=== PATIENT | female | born 1965 | race Two or more races ===

== ENCOUNTER 2024-01-19 11:06 | Inpatient (IN) | payer MEDICAID, OTHER ==
[2024-01-19] VITALS (7 sets, daily range): BP systolic 105; BP diastolic 62; PULSE 68–102; RESP 16–22; TEMP 98.1; O2SAT 92–96
[~2024-01-19] VITALS: Ht 149.9 cm; Wt 75.4 kg
[2024-01-19 13:30] LABS: Basophils # (auto) 0 10 ^3/uL (0-0.2); Basophils % (auto) 0.3 % (0.0-2.0); Eosinophils # (auto) 0.4 10 ^3/uL (0-0.8); Eosinophils % (auto) 4.7 % (0.0-7.0); Hematocrit 37.9 % (36.0-46.0); Hemoglobin 12.4 g/dL (12.2-16.2); Lymphocytes # (auto) 1.3 10 ^3/uL (0.4-5.4); Lymphocytes % (auto) 16.5 % (10.0-50.0); Mean Corpuscular Hgb Conc. 32.7 g/dL (32.0-36.0); Mean Corpuscular Volume 85.6 fL (80.0-100.0); Monocytes # (auto) 0.5 10 ^3/uL (0-1.3); Monocytes % (auto) 6.2 % (0.0-12.0); Neutrophils # (auto) 5.9 10 ^3/uL (1.6-8.6); Neutrophils % (auto) 72.3 % (37.0-80.0); Platelet Count (auto) 149 10^3/uL (140-450); Red Blood Cells 4.42 10^6/uL (4.0-5.20); Red Cell Distribution Width 17.4 % (11.8-14.3); White Blood Cell 8.1 10^3/uL (4.4-10.8)
[2024-01-19 13:42] LABS: Chloride 109 mmol/L (98-107); Potassium 3.7 mmol/L (3.5-5.1); Sodium 146 mmol/L (136-145)
[2024-01-19 13:43] LABS: Calcium 10.4 mg/dL (8.7-10.4)
[2024-01-19 13:48] LABS: BUN/Creatinine Ratio 15.3 (10.0-20.0); Blood Urea Nitrogen 11 mg/dL (9-23); Glucose 107 mg/dL (74-106)
[2024-01-19 14:23] LABS: Anion Gap 5 (5-15); Carbon Dioxide 32 mmol/L (20-31)
[2024-01-19 15:22] LABS: Urine Bacteria FEW /hpf (None Seen); Urine Blood Negative /uL (Negative); Urine Budding Yeast MODERATE /hpf (None Seen); Urine Clarity Turbid (Clear); Urine Color Yellow (Yellow); Urine Hyaline Cast FEW /lpf (0 - 2); Urine Mucus FEW (None Seen); Urine Protein, UAD TRACE (Negative); Urine Specific Gravity 1.022 (1.001-1.035); Urine Urobilinogen Normal (Negative); Urine WBC 14 /hpf (0 - 5)
[2024-01-19] MEDS: cefTRIAXone 1GM/50ML D5W 50 ML IV ONE (16:55)
[2024-01-19] MEDS: methylPREDNISolone SOD SUCC 125 MG/2 ML VL IV ONE (16:55)
[2024-01-19] MEDS ORDERED: ONDANSETRON HCL 4 MG/2 ML VIAL IV PRN (17:00)
[2024-01-19] MEDS ORDERED: ACETAMINOPHEN 325 MG TAB PO PRN (17:00)
[2024-01-19] MEDS ORDERED: HYDROmorphone HCL 2 MG/ML VL/or syr IV PRN (17:00)
[2024-01-19] MEDS: IPRATROPIUM BROM 0.5 MG/2.5ML INH SOL NEB SCH (17:58)
[2024-01-19] MEDS: ALBUTEROL SULF 2.5 MG/0.5ML(0.5%) NEB SOLN ONE (17:58)
[2024-01-19] MEDS: IPRATROPIUM BROM 0.5 MG/2.5ML INH SOL ONE (17:58)
[2024-01-19] MEDS: ALBUTEROL SULF 2.5 MG/0.5ML(0.5%) NEB SOLN NEB SCH (17:59)
[2024-01-19] MEDS: AZITHROMYCIN 500MG/ 250ML 250 ML IV ONE (18:31)
[2024-01-19] MEDS: methylPREDNISolone SOD SUCC 125 MG/2 ML VL IV SCH (18:50)
[2024-01-19] MEDS: HYDROcodone-ACET 5/325MG TAB PO PRN (18:54)
[2024-01-19] MEDS: SODIUM CHLOR 0.9% PF (SALINE LOCK) 10ML VIAL/SYR IV SCH (22:00)
[2024-01-20] VITALS (18 sets, daily range): BP systolic 98–141; BP diastolic 18–93; PULSE 70–120; RESP 16–71; TEMP 97.6–98.4; O2SAT 93–100
[2024-01-20] MEDS ORDERED: APIX5TAB PO (02:30)
[2024-01-20] MEDS ORDERED: ATOR40TA52 PO (02:30)
[2024-01-20] MEDS ORDERED: CARV3.1240 PO (02:30)
[2024-01-20] MEDS ORDERED: CYCL-839 PO (02:30)
[2024-01-20] MEDS ORDERED: DOCU-94 PO (02:30)
[2024-01-20] MEDS ORDERED: AMLO1TAB22 PO (02:30)
[2024-01-20] MEDS ORDERED: MONT-8 PO (02:30)
[2024-01-20] MEDS ORDERED: LOSA-533 PO (02:30)
[2024-01-20] MEDS ORDERED: LEVO100T8 PO (02:34)
[2024-01-20] MEDS ORDERED: FAMO-12 PO (02:34)
[2024-01-20] MEDS ORDERED: GLIP5TAB21 PO (02:34)
[2024-01-20] MEDS ORDERED: POTA-36 PO (02:34)
[2024-01-20] MEDS ORDERED: MELA3TAB27 PO (02:34)
[2024-01-20 05:28] LABS: Basophils # (auto) 0 10 ^3/uL (0-0.2); Basophils % (auto) 0.1 % (0.0-2.0); Eosinophils # (auto) 0 10 ^3/uL (0-0.8); Eosinophils % (auto) 0.1 % (0.0-7.0); Hematocrit 33.6 % (36.0-46.0); Hemoglobin 11.4 g/dL (12.2-16.2); Lymphocytes # (auto) 0.5 10 ^3/uL (0.4-5.4); Lymphocytes % (auto) 16.4 % (10.0-50.0); Mean Corpuscular Hemoglobin 28.5 pg (28.0-32.0); Mean Corpuscular Hgb Conc. 33.8 g/dL (32.0-36.0); Mean Corpuscular Volume 84.4 fL (80.0-100.0); Monocytes # (auto) 0 10 ^3/uL (0-1.3); Monocytes % (auto) 1.2 % (0.0-12.0); Neutrophils # (auto) 2.5 10 ^3/uL (1.6-8.6); Neutrophils % (auto) 82.2 % (37.0-80.0); Nucleated Red Blood Cells % 0.2 %; Platelet Count (auto) 138 10^3/uL (140-450); Red Blood Cells 3.98 10^6/uL (4.0-5.20); Red Cell Distribution Width 16.8 % (11.8-14.3); White Blood Cell 3.1 10^3/uL (4.4-10.8)
[2024-01-20 05:37] LABS: Alanine Aminotransferase 22 U/L (7-40); Albumin 3.7 g/dL (3.2-4.8); Alkaline Phosphatase 83 U/L (46-116); Anion Gap 5 (5-15); Aspartate Aminotransferase 16 U/L (13-40); BUN/Creatinine Ratio 15.4 (10.0-20.0); Bilirubin, Total 0.5 mg/dL (0.2-1.0); Blood Urea Nitrogen 12 mg/dL (9-23); Calcium 10.5 mg/dL (8.7-10.4); Carbon Dioxide 29 mmol/L (20-31); Chloride 110 mmol/L (98-107); Glucose 270 mg/dL (74-106); Potassium 3.4 mmol/L (3.5-5.1); Sodium 144 mmol/L (136-145); Total Protein 6.4 g/dL (5.7-8.2)
[2024-01-20] MEDS: DOCUSATE SOD 100 MG CAP PO PRN (08:59)
[2024-01-20] MEDS: methylPREDNISolone SOD SUCC 40 MG/ML VL IV SCH (09:00)
[2024-01-20] MEDS: ENOXAPARIN SOD 40 MG/0.4 ML SYRINGE SC SCH (09:01)
[2024-01-20] MEDS: cefTRIAXone 1GM/50ML D5W 50 ML IV SCH (09:02)
[2024-01-20] MEDS ORDERED: methylPREDNISolone SOD SUCC 125 MG/2 ML VL IV SCH (10:00)
[2024-01-20] MEDS ORDERED: AZITHROMYCIN 500MG/ 250ML 250 ML IV SCH (10:00)
[2024-01-20] MEDS ORDERED: PATIENTS OWN MEDICATION (Atorvastatin Calcium 40 MG) PO SCH (10:00)
[2024-01-20] MEDS ORDERED: cefTRIAXone 1GM/50ML D5W 50 ML IV SCH (10:00)
[2024-01-20] MEDS: LOSARTAN POTASSIUM 25 MG TAB PO SCH (10:00)
[2024-01-20] MEDS: AZITHROMYCIN 500MG/ 250ML 250 ML IV SCH (10:49)
[2024-01-20] MEDS: POTASSIUM CHL 20 Meq TABLET PO ONE (10:50)
[2024-01-20] MEDS: CARVEDILOL 3.125 MG TAB PO SCH (12:12)
[2024-01-20] MEDS: MONTELUKAST SODIUM 10 MG TAB PO SCH (12:13)
[2024-01-20] MEDS: APIXABAN 5 MG TAB PO SCH (12:13)
[2024-01-20] MEDS: FUROSEMIDE 20 MG TAB PO ONE (12:14)
[2024-01-20] MEDS: PANTOPRAZOLE 40 MG/10 ML VIAL INJ IV ONE (17:33)
[2024-01-20] MEDS: CYCLOBENZAPRINE HCL 10 MG TAB PO SCH (17:33)
[2024-01-20] MEDS: FUROSEMIDE 20 MG TAB PO SCH (21:04)
[2024-01-20] MEDS: ATORVASTATIN 20 MG TAB PO SCH (21:05)
[2024-01-20 21:31] LABS: COVID19 ANTIGEN SOFIA FIA NEGATIVE (NEGATIVE)
[2024-01-20 21:32] LABS: Rapid Influenza A Negative (Negative); Rapid Influenza B Negative (Negative)
[2024-01-21] VITALS (16 sets, daily range): BP systolic 101–112; BP diastolic 59–71; PULSE 74–115; RESP 16–20; TEMP 98–98.6; O2SAT 85–99
[2024-01-21 05:23] LABS: Basophils # (auto) 0 10 ^3/uL (0-0.2); Eosinophils # (auto) 0 10 ^3/uL (0-0.8); Hematocrit 31.1 % (36.0-46.0); Hemoglobin 10.4 g/dL (12.2-16.2); Lymphocytes # (auto) 0.8 10 ^3/uL (0.4-5.4); Lymphocytes % (auto) 10.2 % (10.0-50.0); Mean Corpuscular Hemoglobin 28.7 pg (28.0-32.0); Mean Corpuscular Hgb Conc. 33.5 g/dL (32.0-36.0); Mean Corpuscular Volume 85.4 fL (80.0-100.0); Monocytes # (auto) 0.2 10 ^3/uL (0-1.3); Monocytes % (auto) 2.9 % (0.0-12.0); Neutrophils # (auto) 7.2 10 ^3/uL (1.6-8.6); Neutrophils % (auto) 86.9 % (37.0-80.0); Nucleated Red Blood Cells % 0.3 %; Platelet Count (auto) 137 10^3/uL (140-450); Red Blood Cells 3.64 10^6/uL (4.0-5.20); Red Cell Distribution Width 16.9 % (11.8-14.3); White Blood Cell 8.2 10^3/uL (4.4-10.8)
[2024-01-21] MEDS: LEVOTHYROXINE SODIUM 100 MCG TAB PO SCH (05:28)
[2024-01-21 05:38] LABS: Chloride 107 mmol/L (98-107); Potassium 3.4 mmol/L (3.5-5.1); Sodium 144 mmol/L (136-145)
[2024-01-21 05:39] LABS: Anion Gap 7 (5-15); Calcium 10.4 mg/dL (8.7-10.4); Carbon Dioxide 30 mmol/L (20-31)
[2024-01-21 05:44] LABS: BUN/Creatinine Ratio 15.9 (10.0-20.0); Blood Urea Nitrogen 13 mg/dL (9-23); Glucose 192 mg/dL (74-106)
[2024-01-21 05:45] LABS: Magnesium 1.6 mg/dL (1.6-2.6)
[2024-01-21] MEDS: POTASSIUM CHL 20 Meq TABLET PO STA (06:24)
[2024-01-21] MEDS: PANTOPRAZOLE 40 MG/10 ML VIAL INJ IV SCH (09:03)
[2024-01-21] MEDS ORDERED: FUROSEMIDE 20 MG TAB PO SCH (10:00)
[2024-01-21 13:32] LABS: Base Excess 5.3 mmol/L (-2.0-3.0)
[2024-01-22] VITALS (12 sets, daily range): BP systolic 99–119; BP diastolic 58–75; PULSE 80–106; RESP 16–20; TEMP 98–98.3; O2SAT 91–98
[2024-01-22] MEDS: IPRATROPIUM BROM 0.5 MG/2.5ML INH SOL NEB SCH (02:09)
[2024-01-22] MEDS: ALBUTEROL SULF 2.5 MG/0.5ML(0.5%) NEB SOLN NEB SCH (02:09)
[2024-01-22 06:52] LABS: Calcium 10.1 mg/dL (8.7-10.4); Chloride 105 mmol/L (98-107); Potassium 3.4 mmol/L (3.5-5.1); Sodium 144 mmol/L (136-145)
[2024-01-22 06:53] LABS: Anion Gap 7 (5-15); Carbon Dioxide 32 mmol/L (20-31)
[2024-01-22 06:58] LABS: BUN/Creatinine Ratio 24.7 (10.0-20.0); Basophils # (auto) 0 10 ^3/uL (0-0.2); Basophils % (auto) 0.1 % (0.0-2.0); Blood Urea Nitrogen 22 mg/dL (9-23); Eosinophils # (auto) 0 10 ^3/uL (0-0.8); Glucose 203 mg/dL (74-106); Hematocrit 32.6 % (36.0-46.0); Hemoglobin 10.9 g/dL (12.2-16.2); Lymphocytes # (auto) 0.8 10 ^3/uL (0.4-5.4); Lymphocytes % (auto) 9.2 % (10.0-50.0); Mean Corpuscular Hgb Conc. 33.4 g/dL (32.0-36.0); Mean Corpuscular Volume 83.9 fL (80.0-100.0); Monocytes # (auto) 0.2 10 ^3/uL (0-1.3); Monocytes % (auto) 2.5 % (0.0-12.0); Neutrophils % (auto) 88.2 % (37.0-80.0); Nucleated Red Blood Cells % 0.1 %; Platelet Count (auto) 176 10^3/uL (140-450); Red Blood Cells 3.88 10^6/uL (4.0-5.20); Red Cell Distribution Width 17.8 % (11.8-14.3)
[2024-01-22] MEDS: POTASSIUM CHL 20 Meq TABLET PO ONE (08:39)
[2024-01-22] MEDS: METOPROLOL SUCCINATE XL 50 MG TAB PO SCH (09:29)
[2024-01-22 12:26] LABS: Hepatitis B Surface Antigen Negative (Negative)
[2024-01-22 13:17] LABS: Hepatitis C Antibody Positive (Negative)
[2024-01-22] MEDS ORDERED: HYDR-4902 PO (15:15)
[2024-01-22] MEDS ORDERED: POTA-36 PO (17:43)
[2024-01-22] MEDS ORDERED: LEVO750T40 PO (17:43)
[2024-01-22] MEDS ORDERED: PRED20TA2 PO (17:43)
[2024-01-22] MEDS ORDERED: FURO20TA3 PO (17:43)
[2024-01-22] MEDS ORDERED: METO25TA93 PO (17:43)
[2024-01-23] MEDS ORDERED: AUG875T PO (14:56)
== END 2024-01-22 15:45 | disposition home or self-care (01) | DRG 133 ==
LOC: ER 11:06 → OVERFLOW 16:48 → ER 16:55 → CENTRAL 01-20 02:23
PROVIDERS: ADMIT Internal Medicine Geriatric Medicine; ATTEND Internal Medicine Geriatric Medicine
DX: J96.21 Acute and chronic respiratory failure with hypoxia (principal); I50.43 Acute on chronic combined systolic (congestive) and diastolic (congestive) heart failure; J15.69 Pneumonia due to other Gram-negative bacteria; I27.20 Pulmonary hypertension, unspecified; D68.59 Other primary thrombophilia; J15.9 Unspecified bacterial pneumonia; J44.0 Chronic obstructive pulmonary disease with (acute) lower respiratory infection; Z99.81 Dependence on supplemental oxygen; J44.1 Chronic obstructive pulmonary disease with (acute) exacerbation; E87.6 Hypokalemia; E78.5 Hyperlipidemia, unspecified; J98.4 Other disorders of lung; E03.9 Hypothyroidism, unspecified; I11.0 Hypertensive heart disease with heart failure; R73.03 Prediabetes; Z20.822 Contact with and (suspected) exposure to COVID-19; Z88.1 Allergy status to other antibiotic agents; Z87.891 Personal history of nicotine dependence; Z86.718 Personal history of other venous thrombosis and embolism; Z86.711 Personal history of pulmonary embolism; Z59.71 Insufficient health insurance coverage
CPT/HCPCS: 36415; 36600; 71045; 80048; 80053; 81001; 82805; 83036; 83735; 83880; 84484; 85025; 86803; 87340; 87426; 87804; 93005; 93306; 94640; 96365; 96375; 96376; 99291; G0378; J2470

== ENCOUNTER 2024-02-15 15:52 | Inpatient (IN) | payer MEDICAID ==
[~2024-02-15] VITALS: Ht 149.9 cm; Wt 74.4 kg
[~2024-02-15 15:52] MED LIST: AMLO1TAB22 PO; APIX5TAB PO; ATOR40TA52 PO; AUG875T PO; CARV3.1240 PO; CYCL-839 PO; DOCU-94 PO; FAMO-12 PO; FURO20TA3 PO; GLIP5TAB21 PO; HYDR-4902 PO; LEVO100T8 PO; LOSA-533 PO; MELA3TAB27 PO; METO25TA93 PO; MONT-8 PO; POTA-36 PO; PRED20TA2 PO
--- NOTE | 2024-02-15 17:06 | ED.PDOC ---
SOB-HPI HPI Comments 58Y F with PMHx DM, HTN, pulmonary HTN, CHF, COPD, and bilateral knee avascular necrosis presents to ED via EMS for chief complaint SOB x3days with cough and right-sided back pain. Pt denies chest pain, fever, cough. Pt is usually on 3L/min O2 at home, has been using home nebulizer and inhaler without relief. Pt states she has not had lower extremity pain relief from any of her pain medications. Upon EMS arrival, BS was 65. Pt states she recently moved to [place] and is getting established with pain management but has not been prescribed new pain meds. Allergies include Levaquin. Chief Complaint: Shortness of Breath Time Seen by MD: 16:36 Primary Care Provider: NONE Reviewed notes: Medications, Allergies Information Source: Patient, Emergency Med Personnel Mode of Arrival: EMS Severity: Moderate Timing: Days Duration: Since onset Context: At Rest PE Risk Factors: None History of: COPD, CHF Prehospital treatment: 12 Lead EKG, Oxygen Modifying Factors: Nothing Associated Signs and Symptoms: Cough If cough with SOB: Non-Productive Past Medical History PAST MEDICAL HISTORY: CHF, COPD, DM, HTN Past Medical History (Other): Pulmonary hypertension, oxygen dependence, bilateral knee avascular necrosis, chronic bilateral lower extremity pain Surgical History: Denies all surgeries PARCEL POST DELIVERY History: No Pertinent PARCEL POST DELIVERY History Family History Family History: Unknown Social History Smoker: Quit Greater Than 1 Year Alcohol: Denies ETOH Use Drugs: Denies Drug Use Lives In: Home Constitutional: denies: chills, diaphoresis, fatigue, fever, malaise, sweats, weakness, others EENTM: denies: blurred vision, double vision, ear bleeding, ear discharge, ear drainage, ear pain, ear ringing, eye pain, eye redness, hearing loss, mouth pain, mouth swelling, nasal discharge, nose bleeding, nose congestion, nose pain, photophobia, tearing, throat pain, throat swelling, voice changes, others Respiratory: reports: cough, shortness of breath; denies: hemoptysis, orthop rahul, SOB at rest, SOB with excertion, stridor, wheezing, others Cardiovascular: denies: chest pain, dizzy spells, diaphoresis, Dyspnea on exertion, edema, irregular heart beat, left arm pain, lightheadedness, palpitations, PND, syncope, others Gastrointestinal: denies: abdomen distended, abdominal pain, blood streaked bowels, constipated, diarrhea, dysphagia, difficulty swallowing, hematemesis, melena, nausea, poor appetite, poor fluid intake, rectal bleeding, rectal pain, vomiting, others Genitourinary: denies: abnormal vagina bleeding, burning, dyspareunia, dysuria, flank pain, frequency, hematuria, incontinence, pain, , vagina discharge, urgency, others Neurological: denies: dizziness, fainting, headache, left sided numbness, left sided weakness, numbness, paresthesia, pre-existing deficit, right sided numbness, right sided weakness, seizure, speech problems, tingling, tremors, weakness, others Musculoskeletal: reports: back pain (lt sided); denies: gout, joint pain, joint swelling, muscle pain, muscle stiffness, neck pain, others Integumetry: denies: bruises, change in color, change in hair/nails, dryness, laceration, lesions, lumps, rash, wounds, others Allergic/Immunocompromised: denies: Difficulty Healing, Frequent Infections, Hives, Itching, others Hematologic/Lymphatic: denies: anemia, blood clots, easy bleeding, easy bruising, swollen glands, others Endocrine: denies: excessive hunger, excessive sweating, excessive thirst, excessive urination, flushing, intolerance to cold, intolerance to heat, unexplained weight gain, unexplained weight loss, others Psychiatric: denies: anxiety, bipolar disorder, depression, hopeless, panic disorder, schizophrenia, sleepless, suicidal, others All Other Systems: Reviewed and Negative Physical Exam General Appearance: Mild Distress HEENT: Normal ENT Inspection Neck: Full Range of Motion, Normal Inspection Respiratory: Decreased Breath Sounds, No Accessory Muscle Use, No Respiratory Distress, Rhonchi, Wheezing Cardiovascular: No JVD, Regular Rate/Rhythm Breast Exam: Deferred Gastrointestinal: Non Tender, Soft Genitalia: Deferred Pelvic: Deferred Rectal: Deferred Extremities: Normal inspection, Normal range of motion, Pedal edema Neurologic: Alert, No Motor Deficits, Normal Affect, Normal Mood, No Sensory Deficits Cerebellar Function: NOT DONE Reflexes: NOT DONE Skin: Dry, Normal Color, Warm Lymphatic: NOT DONE Was a procedure done? Was a procedure done?: No Differential Dx Differential Diagnosis: Asthma, CHF, COPD, Myocardial infarction, Panic Attack, Pneumonia, Pneumothorax, URI X-Ray, Labs, Meds, VS Vital Signs Date Time Temp Pulse Resp B/P (MAP) Pulse Ox O2 Delivery O2 Flow Rate FiO2 02/15/24 18:27 98.0 89 17 104/49 (67) 94 98.0 02/15/24 18:23 101 14 90 Nasal Cannula* 3 32 02/15/24 18:06 92 02/15/24 17:55 92 12 161/121 02/15/24 17:54 161/121 02/15/24 17:41 18 98 Nasal Cannula* 3 32 02/15/24 17:20 98.6 88 17 95/55 (68) 96 98.6 02/15/24 17:20 88 16 96 Nasal Cannula 3.0 02/15/24 16:01 97.6 88 20 97/67 (77) 94 Lab Test 02/15/24 18:00 02/15/24 17:06 Range/Units Troponin I High Sensitivity < 3 L < 3 L </=34 ng/L White Blood Count 5.6 4.4-10.8 10^3/uL Red Blood Count 4.24 4.0-5.20 10^6/uL Hemoglobin 11.9 L 12.2-16.2 g/dL Hematocrit 36.8 36.0-46.0 % Mean Corpuscular Volume 86.7 80.0-100.0 fL Mean Corpuscular Hemoglobin 28.1 28.0-32.0 pg Mean Corpuscular Hemoglobin Concent 32.4 32.0-36.0 g/dL Red Cell Distribution Width 18.7 H 11.8-14.3 % Platelet Count 170 140-450 10^3/uL Mean Platelet Volume 6.9 6.9-10.8 fL Neutrophils (%) (Auto) 62.3 37.0-80.0 % Lymphocytes (%) (Auto) 21.1 10.0-50.0 % Monocytes (%) (Auto) 8.7 0.0-12.0 % Eosinophils (%) (Auto) 7.5 H 0.0-7.0 % Basophils (%) (Auto) 0.4 0.0-2.0 % Neutrophils # (Auto) 3.5 1.6-8.6 10 ^3/uL Lymphocytes # (Auto) 1.2 0.4-5.4 10 ^3/uL Monocytes # (Auto) 0.5 0-1.3 10 ^3/uL Eosinophils # (Auto) 0.4 0-0.8 10 ^3/uL Basophils # (Auto) 0 0-0.2 10 ^3/uL Nucleated Red Blood Cells 0.1 % Sodium Level 146 H 136-145 mmol/L Potassium Level 3.8 3.5-5.1 mmol/L Chloride Level 108 H 98-107 mmol/L Carbon Dioxide Level 30 20-31 mmol/L Anion Gap 8 5-15 Blood Urea Nitrogen 11 9-23 mg/dL Creatinine 0.60 0.550-1.02 mg/dL Glomerular Filtration Rate Calc 103 >90 mL/min BUN/Creatinine Ratio 18.3 10.0-20.0 Serum Glucose 88 74-106 mg/dL Calcium Level 10.1 8.7-10.4 mg/dL B-Type Natriuretic Peptide 72.22 0-100 pg/mL Current Medications Medications (Trade) Dose Ordered Sig/Aquiles Route Start Time Stop Time Status Last Admin Albuterol (Ventolin Medneb) 5 mg ONCE ONCE NEB 02/15/24 17:00 02/15/24 17:01 DC 02/15/24 17:41 Ipratropium [place] (Atrovent Medneb) 0.5 mg ONCE ONCE NEB 02/15/24 17:00 02/15/24 17:01 DC 02/15/24 17:41 Methylprednisolone Sodium Succinate (Solu Medrol) 125 mg ONCE ONCE IV 02/15/24 17:00 02/15/24 17:01 DC 02/15/24 17:52 Furosemide (Lasix Injection) 40 mg ONCE ONCE IV 02/15/24 17:00 02/15/24 17:01 DC 02/15/24 17:54 Morphine Sulfate 4 mg ONCE ONCE IV 02/15/24 17:00 02/15/24 17:01 DC 02/15/24 17:55 Ondansetron HCl (Zofran) 4 mg ONCE ONCE IV 02/15/24 17:00 02/15/24 17:01 DC 02/15/24 17:52 PROCEDURE(s): CXRP - CHEST PORTABLE REASON: sob ORDER NUMBER(s): [id number], ACCESSION NUMBER(s): [id number] CHEST RADIOGRAPH Indication:sob Technique: Single frontal view of the chest was obtained Comparison: XY CHEST PORTABLE on DOS: 01/19/24 FINDINGS: Lines and Tubes: None Lungs: Fullness to the right hilum with increased interstitial markings in the right base. This may represent a developing infiltrate can not exclude right hilar abnormality. If a CT of the chest is of concern recommend IUD contrast. Pleura: No effusion. No pneumothorax. Cardiomediastinal contours: Unremarkable Bones: No acute osseous abnormality. IMPRESSION: 1. Stable fullness of the right hilum unchanged from 01/19/2024. Increasing interstitial markings in the right base may represent developing infiltrate. 2. If a CT of the chest is under consideration recommend IV contrast. X-Ray, Labs, Meds, VS Comment 58Y F with PMHx DM, HTN, pulmonary HTN, CHF, COPD, and bilateral knee avascular necrosis cleaning of shortness a breath and right sided posterior thoracic area pain Vitals remarkable for BP 161/121 Exam remarkable for diminished breath sounds, scattered rales, audible wheezes Rhythm strip independently interpreted by me: Sinus rhythm, rate 92, no ectopy. EKG pending Chest x-ray IMPRESSION: 1. Stable fullness of the right hilum unchanged from 01/19/2024. Increasing interstitial markings in the right base may represent developing infiltrate. 2. If a CT of the chest is under consideration recommend IV contrast. CBC unremarkable, basic metabolic panel remarkable for sodium 146 and normal glucose 2 serial troponins and BNP normal Patient treated with the following in the ED: Albuterol 5 mg/Atrovent 0.5 mg nebulized x2, Solu-Medrol 125 mg IV, Lasix 40 mg IV, Rocephin 1 g IV, Zithromax 500 mg IV On re-evaluation, shortness of breath has improved, oxygen saturation is normal on 3 L nasal cannula and other vitals are stable. Plan is to admit the patient for IV antibiotics and respiratory support as needed Time of 1ST Reevaluation: 17:06 Reevaluation 1ST: Unchanged Patient Education/Counseling: Diagnosis, Treatment Family Education/Counseling: No Family Present Departure 1 Departure Time of Disposition: 19:49 Impression: Primary Impression: Acute and chronic respiratory failure Additional Impression: Pneumonia Qualified Codes: J18.9 - Pneumonia, unspecified organism Disposition: 09 ADMITTED INPATIENT Admit to: Tele Condition: Guarded Critical Care Note Critical Care Time?: No Stability Stability form required: No Heart Score Heart Score: Heart Score Response (Comments) Value History N/A 0 EKG N/A 0 Age N/A 0 Risk Factors N/A 0 Troponin N/A 0 Total 0 I personally scribed for POORNIMA OSULLIVAN MD ([facility]) on 02/15/24 at 17:06. Electronically submitted by Corine Love ([facility]). I personally scribed for POORNIMA OSULLIVAN MD ([email or web address]) on 02/15/24 at 19:06. Electronically submitted by Corine Love ([facility]). POORNIMA OSULLIVAN MD Feb 15, 2024 17:06
[2024-02-15 17:26] LABS: Basophils # (auto) 0 10 ^3/uL (0-0.2); Basophils % (auto) 0.4 % (0.0-2.0); Eosinophils # (auto) 0.4 10 ^3/uL (0-0.8); Eosinophils % (auto) 7.5 % (0.0-7.0); Hematocrit 36.8 % (36.0-46.0); Hemoglobin 11.9 g/dL (12.2-16.2); Lymphocytes # (auto) 1.2 10 ^3/uL (0.4-5.4); Lymphocytes % (auto) 21.1 % (10.0-50.0); Mean Corpuscular Hemoglobin 28.1 pg (28.0-32.0); Mean Corpuscular Hgb Conc. 32.4 g/dL (32.0-36.0); Mean Corpuscular Volume 86.7 fL (80.0-100.0); Monocytes # (auto) 0.5 10 ^3/uL (0-1.3); Monocytes % (auto) 8.7 % (0.0-12.0); Neutrophils # (auto) 3.5 10 ^3/uL (1.6-8.6); Neutrophils % (auto) 62.3 % (37.0-80.0); Nucleated Red Blood Cells % 0.1 %; Platelet Count (auto) 170 10^3/uL (140-450); Red Blood Cells 4.24 10^6/uL (4.0-5.20); Red Cell Distribution Width 18.7 % (11.8-14.3); White Blood Cell 5.6 10^3/uL (4.4-10.8)
[2024-02-15 17:32] LABS: Chloride 108 mmol/L (98-107); Potassium 3.8 mmol/L (3.5-5.1); Sodium 146 mmol/L (136-145)
[2024-02-15 17:33] LABS: Anion Gap 8 (5-15); Carbon Dioxide 30 mmol/L (20-31)
[2024-02-15 17:34] LABS: Calcium 10.1 mg/dL (8.7-10.4)
[2024-02-15 17:39] LABS: BUN/Creatinine Ratio 18.3 (10.0-20.0); Blood Urea Nitrogen 11 mg/dL (9-23); Glucose 88 mg/dL (74-106)
[2024-02-15] MEDS: ALBUTEROL SULF 2.5 MG/0.5ML(0.5%) NEB SOLN NEB ONE (17:41)
[2024-02-15] MEDS: IPRATROPIUM BROM 0.5 MG/2.5ML INH SOL NEB ONE (17:41)
[2024-02-15] MEDS: methylPREDNISolone SOD SUCC 125 MG/2 ML VL IV ONE (17:52)
[2024-02-15] MEDS: ONDANSETRON HCL 4 MG/2 ML VIAL IV ONE (17:52)
[2024-02-15] MEDS: FUROSEMIDE 40 MG/4 ML VIAL IV ONE (17:54)
[2024-02-15] MEDS: MORPHINE SULFATE 4 MG/ML SYR/VIAL IV ONE (17:55)
[2024-02-15 18:23] VITALS: PULSE 101; RESP 14; O2SAT 90
--- NOTE | 2024-02-15 19:02 | DVH ---
CHEST RADIOGRAPH Indication:sob Technique: Single frontal view of the chest was obtained Comparison: XY CHEST PORTABLE on DOS: 01/19/24 FINDINGS: Lines and Tubes: None Lungs: Fullness to the right hilum with increased interstitial markings in the right base. This may r epresent a developing infiltrate can not exclude right hilar abnormality. If a CT of the chest is of concern recommend IUD contrast. Pleura: No effusion. No pneumothorax. Cardiomediastinal contours: Unremarkable Bones: No acute osseous abnormality. IMPRESSION: 1. Stable fullness of the right hilum unchanged from 01/19/2024. Increasing interstitial markings in the right base may represent developing infiltrate. 2. If a CT of the chest is under consideration recommend IV contrast.
[2024-02-15 19:30] VITALS: RESP 12; O2SAT 94
[2024-02-15] MEDS: cefTRIAXone 1GM/50ML D5W 50 ML IV ONE (20:40)
[2024-02-15 21:15] LABS: Urine Bacteria None Seen /hpf (None Seen)
[2024-02-15] MEDS: AZITHROMYCIN 500MG/ 250ML 250 ML IV ONE (21:16)
[2024-02-15 21:38] LABS: Urine Blood Negative /uL (Negative); Urine Clarity Clear (Clear); Urine Color Colorless (Yellow); Urine Protein, UAD Negative (Negative); Urine Specific Gravity 1.007 (1.001-1.035); Urine Urobilinogen Normal (Negative); Urine WBC 1 /hpf (0 - 5); Urine pH 5.5 (5.0-9.0)
[2024-02-15] MEDS ORDERED: ONDANSETRON HCL 4 MG/2 ML VIAL IV PRN (22:45)
[2024-02-15] MEDS ORDERED: DEXTROSE (50%) 50ML SYRG IV PRN (22:45)
[2024-02-15] MEDS ORDERED: MORPHINE SULFATE INJ 2 MG/ml SYRG IV PRN (22:45)
[2024-02-15] MEDS ORDERED: TEMAZEPAM 15 MG CAP PO PRN (22:45)
[2024-02-15] MEDS ORDERED: NITROGLYCERIN 0.4 MG SL TAB SL PRN (22:45)
[2024-02-15 22:56] VITALS: BP 94/62; PULSE 81; RESP 16; TEMP 98.9; O2SAT 94
[2024-02-16] VITALS (14 sets, daily range): BP systolic 90–161; BP diastolic 55–121; PULSE 85–112; RESP 16–19; TEMP 97.5–98.2; O2SAT 91–99
[2024-02-16] MEDS: HYDROcodone-ACET 7.5/325MG TAB PO PRN (00:22)
[2024-02-16] MEDS: IPRATROPIUM BROM 0.5 MG/2.5ML INH SOL NEB PRN (00:28)
[2024-02-16] MEDS: ALBUTEROL SULF 2.5 MG/0.5ML(0.5%) NEB SOLN NEB PRN (00:28)
[2024-02-16 04:13] LABS: Basophils # (auto) 0 10 ^3/uL (0-0.2); Basophils % (auto) 0.1 % (0.0-2.0); Eosinophils # (auto) 0 10 ^3/uL (0-0.8); Eosinophils % (auto) 0.3 % (0.0-7.0); Hematocrit 34.9 % (36.0-46.0); Hemoglobin 11.4 g/dL (12.2-16.2); Lymphocytes # (auto) 0.4 10 ^3/uL (0.4-5.4); Lymphocytes % (auto) 13.5 % (10.0-50.0); Mean Corpuscular Hemoglobin 28.3 pg (28.0-32.0); Mean Corpuscular Hgb Conc. 32.8 g/dL (32.0-36.0); Mean Corpuscular Volume 86.3 fL (80.0-100.0); Monocytes # (auto) 0 10 ^3/uL (0-1.3); Monocytes % (auto) 1.8 % (0.0-12.0); Neutrophils # (auto) 2.2 10 ^3/uL (1.6-8.6); Neutrophils % (auto) 84.3 % (37.0-80.0); Nucleated Red Blood Cells % 0.1 %; Platelet Count (auto) 147 10^3/uL (140-450); Red Blood Cells 4.04 10^6/uL (4.0-5.20); Red Cell Distribution Width 18.8 % (11.8-14.3); White Blood Cell 2.6 10^3/uL (4.4-10.8)
[2024-02-16 04:28] LABS: Chloride 105 mmol/L (98-107); Potassium 3.6 mmol/L (3.5-5.1); Sodium 142 mmol/L (136-145)
[2024-02-16 04:29] LABS: Anion Gap 7 (5-15); Calcium 10.2 mg/dL (8.7-10.4); Carbon Dioxide 30 mmol/L (20-31)
[2024-02-16 04:34] LABS: Glucose 352 mg/dL (74-106)
[2024-02-16 04:35] LABS: BUN/Creatinine Ratio 13.8 (10.0-20.0); Blood Urea Nitrogen 13 mg/dL (9-23)
--- NOTE | 2024-02-16 05:35 | DVHHP2 ---
History of Present Illness Reason for Visit: Shortness of breath History of Present Illness 58-year-old female presents for evaluation of shortness for breath. Patient presents with a four day history of worsening shortness for breath. She reports using her nebulizer med nebs at home without relief of symptoms. She uses 3 L of nasal cannula oxygen at home as well. Denies chest pain or palpitations. No fever. No other acute complaints reported. Past Medical History Diabetes mellitus, COPD, hypertension, CHF, bilateral knee avascular necrosis Past Surgical History Denies Family History Noncontributory Smoke: Quit ALCOHOL: none Drugs: None Review of Systems Review of Systems Review of systems are currently negative otherwise addressed in HPI. Allergies: Coded Allergies: Levofloxacin (Verified Allergy, Unknown, 01/19/24) Medications Current Medications Medications Dose Ordered Sig/Aquiles Route Start Time Stop Time Status Last Admin Dose Admin Ceftriaxone Sodium 50 ml @ 100 mls/hr DAILY@2000 IV 02/16/24 20:00 Azithromycin 250 ml @ 125 mls/hr DAILY@2100 IV 02/16/24 21:00 UNV Amlodipine Besylate 5 mg DAILY PO 02/16/24 10:00 Apixaban 5 mg BID PO 02/16/24 10:00 Atorvastatin Calcium 40 mg HS PO 02/16/24 22:00 Carvedilol 3.125 mg Q12HR PO 02/16/24 10:00 Furosemide 20 mg DAILY PO 02/16/24 10:00 Levothyroxine Sodium 100 mcg QAM@0600 PO 02/16/24 06:00 Montelukast Sodium 10 mg HS PO 02/16/24 22:00 Albuterol 2.5 mg Q6HPRN PRN NEB 02/15/24 22:45 02/16/24 00:28 2.5 MG Ipratropium [place] 0.5 mg Q6HPRN PRN NEB 02/15/24 22:45 02/16/24 00:28 0.5 MG Diagnostic Test (Pha) 1 strip ACHS 02/16/24 07:00 Insulin Human Regular ACHS SC 02/16/24 07:00 Dextrose 50 ml UD PRN IV 02/15/24 22:45 Temazepam 15 mg QHSP PRN PO 02/15/24 22:45 Ondansetron HCl 4 mg Q4HP PRN IV 02/15/24 22:45 Acetaminophen 650 mg Q6HP PRN PO 02/15/24 22:45 Nitroglycerin 0.4 mg Q5MINP PRN SL 02/15/24 22:45 Morphine Sulfate 2 mg Q30M PRN IV 02/15/24 22:45 Acetaminophen/ Hydrocodone Bitart 1 tab Q8HP PRN PO 02/15/24 23:45 02/16/24 00:22 1 TAB Exam Vital Signs Vital Signs Date Time Temp Pulse Resp B/P (MAP) Pulse Ox O2 Delivery O2 Flow Rate FiO2 02/16/24 05:00 87 12 96/56 (69) 97 02/16/24 00:28 Nasal Cannula 3.0 02/16/24 00:28 32 02/15/24 23:42 97.6 97.6 Exam Gen: 58-year-old female in mild distress Skin: Warm, dry, normal color and texture, no rash. HEENT: Normocephalic atraumatic, mucous membranes moist and pink. Neck: Cervical and supraclavicular nodes normal without enlargement, trachea is midline, thyroid gland is normal without masses. Pulmonary: Clear to auscultation and percussion bilaterally. Cardiac: Regular rate and rhythm. No murmur Abdomen: Soft, nontender, nondistended, bowel sounds present all 4 quadrants, no guarding, no rigidity, no organomegaly. Extremities: No cyanosis, clubbing, no edema Neuro: Cranial nerves II through XII grossly intact, normal affect and speech, no focal motor deficits. Labs/Xrays ORDERING PHYSICIAN: POORNIMA OSULLIVAN MD PROCEDURE(s): CXRP - CHEST PORTABLE REASON: sob ORDER NUMBER(s): [id number], ACCESSION NUMBER(s): [id number] CHEST RADIOGRAPH Indication:sob Technique: Single frontal view of the chest was obtained Comparison: XY CHEST PORTABLE on DOS: 01/19/24 FINDINGS: Lines and Tubes: None Lungs: Fullness to the right hilum with increased interstitial markings in the right base. This may represent a developing infiltrate can not exclude right hilar abnormality. If a CT of the chest is of concern recommend IUD contrast. Pleura: No effusion. No pneumothorax. Cardiomediastinal contours: Unremarkable Bones: No acute osseous abnormality. IMPRESSION: 1. Stable fullness of the right hilum unchanged from 01/19/2024. Increasing interstitial markings in the right base may represent developing infiltrate. 2. If a CT of the chest is under consideration recommend IV contrast. Labs Test 02/16/24 03:37 02/15/24 21:07 02/15/24 20:03 02/15/24 17:06 Range/Units White Blood Count 2.6 L 4.4-10.8 10^3/uL Red Blood Count 4.04 4.0-5.20 10^6/uL Hemoglobin 11.4 L 12.2-16.2 g/dL Hematocrit 34.9 L 36.0-46.0 % Mean Corpuscular Volume 86.3 80.0-100.0 fL Mean Corpuscular Hemoglobin 28.3 28.0-32.0 pg Mean Corpuscular Hemoglobin Concent 32.8 32.0-36.0 g/dL Red Cell Distribution Width 18.8 H 11.8-14.3 % Platelet Count 147 140-450 10^3/uL Mean Platelet Volume 7.2 6.9-10.8 fL Neutrophils (%) (Auto) 84.3 H 37.0-80.0 % Lymphocytes (%) (Auto) 13.5 10.0-50.0 % Monocytes (%) (Auto) 1.8 0.0-12.0 % Eosinophils (%) (Auto) 0.3 0.0-7.0 % Basophils (%) (Auto) 0.1 0.0-2.0 % Neutrophils # (Auto) 2.2 1.6-8.6 10 ^3/uL Lymphocytes # (Auto) 0.4 0.4-5.4 10 ^3/uL Monocytes # (Auto) 0 0-1.3 10 ^3/uL Eosinophils # (Auto) 0 0-0.8 10 ^3/uL Basophils # (Auto) 0 0-0.2 10 ^3/uL Nucleated Red Blood Cells 0.1 % Sodium Level 142 136-145 mmol/L Potassium Level 3.6 3.5-5.1 mmol/L Chloride Level 105 98-107 mmol/L Carbon Dioxide Level 30 20-31 mmol/L Anion Gap 7 5-15 Blood Urea Nitrogen 13 9-23 mg/dL Creatinine 0.94 # 0.550-1.02 mg/dL Glomerular Filtration Rate Calc 69 >90 mL/min BUN/Creatinine Ratio 13.8 10.0-20.0 Serum Glucose 352 H 74-106 mg/dL Calcium Level 10.2 8.7-10.4 mg/dL Urine Color Colorless Yellow Urine Clarity Clear Clear Urine pH 5.5 5.0-9.0 Urine Specific [place] 1.007 1.001-1.035 Urine Protein Negative Negative Urine Ketones Negative Negative Urine Blood Negative Negative /uL Urine Nitrite Negative Negative Urine Bilirubin Negative Negative Urine Urobilinogen Normal Negative mg/dL Urine Leukocyte Esterase Negative Negative /uL Urine RBC 1 0 - 4 /hpf Urine WBC 1 0 - 5 /hpf Urine Squamous Epithelial Cells Few <5 /hpf Urine Bacteria None seen None Seen /hpf Urine Glucose Normal Normal mg/dL Troponin I High Sensitivity < 3 L </=34 ng/L B-Type Natriuretic Peptide 72.22 0-100 pg/mL Assessment/Plan Assessment/Plan Assessment Community-acquired pneumonia Acute on chronic respiratory failure COPD Diabetes mellitus CHF Hypertension Plan Admit the patient to telemetry to the hospitalist Resume home medications Rocephin/azithromycin Med nebs Continue treatment per orders. Plan discussed with: Patient My Orders Orders - HUANG QUINN AGACNP Procedure Category Date Status Time Ceftriaxone 1gm/50ml PHA 02/16/24 In Process D5w (Rocephin) 20:00 Azithromycin 500mg/ PHA 02/16/24 Pending 250ml (Zithromax 50 21:00 Amlodipine Tablet PHA 02/16/24 In Process (Norvasc Tablet) 10:00 Apixaban (Eliquis) PHA 02/16/24 In Process 10:00 Atorvastatin (Lipitor) PHA 02/16/24 In Process 22:00 Carvedilol Tablet PHA 02/16/24 In Process (Coreg Tablet) 10:00 Furosemide Tablet PHA 02/16/24 In Process (Lasix Tablet) 10:00 Levothyroxine Tablet PHA 02/16/24 In Process (Synthroid Tablet) 06:00 Montelukast Tablet PHA 02/16/24 In Process (Singulair Tablet) 22:00 Albuterol Medneb PHA 02/15/24 In Process (Ventolin Medneb) 22:45 Ipratropium Medneb PHA 02/15/24 In Process (Atrovent Medneb) 22:45 Glucose Blood PHA 02/16/24 In Process (Accu-Chek Comfort 07:00 Insulin R (Human) PHA 02/16/24 In Process (Insulin R) 07:00 Dextrose 50% Syringe PHA 02/15/24 In Process 22:45 Admit ADMIT 02/15/24 Transmitted 22:35 Temazepam (Restoril) PHA 02/15/24 In Process 22:45 Ondansetron Hcl PHA 02/15/24 In Process (Zofran) 22:45 Cardiac DIET 02/16/24 Transmitted Diet-2gna,Lofat,Lochol Breakfast Condition: Fair ROSE 02/15/24 In Process 22:35 Acetaminophen Tablet PHA 02/15/24 In Process (Tylenol Tablet) 22:45 Bedrest With Bathroom [facility] 02/15/24 In Process Privileg 22:35 Nitroglycerin [facility] 02/15/24 In Process Sublingual (Ntrostat 22:45 Morphine Sulfate PHA 02/15/24 In Process Injection 22:45 Stat Ekg For Chest [facility] 02/15/24 In Process Pain 22:35 Notify Md Of Changes [facility] 02/15/24 In Process From Base 22:35 Supervisor Mill For [facility] 02/15/24 In Process 24 Hours 22:35 Emergency Dysrhythmia [facility] 02/15/24 In Process Protocol 22:35 Rhythm Strips Once [facility] 02/15/24 In Process Every Shift 22:35 Oxygen By Nasal RT 02/15/24 Transmitted Cannula 22:35 Hydrocodone-Acet PHA 02/15/24 In Process 7.5/325mg Tab ([place] 23:45 Date of Service: Feb 15, 2024 Billing Provider: HUANG QUINN Common Visit Codes: [id number] INP/OBS CARE (HIGH) HUANG QUINN Feb 16, 2024 05:35
[2024-02-16] MEDS: LEVOTHYROXINE SODIUM 100 MCG TAB PO SCH (06:01)
[2024-02-16] MEDS: ACCU-CHEK COMFORT CURVE STRIP VI SCH (06:01)
[2024-02-16] MEDS: InsuLIN REG 1unit/0.01ml Soln (100units/ml) SC SCH (06:07)
[2024-02-16 08:32] LABS: Hepatitis B Surface Antigen Negative (Negative)
[2024-02-16 09:03] LABS: Hepatitis C Antibody Reactive (Negative)
[2024-02-16] MEDS: FUROSEMIDE 20 MG TAB PO SCH (09:57)
[2024-02-16] MEDS: APIXABAN 5 MG TAB PO SCH (09:57)
[2024-02-16] MEDS: CARVEDILOL 3.125 MG TAB PO SCH (10:00)
[2024-02-16] MEDS: amLODIPine BESYLATE 5 MG TAB PO SCH (10:00)
--- NOTE | 2024-02-16 13:06 | DVHPN2 ---
Assessment/Plan Assessment/Plan Progress note Subjective 58-year-old female with COPD on home oxygen broken, congestive heart failure, bilateral knee avascular necrosis admitted for hypoxic respiratory failure. Patient is seen by me today during rounds Still wheezing, no crackles, reported that she follows pain management in [facility] and body [phone] Dr. Mcknight. Reported taking Donnellson 7.5. Cures reviewed, last prescribed 01/25/24 Donnellson 5 q.6 p.r.n. for 4 days. Patient reported has been buying Donnellson from her friend and would need pain management on discharge. Objective Physical exam Alert, oriented x3 PERRLA JVD mid neck Mild end expiratory wheezing, no crackles S1-S2 regular rate and rhythm no murmur Abdomen soft nontender, no organomegaly Moving all four extremities Mild lower extremity edema Decreased range of motion on bilateral knee, tenderness on active and passive movements Lab Hemoglobin 11.9 Normal MCV Elevated sugar Bicarb 30 Hepatitis C reactive BNP 72 Imaging Chest x-ray with fullness on the right hilum, unchanged from prior Assessment and plan Acute on chronic hypoxic respiratory failure secondary to pneumonia COPD group E on home oxygen with exacerbation Community-acquired pneumonia Bilateral knee avascular necrosis Atrial fibrillation on Eliquis Basal bolus insulin Fingerstick a.c. HS Chronic opioid use Opiate induced constipation Congestive heart failure, unknown ejection fraction, not in exacerbation Diabetes mellitus Normocytic anemia Ex-smoker Continue with ceftriaxone and azithromycin Albuterol and ipratropium q.4 p.r.n. Prednisone 40 mg for 5 days Continue with GDM T, titrate as tolerable Continue with Eliquis Continue with p.o. Lasix, target net negative Strict I&O Daily weights Pain management, we will need discharge Clinic on discharge PT eval Bowel regimen will POCUS tomorrow CT chest with contrast Diet diabetic, heart healthy DVT prophylaxis on Eliquis Plan discussed with: Patient Date of Service: Feb 16, 2024 Billing Provider: KATT COHEN MD Common Visit Codes: [id number] INP/OBS CARE(HIGH) KATT COHEN MD Feb 16, 2024 13:06
[2024-02-16] MEDS: cefTRIAXone 1GM/50ML D5W 50 ML IV SCH (21:16)
[2024-02-16] MEDS: ATORVASTATIN 20 MG TAB PO SCH (21:20)
[2024-02-16] MEDS: MONTELUKAST SODIUM 10 MG TAB PO SCH (21:20)
[2024-02-16] MEDS: AZITHROMYCIN 500MG/ 250ML 250 ML IV SCH (21:23)
[2024-02-16] MEDS: INSULIN LANTUS (GLARGINE) 1 /0.01ml (100units/ml) SC SCH (22:08)
[2024-02-17] VITALS (14 sets, daily range): BP systolic 90–97; BP diastolic 43–60; PULSE 85–133; RESP 16–26; TEMP 96.7–98.6; O2SAT 93–97
[2024-02-17] MEDS: IOHEXOL 300 MG/ML 100ML BOTTLE IJ ONE (00:45)
--- NOTE | 2024-02-17 01:51 | DVH ---
CTA Chest with intravenous contrast INDICATION: hilar fullness in cxr COMPARISON: None TECHNIQUE: Multidetector spiral CTA of the chest was performed of the chest with intravenous contrast . PULMONARY ANGIOGRAPHY PROTOCOL was utilized using a bolus-tracking technique centered on the main p ulmonary artery. Axial, coronal and sagittal multiplanar and MIP reformats were performed. Radiation Dose : 1. Chest: CTDI volume is 15.85 mGy. Dose-length product is 657.09 mGy*cm The dose indicators for CT are the volume Computed Tomography (CT) Dose Index (CTDIvol) and the Dose Length Product (DLP), and are measured in units of mGy and mGy-cm, respectively. These indicators are not patient dose, but values generated from the CT scanner acquisition factors. The report includes radiation exposure data for exposures received during this examination. Findings: Pulmonary artery: No pulmonary embolism Lower neck: Normal thyroid. Lungs: Multiple nodular densities throughout the right middle lobe, right lower lobe, and left lower lobe, compatible with multifocal pneumonia. Heart/Vascular Structures: Normal heart size. No pericardial effusion. Dilated main pulmonary artery measuring up to 3.2 cm, which may reflect sequelae of chronic pulmonary arterial hypertension. The ri ght main pulmonary artery is also dilated measuring up to 2.8 cm, likely sequelae of pulmonary arteri al hypertension. Lymph Nodes: No adenopathy Pleura: No pleural effusion or significant pneumothorax. Musculoskeletal: No acute osseous abnormality. Soft tissues: Normal. Upper abdomen: IVC filter is partially visualized. IMPRESSION: 1. No pulmonary embolism. 2. Multifocal pneumonia. 3. Dilated main pulmonary artery and dilated right pulmonary artery, which may reflect sequelae of ch ronic pulmonary arterial hypertension. The dilated right main pulmonary artery likely reflects perihi lar fullness seen on recent chest x-ray.
[2024-02-17 06:10] LABS: Basophils # (auto) 0 10 ^3/uL (0-0.2); Basophils % (auto) 0.1 % (0.0-2.0); Eosinophils # (auto) 0.1 10 ^3/uL (0-0.8); Eosinophils % (auto) 0.7 % (0.0-7.0); Hematocrit 31.9 % (36.0-46.0); Hemoglobin 10.9 g/dL (12.2-16.2); Lymphocytes # (auto) 1.8 10 ^3/uL (0.4-5.4); Lymphocytes % (auto) 17.7 % (10.0-50.0); Mean Corpuscular Hemoglobin 29.1 pg (28.0-32.0); Mean Corpuscular Hgb Conc. 34.2 g/dL (32.0-36.0); Monocytes # (auto) 0.8 10 ^3/uL (0-1.3); Monocytes % (auto) 8.2 % (0.0-12.0); Neutrophils # (auto) 7.4 10 ^3/uL (1.6-8.6); Neutrophils % (auto) 73.3 % (37.0-80.0); Platelet Count (auto) 163 10^3/uL (140-450); Red Blood Cells 3.75 10^6/uL (4.0-5.20); Red Cell Distribution Width 18.9 % (11.8-14.3)
[2024-02-17 06:14] LABS: Anion Gap 7 (5-15); Carbon Dioxide 34 mmol/L (20-31); Chloride 102 mmol/L (98-107); Potassium 3.1 mmol/L (3.5-5.1); Sodium 143 mmol/L (136-145)
[2024-02-17 06:15] LABS: Calcium 10.8 mg/dL (8.7-10.4)
[2024-02-17 06:20] LABS: BUN/Creatinine Ratio 20.7 (10.0-20.0); Blood Urea Nitrogen 18 mg/dL (9-23); Glucose 215 mg/dL (74-106)
--- NOTE | 2024-02-17 08:43 | DVHPN2 ---
Assessment/Plan Assessment/Plan Progress note Subjective 58-year-old female with COPD on home oxygen broken, congestive heart failure, bilateral knee avascular necrosis admitted for hypoxic respiratory failure. Patient is seen by me today during rounds Short of breath after walking to bathroom Point of care ultrasound done today and interpreted by me Cardiac: No pericardial effusion, grossly normal systolic function, dilated right ventricle, IVC less than 1 cm with less than 50% excursion on inspiration Lung: No B-lines, no pleural effusion Objective Physical exam Alert, oriented x3 PERRLA JVD mid neck Mild end expiratory wheezing, no crackles S1-S2 regular rate and rhythm no murmur Abdomen soft nontender, no organomegaly Moving all four extremities Mild lower extremity edema Decreased range of motion on bilateral knee, tenderness on active and passive movements Lab Hemoglobin 11.9 Normal MCV Elevated sugar Bicarb 30 Hepatitis C reactive BNP 72 Imaging Chest x-ray with fullness on the right hilum, unchanged from prior CT chest showing pneumonia and dilated pulmonary artery Assessment and plan Acute on chronic hypoxic respiratory failure secondary to pneumonia COPD group E on home oxygen with exacerbation Community-acquired pneumonia Bilateral knee avascular necrosis Atrial fibrillation on Eliquis Basal bolus insulin Fingerstick a.c. HS Chronic opioid use Opiate induced constipation Heart failure with preserved ejection fraction Pulmonary hypertension, likely type 3/1 Diabetes mellitus Normocytic anemia Ex-smoker Continue with ceftriaxone and azithromycin Albuterol and ipratropium q.4 p.r.n. Prednisone 40 mg for 5 days Continue with GDM T, titrate as tolerable Continue with Eliquis Continue with p.o. Lasix, target net negative Strict I&O Daily weights Pain management, we will need discharge Clinic on discharge PT eval Sudden MiraLax will POCUS tomorrow CT chest with contrast Diet diabetic, heart healthy DVT prophylaxis on Eliquis Plan discussed with: Patient My Orders Orders - KATT COHEN MD Procedure Category Date Status Time Chest With Contrast CT 02/16/24 Resulted 18:42 Potassium Effervesent PHA 02/17/24 Logged Tab (Klor-Con/Ef) 08:45 Insulin Lantus PHA 02/17/24 Logged (Glargine) (Lantus) 22:00 Echo 2d Mode Cardiac US 02/17/24 Transmitted DOP 08:39 Date of Service: Feb 17, 2024 Billing Provider: KATT COHEN MD Common Visit Codes: [id number] INP/OBS CARE(MOD), PROCEDURE ONLY (Cardiac point of care ultrasound [id number]) KATT COHEN MD Feb 17, 2024 08:43
[2024-02-17] MEDS: POTASSIUM EFFERVESENT TAB 25 MEQ PO ONE (10:19)
[2024-02-17] MEDS: POLYETHYLENE GLYCOL 17 GM PWDR PO ONE (15:58)
[2024-02-17] MEDS: SENNA 8.6 MG TAB PO ONE (15:58)
[2024-02-17] MEDS: ACETAMINOPHEN 325 MG TAB PO PRN (20:32)
[2024-02-17] MEDS: INSULIN LANTUS (GLARGINE) 1 /0.01ml (100units/ml) SC SCH (22:00)
[2024-02-18] VITALS (15 sets, daily range): BP systolic 83–102; BP diastolic 47–66; PULSE 63–129; RESP 16–28; TEMP 98.1–99; O2SAT 93–97
[2024-02-18 06:56] LABS: Chloride 101 mmol/L (98-107); Potassium 3.5 mmol/L (3.5-5.1); Sodium 142 mmol/L (136-145)
[2024-02-18 06:57] LABS: Anion Gap 6 (5-15); Carbon Dioxide 35 mmol/L (20-31)
[2024-02-18 07:02] LABS: BUN/Creatinine Ratio 18.3 (10.0-20.0); Blood Urea Nitrogen 13 mg/dL (9-23); Glucose 123 mg/dL (74-106)
[2024-02-18] MEDS: ALBUTEROL SULF 2.5 MG/0.5ML(0.5%) NEB SOLN NEB SCH (18:00)
[2024-02-18] MEDS: SODIUM CHLORIDE 0.9% 500 ML IV ONE (18:33)
[2024-02-18] MEDS: IPRATROPIUM BROM 0.5 MG/2.5ML INH SOL NEB SCH (18:37)
--- NOTE | 2024-02-18 19:37 | DVHPN2 ---
Assessment/Plan Assessment/Plan Progress note Subjective 58-year-old female with COPD on home oxygen broken, congestive heart failure, bilateral knee avascular necrosis admitted for hypoxic respiratory failure. Patient is seen by me today during rounds Breathing improved, however has soft BP throughout the day, GDMT was held over the stay. Will give back fluid for now and reassess Objective Physical exam Alert, oriented x3 PERRLA JVD mid neck Mild end expiratory wheezing, no crackles S1-S2 regular rate and rhythm no murmur Abdomen soft nontender, no organomegaly Moving all four extremities Mild lower extremity edema Decreased range of motion on bilateral knee, tenderness on active and passive movements Lab Hemoglobin 11.9 Normal MCV Elevated sugar Bicarb 30 Hepatitis C reactive BNP 72 Imaging Chest x-ray with fullness on the right hilum, unchanged from prior CT chest showing pneumonia and dilated pulmonary artery Assessment and plan Acute on chronic hypoxic respiratory failure secondary to pneumonia COPD group E on home oxygen with exacerbation Community-acquired pneumonia Bilateral knee avascular necrosis Atrial fibrillation on Eliquis Chronic opioid use Opiate induced constipation Heart failure with preserved ejection fraction Pulmonary hypertension, likely type 3/1 Diabetes mellitus Normocytic anemia Ex-smoker contraction alkalosis Continue with ceftriaxone and azithromycin Albuterol and ipratropium q.4 p.r.n. Prednisone 40 mg for 5 days Continue with GDM T, titrate as tolerable Basal bolus insulin Fingerstick a.c. HS Continue with Eliquis Will hold lasix for soft BP and add back 500cc NS, reassess tomorrow Strict I&O Daily weights Pain management, we will need discharge Clinic on discharge PT eval senna MiraLax Diet diabetic, heart healthy DVT prophylaxis on Eliquis Plan discussed with: Patient My Orders Orders - KATT COHEN MD Procedure Category Date Status Time Albuterol Medneb PHA 02/18/24 In Process (Ventolin Medneb) 18:00 Ipratropium Medneb PHA 02/18/24 In Process (Atrovent Medneb) 18:00 Date of Service: Feb 18, 2024 Billing Provider: KATT COHEN MD Common Visit Codes: [id number] INP/OBS CARE(HIGH) KATT COHEN MD Feb 18, 2024 19:37
[2024-02-18] MEDS: predniSONE 20 MG TAB PO ONE (19:45)
[2024-02-19] VITALS (16 sets, daily range): BP systolic 96–123; BP diastolic 54–80; PULSE 83–127; RESP 16–22; TEMP 97.9–98.6; O2SAT 91–99
[2024-02-19] MEDS: DOCUSATE SOD 100 MG CAP PO PRN (00:10)
[2024-02-19 06:51] LABS: Chloride 101 mmol/L (98-107); Potassium 3.9 mmol/L (3.5-5.1); Sodium 140 mmol/L (136-145)
[2024-02-19 06:52] LABS: Anion Gap 5 (5-15); Calcium 10.1 mg/dL (8.7-10.4); Carbon Dioxide 34 mmol/L (20-31)
[2024-02-19 06:57] LABS: BUN/Creatinine Ratio 18.5 (10.0-20.0); Blood Urea Nitrogen 15 mg/dL (9-23); Glucose 216 mg/dL (74-106)
[2024-02-19 06:58] LABS: Magnesium 1.8 mg/dL (1.6-2.6)
[2024-02-19 06:59] LABS: Phosphorus 2.3 mg/dL (2.4-5.1)
[2024-02-19] MEDS: predniSONE 20 MG TAB PO SCH (10:15)
--- NOTE | 2024-02-19 14:49 | DVHPN2 ---
Assessment/Plan Assessment/Plan Progress note Subjective 58-year-old female with COPD on home oxygen broken, congestive heart failure, bilateral knee avascular necrosis admitted for hypoxic respiratory failure. Patient is seen by me today during rounds Breathing improved, BP improved after fluid, reported have not been taking Lasix at home for a while. We will DC Lasix for now and reassess tomorrow Objective Physical exam Alert, oriented x3 PERRLA JVD mid neck Mild end expiratory wheezing, no crackles S1-S2 regular rate and rhythm no murmur Abdomen soft nontender, no organomegaly Moving all four extremities Mild lower extremity edema Decreased range of motion on bilateral knee, tenderness on active and passive movements Lab Hemoglobin 11.9 Normal MCV Elevated sugar Bicarb 30 Hepatitis C reactive BNP 72 Imaging Chest x-ray with fullness on the right hilum, unchanged from prior CT chest showing pneumonia and dilated pulmonary artery Assessment and plan Acute on chronic hypoxic respiratory failure secondary to pneumonia COPD group E on home oxygen with exacerbation Community-acquired pneumonia Bilateral knee avascular necrosis Atrial fibrillation on Eliquis Chronic opioid use Opiate induced constipation Heart failure with preserved ejection fraction Pulmonary hypertension, likely type 3/1 Diabetes mellitus Normocytic anemia Ex-smoker contraction alkalosis Continue with ceftriaxone and azithromycin Albuterol and ipratropium q.4 p.r.n. Prednisone 40 mg for 5 days Continue with GDM T, titrate as tolerable Basal bolus insulin Fingerstick a.c. HS Continue with Eliquis We will hold Lasix for now, we will discharge with 20 mg daily Strict I&O Daily weights Pain management, we will need discharge Clinic on discharge PT rj Glass Patient will need social service assistance for home health Diet diabetic, heart healthy DVT prophylaxis on Eliquis Plan discussed with: Patient My Orders Orders - KATT COHEN MD Procedure Category Date Status Time Prednisone Tablet PHA 02/19/24 In Process 10:00 Bipap/Cpap For Sleep RT 02/18/24 Logged Apnea 19:37 * Mold [employer] CONS 02/19/24 Transmitted Consult Ibuprofen Tablet PHA 02/19/24 In Process (Motrin Tablet) 14:00 Pt Request For Service PT 02/19/24 Logged 14:44 Date of Service: Feb 19, 2024 Billing Provider: KATT COHEN MD Common Visit Codes: [id number] INP/OBS CARE(HIGH) KATT COHEN MD Feb 19, 2024 14:49
[2024-02-19] MEDS: KETOROLAC TROMETH 30 MG/ML 1ML VIAL IV ONE (17:04)
[2024-02-19] MEDS: IBUPROFEN 400 MG TAB PO SCH (17:05)
[2024-02-20] VITALS (14 sets, daily range): BP systolic 91–145; BP diastolic 60–95; PULSE 81–123; RESP 14–22; TEMP 97.9–98.4; O2SAT 94–100
[2024-02-20] MEDS: KETOROLAC TROMETH 30 MG/ML 1ML VIAL IV PRN (17:38)
[2024-02-20] MEDS: InsuLIN REG 1unit/0.01ml Soln (100units/ml) SC SCH (17:39)
--- NOTE | 2024-02-20 20:53 | DVHPN2 ---
Assessment/Plan Assessment/Plan Progress note Subjective 58-year-old female with COPD on home oxygen broken, congestive heart failure, bilateral knee avascular necrosis admitted for hypoxic respiratory failure. Patient is seen by me today during rounds Pending home services, pt with limited mobility 2/2 decreased ET Objective Physical exam Alert, oriented x3 PERRLA JVD mid neck Mild end expiratory wheezing, no crackles S1-S2 regular rate and rhythm no murmur Abdomen soft nontender, no organomegaly Moving all four extremities Mild lower extremity edema Decreased range of motion on bilateral knee, tenderness on active and passive movements Lab Hemoglobin 11.9 Normal MCV Elevated sugar Bicarb 30 Hepatitis C reactive BNP 72 Imaging Chest x-ray with fullness on the right hilum, unchanged from prior CT chest showing pneumonia and dilated pulmonary artery Assessment and plan Acute on chronic hypoxic respiratory failure secondary to pneumonia COPD group E on home oxygen with exacerbation Community-acquired pneumonia Bilateral knee avascular necrosis Atrial fibrillation on Eliquis Chronic opioid use Opiate induced constipation Heart failure with preserved ejection fraction Pulmonary hypertension, likely type 3/1 Diabetes mellitus Normocytic anemia Ex-smoker contraction alkalosis Continue with ceftriaxone and azithromycin Albuterol and ipratropium q.4 p.r.n. Prednisone 40 mg for 5 days Continue with GDM T, titrate as tolerable Basal bolus insulin Fingerstick a.c. HS Continue with Eliquis We will hold Lasix for now, we will discharge with 20 mg daily Strict I&O Daily weights Pain management, we will need discharge Clinic on discharge PT eval senna MiraLax Patient will need social service assistance for home health Diet diabetic, heart healthy DVT prophylaxis on Eliquis Plan discussed with: Patient My Orders Orders - KATT COHEN MD Procedure Category Date Status Time Dietary NOTICE 02/20/24 Transmitted Recommendations 16:14 Insulin R (Human) PHA 02/20/24 In Process (Insulin R) 17:00 Ketorolac Injection PHA 02/20/24 In Process (Toradol Injection) 16:30 Date of Service: Feb 20, 2024 Billing Provider: KATT COHEN MD Common Visit Codes: [id number] INP/OBS CARE(HIGH) KATT COHEN MD Feb 20, 2024 20:53
[2024-02-20] MEDS: DOCUSATE SOD 100 MG CAP PO ONE ×2 (21:30→22:39)
[2024-02-21] VITALS (18 sets, daily range): BP systolic 96–139; BP diastolic 54–85; PULSE 75–104; RESP 14–20; TEMP 97.1–98.5; O2SAT 2–100
[2024-02-21] MEDS: KETOROLAC TROMETH 30 MG/ML 1ML VIAL IV ONE (04:53)
[2024-02-21 07:04] LABS: Basophils # (auto) 0 10 ^3/uL (0-0.2); Basophils % (auto) 0.2 % (0.0-2.0); Eosinophils # (auto) 0.1 10 ^3/uL (0-0.8); Eosinophils % (auto) 1.5 % (0.0-7.0); Hematocrit 31.6 % (36.0-46.0); Hemoglobin 10.5 g/dL (12.2-16.2); Lymphocytes # (auto) 2.2 10 ^3/uL (0.4-5.4); Lymphocytes % (auto) 24.7 % (10.0-50.0); Mean Corpuscular Hemoglobin 28.3 pg (28.0-32.0); Mean Corpuscular Hgb Conc. 33.3 g/dL (32.0-36.0); Mean Corpuscular Volume 85.1 fL (80.0-100.0); Monocytes # (auto) 0.7 10 ^3/uL (0-1.3); Monocytes % (auto) 8.1 % (0.0-12.0); Neutrophils # (auto) 5.9 10 ^3/uL (1.6-8.6); Neutrophils % (auto) 65.5 % (37.0-80.0); Platelet Count (auto) 187 10^3/uL (140-450); Red Blood Cells 3.72 10^6/uL (4.0-5.20); Red Cell Distribution Width 18.9 % (11.8-14.3)
[2024-02-21 07:11] LABS: Calcium 10.2 mg/dL (8.7-10.4); Chloride 102 mmol/L (98-107); Potassium 3.9 mmol/L (3.5-5.1); Sodium 140 mmol/L (136-145)
[2024-02-21 07:12] LABS: Anion Gap 7 (5-15); Carbon Dioxide 31 mmol/L (20-31)
[2024-02-21 07:17] LABS: BUN/Creatinine Ratio 29.6 (10.0-20.0); Blood Urea Nitrogen 21 mg/dL (9-23); Glucose 97 mg/dL (74-106)
[2024-02-21] MEDS ORDERED: PRED20TA2 PO (15:28)
[2024-02-21] MEDS ORDERED: DICL1GEL59 EX (15:28)
[2024-02-21] MEDS ORDERED: HYDR-4902 PO (15:28)
--- NOTE | 2024-02-21 20:53 | DVHPN2 ---
Assessment/Plan Assessment/Plan Progress note Subjective 58-year-old female with COPD on home oxygen broken, congestive heart failure, bilateral knee avascular necrosis admitted for hypoxic respiratory failure. Patient is seen by me today during rounds Pending home services, pt with limited mobility 2/2 decreased ET Objective Physical exam Alert, oriented x3 PERRLA JVD mid neck Mild end expiratory wheezing, no crackles S1-S2 regular rate and rhythm no murmur Abdomen soft nontender, no organomegaly Moving all four extremities Mild lower extremity edema Decreased range of motion on bilateral knee, tenderness on active and passive movements Lab Hemoglobin 11.9 Normal MCV Elevated sugar Bicarb 30 Hepatitis C reactive BNP 72 Imaging Chest x-ray with fullness on the right hilum, unchanged from prior CT chest showing pneumonia and dilated pulmonary artery Assessment and plan Acute on chronic hypoxic respiratory failure secondary to pneumonia COPD group E on home oxygen with exacerbation Community-acquired pneumonia Bilateral knee avascular necrosis Atrial fibrillation on Eliquis Chronic opioid use Opiate induced constipation Heart failure with preserved ejection fraction Pulmonary hypertension, likely type 3/1 Diabetes mellitus Normocytic anemia Ex-smoker contraction alkalosis finished 5 days course of IV abx Albuterol and ipratropium q.4 p.r.n. completed Prednisone 40 mg for 5 days Continue with GDM T, titrate as tolerable Basal bolus insulin Fingerstick a.c. HS Continue with Eliquis We will hold Lasix for now, we will discharge with 20 mg daily Strict I&O Daily weights Pain management, we will need discharge Clinic on discharge PT eval senna MiraLax Patient will need social service assistance for home health patient does not have O2 for transport Diet diabetic, heart healthy DVT prophylaxis on Eliquis Plan discussed with: Patient Date of Service: Feb 21, 2024 Billing Provider: KATT COHEN MD Common Visit Codes: [id number] INP/OBS CARE(MOD) KATT COHEN MD Feb 21, 2024 20:53
[2024-02-22] VITALS (14 sets, daily range): BP systolic 114–137; BP diastolic 62–94; PULSE 66–100; RESP 12–18; TEMP 97.4–98.9; O2SAT 3–100
--- NOTE | 2024-02-22 18:02 | DVHDS2 ---
Discharge Summary Date of Admission Feb 15, 2024 at 22:47 Date of Discharge: Feb 21, 2024 Labs/Diagnostic Data: Laboratory Results Test 02/22/24 15:53 02/21/24 06:15 02/19/24 05:44 02/16/24 03:37 POC Glucose 338 mg/dl (70-106) White Blood Count 9.0 10^3/uL (4.4-10.8) Red Blood Count 3.72 10^6/uL (4.0-5.20) Hemoglobin 10.5 g/dL (12.2-16.2) Hematocrit 31.6 % (36.0-46.0) Mean Corpuscular Volume 85.1 fL (80.0-100.0) Mean Corpuscular Hemoglobin 28.3 pg (28.0-32.0) Mean Corpuscular Hemoglobin Concent 33.3 g/dL (32.0-36.0) Red Cell Distribution Width 18.9 % (11.8-14.3) Platelet Count 187 10^3/uL (140-450) Mean Platelet Volume 7.1 fL (6.9-10.8) Neutrophils (%) (Auto) 65.5 % (37.0-80.0) Lymphocytes (%) (Auto) 24.7 % (10.0-50.0) Monocytes (%) (Auto) 8.1 % (0.0-12.0) Eosinophils (%) (Auto) 1.5 % (0.0-7.0) Basophils (%) (Auto) 0.2 % (0.0-2.0) Neutrophils # (Auto) 5.9 10 ^3/uL (1.6-8.6) Lymphocytes # (Auto) 2.2 10 ^3/uL (0.4-5.4) Monocytes # (Auto) 0.7 10 ^3/uL (0-1.3) Eosinophils # (Auto) 0.1 10 ^3/uL (0-0.8) Basophils # (Auto) 0 10 ^3/uL (0-0.2) Nucleated Red Blood Cells 0.0 % Sodium Level 140 mmol/L (136-145) Potassium Level 3.9 mmol/L (3.5-5.1) Chloride Level 102 mmol/L (98-107) Carbon Dioxide Level 31 mmol/L (20-31) Anion Gap 7 (5-15) Blood Urea Nitrogen 21 mg/dL (9-23) Creatinine 0.71 mg/dL (0.550-1.02) Glomerular Filtration Rate Calc 97 mL/min (>90) BUN/Creatinine Ratio 29.6 (10.0-20.0) Serum Glucose 97 mg/dL (74-106) Calcium Level 10.2 mg/dL (8.7-10.4) Phosphorus Level 2.3 mg/dL (2.4-5.1) Magnesium Level 1.8 mg/dL (1.6-2.6) Hepatitis B Surface Antigen Negative (Negative) Hepatitis C Antibody Reactive (Negative) Test 02/15/24 21:07 02/15/24 20:03 02/15/24 17:06 Urine Color Colorless (Yellow) Urine Clarity Clear (Clear) Urine pH 5.5 (5.0-9.0) Urine Specific [place] 1.007 (1.001-1.035) Urine Protein Negative (Negative) Urine Ketones Negative (Negative) Urine Blood Negative /uL (Negative) Urine Nitrite Negative (Negative) Urine Bilirubin Negative (Negative) Urine Urobilinogen Normal mg/dL (Negative) Urine Leukocyte Esterase Negative /uL (Negative) Urine RBC 1 /hpf (0 - 4) Urine WBC 1 /hpf (0 - 5) Urine Squamous Epithelial Cells Few /hpf (<5) Urine Bacteria None seen /hpf (None Seen) Urine Glucose Normal mg/dL (Normal) Troponin I High Sensitivity < 3 ng/L (</=34) B-Type Natriuretic Peptide 72.22 pg/mL (0-100) Other Laboratory Tests 02/21/24 06:15 Brief Hx & Hospital Course: 58 yo F with COPD E on home O2 and chronic pain admitted for COPD exacerbation. Treatment with nebs, abx and prednisone started. Patient improved, however due to recently moving from [facility], patient wont be able to follow up. Patient is on pain management in [facility] for severe knee OA. Will discharge with meds and DC clinic apt to bridge care until patient can get follow up with pain management. prior discahrge limited with no O2 for transport. Condition at Discharge: Fair Final Diagnosis/Problems List Acute on chronic hypoxic respiratory failure secondary to pneumonia COPD group E on home oxygen with exacerbation Community-acquired pneumonia Bilateral knee avascular necrosis Atrial fibrillation on Eliquis Chronic opioid use Opiate induced constipation Heart failure with preserved ejection fraction Pulmonary hypertension, likely type 3/1 Diabetes mellitus Normocytic anemia Ex-smoker contraction alkalosis Discharge Disposition: Home Discharge Instruct/Medications Diet: Consistent carbohydrate, Cardiac 2g Na,low cholest Activity: Light activity Activity comment: severely decreased ET req home health Follow Up/Referral: pulmonary pain management PCP Medications: as prescribed 38 Discharge Statement: "Patient was advised to return to the ER or call 911 if any headaches, dizziness, shortness of breath, chest pain, abdominal pain, bleeding, fevers, or worsening of medical condition. Patient was counseled about treatment plan, medications, possible side effects, patientverbalized understanding. All questions were answered to the best of my ability. This discharge took greater then 30 minutes in planning, reviewing documentation, counseling the patient, and discussing with other team members." ASSESSMENT ASSESSMENT Assessment COPD exacerbation pulmonary hypertension chronic pain 2/2 knee OA Date of Service: Feb 22, 2024 Billing Provider: KATT COHEN MD Common Visit Codes: [id number] DISCH DAY >30min KATT COHEN MD Feb 22, 2024 18:02
== END 2024-02-22 20:27 | disposition home health service (06) | DRG 133 ==
LOC: EDBD 15:52 → ER 15:52 → TELE 22:47 → TELE-WESTW 02-16 05:40
PROVIDERS: ADMIT Nurse Practitioner; ATTEND Student in an Organized Health Care Education/Training Program
DX: J96.21 Acute and chronic respiratory failure with hypoxia (principal); J15.69 Pneumonia due to other Gram-negative bacteria; I27.20 Pulmonary hypertension, unspecified; E87.3 Alkalosis; I11.0 Hypertensive heart disease with heart failure; J15.9 Unspecified bacterial pneumonia; I50.32 Chronic diastolic (congestive) heart failure; J44.0 Chronic obstructive pulmonary disease with (acute) lower respiratory infection; J44.1 Chronic obstructive pulmonary disease with (acute) exacerbation; E11.9 Type 2 diabetes mellitus without complications; D64.9 Anemia, unspecified; I48.91 Unspecified atrial fibrillation; K59.03 Drug induced constipation; T40.605A Adverse effect of unspecified narcotics, initial encounter; G89.29 Other chronic pain; M87.88 Other osteonecrosis, other site; M17.0 Bilateral primary osteoarthritis of knee; Z79.891 Long term (current) use of opiate analgesic; Z88.1 Allergy status to other antibiotic agents; Z87.891 Personal history of nicotine dependence; Z99.81 Dependence on supplemental oxygen; Z79.4 Long term (current) use of insulin; Y92.89 Other specified places as the place of occurrence of the external cause
CPT/HCPCS: 36415; 71045; 71260; 80048; 81001; 82962; 83735; 83880; 84100; 84484; 85025; 86803; 87081; 87340; 94640; 97116; 97163; 97530; G0378; J1815; J1885; J2405

== ENCOUNTER 2024-04-11 14:33 | Inpatient (IN) | payer MEDICAID ==
[~2024-04-11] VITALS: Ht 157.5 cm; Wt 73.0 kg
[~2024-04-11 14:33] MED LIST changes: -AUG875T PO; +DICL1GEL59 EX
[2024-04-11 15:00] VITALS: PULSE 92; RESP 20; O2SAT 96
--- NOTE | 2024-04-11 15:08 | ED.PDOC ---
History of Present Illness HPI Comments 58F BIBA w/ prior Hx of CHF, COPD, O2 dependency and Pulmonary HTN which all may be associated to the c/c of SOB. Pt reports that she has been having SOB, cough and CP whenever she breathes in. Pt states that all the symptoms started today. PMHx of DM, HTN, Chronic Bilateral Extremity and Bilateral Knee Avascular. Denies chills, fever, N/V/D, or other associated symptoms, modifiers or recent injuries or sick contact at this time. Chief Complaint: Shortness of Breath Time Seen by MD: 14:40 Primary Care Provider: NONE Reviewed Notes: Nurses Notes, Clinical Trainer Notes, Medications, Allergies Allergies: Coded Allergies: Levofloxacin (Verified Allergy, Unknown, 01/19/24) Home Meds Active Scripts Hydrocodone-Acetaminophen (Hydrocodone Bitartrate/AC 5-325 mg) 1 Tab Tab, 1 TAB PO Q6HPRN PRN for 7 Days, #28 TAB Prov:KATT COHEN MD 02/21/24 Diclofenac Sodium (Topical) (Voltaren Arthritis Pain) 1 % Gel, 1 % EX BIDPRN PRN for 30 Days, #1 GEL Prov:KATT COHEN MD 02/21/24 Prednisone (Prednisone) 20 Mg Tab, 40 MG PO DAILY for 10 Days, #20 TAB Prov:KATT COHEN MD 02/21/24 Prednisone (Prednisone) 20 Mg Tab, 40 MG PO DAILY for 5 Days, #5 MG Prov:LAUREN WANG RESIDENT 01/22/24 Potassium Chloride (POTASSIUM CHLORIDE CR) 10 Meq Tb, 1 TAB PO DAILY for 15 Days, #15 TAB 5 Refills Prov:LAUREN WANG RESIDENT 01/22/24 Furosemide (Furosemide) 20 Mg Tab, 1 TAB PO DAILY for 15 Days, #15 TAB 1 Refill Prov:LAUREN WANG RESIDENT 01/22/24 Metoprolol Succinate (Metoprolol Succinate Er) 25 Mg Tab, 25 MG PO DAILY for 30 Days, #30 TAB Prov:LAUREN WANG RESIDENT 01/22/24 Hydrocodone-Acetaminophen (Hydrocodone Bitartrate/AC 5-325 mg) 1 Tab Tab, 1 TAB PO Q6HP PRN, #15 TAB Prov:ADRIANA GILL MD 01/22/24 Reported Medications Levothyroxine Sodium (Levothyroxine Sodium) 100 Mcg Tab, 100 MCG PO QAM for 30 Days, MCG 01/20/24 Famotidine (Famotidine) 20 Mg Tab, 20 MG PO DAILY for 30 Days, MG 01/20/24 Glipizide (Glipizide) 5 Mg Tab, 5 MG PO DAILY for 30 Days, MG 01/20/24 Melatonin (KP MELATONIN) 3 Mg Tab, 10 MG PO QPM, TAB 01/20/24 Docusate Sodium (Colace) 100 Mg Cap, 100 MG PO PRN, CAP 01/20/24 Apixaban Base (ELIQUIS) 5 Mg Tab, 5 MG PO BID, TAB 01/20/24 Carvedilol (Carvedilol) 3.125 Mg Tab, 3.125 MG PO BID for 30 Days, MG 01/20/24 Cyclobenzaprine Hcl (Cyclobenzaprine Hcl) 10 Mg Tab, 10 MG PO QPM for 30 Days, MG 01/20/24 Losartan Potassium (Losartan Potassium) 25 Mg Tab, 25 MG PO DAILY for 30 Days, MG 01/20/24 Atorvastatin Calcium (ATORVASTATIN CALCIUM) 40 Mg Tab, 40 MG PO DAILY, TAB 01/20/24 Amlodipine Besylate (Amlodipine Besylate) 5 Mg Tab, 5 MG PO DAILY for 30 Days, MG 01/20/24 Montelukast Sodium (MONTELUKAST SODIUM) 10 Mg Tab, 1 TAB PO DAILY, #30 TAB 5 Refills 01/20/24 Information Source: Patient, Emergency Med Personnel Mode of Arrival: EMS Severity: Moderate Timing: Hours Duration: Since onset, Hours Prehospital treatment: None Past Medical History PAST MEDICAL HISTORY: CHF, COPD, DM, HTN Past Medical History (Other): Chronic Bilateral Extremity, Bilateral Knee Avascular, O2 dependency and Pulmonary HTN Surgical History: Denies all surgeries SUPERVISOR CASE LOADING History: No Pertinent SUPERVISOR CASE LOADING History Family History Family History: Reviewed,noncontributory to illness, Unknown Social History Smoker: Quit Greater Than 1 Year Alcohol: Denies ETOH Use Drugs: Denies Drug Use Lives In: Home Constitutional: denies: chills, diaphoresis, fatigue, fever, malaise, sweats, weakness, others EENTM: denies: blurred vision, double vision, ear bleeding, ear discharge, ear drainage, ear pain, ear ringing, eye pain, eye redness, hearing loss, mouth pain, mouth swelling, nasal discharge, nose bleeding, nose congestion, nose pain, photophobia, tearing, throat pain, throat swelling, voice changes, others Respiratory: reports: cough, shortness of breath; denies: hemoptysis, orthopnea, SOB at rest, SOB with excertion, stridor, wheezing, others Cardiovascular: reports: chest pain; denies: dizzy spells, diaphoresis, Dyspnea on exertion, edema, irregular heart beat, left arm pain, lightheadedness, palpitations, PND, syncope, others Gastrointestinal: denies: abdomen distended, abdominal pain, blood streaked bowels, constipated, diarrhea, dysphagia, difficulty swallowing, hematemesis, melena, nausea, poor appetite, poor fluid intake, rectal bleeding, rectal pain, vomiting, others Genitourinary: denies: abnormal vagina bleeding, burning, dyspareunia, dysuria, flank pain, frequency, hematuria, incontinence, pain, , vagina discharge, urgency, others Neurological: denies: dizziness, fainting, headache, left sided numbness, left sided weakness, numbness, paresthesia, pre-existing deficit, right sided numbness, right sided weakness, seizure, speech problems, tingling, tremors, weakness, others Musculoskeletal: denies: back pain, gout, joint pain, joint swelling, muscle pain, muscle stiffness, neck pain, others Integumetry: denies: bruises, change in color, change in hair/nails, dryness, laceration, lesions, lumps, rash, wounds, others Allergic/Immunocompromised: denies: Difficulty Healing, Frequent Infections, Hives, Itching, others Hematologic/Lymphatic: denies: anemia, blood clots, easy bleeding, easy bruising, swollen glands, others Endocrine: denies: excessive hunger, excessive sweating, excessive thirst, excessive urination, flushing, intolerance to cold, intolerance to heat, unexplained weight gain, unexplained weight loss, others Psychiatric: denies: anxiety, bipolar disorder, depression, hopeless, panic disorder, schizophrenia, sleepless, suicidal, others All Other Systems: Reviewed and Negative Physical Exam General Appearance: No Apparent Distress, Normal HEENT: Normal ENT Inspection, Pharynx Normal, TMs Normal Neck: Full Range of Motion, Non-Tender, Normal, Normal Inspection Respiratory: Chest Non-Tender, Lungs Clear, No Accessory Muscle Use, No Respiratory Distress, Normal Breath Sounds Cardiovascular: No Edema, No JVD, No Murmur, No Gallop, Normal Peripheral Pulses, Regular Rate/Rhythm Breast Exam: Deferred Gastrointestinal: No Organomegaly, Non Tender, No Pulsatile Mass, Normal Bowel Sounds, Soft Genitalia: Deferred Pelvic: Deferred Rectal: Deferred Extremities: No calf tenderness, Normal capillary refill, Normal inspection, Normal range of motion, Non-tender, No pedal edema Musculoskeletal : Apperance: Normal Neurologic: Alert, cardiovascular physician assistant II-XII nml as Tested, No Motor Deficits, Normal Affect, Normal Mood, No Sensory Deficits Cerebellar Function: Normal Reflexes: Normal Skin: Dry, Normal Color, Warm Lymphatic: No Adenopathy Was a procedure done? Was a procedure done?: No Differential Dx Considerations may include: Asthma, COPD, PNA, Bronchitis, PTX, Hemothorax, ACS, CHF, Influenza, Sars, Pleural effusion, ACS, Anemia X-Ray, Labs, Meds, VS Vital Signs Date Time Temp Pulse Resp B/P (MAP) Pulse Ox O2 Delivery O2 Flow Rate FiO2 04/11/24 16:38 104 20 108/63 04/11/24 16:00 104 16 108/63 (78) 91 04/11/24 15:00 97.6 92 20 101/68 (79) 96 97.6 04/11/24 15:00 92 20 96 Nasal Cannula* 4 36 04/11/24 14:44 16 93 Nasal Cannula 4.0 04/11/24 14:40 98 04/11/24 14:40 97.6 102 16 99/69 (79) 93 Lab Test 04/11/24 16:00 04/11/24 15:03 Range/Units Influenza Type A Antigen Pending Influenza Type B Antigen Pending SARS-CoV-2 Antigen (Rapid) Pending Group A Streptococcus Rapid Pending White Blood Count 8.9 4.4-10.8 10^3/uL Red Blood Count 4.55 4.0-5.20 10^6/uL Hemoglobin 13.1 12.2-16.2 g/dL Hematocrit 39.3 36.0-46.0 % Mean Corpuscular Volume 86.3 80.0-100.0 fL Mean Corpuscular Hemoglobin 28.8 28.0-32.0 pg Mean Corpuscular Hemoglobin Concent 33.3 32.0-36.0 g/dL Red Cell Distribution Width 17.2 H 11.8-14.3 % Platelet Count 152 140-450 10^3/uL Mean Platelet Volume 7.5 6.9-10.8 fL Neutrophils (%) (Auto) 75.6 37.0-80.0 % Lymphocytes (%) (Auto) 17.6 10.0-50.0 % Monocytes (%) (Auto) 5.4 0.0-12.0 % Eosinophils (%) (Auto) 1.3 0.0-7.0 % Basophils (%) (Auto) 0.1 0.0-2.0 % Neutrophils # (Auto) 6.7 1.6-8.6 10 ^3/uL Lymphocytes # (Auto) 1.6 0.4-5.4 10 ^3/uL Monocytes # (Auto) 0.5 0-1.3 10 ^3/uL Eosinophils # (Auto) 0.1 0-0.8 10 ^3/uL Basophils # (Auto) 0 0-0.2 10 ^3/uL Nucleated Red Blood Cells 0.3 % Sodium Level 140 136-145 mmol/L Potassium Level 2.2 *L 3.5-5.1 mmol/L Chloride Level 101 98-107 mmol/L Carbon Dioxide Level 31 20-31 mmol/L Anion Gap 8 5-15 Blood Urea Nitrogen 9 9-23 mg/dL Creatinine 0.73 0.550-1.02 mg/dL Glomerular Filtration Rate Calc 94 >90 mL/min BUN/Creatinine Ratio 12.3 10.0-20.0 Serum Glucose 128 H 74-106 mg/dL Calcium Level 10.4 8.7-10.4 mg/dL Total Bilirubin 0.7 0.2-1.0 mg/dL Aspartate Amino Transferase (AST) 30 13-40 U/L Alanine Aminotransferase (ALT) 26 7-40 U/L Alkaline Phosphatase 125 H 46-116 U/L B-Type Natriuretic Peptide 118.02 0-100 pg/mL Total Protein 7.4 5.7-8.2 g/dL Albumin 3.5 3.2-4.8 g/dL Current Medications Medications (Trade) Dose Ordered Sig/Aquiles Route Start Time Stop Time Status Last Admin Methylprednisolone Sodium Succinate (Solu Medrol) 80 mg ONCE ONCE IV 04/11/24 14:45 04/11/24 14:46 DC 04/11/24 15:32 Morphine Sulfate 4 mg ONCE ONCE IV 04/11/24 16:30 04/11/24 16:31 DC 04/11/24 16:38 Potassium Chloride 100 ml @ 50 mls/hr Q2H IV 04/11/24 16:45 04/11/24 22:44 04/11/24 16:54 X-Ray, Labs, Meds, VS Comment This is a patient who presented with the acute onset of respiratory failure. She was wheezing on presentation significantly. . Patient was treated per protocol. She was re-evaluated and continues to wheeze. Therefore recommended hospitalization. She agreed. Time of 1ST Reevaluation: 15:10 Reevaluation 1ST: Unchanged Patient Education/Counseling: Diagnosis, Treatment, Prognosis Family Education/Counseling: No Family Present Departure 1 Departure Time of Disposition: 17:13 Impression: Primary Impression: Acute and chronic respiratory failure Additional Impression: Acute respiratory failure Disposition: ADMITTED INPATIENT Admit to: Tele Condition: Guarded Critical Care Note Critical Care Time?: Yes (45 min-critical care time only) Critical care comment: CRITICAL CARE TIME: 45 minutes Treatments/Evaluations: Close monitoring and treatment of unstable vital signs, cardiorespiratory, and neurologic status, while maintaining tight balance of fluid, respiratory, and cardiac interventions. This time includes discussing the case with the patient and the patients family. This time does not include all procedures stated elsewhere in this record. This time also includes reviewing old records, labs and radiological studies. This time includes examining and re- examining the patient. Additionally, this time also includes arranging care with admitting and consulting physicians. Stability Stability form required: No Heart Score Heart Score: Heart Score Response (Comments) Value History N/A 0 EKG N/A 0 Age N/A 0 Risk Factors N/A 0 Troponin N/A 0 Total 0 I personally scribed for SOLEDAD ZHAO MD ([email or web address]) on 04/11/24 at 15:08. Electronically submitted by Oneil Crabtree ([email or web address]). SOLEDAD ZHAO MD Apr 11, 2024 15:08
--- NOTE | 2024-04-11 15:30 | DVH ---
CHEST RADIOGRAPH Indication: sob Technique: Single frontal view of the chest was obtained COMPARISON: XY CHEST PORTABLE on DOS: 02/15/24, XY CHEST PORTABLE on DOS: 01/19/24 FINDINGS: Lines and Tubes: None Lungs: Congestion Pleura: No effusion. No pneumothorax. Cardiomediastinal contours: Unchanged prominence of the right hilum. Bones: Unremarkable IMPRESSION: Congestion
[2024-04-11] MEDS: methylPREDNISolone SOD SUCC 125 MG/2 ML VL IV ONE (15:32)
[2024-04-11 15:35] LABS: Alanine Aminotransferase 26 U/L (7-40); Albumin 3.5 g/dL (3.2-4.8); Anion Gap 8 (5-15); Aspartate Aminotransferase 30 U/L (13-40); BUN/Creatinine Ratio 12.3 (10.0-20.0); Bilirubin, Total 0.7 mg/dL (0.2-1.0); Blood Urea Nitrogen 9 mg/dL (9-23); Calcium 10.4 mg/dL (8.7-10.4); Carbon Dioxide 31 mmol/L (20-31); Chloride 101 mmol/L (98-107); Sodium 140 mmol/L (136-145); Total Protein 7.4 g/dL (5.7-8.2)
[2024-04-11 15:36] LABS: Basophils # (auto) 0 10 ^3/uL (0-0.2); Basophils % (auto) 0.1 % (0.0-2.0); Eosinophils # (auto) 0.1 10 ^3/uL (0-0.8); Eosinophils % (auto) 1.3 % (0.0-7.0); Hematocrit 39.3 % (36.0-46.0); Hemoglobin 13.1 g/dL (12.2-16.2); Lymphocytes # (auto) 1.6 10 ^3/uL (0.4-5.4); Lymphocytes % (auto) 17.6 % (10.0-50.0); Mean Corpuscular Hemoglobin 28.8 pg (28.0-32.0); Mean Corpuscular Hgb Conc. 33.3 g/dL (32.0-36.0); Mean Corpuscular Volume 86.3 fL (80.0-100.0); Monocytes # (auto) 0.5 10 ^3/uL (0-1.3); Monocytes % (auto) 5.4 % (0.0-12.0); Neutrophils # (auto) 6.7 10 ^3/uL (1.6-8.6); Neutrophils % (auto) 75.6 % (37.0-80.0); Nucleated Red Blood Cells % 0.3 %; Platelet Count (auto) 152 10^3/uL (140-450); Red Blood Cells 4.55 10^6/uL (4.0-5.20); Red Cell Distribution Width 17.2 % (11.8-14.3); White Blood Cell 8.9 10^3/uL (4.4-10.8)
[2024-04-11 15:48] LABS: Alkaline Phosphatase 125 U/L (46-116); Glucose 128 mg/dL (74-106)
[2024-04-11 15:49] LABS: Potassium 2.2 mmol/L (3.5-5.1)
[2024-04-11] MEDS: MORPHINE SULFATE 4 MG/ML SYR/VIAL IV ONE (16:38)
[2024-04-11] MEDS: POTASSIUM CHL 20MEQ/100ML 100 ML IV SCH (16:54)
[2024-04-11 17:25] LABS: Rapid Influenza A Negative (Negative); Rapid Influenza B Negative (Negative); Rapid Strep A Screen-Throat Negative
[2024-04-11 17:28] LABS: COVID19 ANTIGEN SOFIA FIA NEGATIVE (NEGATIVE)
[2024-04-11] MEDS: ACETAMINOPHEN 325 MG TAB PO ONE (18:48)
[2024-04-11] MEDS ORDERED: ONDANSETRON HCL 4 MG/2 ML VIAL IV PRN (19:45)
[2024-04-11] MEDS ORDERED: DEXTROSE (50%) 50ML SYRG IV PRN (19:45)
[2024-04-11 19:57] VITALS: BP 142/65; PULSE 107; RESP 20; O2SAT 97
[2024-04-11] MEDS: APIXABAN 5 MG TAB PO SCH (22:29)
[2024-04-11] MEDS: CARVEDILOL 3.125 MG TAB PO SCH (22:30)
[2024-04-11] MEDS: ACCU-CHEK COMFORT CURVE STRIP VI SCH (22:39)
[2024-04-11] MEDS: InsuLIN REG 1unit/0.01ml Soln (100units/ml) SC SCH (22:44)
[2024-04-11 23:06] VITALS: BP 123/81; PULSE 96; RESP 18; TEMP 98.1; O2SAT 95
[2024-04-11] MEDS: ACETAMINOPHEN 325 MG TAB PO PRN (23:36)
[2024-04-11 23:40] VITALS: PULSE 100; RESP 18; O2SAT 100
[2024-04-11 23:47] VITALS: PULSE 100; RESP 18; O2SAT 100
[2024-04-11] MEDS: ALBUTEROL SULF 2.5 MG/0.5ML(0.5%) NEB SOLN NEB PRN (23:47)
[2024-04-11] MEDS: IPRATROPIUM BROM 0.5 MG/2.5ML INH SOL NEB PRN (23:47)
[2024-04-12] VITALS (17 sets, daily range): BP systolic 113–128; BP diastolic 74–86; PULSE 84–101; RESP 17–20; TEMP 97.8–98.8; O2SAT 93–99
[2024-04-12] MEDS: MELATONIN 5 MG TAB PO ONE (01:19)
[2024-04-12] MEDS: guaiFENesin-DM 100/10mg/5ml SYR PO ONE (04:36)
[2024-04-12] MEDS: HYDROcodone-ACET 5/325MG TAB PO ONE (04:36)
--- NOTE | 2024-04-12 04:38 | DVHHP2 ---
History of Present Illness Reason for Visit: Shortness of breath History of Present Illness 58-year-old female presents for evaluation of shortness for breath. Patient presents with a one day history of worsening shortness for breath. She uses oxygen at home. She has a history of COPD and congestive heart failure. She states symptoms not being relieved with her inhaler nebulizer. States having a nonproductive cough. No fever or chills. No other acute complaints reported. Past Medical History COPD, diabetes mellitus, hypertension, CHF pulmonary hypertension Past Surgical History Denies Family History Noncontributory Smoke: No ALCOHOL: none Drugs: None Lives: with Family Review of Systems Review of Systems Review of systems are currently negative otherwise addressed in HPI. Allergies: Coded Allergies: Levofloxacin (Verified Allergy, Unknown, 01/19/24) Medications Current Medications Medications Dose Ordered Sig/Aquiles Route Start Time Stop Time Status Last Admin Dose Admin Ceftriaxone Sodium 50 ml @ 100 mls/hr DAILY@09 IV 04/12/24 09:00 Amlodipine Besylate 5 mg DAILY PO 04/12/24 10:00 Apixaban 5 mg BID PO 04/11/24 22:00 04/11/24 22:29 5 MG Carvedilol 3.125 mg Q12HR PO 04/11/24 22:00 04/11/24 22:30 3.125 MG Furosemide 20 mg DAILY PO 04/12/24 10:00 Levothyroxine Sodium 100 mcg QAM@0600 PO 04/12/24 06:00 Potassium Chloride 10 meq DAILY PO 04/12/24 10:00 Ondansetron HCl 4 mg Q4HP PRN IV 04/11/24 19:45 Acetaminophen 650 mg Q6HP PRN PO 04/11/24 19:45 04/11/24 23:36 650 MG Diagnostic Test (Pha) 1 strip ACHS 04/11/24 22:00 04/11/24 22:39 1 STRIP Insulin Human Regular ACHS SC 04/11/24 22:00 04/11/24 22:44 4 UNITS Dextrose 50 ml UD PRN IV 04/11/24 19:45 Albuterol 2.5 mg Q6HPRN PRN NEB 04/11/24 19:45 04/11/24 23:47 2.5 MG Ipratropium [place] 0.5 mg Q6HPRN PRN NEB 04/11/24 19:45 04/11/24 23:47 0.5 MG Exam Vital Signs Vital Signs Date Time Temp Pulse Resp B/P (MAP) Pulse Ox O2 Delivery O2 Flow Rate FiO2 04/12/24 01:00 98.1 92 17 123/81 (95) 99 98.1 04/11/24 23:06 Nasal Cannula* 4 36 Exam Gen: 58-year-old female in mild distress Skin: Warm, dry, normal color and texture, no rash. HEENT: Normocephalic atraumatic, mucous membranes moist and pink. Neck: Cervical and supraclavicular nodes normal without enlargement, trachea is midline, thyroid gland is normal without masses. Pulmonary: Diminished breath sounds bilaterally Cardiac: Regular rate and rhythm. No murmur Abdomen: Soft, nontender, nondistended, bowel sounds present all 4 quadrants, no guarding, no rigidity, no organomegaly. Extremities: No cyanosis, clubbing, no edema Neuro: Cranial nerves II through XII grossly intact, normal affect and speech, no focal motor deficits. Labs/Xrays ORDERING PHYSICIAN: SOLEDAD ZHAO MD PROCEDURE(s): CXRP - CHEST PORTABLE REASON: sob ORDER NUMBER(s): [id number], ACCESSION NUMBER(s): [id number] CHEST RADIOGRAPH Indication: sob Technique: Single frontal view of the chest was obtained COMPARISON: XY CHEST PORTABLE on DOS: 02/15/24, XY CHEST PORTABLE on DOS: 01/19/24 FINDINGS: Lines and Tubes: None Lungs: Congestion Pleura: No effusion. No pneumothorax. Cardiomediastinal contours: Unchanged prominence of the right hilum. Bones: Unremarkable IMPRESSION: Congestion Labs Test 04/11/24 22:38 04/11/24 16:00 04/11/24 15:03 Range/Units POC Glucose 239 H 70-106 mg/dl Influenza Type A Antigen Negative Negative Influenza Type B Antigen Negative Negative SARS-CoV-2 Antigen (Rapid) Negative NEGATIVE Group A Streptococcus Rapid Negative White Blood Count 8.9 4.4-10.8 10^3/uL Red Blood Count 4.55 4.0-5.20 10^6/uL Hemoglobin 13.1 12.2-16.2 g/dL Hematocrit 39.3 36.0-46.0 % Mean Corpuscular Volume 86.3 80.0-100.0 fL Mean Corpuscular Hemoglobin 28.8 28.0-32.0 pg Mean Corpuscular Hemoglobin Concent 33.3 32.0-36.0 g/dL Red Cell Distribution Width 17.2 H 11.8-14.3 % Platelet Count 152 140-450 10^3/uL Mean Platelet Volume 7.5 6.9-10.8 fL Neutrophils (%) (Auto) 75.6 37.0-80.0 % Lymphocytes (%) (Auto) 17.6 10.0-50.0 % Monocytes (%) (Auto) 5.4 0.0-12.0 % Eosinophils (%) (Auto) 1.3 0.0-7.0 % Basophils (%) (Auto) 0.1 0.0-2.0 % Neutrophils # (Auto) 6.7 1.6-8.6 10 ^3/uL Lymphocytes # (Auto) 1.6 0.4-5.4 10 ^3/uL Monocytes # (Auto) 0.5 0-1.3 10 ^3/uL Eosinophils # (Auto) 0.1 0-0.8 10 ^3/uL Basophils # (Auto) 0 0-0.2 10 ^3/uL Nucleated Red Blood Cells 0.3 % Sodium Level 140 136-145 mmol/L Potassium Level 2.2 *L 3.5-5.1 mmol/L Chloride Level 101 98-107 mmol/L Carbon Dioxide Level 31 20-31 mmol/L Anion Gap 8 5-15 Blood Urea Nitrogen 9 9-23 mg/dL Creatinine 0.73 0.550-1.02 mg/dL Glomerular Filtration Rate Calc 94 >90 mL/min BUN/Creatinine Ratio 12.3 10.0-20.0 Serum Glucose 128 H 74-106 mg/dL Calcium Level 10.4 8.7-10.4 mg/dL Total Bilirubin 0.7 0.2-1.0 mg/dL Aspartate Amino Transferase (AST) 30 13-40 U/L Alanine Aminotransferase (ALT) 26 7-40 U/L Alkaline Phosphatase 125 H 46-116 U/L B-Type Natriuretic Peptide 118.02 0-100 pg/mL Total Protein 7.4 5.7-8.2 g/dL Albumin 3.5 3.2-4.8 g/dL Assessment/Plan Assessment/Plan Assessment Acute on chronic respiratory failure COPD with possible exacerbation Acute pneumonitis Hypokalemia Diabetes mellitus Plan Admit the patient to Med surge to the hospitalist Miguel Friend nebs Resume home medications Replete electrolytes Continue treatment per orders. Plan discussed with: Patient My Orders Orders - HUANG QUINN AGACNP Procedure Category Date Status Time Ceftriaxone 1gm/50ml PHA 04/12/24 In Process D5w (Rocephin) 09:00 Amlodipine Tablet PHA 04/12/24 In Process (Norvasc Tablet) 10:00 Apixaban (Eliquis) PHA 04/11/24 In Process 22:00 Carvedilol Tablet PHA 04/11/24 In Process (Coreg Tablet) 22:00 Furosemide Tablet PHA 04/12/24 In Process (Lasix Tablet) 10:00 Levothyroxine Tablet PHA 04/12/24 In Process (Synthroid Tablet) 06:00 Potassium Er Tablet PHA 04/12/24 In Process (Klor-Con Tablet) 10:00 Basic Metabolic Panel LAB 04/12/24 Logged 04:00 Admit ADMIT 04/11/24 Transmitted 19:36 Ondansetron Hcl PHA 04/11/24 In Process (Zofran) 19:45 Complete Blood Count LAB 04/12/24 Logged 04:00 Cardiac DIET 04/12/24 Transmitted Diet-2gna,Lofat,Lochol Breakfast Condition: Fair ROSE 04/11/24 In Process 19:36 Acetaminophen Tablet PHA 04/11/24 In Process (Tylenol Tablet) 19:45 Bedrest With Bathroom ROSE 04/11/24 In Process Privileg 19:36 Glucose Blood PHA 04/11/24 In Process (Accu-Chek Comfort 22:00 Insulin R (Human) PHA 04/11/24 In Process (Insulin R) 22:00 Dextrose 50% Syringe PHA 04/11/24 In Process 19:45 Albuterol Medneb PHA 04/11/24 In Process (Ventolin Medneb) 19:45 Ipratropium Medneb PHA 04/11/24 In Process (Atrovent Medneb) 19:45 * Dietary Consult CONS 04/12/24 Transmitted 00:28 * Product Management Specialist CONS 1/13/25 Transmitted Consult 00:28 Hepatitis B Surface LAB 04/12/24 Logged Antigen 00:28 Hepatitis C Antibody LAB 04/12/24 Logged 00:28 Troponin-I Hs LAB 04/12/24 Logged 04:13 Electrocardigram EKG 04/12/24 Logged 02:44 Date of Service: Apr 11, 2024 Billing Provider: HUANG QUINN Common Visit Codes: [id number] INP/OBS CARE (HIGH) HUANG QUINN Apr 12, 2024 04:38
[2024-04-12] MEDS: LEVOTHYROXINE SODIUM 100 MCG TAB PO SCH (06:01)
[2024-04-12 08:40] LABS: Basophils # (auto) 0 10 ^3/uL (0-0.2); Eosinophils # (auto) 0 10 ^3/uL (0-0.8); Hematocrit 35.8 % (36.0-46.0); Lymphocytes # (auto) 0.7 10 ^3/uL (0.4-5.4); Lymphocytes % (auto) 12.5 % (10.0-50.0); Mean Corpuscular Hemoglobin 28.8 pg (28.0-32.0); Mean Corpuscular Hgb Conc. 33.6 g/dL (32.0-36.0); Mean Corpuscular Volume 85.8 fL (80.0-100.0); Monocytes # (auto) 0.2 10 ^3/uL (0-1.3); Monocytes % (auto) 3.7 % (0.0-12.0); Neutrophils # (auto) 4.4 10 ^3/uL (1.6-8.6); Neutrophils % (auto) 83.8 % (37.0-80.0); Nucleated Red Blood Cells % 0.1 %; Platelet Count (auto) 142 10^3/uL (140-450); Red Blood Cells 4.17 10^6/uL (4.0-5.20); Red Cell Distribution Width 16.9 % (11.8-14.3); White Blood Cell 5.3 10^3/uL (4.4-10.8)
[2024-04-12 08:52] LABS: Anion Gap 8 (5-15); Carbon Dioxide 28 mmol/L (20-31); Chloride 102 mmol/L (98-107); Sodium 138 mmol/L (136-145)
[2024-04-12 08:55] LABS: Calcium 10.5 mg/dL (8.7-10.4); Potassium 2.8 mmol/L (3.5-5.1)
[2024-04-12 08:57] LABS: BUN/Creatinine Ratio 18.1 (10.0-20.0); Blood Urea Nitrogen 15 mg/dL (9-23)
[2024-04-12 08:59] LABS: Glucose 293 mg/dL (74-106)
[2024-04-12] MEDS: cefTRIAXone 1GM/50ML D5W 50 ML IV SCH (09:18)
[2024-04-12] MEDS: FUROSEMIDE 20 MG TAB PO SCH (09:20)
[2024-04-12] MEDS: POTASSIUM CHL 10 Meq TABLET PO SCH (09:21)
[2024-04-12 09:23] LABS: Hepatitis B Surface Antigen Negative (Negative)
[2024-04-12 09:42] LABS: Hepatitis C Antibody Reactive (Negative)
--- NOTE | 2024-04-12 10:13 | DVHPN2 ---
Subjective The patient is seen and examined at bedside. Still complain of severe shortness a breath. Patient is sitting on bed and could not lay down because of shortness a patient also requests lactulose for constipation and Toradol for pain. Reviewed: Care Plan, H&P, Labs, Medications, Previous Orders, Radiology Changes from previous H/P or p: No Changes Objective Vitals Vital Signs Date Time Temp Pulse Resp B/P (MAP) Pulse Ox O2 Delivery O2 Flow Rate FiO2 04/12/24 09:20 126/86 04/12/24 09:20 88 04/12/24 09:00 98.8 18 93 98.8 04/12/24 07:41 Nasal Cannula* 2 28 Intake/Output Intake and Output 04/12/24 07:00 Intake Total 900 ml Output Total 3 ml Balance 897 ml Intake Oral 800 ml IV Total 100 ml Output Stool Total 3 ml General Appearance: Alert, Oriented X3, Cooperative, mild distress HEENT: Atraumatic, PERRLA, EOMI, Mucous membr. moist/pink Neck: Supple Lungs: Clear to auscultation, Normal air movement Cardiovascular: Regular rate, Normal S1, Normal S2, No murmurs, Gallops, Rubs Abdomen: Normal bowel sounds, Soft, No tenderness Neuro: Cranial nerves 3-12 NL Psych/Mental Status: Mental status NL Medications Current Medications Medications Dose Ordered Sig/Aquiles Route Start Time Stop Time Status Last Admin Dose Admin Ceftriaxone Sodium 50 ml @ 100 mls/hr DAILY@09 IV 04/12/24 09:00 04/12/24 09:18 100 MLS/HR Amlodipine Besylate 5 mg DAILY PO 04/12/24 10:00 Apixaban 5 mg BID PO 04/11/24 22:00 04/11/24 22:29 5 MG Carvedilol 3.125 mg Q12HR PO 04/11/24 22:00 04/12/24 09:20 3.125 MG Furosemide 20 mg DAILY PO 04/12/24 10:00 04/12/24 09:20 20 MG Levothyroxine Sodium 100 mcg QAM@0600 PO 04/12/24 06:00 04/12/24 06:01 100 MCG Potassium Chloride 10 meq DAILY PO 04/12/24 10:00 04/12/24 09:21 10 MEQ Ondansetron HCl 4 mg Q4HP PRN IV 04/11/24 19:45 Acetaminophen 650 mg Q6HP PRN PO 04/11/24 19:45 04/11/24 23:36 650 MG Diagnostic Test (Pha) 1 strip ACHS 04/11/24 22:00 04/12/24 06:01 1 STRIP Insulin Human Regular ACHS SC 04/11/24 22:00 04/12/24 06:06 8 UNITS Dextrose 50 ml UD PRN IV 04/11/24 19:45 Albuterol 2.5 mg Q6HPRN PRN NEB 04/11/24 19:45 04/11/24 23:47 2.5 MG Ipratropium [place] 0.5 mg Q6HPRN PRN NEB 04/11/24 19:45 04/11/24 23:47 0.5 MG Laboratory Results Laboratory Tests 04/12/24 07:13 Chemistry Test 04/11/24 15:03 04/12/24 07:13 Albumin 3.5 g/dL (3.2-4.8) Calcium Level 10.4 mg/dL (8.7-10.4) 10.5 mg/dL (8.7-10.4) H Total Protein 7.4 g/dL (5.7-8.2) Cardiac Markers Test 04/11/24 15:03 B-Type Natriuretic Peptide 118.02 pg/mL (0-100) LFT Test 04/11/24 15:03 Alanine Aminotransferase (ALT) 26 U/L (7-40) Alkaline Phosphatase 125 U/L (46-116) H Aspartate Amino Transferase (AST) 30 U/L (13-40) Total Bilirubin 0.7 mg/dL (0.2-1.0) Labs and/or images reviewed: Labs reviewed by me Assessment/Plan Assessment/Plan Acute on chronic respiratory failure COPD with possible exacerbation Pneumonia possible Gram-positive pneumonia Hypokalemia Diabetes mellitus type 2 Plan Continuing current management. I will add DuoNeb q.4 p.r.n. for shortness for breath. I will give the patient Robitussin with codeine 10 mL every 6 hours p.r.n. For cough. I will give the patient Toradol 30 mg IV every 8 hours as needed for pain. Maximum five days. I will add a Zithromax 500 mg IV q.day. Continuing Rocephin 1 g IV q.day. I will add Solu-Medrol 60 mg IV every eight hours Continuing with sliding scale Insulin. Replace electrolytes as needed. Plan discussed with: Patient Date of Service: Apr 12, 2024 Billing Provider: MY PINA MD Common Visit Codes: [id number] INP/OBS CARE(HIGH) MY PINA MD Apr 12, 2024 10:13
--- NOTE | 2024-04-12 10:38 | ECG ---
[facility] Test Date: 2024-04-12 Test Time: 02:44:07 Pat Name: CLINTON ALMONTE Department: Respiratoy Room: [address] [place] [address] 6 Gender: F Senior Engineering Technician: GABBIE : 1965 Requested By: HUANG QUINN Order Number: [id number] Reading MD: Ania Armenta Measurements Intervals [place] Rate: 86 P: 81 CA: 219 QRS: 109 QRSD: 113 T: 87 QT: 405 QTc: 485 Interpretive Statements Sinus rhythm Prolonged CA interval Borderline intraventricular conduction delay Posterior infarct, acute (LCx) No significant change compared to an EKG from 04/12/24 Electronically Signed On 04-13-2024 12:17:40 PST by Ania Armenta Please click the below link to view image of tracing.
--- NOTE | 2024-04-12 10:43 | ECG ---
[facility] Test Date: 2024-04-11 Test Time: 14:40:43 Pat Name: CLINTON ALMONTE Department: ED Room: 0222 Gender: F Building Services Engineer: YOGI : 1965 Requested By: SOLEDAD ZHAO Order Number: [id number] Reading MD: Reece Parikh Measurements Intervals [place] Rate: 98 P: 50 [place]: 191 QRS: 138 QRSD: 109 T: 0 QT: 399 QTc: 510 Interpretive Statements Sinus rhythm Inferior infarct, age indeterminate Posterior infarct, acute (LCx) Electronically Signed On 04-18-2024 14:55:33 PST by Reece Parikh Please click the below link to view image of tracing.
[2024-04-12] MEDS ORDERED: IPRATROPIUM BROM 0.5 MG/2.5ML INH SOL NEB PRN (11:15)
[2024-04-12] MEDS: amLODIPine BESYLATE 5 MG TAB PO SCH (11:52)
[2024-04-12] MEDS: guaiFENesin-CODEINE Liq 5 ML UD PO PRN (12:26)
[2024-04-12] MEDS: ALBUTEROL SULF 2.5 MG/0.5ML(0.5%) NEB SOLN NEB SCH ×2 (12:51→18:33)
[2024-04-12] MEDS: KETOROLAC TROMETH 30 MG/ML 1ML VIAL IV PRN (13:01)
[2024-04-12] MEDS: IPRATROPIUM BROM 0.5 MG/2.5ML INH SOL ONE (15:10)
[2024-04-12] MEDS: ALBUTEROL SULF 2.5 MG/0.5ML(0.5%) NEB SOLN ONE (15:10)
[2024-04-12] MEDS: IBUPROFEN 600 MG TAB PO PRN (16:43)
[2024-04-12] MEDS: IPRATROPIUM BROM 0.5 MG/2.5ML INH SOL NEB SCH (18:33)
[2024-04-13] VITALS (19 sets, daily range): BP systolic 107–137; BP diastolic 62–83; PULSE 77–112; RESP 16–20; TEMP 97.7–98.5; O2SAT 93–100
[2024-04-13 06:51] LABS: Basophils # (auto) 0 10 ^3/uL (0-0.2); Basophils % (auto) 0.2 % (0.0-2.0); Eosinophils # (auto) 0.3 10 ^3/uL (0-0.8); Eosinophils % (auto) 2.4 % (0.0-7.0); Hemoglobin 12.8 g/dL (12.2-16.2); Lymphocytes # (auto) 1.6 10 ^3/uL (0.4-5.4); Lymphocytes % (auto) 13.1 % (10.0-50.0); Mean Corpuscular Hemoglobin 28.9 pg (28.0-32.0); Mean Corpuscular Hgb Conc. 32.9 g/dL (32.0-36.0); Mean Corpuscular Volume 87.9 fL (80.0-100.0); Monocytes # (auto) 0.7 10 ^3/uL (0-1.3); Neutrophils # (auto) 9.8 10 ^3/uL (1.6-8.6); Neutrophils % (auto) 78.3 % (37.0-80.0); Nucleated Red Blood Cells % 0.7 %; Platelet Count (auto) 154 10^3/uL (140-450); Red Blood Cells 4.44 10^6/uL (4.0-5.20); Red Cell Distribution Width 17.5 % (11.8-14.3); White Blood Cell 12.5 10^3/uL (4.4-10.8)
[2024-04-13 09:55] LABS: Anion Gap 5 (5-15); Chloride 105 mmol/L (98-107); Sodium 144 mmol/L (136-145)
[2024-04-13 10:01] LABS: BUN/Creatinine Ratio 23.5 (10.0-20.0); Blood Urea Nitrogen 20 mg/dL (9-23)
[2024-04-13 10:25] LABS: Calcium 10.8 mg/dL (8.7-10.4); Carbon Dioxide 34 mmol/L (20-31); Glucose 151 mg/dL (74-106); Potassium 2.9 mmol/L (3.5-5.1)
--- NOTE | 2024-04-13 10:40 | DVHPN2 ---
Subjective The patient is seen and examined at bedside. Still complain of severe shortness a breath. Patient is sitting on bed and could not lay down because of shortness. The patient was able to move her bowel movement now. Reviewed: Care Plan, H&P, Labs, Medications, Previous Orders, Radiology Changes from previous H/P or p: No Changes Objective Vitals Vital Signs Date Time Temp Pulse Resp B/P (MAP) Pulse Ox O2 Delivery O2 Flow Rate FiO2 04/13/24 10:37 87 110/62 04/13/24 09:54 17 95 04/13/24 09:46 Nasal Cannula 3.0 04/13/24 09:46 32 04/13/24 08:52 98.2 98.2 Intake/Output Intake and Output 04/13/24 07:00 Intake Total 1850 ml Balance 1850 ml Intake Oral 1800 ml IV Total 50 ml # Voids 7 General Appearance: Alert, Oriented X3, Cooperative, mild distress HEENT: Atraumatic, PERRLA, EOMI, Mucous membr. moist/pink Neck: Supple Lungs: Clear to auscultation, Normal air movement Cardiovascular: Regular rate, Normal S1, Normal S2, No murmurs, Gallops, Rubs Abdomen: Normal bowel sounds, Soft, No tenderness Neuro: Cranial nerves 3-12 NL Psych/Mental Status: Mental status NL Medications Current Medications Medications Dose Ordered Sig/Aquiles Route Start Time Stop Time Status Last Admin Dose Admin Ceftriaxone Sodium 50 ml @ 100 mls/hr DAILY@09 IV 04/12/24 09:00 04/13/24 08:23 100 MLS/HR Amlodipine Besylate 5 mg DAILY PO 04/12/24 10:00 04/12/24 11:52 5 MG Apixaban 5 mg BID PO 04/11/24 22:00 04/13/24 08:27 5 MG Carvedilol 3.125 mg Q12HR PO 04/11/24 22:00 04/13/24 08:28 3.125 MG Furosemide 20 mg DAILY PO 04/12/24 10:00 04/12/24 09:20 20 MG Levothyroxine Sodium 100 mcg QAM@0600 PO 04/12/24 06:00 04/13/24 05:14 100 MCG Potassium Chloride 10 meq DAILY PO 04/12/24 10:00 04/13/24 08:27 10 MEQ Ondansetron HCl 4 mg Q4HP PRN IV 04/11/24 19:45 Acetaminophen 650 mg Q6HP PRN PO 04/11/24 19:45 04/13/24 00:29 650 MG Diagnostic Test (Pha) 1 strip ACHS 04/11/24 22:00 04/13/24 06:32 1 STRIP Insulin Human Regular ACHS SC 04/11/24 22:00 04/12/24 22:49 4 UNITS Dextrose 50 ml UD PRN IV 04/11/24 19:45 Ketorolac Tromethamine 30 mg Q6HPRN PRN IV 04/12/24 11:00 04/17/24 10:59 04/13/24 05:14 30 MG Ibuprofen 600 mg Q4HP PRN PO 04/12/24 11:00 04/13/24 08:26 600 MG Guaifenesin/ Codeine Phosphate 10 ml Q4HPRN PRN PO 04/12/24 11:00 04/13/24 08:28 10 ML Albuterol 2.5 mg Q4HR NEB 04/12/24 18:00 04/13/24 09:46 2.5 MG Albuterol 2.5 mg Q4HPRN PRN NEB 04/12/24 15:00 Ipratropium [place] 0.5 mg Q4HR NEB 04/12/24 18:00 04/13/24 09:46 0.5 MG Ipratropium [place] 0.5 mg Q4HPRN PRN NEB 04/12/24 15:00 Azithromycin 250 ml @ 125 mls/hr DAILY IV 04/13/24 10:00 Methylprednisolone Sodium Succinate 60 mg Q8HR IV 04/13/24 14:00 Laboratory Results Laboratory Tests 04/13/24 06:03 04/13/24 08:15 Chemistry Test 04/13/24 08:15 Calcium Level 10.8 mg/dL (8.7-10.4) H Microbiology Microbiology Date/Time Source Procedure Growth Status 04/11/24 16:00 Throat Nose/Throat Culture - Final Complete Labs and/or images reviewed: Labs reviewed by me Assessment/Plan Assessment/Plan Acute on chronic respiratory failure COPD with possible exacerbation Pneumonia possible Gram-positive pneumonia Hypokalemia Diabetes mellitus type 2 Constipation, improved. Plan Continuing current management. Continue DuoNeb q.4 p.r.n. for shortness for breath. Continue Robitussin with codeine 10 mL every 6 hours p.r.n. for cough. I will give the patient Toradol 30 mg IV every 8 hours as needed for pain. Maximum five days. Continue Zithromax 500 mg IV q.day. Continuing Rocephin 1 g IV q.day. Continue Solu-Medrol 60 mg IV every eight hours Continuing with sliding scale Insulin. Replace electrolytes as needed. Plan discussed with: Patient My Orders Orders - MY PINA MD Procedure Category Date Status Time Ketorolac Injection PHA 04/12/24 In Process (Toradol Injection) 11:00 Ibuprofen Tablet PHA 04/12/24 In Process (Motrin Tablet) 11:00 Guaifenesin-Codeine PHA 04/12/24 In Process Liquid (Robitussin/C 11:00 Albuterol Medneb PHA 04/12/24 In Process (Ventolin Medneb) 18:00 Albuterol Medneb PHA 04/12/24 In Process (Ventolin Medneb) 15:00 Ipratropium Medneb PHA 04/12/24 In Process (Atrovent Medneb) 18:00 Ipratropium Medneb PHA 04/12/24 In Process (Atrovent Medneb) 15:00 Azithromycin 500mg/ PHA 04/13/24 In Process 250ml (Zithromax 50 10:00 Methylprednisolone PHA 04/13/24 In Process Sod Succ (Solu Medrol 14:00 Date of Service: Apr 13, 2024 Billing Provider: MY PINA MD Common Visit Codes: [id number] INP/OBS CARE(HIGH) MY PINA MD Apr 13, 2024 10:40
[2024-04-13] MEDS: AZITHROMYCIN 500MG/ 250ML 250 ML IV SCH (11:18)
[2024-04-13] MEDS: methylPREDNISolone SOD SUCC 125 MG/2 ML VL IV SCH (13:07)
[2024-04-13] MEDS: LORazepam 0.5 MG TAB PO PRN (15:52)
--- NOTE | 2024-04-13 15:57 | ECG ---
[facility] Test Date: 2024-04-12 Test Time: 02:48:52 Pat Name: CLINTON ALMONTE Department: Respiratoy Room: [address] [place] [address] 6 Gender: F Inspector Open Die: GABBIE : 1965 Requested By: HUANG QUINN Order Number: [id number] Reading MD: Ania Armetna Measurements Intervals [place] Rate: 85 P: 0 CT: 143 QRS: 108 QRSD: 108 T: 85 QT: 379 QTc: 451 Interpretive Statements Sinus rhythm Atrial premature complex Probable left atrial enlargement ST depression V1-V3, suggest recording posterior leads No significant change Electronically Signed On 04-14-2024 8:47:08 PST by Ania Armenta Please click the below link to view image of tracing.
[2024-04-13] MEDS: MELATONIN 5 MG TAB PO SCH (21:33)
[2024-04-14] VITALS (24 sets, daily range): BP systolic 112–133; BP diastolic 79–90; PULSE 78–124; RESP 16–24; TEMP 97.2–98.2; O2SAT 91–100
[2024-04-14] MEDS ORDERED: DEXTROSE (50%) 50ML SYRG IV PRN
[2024-04-14] MEDS: InsuLIN REG 1unit/0.01ml Soln (100units/ml) SC SCH (00:26)
[2024-04-14] MEDS: ACCU-CHEK COMFORT CURVE STRIP VI SCH (00:30)
[2024-04-14 07:28] LABS: Base Excess 6.8 mmol/L (-2.0-3.0)
[2024-04-14] MEDS: ALBUTEROL SULF 2.5 MG/0.5ML(0.5%) NEB SOLN NEB ONE (10:05)
[2024-04-14] MEDS: ALBUTEROL SULF 2.5 MG/0.5ML(0.5%) NEB SOLN ONE (10:06)
--- NOTE | 2024-04-14 13:45 | DVHPN2 ---
Subjective The patient is seen and examined at bedside. Still complain of severe shortness a breath. Patient is sitting on bed and could not lay down because of shortness. The patient could not breath even after respiratory treatment. The patient said she felt her breakfast food went to her lung after she cough Reviewed: Care Plan, H&P, Labs, Medications, Previous Orders, Radiology Changes from previous H/P or p: No Changes Objective Vitals Vital Signs Date Time Temp Pulse Resp B/P (MAP) Pulse Ox O2 Delivery O2 Flow Rate FiO2 04/14/24 12:59 98.2 109 20 123/90 (101) 97 98.2 04/14/24 10:05 Nasal Cannula 2.0 04/14/24 10:05 28 Intake/Output Intake and Output 04/14/24 07:00 Intake Total 2040 ml Balance 2040 ml Intake Oral 1740 ml IV Total 300 ml # Voids 10 General Appearance: Alert, Oriented X3, Cooperative, mild distress HEENT: Atraumatic, PERRLA, EOMI, Mucous membr. moist/pink Neck: Supple Lungs: Clear to auscultation, Normal air movement Cardiovascular: Regular rate, Normal S1, Normal S2, No murmurs, Gallops, Rubs Abdomen: Normal bowel sounds, Soft, No tenderness Neuro: Cranial nerves 3-12 NL Psych/Mental Status: Mental status NL Medications Current Medications Medications Dose Ordered Sig/Aquiles Route Start Time Stop Time Status Last Admin Dose Admin Ceftriaxone Sodium 50 ml @ 100 mls/hr DAILY@09 IV 04/12/24 09:00 04/14/24 09:00 100 MLS/HR Amlodipine Besylate 5 mg DAILY PO 04/12/24 10:00 04/14/24 09:15 5 MG Apixaban 5 mg BID PO 04/11/24 22:00 04/14/24 09:15 5 MG Carvedilol 3.125 mg Q12HR PO 04/11/24 22:00 04/14/24 09:16 3.125 MG Furosemide 20 mg DAILY PO 04/12/24 10:00 04/14/24 09:14 20 MG Levothyroxine Sodium 100 mcg QAM@0600 PO 04/12/24 06:00 04/14/24 05:20 100 MCG Potassium Chloride 10 meq DAILY PO 04/12/24 10:00 04/14/24 09:14 10 MEQ Ondansetron HCl 4 mg Q4HP PRN IV 04/11/24 19:45 Acetaminophen 650 mg Q6HP PRN PO 04/11/24 19:45 04/13/24 00:29 650 MG Dextrose 50 ml UD PRN IV 04/11/24 19:45 Cancel Ketorolac Tromethamine 30 mg Q6HPRN PRN IV 04/12/24 11:00 04/17/24 10:59 04/14/24 05:16 30 MG Ibuprofen 600 mg Q4HP PRN PO 04/12/24 11:00 04/14/24 09:13 600 MG Guaifenesin/ Codeine Phosphate 10 ml Q4HPRN PRN PO 04/12/24 11:00 04/14/24 09:13 10 ML Albuterol 2.5 mg Q4HR NEB 04/12/24 18:00 04/14/24 09:37 2.5 MG Albuterol 2.5 mg Q4HPRN PRN NEB 04/12/24 15:00 Ipratropium [place] 0.5 mg Q4HR NEB 04/12/24 18:00 04/14/24 09:36 0.5 MG Ipratropium [place] 0.5 mg Q4HPRN PRN NEB 04/12/24 15:00 Azithromycin 250 ml @ 125 mls/hr DAILY IV 04/13/24 10:00 04/14/24 12:47 125 MLS/HR Methylprednisolone Sodium Succinate 60 mg Q8HR IV 04/13/24 14:00 04/14/24 12:39 60 MG Melatonin 5 mg HS PO 04/13/24 22:00 04/13/24 21:33 5 MG Lorazepam 1 mg Q4HP PRN PO 04/13/24 14:45 04/14/24 01:51 1 MG Lactulose 30 ml Q6HR PRN PO 04/13/24 17:45 Diagnostic Test (Pha) 1 strip IQ4HR 04/14/24 00:00 04/14/24 11:12 1 STRIP Insulin Human Regular IQ4HR SC 04/14/24 00:00 04/14/24 11:17 12 UNITS Dextrose 50 ml UD PRN IV 04/14/24 00:00 Laboratory Results Laboratory Tests 04/13/24 06:03 04/13/24 08:15 Blood Gas Results Test 04/14/24 07:23 Arterial Blood pH 7.428 (7.350-7.450) FiO2 % 28.0 Microbiology Microbiology Date/Time Source Procedure Growth Status 04/11/24 16:00 Throat Nose/Throat Culture - Final Complete Labs and/or images reviewed: Labs reviewed by me Assessment/Plan Assessment/Plan Acute on chronic respiratory failure COPD with possible exacerbation Pneumonia possible Gram-positive pneumonia Hypokalemia Diabetes mellitus type 2 Constipation, improved. Plan Continuing current management. Continue DuoNeb q.4 p.r.n. for shortness for breath. Continue Robitussin with codeine 10 mL every 6 hours p.r.n. for cough. I will give the patient Toradol 30 mg IV every 8 hours as needed for pain. Maximum five days. Continue Zithromax 500 mg IV q.day. Continuing Rocephin 1 g IV q.day. Continue Solu-Medrol 60 mg IV every eight hours Continuing with sliding scale Insulin. Replace electrolytes as needed. I increase her albuterol neb to 20 instead of 10. DW resp. therapist. I called and dw dr Verma regarding to patient respiratory status worsening. I will consult him, label rewinder for this case. BIPAP as need. Plan discussed with: Patient, Other (respiratory therapist, RN, Dr Verma) My Orders Orders - MY PINA MD Procedure Category Date Status Time Melatonin (Melatonin) PHA 04/13/24 In Process 22:00 Lorazepam Tablet PHA 04/13/24 In Process (Ativan Tablet) 14:45 Lactulose Oral PHA 04/13/24 In Process 17:45 Date of Service: Apr 14, 2024 Billing Provider: MY PINA MD Common Visit Codes: [id number] INP/OBS CARE(HIGH) MY PINA MD Apr 14, 2024 13:44
[2024-04-14] MEDS: INSULIN LISPRO (HUMAN) 100 UNITS/ML ML SC ONE (16:45)
[2024-04-14] MEDS: SILDENAFIL CITRATE 20 MG TAB PO SCH (20:34)
--- NOTE | 2024-04-14 22:05 | DVHINCON2 ---
Date of service: Apr 14, 2024 Referring Physician Danita Lepe MD Reason for Consultation Acute on chronic hypoxic respiratory failure, COPD exacerbation and severe pulmonary hypertension History of Present Illness A 58-year-old woman with PMHx of COPD, diabetes mellitus, hypertension, CHF and pulmonary hypertension who presented to ED on 04/11/2024 for evaluation of shortness of breath and nonproductive cough. Patient presented with a one day history of worsening shortness of breath. She uses oxygen at home. Pt reported no relief of symptoms with her inhaler/nebulizer. No fever or chills or other acute complaints reported. She was admitted for further care, and pulmonary consultation is requested for evaluation and management due to acute on chronic hypoxic respiratory failure, COPD exacerbation and severe pulmonary hypertension. Review of Systems: 14-point review of systems negative unless otherwise noted above. Past Medical History: COPD, diabetes mellitus, hypertension, CHF and pulmonary hypertension Past Surgical History: Denies Medications: Reviewed. Allergies: Levofloxacin. Family History: Drug addiction Cirrhosis Colon cancer Social History: Nonsmoker. No alcohol or illicit drug use. Family History: Drug addiction G8 BROTHER FH: cirrhosis G8 MOTHER G8 FATHER G8 SISTER FH: colon cancer NIECE Allergies: Coded Allergies: Levofloxacin (Verified Allergy, Unknown, 01/19/24) Home Meds Active Scripts Diclofenac Sodium (Topical) (Voltaren Arthritis Pain) 1 % Gel, 1 % EX BIDPRN PRN for 30 Days, #1 GEL Prov:KATT COHEN MD 02/21/24 Potassium Chloride (POTASSIUM CHLORIDE CR) 10 Meq Tb, 1 TAB PO DAILY for 15 Days, #15 TAB 5 Refills Prov:LAUREN WANG RESIDENT 01/22/24 Furosemide (Furosemide) 20 Mg Tab, 1 TAB PO DAILY for 15 Days, #15 TAB 1 Refill Prov:LAUREN WANG RESIDENT 01/22/24 Reported Medications Levothyroxine Sodium (Levothyroxine Sodium) Unknown Strength Tab, PO QAM for 30 Days, MCG 01/20/24 Glipizide (Glipizide) 5 Mg Tab, 5 MG PO DAILY for 30 Days, MG 01/20/24 Apixaban Base (ELIQUIS) 5 Mg Tab, 5 MG PO BID, TAB 01/20/24 Carvedilol (Carvedilol) 3.125 Mg Tab, 3.125 MG PO BID for 30 Days, MG 01/20/24 Cyclobenzaprine Hcl (Cyclobenzaprine Hcl) 10 Mg Tab, 10 MG PO QPM for 30 Days, MG 01/20/24 Losartan Potassium (Losartan Potassium) 25 Mg Tab, 25 MG PO DAILY for 30 Days, MG 01/20/24 Amlodipine Besylate (Amlodipine Besylate) 5 Mg Tab, 5 MG PO DAILY for 30 Days, MG 01/20/24 Montelukast Sodium (MONTELUKAST SODIUM) 10 Mg Tab, 1 TAB PO DAILY, #30 TAB 5 Refills 01/20/24 Current Medications Current Medications Medications (Trade) Dose Ordered Sig/Aquiles Route PRN Reason Start Time Stop Time Status Last Admin Diagnostic Test (Pha) (Accu-Chek Comfort Curve T) 1 strip IQ4HR 04/14/24 00:00 04/14/24 20:21 Insulin Human Regular (InsuLIN R) IQ4HR SC 04/14/24 00:00 04/14/24 20:22 Dextrose 50 ml UD PRN IV Blood Sugar LESS THAN 60 04/14/24 00:00 Insulin Glargine (Lantus) 30 units HS SC 04/14/24 22:00 Sildenafil Citrate (Revatio) 20 mg Q8H PO 04/14/24 20:00 04/14/24 20:34 Vital Signs Vital Signs Date Time Temp Pulse Resp B/P (MAP) Pulse Ox O2 Delivery O2 Flow Rate FiO2 04/14/24 21:00 97.2 110 20 133/79 (97) 98 97.2 04/14/24 19:56 4.0 36 04/14/24 18:54 Nasal Cannula Physical Exam Gen.: Patient lying in bed in no apparent distress. On supplemental oxygen. Head: Normocephalic, atraumatic. Eyes: EOMI/PERRLA. Ears: Normal hearing. Normal anatomy. Neck/trachea: Trachea midline, supple. Nose: Normal external anatomy. Mouth: Moist mucous membranes. Chest: Decreased air entry bilaterally. No wheezing or rhonchi. Cardiovascular: Positive S1, positive S2. Regular rate and rhythm. Abdomen: Positive bowel sounds in all 4 quadrants. Soft, non-tender, non- distended. : Deferred. Rectal: Deferred. Skin: Warm, dry. Intact. Extremities: 2+ radial pulses bilaterally. No lower extremity edema. Neuro: Awake, alert, oriented x3. No gross motor or sensory deficits. Cranial nerves II through XII intact. Gait not assessed. Labs/Diagnostic Data Labs Test 04/14/24 20:04 04/14/24 07:23 04/13/24 08:15 04/13/24 06:03 Range/Units POC Glucose 204 H 70-106 mg/dl Blood Gas Specimen Type Arterial Blood Gas Sample Site Right radial Blood Gas Patient Temperature 37.0 Arterial Blood Date Drawn [id number] Arterial Blood pH 7.428 7.350-7.450 Arterial Blood Partial Pressure CO2 50.0 H 32.0-45.0 mmHg Arterial Blood Partial Pressure O2 89.3 83.0-108.0 mmHg Arterial Blood HCO3 32.3 H 21.0-28.0 mmol/L Arterial Blood Oxygen Saturation 96.0 94.0-98.0 % Arterial Blood Base Excess 6.8 H -2.0-3.0 mmol/L Arterial Blood Oxyhemoglobin 94.8 94.0-98.0 % Arterial Blood Carboxyhemoglobin 0.7 0.5-1.5 % Arterial Blood Methemoglobin 0.5 0.0-1.5 % Johnson Test Yes Blood Gas Total Hemoglobin 12.60 12.0-16.0 g/dL Blood Gas Liter Flow 2.00 Blood Gas Modality Nasal cannula FiO2 % 28.0 Sodium Level 144 # 136-145 mmol/L Potassium Level 2.9 L 3.5-5.1 mmol/L Chloride Level 105 98-107 mmol/L Carbon Dioxide Level 34 H 20-31 mmol/L Anion Gap 5 5-15 Blood Urea Nitrogen 20 9-23 mg/dL Creatinine 0.85 0.550-1.02 mg/dL Glomerular Filtration Rate Calc 78 >90 mL/min BUN/Creatinine Ratio 23.5 H 10.0-20.0 Serum Glucose 151 H 74-106 mg/dL Calcium Level 10.8 H 8.7-10.4 mg/dL White Blood Count 12.5 #H 4.4-10.8 10^3/uL Red Blood Count 4.44 4.0-5.20 10^6/uL Hemoglobin 12.8 12.2-16.2 g/dL Hematocrit 39.0 36.0-46.0 % Mean Corpuscular Volume 87.9 80.0-100.0 fL Mean Corpuscular Hemoglobin 28.9 28.0-32.0 pg Mean Corpuscular Hemoglobin Concent 32.9 32.0-36.0 g/dL Red Cell Distribution Width 17.5 H 11.8-14.3 % Platelet Count 154 140-450 10^3/uL Mean Platelet Volume 6.8 L 6.9-10.8 fL Neutrophils (%) (Auto) 78.3 37.0-80.0 % Lymphocytes (%) (Auto) 13.1 10.0-50.0 % Monocytes (%) (Auto) 6.0 0.0-12.0 % Eosinophils (%) (Auto) 2.4 0.0-7.0 % Basophils (%) (Auto) 0.2 0.0-2.0 % Neutrophils # (Auto) 9.8 H 1.6-8.6 10 ^3/uL Lymphocytes # (Auto) 1.6 0.4-5.4 10 ^3/uL Monocytes # (Auto) 0.7 0-1.3 10 ^3/uL Eosinophils # (Auto) 0.3 0-0.8 10 ^3/uL Basophils # (Auto) 0 0-0.2 10 ^3/uL Nucleated Red Blood Cells 0.7 % Test 04/12/24 07:13 04/11/24 16:00 04/11/24 15:03 Range/Units Troponin I High Sensitivity < 3 L </=34 ng/L Hepatitis B Surface Antigen Negative Negative Hepatitis C Antibody Reactive *A Negative Influenza Type A Antigen Negative Negative Influenza Type B Antigen Negative Negative SARS-CoV-2 Antigen (Rapid) Negative NEGATIVE Group A Streptococcus Rapid Negative Total Bilirubin 0.7 0.2-1.0 mg/dL Aspartate Amino Transferase (AST) 30 13-40 U/L Alanine Aminotransferase (ALT) 26 7-40 U/L Alkaline Phosphatase 125 H 46-116 U/L B-Type Natriuretic Peptide 118.02 0-100 pg/mL Total Protein 7.4 5.7-8.2 g/dL Albumin 3.5 3.2-4.8 g/dL Microbiology Date/Time Source Procedure Growth Status 04/11/24 16:00 Throat Nose/Throat Culture - Final Complete Assessment Impression: Acute on chronic hypoxic respiratory failure Dependence on supplemental oxygen AE COPD Anxiety Severe pulmonary hypertension. Plan: Supplemental oxygen 4 LPM NC Titrate to keep O2 sats above 92%. Taper O2 as tolerated. Continue bronchodilators. Continue antibiotics IV steroids Incentive spirometry Start Revatio 20 mg po TID - hold if SBP <90 mmHg. She has severe pulmonary hypertension. She was previously on multiple agents for pulmonary hypertension. We will need to establish out patient care to re-initiate medications. Diurese w/ Lasix as tolerated Monitor renal function. Monitor electrolytes. Supplement as necessary. Monitor ins and outs. Will need outpatient followup for severe pulmonary hypertension. DVT prophylaxis. Prognosis: Poor given patient's multiple co-morbidities. Rest of plan per hospitalist and other consultants. Thank you Dr. Lepe, for allowing me to participate in this patient's care. Further recommendations will depend on the patient's clinical course. Please do not hesitate to contact me if you have any questions or concerns. This medical document was created using an electronic medical record system with [employer] dictation system. Although these documentations are being carefully reviewed, there may still be some phonetic and typographical changes. The errors are purely typographical, due to imperfection on the software program, and do not reflect any compromise in the patient's medical care. Plan discussed with: Patient, Other (BOB Kelsey/MD Lepe) MYKEL SANDERS MD Apr 14, 2024 22:05
[2024-04-14] MEDS: LACTULOSE 20Gm/30ML SOLN PO PRN (22:29)
[2024-04-14] MEDS: INSULIN LANTUS (GLARGINE) 1 /0.01ml (100units/ml) SC SCH (22:36)
[2024-04-15] VITALS (20 sets, daily range): BP systolic 118–150; BP diastolic 78–87; PULSE 73–116; RESP 16–23; TEMP 96.6–98.8; O2SAT 95–100
--- NOTE | 2024-04-15 09:31 | DVH ---
EXAM: XY CHEST TWO VIEWS ROUTINE CLINICAL HISTORY: COPD exacerbation COMPARISON: None TECHNIQUE: Frontal and lateral view of the chest was obtained FINDINGS: Lines and Tubes: None Lungs: Pulmonary vascular congestion with hilar prominence. Pleura: No effusion. No pneumothorax. Cardiomediastinal contours: Unremarkable Bones: No acute osseous abnormality. IMPRESSION: Pulmonary vascular congestion with hilar prominence.
--- NOTE | 2024-04-15 10:11 | DVHPN2 ---
Subjective The patient is seen and examined at bedside. Still complain of severe shortness a breath. Patient is sitting on bed and could not lay down because of shortness of breath. Reviewed: Care Plan, H&P, Labs, Medications, Previous Orders, Radiology Changes from previous H/P or p: No Changes Objective Vitals Vital Signs Date Time Temp Pulse Resp B/P (MAP) Pulse Ox O2 Delivery O2 Flow Rate FiO2 04/15/24 09:38 128/83 04/15/24 07:24 96 16 98 04/15/24 07:18 Nasal Cannula 3.0 04/15/24 07:18 32 04/15/24 05:00 97.5 97.5 Intake/Output Intake and Output 04/15/24 07:00 Intake Total 2054 ml Output Total 700 ml Balance 1354 ml Intake Oral 1754 ml IV Total 300 ml Output Urine Total 700 ml # Voids 6 General Appearance: Alert, Oriented X3, Cooperative, mild distress HEENT: Atraumatic, PERRLA, EOMI, Mucous membr. moist/pink Neck: Supple Lungs: Clear to auscultation, Normal air movement Cardiovascular: Regular rate, Normal S1, Normal S2, No murmurs, Gallops, Rubs Abdomen: Normal bowel sounds, Soft, No tenderness Neuro: Cranial nerves 3-12 NL Psych/Mental Status: Mental status NL Medications Current Medications Medications Dose Ordered Sig/Aquiles Route Start Time Stop Time Status Last Admin Dose Admin Ceftriaxone Sodium 50 ml @ 100 mls/hr DAILY@09 IV 04/12/24 09:00 04/15/24 09:22 100 MLS/HR Amlodipine Besylate 5 mg DAILY PO 04/12/24 10:00 04/15/24 09:38 5 MG Apixaban 5 mg BID PO 04/11/24 22:00 04/15/24 09:38 5 MG Carvedilol 3.125 mg Q12HR PO 04/11/24 22:00 04/14/24 22:24 3.125 MG Furosemide 20 mg DAILY PO 04/12/24 10:00 04/15/24 09:37 20 MG Levothyroxine Sodium 100 mcg QAM@0600 PO 04/12/24 06:00 04/15/24 05:28 100 MCG Potassium Chloride 10 meq DAILY PO 04/12/24 10:00 04/15/24 09:39 10 MEQ Ondansetron HCl 4 mg Q4HP PRN IV 04/11/24 19:45 Acetaminophen 650 mg Q6HP PRN PO 04/11/24 19:45 04/13/24 00:29 650 MG Dextrose 50 ml UD PRN IV 04/11/24 19:45 Cancel Ketorolac Tromethamine 30 mg Q6HPRN PRN IV 04/12/24 11:00 04/17/24 10:59 04/15/24 04:56 30 MG Ibuprofen 600 mg Q4HP PRN PO 04/12/24 11:00 04/14/24 15:33 600 MG Guaifenesin/ Codeine Phosphate 10 ml Q4HPRN PRN PO 04/12/24 11:00 04/15/24 09:36 10 ML Albuterol 2.5 mg Q4HR NEB 04/12/24 18:00 04/15/24 07:18 2.5 MG Albuterol 2.5 mg Q4HPRN PRN NEB 04/12/24 15:00 Ipratropium [place] 0.5 mg Q4HR NEB 04/12/24 18:00 04/15/24 07:18 0.5 MG Ipratropium [place] 0.5 mg Q4HPRN PRN NEB 04/12/24 15:00 Azithromycin 250 ml @ 125 mls/hr DAILY IV 04/13/24 10:00 04/14/24 12:47 125 MLS/HR Methylprednisolone Sodium Succinate 60 mg Q8HR IV 04/13/24 14:00 04/15/24 05:29 60 MG Melatonin 5 mg HS PO 04/13/24 22:00 04/14/24 22:26 5 MG Lorazepam 1 mg Q4HP PRN PO 04/13/24 14:45 04/15/24 09:37 1 MG Lactulose 30 ml Q6HR PRN PO 04/13/24 17:45 04/14/24 22:29 30 ML Diagnostic Test (Pha) 1 strip IQ4HR 04/14/24 00:00 04/15/24 04:56 1 STRIP Insulin Human Regular IQ4HR SC 04/14/24 00:00 04/15/24 05:06 6 UNITS Dextrose 50 ml UD PRN IV 04/14/24 00:00 Insulin Glargine 30 units HS SC 04/14/24 22:00 04/14/24 22:36 30 UNITS Sildenafil Citrate 20 mg Q8H PO 04/14/24 20:00 04/15/24 04:56 20 MG Laboratory Results Laboratory Tests 04/13/24 06:03 04/13/24 08:15 Microbiology Microbiology Date/Time Source Procedure Growth Status 04/11/24 16:00 Throat Nose/Throat Culture - Final Complete Labs and/or images reviewed: Labs reviewed by me Assessment/Plan Assessment/Plan Acute on chronic respiratory failure COPD with possible exacerbation Pneumonia possible Gram-positive pneumonia Hypokalemia Diabetes mellitus type 2 Constipation, improved. Systolic congestive heart failure Plan Continuing current management. Continue DuoNeb q.4 p.r.n. for shortness for breath. Continue Robitussin with codeine 10 mL every 6 hours p.r.n. for cough. I will give the patient Toradol 30 mg IV every 8 hours as needed for pain. Maximum five days. Continue Zithromax 500 mg IV q.day. Continuing Rocephin 1 g IV q.day. Continue Solu-Medrol 60 mg IV every eight hours Continuing with sliding scale Insulin. Replace electrolytes as needed. I increase her albuterol neb to 20 instead of 10. DW resp. therapist. Machine Attendant input appreciated I will Increase her Lasix to 40 mg IV b.i.d.. Plan discussed with: Patient My Orders Orders - MY PINA MD Procedure Category Date Status Time *Consult CONS 04/14/24 Transmitted / 14:56 Insulin Lantus PHA 04/14/24 In Process (Glargine) (Lantus) 22:00 Date of Service: Apr 15, 2024 Billing Provider: MY PINA MD Common Visit Codes: [id number] INP/OBS CARE(HIGH) MY PINA MD Apr 15, 2024 10:11
--- NOTE | 2024-04-15 10:17 | DVHPN2 ---
Subjective The patient is seen and examined at bedside. Still complain of severe shortness a breath. Patient is sitting on bed and could not lay down because of shortness. The patient could not breath even after respiratory treatment. The patient said she felt her breakfast food went to her lung after she cough Reviewed: Care Plan, H&P, Labs, Medications, Previous Orders, Radiology Objective Vitals Vital Signs Date Time Temp Pulse Resp B/P (MAP) Pulse Ox O2 Delivery O2 Flow Rate FiO2 04/15/24 09:38 128/83 04/15/24 07:24 96 16 98 04/15/24 07:18 Nasal Cannula 3.0 04/15/24 07:18 32 04/15/24 05:00 97.5 97.5 Intake/Output Intake and Output 04/15/24 07:00 Intake Total 2054 ml Output Total 700 ml Balance 1354 ml Intake Oral 1754 ml IV Total 300 ml Output Urine Total 700 ml # Voids 6 General Appearance: Alert, Oriented X3, Cooperative, mild distress HEENT: Atraumatic, PERRLA, EOMI, Mucous membr. moist/pink Neck: Supple Lungs: Clear to auscultation, Normal air movement Cardiovascular: Regular rate, Normal S1, Normal S2, No murmurs, Gallops, Rubs Abdomen: Normal bowel sounds, Soft, No tenderness Neuro: Cranial nerves 3-12 NL Psych/Mental Status: Mental status NL Medications Current Medications Medications Dose Ordered Sig/Aquiles Route Start Time Stop Time Status Last Admin Dose Admin Ceftriaxone Sodium 50 ml @ 100 mls/hr DAILY@09 IV 04/12/24 09:00 04/15/24 09:22 100 MLS/HR Amlodipine Besylate 5 mg DAILY PO 04/12/24 10:00 04/15/24 09:38 5 MG Apixaban 5 mg BID PO 04/11/24 22:00 04/15/24 09:38 5 MG Carvedilol 3.125 mg Q12HR PO 04/11/24 22:00 04/14/24 22:24 3.125 MG Furosemide 20 mg DAILY PO 04/12/24 10:00 04/15/24 09:37 20 MG Levothyroxine Sodium 100 mcg QAM@0600 PO 04/12/24 06:00 04/15/24 05:28 100 MCG Potassium Chloride 10 meq DAILY PO 04/12/24 10:00 04/15/24 09:39 10 MEQ Ondansetron HCl 4 mg Q4HP PRN IV 04/11/24 19:45 Acetaminophen 650 mg Q6HP PRN PO 04/11/24 19:45 04/13/24 00:29 650 MG Dextrose 50 ml UD PRN IV 04/11/24 19:45 Cancel Ketorolac Tromethamine 30 mg Q6HPRN PRN IV 04/12/24 11:00 04/17/24 10:59 04/15/24 04:56 30 MG Ibuprofen 600 mg Q4HP PRN PO 04/12/24 11:00 04/14/24 15:33 600 MG Guaifenesin/ Codeine Phosphate 10 ml Q4HPRN PRN PO 04/12/24 11:00 04/15/24 09:36 10 ML Albuterol 2.5 mg Q4HR NEB 04/12/24 18:00 04/15/24 10:14 2.5 MG Albuterol 2.5 mg Q4HPRN PRN NEB 04/12/24 15:00 Ipratropium [place] 0.5 mg Q4HR NEB 04/12/24 18:00 04/15/24 10:15 0.5 MG Ipratropium [place] 0.5 mg Q4HPRN PRN NEB 04/12/24 15:00 Azithromycin 250 ml @ 125 mls/hr DAILY IV 04/13/24 10:00 04/14/24 12:47 125 MLS/HR Methylprednisolone Sodium Succinate 60 mg Q8HR IV 04/13/24 14:00 04/15/24 05:29 60 MG Melatonin 5 mg HS PO 04/13/24 22:00 04/14/24 22:26 5 MG Lorazepam 1 mg Q4HP PRN PO 04/13/24 14:45 04/15/24 09:37 1 MG Lactulose 30 ml Q6HR PRN PO 04/13/24 17:45 04/14/24 22:29 30 ML Diagnostic Test (Pha) 1 strip IQ4HR 04/14/24 00:00 04/15/24 04:56 1 STRIP Insulin Human Regular IQ4HR SC 04/14/24 00:00 04/15/24 05:06 6 UNITS Dextrose 50 ml UD PRN IV 04/14/24 00:00 Insulin Glargine 30 units HS SC 04/14/24 22:00 04/14/24 22:36 30 UNITS Sildenafil Citrate 20 mg Q8H PO 04/14/24 20:00 04/15/24 04:56 20 MG Laboratory Results Laboratory Tests 04/13/24 06:03 04/13/24 08:15 Microbiology Microbiology Date/Time Source Procedure Growth Status 04/11/24 16:00 Throat Nose/Throat Culture - Final Complete Assessment/Plan Assessment/Plan Acute on chronic respiratory failure COPD with possible exacerbation Pneumonia possible Gram-positive pneumonia Hypokalemia Diabetes mellitus type 2 Constipation, improved. Plan Continuing current management. Continue DuoNeb q.4 p.r.n. for shortness for breath. Continue Robitussin with codeine 10 mL every 6 hours p.r.n. for cough. I will give the patient Toradol 30 mg IV every 8 hours as needed for pain. Maximum five days. Continue Zithromax 500 mg IV q.day. Continuing Rocephin 1 g IV q.day. Continue Solu-Medrol 60 mg IV every eight hours Continuing with sliding scale Insulin. Replace electrolytes as needed. I increase her albuterol neb to 20 instead of 10. DW resp. therapist. I called and dw dr Verma regarding to patient respiratory status worsening. I will consult him, mixing house operator for this case. BIPAP as need. My Orders Orders - MY PINA MD Procedure Category Date Status Time *Consult CONS 04/14/24 Transmitted / 14:56 Insulin Lantus PHA 04/14/24 In Process (Glargine) (Lantus) 22:00 MY PINA MD Apr 15, 2024 10:17
[2024-04-15] MEDS: FUROSEMIDE 40 MG/4 ML VIAL IV SCH (17:38)
--- NOTE | 2024-04-15 22:56 | DVHPN2 ---
Progress Note - Dictate Date Seen: Apr 15, 2024 Medical Necessity Reason Pt with a Central, PICC or Fol: No Subjective Patient seen and examined at bedside. On BiPAP Overnight events reviewed. vital signs Vital Sign Date Time Temp Pulse Resp B/P (MAP) Pulse Ox O2 Delivery O2 Flow Rate FiO2 04/15/24 21:15 95 150/80 04/15/24 21:00 98.5 20 95 98.5 04/15/24 18:49 Facial BiPAP Mask 30 04/15/24 10:00 3 Total Intake and Output 04/14/24 04/14/24 04/15/24 15:00 23:00 07:00 Intake Total 768 ml 486 ml 800 ml Output Total 700 ml Balance 768 ml 486 ml 100 ml medications Current Medications Medications Dose Ordered Sig/Aquiles Route Start Time Stop Time Status Last Admin Dose Admin Ceftriaxone Sodium 50 ml @ 100 mls/hr DAILY@09 IV 04/12/24 09:00 04/15/24 09:22 100 MLS/HR Amlodipine Besylate 5 mg DAILY PO 04/12/24 10:00 04/15/24 09:38 5 MG Apixaban 5 mg BID PO 04/11/24 22:00 04/15/24 21:15 5 MG Carvedilol 3.125 mg Q12HR PO 04/11/24 22:00 04/15/24 21:15 3.125 MG Levothyroxine Sodium 100 mcg QAM@0600 PO 04/12/24 06:00 04/15/24 05:28 100 MCG Potassium Chloride 10 meq DAILY PO 04/12/24 10:00 04/15/24 09:39 10 MEQ Ondansetron HCl 4 mg Q4HP PRN IV 04/11/24 19:45 Acetaminophen 650 mg Q6HP PRN PO 04/11/24 19:45 04/13/24 00:29 650 MG Dextrose 50 ml UD PRN IV 04/11/24 19:45 Cancel Ketorolac Tromethamine 30 mg Q6HPRN PRN IV 04/12/24 11:00 04/17/24 10:59 04/15/24 04:56 30 MG Ibuprofen 600 mg Q4HP PRN PO 04/12/24 11:00 04/14/24 15:33 600 MG Guaifenesin/ Codeine Phosphate 10 ml Q4HPRN PRN PO 04/12/24 11:00 04/15/24 09:36 10 ML Albuterol 2.5 mg Q4HR NEB 04/12/24 18:00 04/15/24 18:49 2.5 MG Albuterol 2.5 mg Q4HPRN PRN NEB 04/12/24 15:00 Ipratropium [place] 0.5 mg Q4HR NEB 04/12/24 18:00 04/15/24 18:49 0.5 MG Ipratropium [place] 0.5 mg Q4HPRN PRN NEB 04/12/24 15:00 Azithromycin 250 ml @ 125 mls/hr DAILY IV 04/13/24 10:00 04/14/24 12:47 125 MLS/HR Methylprednisolone Sodium Succinate 60 mg Q8HR IV 04/13/24 14:00 04/15/24 17:37 60 MG Melatonin 5 mg HS PO 04/13/24 22:00 04/15/24 21:16 5 MG Lorazepam 1 mg Q4HP PRN PO 04/13/24 14:45 04/15/24 09:37 1 MG Lactulose 30 ml Q6HR PRN PO 04/13/24 17:45 04/14/24 22:29 30 ML Diagnostic Test (Pha) 1 strip IQ4HR 04/14/24 00:00 04/15/24 20:00 1 STRIP Insulin Human Regular IQ4HR SC 04/14/24 00:00 04/15/24 21:45 6 UNITS Dextrose 50 ml UD PRN IV 04/14/24 00:00 Insulin Glargine 30 units HS SC 04/14/24 22:00 04/15/24 21:45 30 UNITS Sildenafil Citrate 20 mg Q8H PO 04/14/24 20:00 04/15/24 21:15 20 MG Furosemide 40 mg BIDD IV 04/15/24 18:00 objective Gen.: Patient lying in bed in no apparent distress. On BiPAP. Head: Normocephalic, atraumatic. Eyes: EOMI/PERRLA. Ears: Normal hearing. Normal anatomy. Neck/trachea: Trachea midline, supple. Nose: Normal external anatomy. Mouth: Moist mucous membranes. Chest: Decreased air entry bilaterally. No wheezing or rhonchi. Cardiovascular: Positive S1, positive S2. Regular rate and rhythm. Abdomen: Positive bowel sounds in all 4 quadrants. Soft, non-tender, non- distended. : Deferred. Rectal: Deferred. Skin: Warm, dry. Intact. Extremities: 2+ radial pulses bilaterally. No lower extremity edema. Neuro: Awake, alert, oriented x3. No gross motor or sensory deficits. Cranial nerves II through XII intact. Gait not assessed. laboratory and microbiology Laboratory Tests 04/13/24 08:15 04/13/24 06:03 Test 04/13/24 08:15 Range/Units Serum Glucose 151 H 74-106 mg/dL Assessment/Plan Impression: Acute on chronic hypoxic respiratory failure Dependence on supplemental oxygen AE COPD Anxiety Severe pulmonary hypertension. Plan: Patient remains short of breath, anxious. Start BiPAP with IPAP 12, EPAP 5. Continue bronchodilators. Continue antibiotics IV steroids Incentive spirometry Continue Revatio 20 mg po TID - monitor BP, hold if SBP <90 mmHg. Will require uptitration of sildenafil if SBP can tolerate. Diurese w/ Lasix as tolerated Monitor renal function. Monitor electrolytes. Supplement as necessary. Monitor ins and outs. Will need outpatient followup for severe pulmonary hypertension. DVT prophylaxis. Prognosis: Poor given patient's multiple co-morbidities. Rest of plan per hospitalist and other consultants. Thank you Dr. Lepe, for allowing me to participate in this patient's care. Further recommendations will depend on the patient's clinical course. Please do not hesitate to contact me if you have any questions or concerns. This medical document was created using an electronic medical record system with [employer] dictation system. Although these documentations are being carefully reviewed, there may still be some phonetic and typographical changes. The errors are purely typographical, due to imperfection on the software program, and do not reflect any compromise in the patient's medical care. Dietary Evaluation Review Comments: Consider prune juice BID for constipation Expected Outcomes/Goals: F/U in 3-5 days Plan discussed with: Patient, Other (BOB Kelsey) MYKEL SANDERS MD Apr 15, 2024 22:56
[2024-04-16] VITALS (21 sets, daily range): BP systolic 114–129; BP diastolic 70–83; PULSE 98–111; RESP 18–25; TEMP 97.4–98.5; O2SAT 91–100
[2024-04-16] MEDS: ACCU-CHEK COMFORT CURVE STRIP VI SCH (01:56)
[2024-04-16] MEDS: InsuLIN REG 1unit/0.01ml Soln (100units/ml) SC SCH (01:59)
--- NOTE | 2024-04-16 13:17 | DVHPN2 ---
Reviewed: Care Plan, H&P, Labs, Medications, Previous Orders, Radiology Changes from previous H/P or p: No Changes Objective Vitals Vital Signs Date Time Temp Pulse Resp B/P (MAP) Pulse Ox O2 Delivery O2 Flow Rate FiO2 04/16/24 10:23 98 125/68 04/16/24 09:53 100 Facial BiPAP Mask 40 04/16/24 09:52 20 04/16/24 09:43 4.0 04/16/24 05:00 97.4 97.4 Intake/Output Intake and Output 04/16/24 07:00 Intake Total 3272 ml Balance 3272 ml Intake Oral 3222 ml IV Total 50 ml # Voids 7 # Bowel Movements 1 General Appearance: Alert, Oriented X3, Cooperative, mild distress HEENT: Atraumatic, PERRLA, EOMI, Mucous membr. moist/pink Neck: Supple Lungs: Clear to auscultation, Normal air movement Cardiovascular: Regular rate, Normal S1, Normal S2, No murmurs, Gallops, Rubs Abdomen: Normal bowel sounds, Soft, No tenderness Neuro: Cranial nerves 3-12 NL Psych/Mental Status: Mental status NL Medications Current Medications Medications Dose Ordered Sig/Aquiles Route Start Time Stop Time Status Last Admin Dose Admin Ceftriaxone Sodium 50 ml @ 100 mls/hr DAILY@09 IV 04/12/24 09:00 04/16/24 09:22 100 MLS/HR Amlodipine Besylate 5 mg DAILY PO 04/12/24 10:00 04/16/24 09:24 5 MG Apixaban 5 mg BID PO 04/11/24 22:00 04/16/24 09:22 5 MG Carvedilol 3.125 mg Q12HR PO 04/11/24 22:00 04/16/24 09:23 3.125 MG Levothyroxine Sodium 100 mcg QAM@0600 PO 04/12/24 06:00 04/16/24 06:02 100 MCG Potassium Chloride 10 meq DAILY PO 04/12/24 10:00 04/16/24 09:24 10 MEQ Ondansetron HCl 4 mg Q4HP PRN IV 04/11/24 19:45 Acetaminophen 650 mg Q6HP PRN PO 04/11/24 19:45 04/15/24 22:51 650 MG Dextrose 50 ml UD PRN IV 04/11/24 19:45 Cancel Ketorolac Tromethamine 30 mg Q6HPRN PRN IV 04/12/24 11:00 04/17/24 10:59 04/16/24 09:22 30 MG Ibuprofen 600 mg Q4HP PRN PO 04/12/24 11:00 04/16/24 06:02 600 MG Guaifenesin/ Codeine Phosphate 10 ml Q4HPRN PRN PO 04/12/24 11:00 04/16/24 02:32 10 ML Albuterol 2.5 mg Q4HR NEB 04/12/24 18:00 04/16/24 09:43 2.5 MG Albuterol 2.5 mg Q4HPRN PRN NEB 04/12/24 15:00 Ipratropium [place] 0.5 mg Q4HR NEB 04/12/24 18:00 04/16/24 09:44 0.5 MG Ipratropium [place] 0.5 mg Q4HPRN PRN NEB 04/12/24 15:00 Azithromycin 250 ml @ 125 mls/hr DAILY IV 04/13/24 10:00 04/16/24 10:47 125 MLS/HR Methylprednisolone Sodium Succinate 60 mg Q8HR IV 04/13/24 14:00 04/15/24 17:37 60 MG Melatonin 5 mg HS PO 04/13/24 22:00 04/15/24 21:16 5 MG Lorazepam 1 mg Q4HP PRN PO 04/13/24 14:45 04/15/24 09:37 1 MG Lactulose 30 ml Q6HR PRN PO 04/13/24 17:45 04/14/24 22:29 30 ML Dextrose 50 ml UD PRN IV 04/14/24 00:00 Insulin Glargine 30 units HS SC 04/14/24 22:00 04/15/24 21:45 30 UNITS Sildenafil Citrate 20 mg Q8H PO 04/14/24 20:00 04/16/24 12:14 20 MG Furosemide 40 mg BIDD IV 04/15/24 18:00 Diagnostic Test (Pha) 1 strip IQ4HR 04/16/24 02:00 04/16/24 09:25 1 STRIP Insulin Human Regular IQ4HR SC 04/16/24 02:00 04/16/24 01:59 6 UNITS Laboratory Results Laboratory Tests 04/13/24 06:03 04/13/24 08:15 Microbiology Microbiology Date/Time Source Procedure Growth Status 04/11/24 16:00 Throat Nose/Throat Culture - Final Complete Labs and/or images reviewed: Labs reviewed by me, Image(s) reviewed by me Assessment/Plan Assessment/Plan Acute on chronic hypoxic respiratory failure secondary to pneumonia COPD group E on home oxygen with exacerbation Community-acquired pneumonia Bilateral knee avascular necrosis Atrial fibrillation on Eliquis Chronic opioid use Opiate induced constipation Heart failure with preserved ejection fraction Pulmonary hypertension, likely type 3/1 Diabetes mellitus Normocytic anemia Ex-smoker Plan discussed with: Patient Date of Service: Apr 16, 2024 Billing Provider: VARUN OLSON MD Common Visit Codes: [id number] INP/OBS CARE(HIGH) VARUN OLSON MD Apr 16, 2024 13:17
--- NOTE | 2024-04-16 13:19 | DVHPN2 ---
Reviewed: Care Plan, H&P, Labs, Medications, Previous Orders, Radiology Changes from previous H/P or p: No Changes Objective Vitals Vital Signs Date Time Temp Pulse Resp B/P (MAP) Pulse Ox O2 Delivery O2 Flow Rate FiO2 04/16/24 10:23 98 125/68 04/16/24 09:53 100 Facial BiPAP Mask 40 04/16/24 09:52 20 04/16/24 09:43 4.0 04/16/24 05:00 97.4 97.4 Intake/Output Intake and Output 04/16/24 07:00 Intake Total 3272 ml Balance 3272 ml Intake Oral 3222 ml IV Total 50 ml # Voids 7 # Bowel Movements 1 General Appearance: Alert, Oriented X3, Cooperative, mild distress HEENT: Atraumatic, PERRLA, EOMI, Mucous membr. moist/pink Neck: Supple Lungs: Clear to auscultation, Normal air movement Cardiovascular: Regular rate, Normal S1, Normal S2, No murmurs, Gallops, Rubs Abdomen: Normal bowel sounds, Soft, No tenderness Neuro: Cranial nerves 3-12 NL Psych/Mental Status: Mental status NL Medications Current Medications Medications Dose Ordered Sig/Aquiles Route Start Time Stop Time Status Last Admin Dose Admin Ceftriaxone Sodium 50 ml @ 100 mls/hr DAILY@09 IV 04/12/24 09:00 04/16/24 09:22 100 MLS/HR Amlodipine Besylate 5 mg DAILY PO 04/12/24 10:00 04/16/24 09:24 5 MG Apixaban 5 mg BID PO 04/11/24 22:00 04/16/24 09:22 5 MG Carvedilol 3.125 mg Q12HR PO 04/11/24 22:00 04/16/24 09:23 3.125 MG Levothyroxine Sodium 100 mcg QAM@0600 PO 04/12/24 06:00 04/16/24 06:02 100 MCG Potassium Chloride 10 meq DAILY PO 04/12/24 10:00 04/16/24 09:24 10 MEQ Ondansetron HCl 4 mg Q4HP PRN IV 04/11/24 19:45 Acetaminophen 650 mg Q6HP PRN PO 04/11/24 19:45 04/15/24 22:51 650 MG Dextrose 50 ml UD PRN IV 04/11/24 19:45 Cancel Ketorolac Tromethamine 30 mg Q6HPRN PRN IV 04/12/24 11:00 04/17/24 10:59 04/16/24 09:22 30 MG Ibuprofen 600 mg Q4HP PRN PO 04/12/24 11:00 04/16/24 06:02 600 MG Guaifenesin/ Codeine Phosphate 10 ml Q4HPRN PRN PO 04/12/24 11:00 04/16/24 02:32 10 ML Albuterol 2.5 mg Q4HR NEB 04/12/24 18:00 04/16/24 09:43 2.5 MG Albuterol 2.5 mg Q4HPRN PRN NEB 04/12/24 15:00 Ipratropium [place] 0.5 mg Q4HR NEB 04/12/24 18:00 04/16/24 09:44 0.5 MG Ipratropium [place] 0.5 mg Q4HPRN PRN NEB 04/12/24 15:00 Azithromycin 250 ml @ 125 mls/hr DAILY IV 04/13/24 10:00 04/16/24 10:47 125 MLS/HR Methylprednisolone Sodium Succinate 60 mg Q8HR IV 04/13/24 14:00 04/15/24 17:37 60 MG Melatonin 5 mg HS PO 04/13/24 22:00 04/15/24 21:16 5 MG Lorazepam 1 mg Q4HP PRN PO 04/13/24 14:45 04/15/24 09:37 1 MG Lactulose 30 ml Q6HR PRN PO 04/13/24 17:45 04/14/24 22:29 30 ML Dextrose 50 ml UD PRN IV 04/14/24 00:00 Insulin Glargine 30 units HS SC 04/14/24 22:00 04/15/24 21:45 30 UNITS Sildenafil Citrate 20 mg Q8H PO 04/14/24 20:00 04/16/24 12:14 20 MG Furosemide 40 mg BIDD IV 04/15/24 18:00 Diagnostic Test (Pha) 1 strip IQ4HR 04/16/24 02:00 04/16/24 09:25 1 STRIP Insulin Human Regular IQ4HR SC 04/16/24 02:00 04/16/24 01:59 6 UNITS Laboratory Results Laboratory Tests 04/13/24 06:03 04/13/24 08:15 Microbiology Microbiology Date/Time Source Procedure Growth Status 04/11/24 16:00 Throat Nose/Throat Culture - Final Complete Assessment/Plan Assessment/Plan Acute on chronic respiratory failure COPD with possible exacerbation: Continue antibiotic Rocephin azithromycin albuterol Atrovent Solu-Medrol Pneumonia possible Gram-positive pneumonia Hypokalemia Diabetes mellitus type 2 Constipation, improved. Systolic congestive heart failure History of smoking Plan discussed with: Patient Date of Service: Apr 16, 2024 Billing Provider: VARUN OLSON MD Common Visit Codes: [id number] INP/OBS CARE(HIGH) VARUN OLSON MD Apr 16, 2024 13:19
[2024-04-16 14:27] LABS: Chloride 100 mmol/L (98-107); Potassium 3.6 mmol/L (3.5-5.1); Sodium 142 mmol/L (136-145)
[2024-04-16 14:28] LABS: Anion Gap 4 (5-15)
[2024-04-16 14:34] LABS: BUN/Creatinine Ratio 30.1 (10.0-20.0)
[2024-04-16 14:35] LABS: Blood Urea Nitrogen 25 mg/dL (9-23); Calcium 11.4 mg/dL (8.7-10.4); Carbon Dioxide 38 mmol/L (20-31); Glucose 332 mg/dL (74-106)
--- NOTE | 2024-04-16 23:39 | DVHPN2 ---
Progress Note - Dictate Date Seen: Apr 16, 2024 Medical Necessity Reason Pt with a Central, PICC or Fol: No Subjective Patient seen and examined at bedside. On supplemental oxygen. BiPAP PRN Overnight events reviewed. vital signs Vital Sign Date Time Temp Pulse Resp B/P (MAP) Pulse Ox O2 Delivery O2 Flow Rate FiO2 04/16/24 22:59 104 18 100 04/16/24 22:22 117/79 04/16/24 21:00 98.5 98.5 04/16/24 18:33 Nasal Cannula 5.0 04/16/24 18:33 40 Total Intake and Output 04/15/24 04/15/24 04/16/24 15:00 23:00 07:00 Intake Total 956 ml 906 ml 1410 ml Balance 956 ml 906 ml 1410 ml medications Current Medications Medications Dose Ordered Sig/Aquiles Route Start Time Stop Time Status Last Admin Dose Admin Ceftriaxone Sodium 50 ml @ 100 mls/hr DAILY@09 IV 04/12/24 09:00 04/16/24 09:22 100 MLS/HR Amlodipine Besylate 5 mg DAILY PO 04/12/24 10:00 04/16/24 09:24 5 MG Apixaban 5 mg BID PO 04/11/24 22:00 04/16/24 22:22 5 MG Carvedilol 3.125 mg Q12HR PO 04/11/24 22:00 04/16/24 22:22 3.125 MG Levothyroxine Sodium 100 mcg QAM@0600 PO 04/12/24 06:00 04/16/24 06:02 100 MCG Potassium Chloride 10 meq DAILY PO 04/12/24 10:00 04/16/24 09:24 10 MEQ Ondansetron HCl 4 mg Q4HP PRN IV 04/11/24 19:45 Acetaminophen 650 mg Q6HP PRN PO 04/11/24 19:45 04/15/24 22:51 650 MG Dextrose 50 ml UD PRN IV 04/11/24 19:45 Cancel Ketorolac Tromethamine 30 mg Q6HPRN PRN IV 04/12/24 11:00 04/17/24 10:59 04/16/24 17:15 30 MG Ibuprofen 600 mg Q4HP PRN PO 04/12/24 11:00 04/16/24 22:23 600 MG Guaifenesin/ Codeine Phosphate 10 ml Q4HPRN PRN PO 04/12/24 11:00 04/16/24 13:33 10 ML Albuterol 2.5 mg Q4HR NEB 04/12/24 18:00 04/16/24 22:49 2.5 MG Albuterol 2.5 mg Q4HPRN PRN NEB 04/12/24 15:00 Ipratropium [place] 0.5 mg Q4HR NEB 04/12/24 18:00 04/16/24 22:49 0.5 MG Ipratropium [place] 0.5 mg Q4HPRN PRN NEB 04/12/24 15:00 Azithromycin 250 ml @ 125 mls/hr DAILY IV 04/13/24 10:00 04/16/24 10:47 125 MLS/HR Methylprednisolone Sodium Succinate 60 mg Q8HR IV 04/13/24 14:00 04/16/24 22:19 60 MG Melatonin 5 mg HS PO 04/13/24 22:00 04/16/24 22:23 5 MG Lorazepam 1 mg Q4HP PRN PO 04/13/24 14:45 04/16/24 16:44 1 MG Lactulose 30 ml Q6HR PRN PO 04/13/24 17:45 04/16/24 13:33 30 ML Dextrose 50 ml UD PRN IV 04/14/24 00:00 Insulin Glargine 30 units HS SC 04/14/24 22:00 04/16/24 22:48 30 UNITS Sildenafil Citrate 20 mg Q8H PO 04/14/24 20:00 04/16/24 20:15 20 MG Furosemide 40 mg BIDD IV 04/15/24 18:00 04/16/24 17:15 40 MG Diagnostic Test (Pha) 1 strip IQ4HR 04/16/24 02:00 04/16/24 20:15 1 STRIP Insulin Human Regular IQ4HR SC 04/16/24 02:00 04/16/24 20:20 6 UNITS objective Gen.: Patient lying in bed in no apparent distress. On supplemental oxygen. BiPAP PRN Head: Normocephalic, atraumatic. Eyes: EOMI/PERRLA. Ears: Normal hearing. Normal anatomy. Neck/trachea: Trachea midline, supple. Nose: Normal external anatomy. Mouth: Moist mucous membranes. Chest: Decreased air entry bilaterally. No wheezing or rhonchi. Cardiovascular: Positive S1, positive S2. Regular rate and rhythm. Abdomen: Positive bowel sounds in all 4 quadrants. Soft, non-tender, non- distended. : Deferred. Rectal: Deferred. Skin: Warm, dry. Intact. Extremities: 2+ radial pulses bilaterally. No lower extremity edema. Neuro: Awake, alert, oriented x3. No gross motor or sensory deficits. Cranial nerves II through XII intact. Gait not assessed. laboratory and microbiology Laboratory Tests 04/16/24 14:10 04/13/24 06:03 Test 04/16/24 14:10 Range/Units Serum Glucose 332 H 74-106 mg/dL Assessment/Plan Impression: Acute on chronic hypoxic respiratory failure Dependence on supplemental oxygen AE COPD Anxiety Severe pulmonary hypertension. Events: Remains on supplemental oxygen, 2 LPM NC Taper O2 as tolerated BiPAP PRN. Continue bronchodilators Continue IV steroids Incentive spirometry Continue sildenafil, tolerating thus far. Diurese w/ Lasix as tolerated Monitor renal function. Monitor electrolytes. Supplement as necessary. Patient is feeling better - GAYTAN persists. Labs and imaging reviewed. Rest of plan as noted below. Plan: Supplemental oxygen Titrate to keep sats above 92% BiPAP PRN Continue bronchodilators. Continue antibiotics IV steroids Incentive spirometry Continue Revatio 20 mg po TID - monitor BP, hold if SBP <90 mmHg. Will require uptitration of sildenafil if SBP can tolerate. Diurese w/ Lasix as tolerated Monitor renal function. Monitor electrolytes. Supplement as necessary. Monitor ins and outs. Will need outpatient followup for severe pulmonary hypertension. DVT prophylaxis. Prognosis: Poor given patient's multiple co-morbidities. Rest of plan per hospitalist and other consultants. Thank you Dr. Lepe, for allowing me to participate in this patient's care. Further recommendations will depend on the patient's clinical course. Please do not hesitate to contact me if you have any questions or concerns. This medical document was created using an electronic medical record system with [employer] system. Although these documentations are being carefully reviewed, there may still be some phonetic and typographical changes. The errors are purely typographical, due to imperfection on the software program, and do not reflect any compromise in the patient's medical care. Dietary Evaluation Review Comments: Consider prune juice BID for constipation Expected Outcomes/Goals: F/U in 3-5 days Plan discussed with: Patient, Other (BOB Rodriguez) MYKEL SANDERS MD Apr 16, 2024 23:39
[2024-04-17] VITALS (19 sets, daily range): BP systolic 91–128; BP diastolic 52–85; PULSE 67–125; RESP 17–24; TEMP 97.4–98.2; O2SAT 95–100
--- NOTE | 2024-04-17 14:11 | DVHPN2 ---
Subjective The patient is seen and examined at bedside. Still complain of severe shortness a breath. Patient is sitting on bed because she could not breath. Reviewed: Care Plan, H&P, Labs, Medications, Previous Orders, Radiology Changes from previous H/P or p: No Changes Objective Vitals Vital Signs Date Time Temp Pulse Resp B/P (MAP) Pulse Ox O2 Delivery O2 Flow Rate FiO2 04/17/24 13:40 109 20 100 04/17/24 13:34 Nasal Cannula* 4 36 04/17/24 13:00 97.4 128/81 (97) 97.4 Intake/Output Intake and Output 04/17/24 07:00 Intake Total 2640 ml Balance 2640 ml Intake Oral 2340 ml IV Total 300 ml # Voids 5 # Bowel Movements 1 General Appearance: Alert, Oriented X3, Cooperative, mild distress HEENT: Atraumatic, PERRLA, EOMI, Mucous membr. moist/pink Neck: Supple Lungs: Clear to auscultation, Normal air movement Cardiovascular: Regular rate, Normal S1, Normal S2, No murmurs, Gallops, Rubs Abdomen: Normal bowel sounds, Soft, No tenderness Neuro: Cranial nerves 3-12 NL Psych/Mental Status: Mental status NL Medications Current Medications Medications Dose Ordered Sig/Aquiles Route Start Time Stop Time Status Last Admin Dose Admin Ceftriaxone Sodium 50 ml @ 100 mls/hr DAILY@09 IV 04/12/24 09:00 04/17/24 08:17 100 MLS/HR Amlodipine Besylate 5 mg DAILY PO 04/12/24 10:00 04/16/24 09:24 5 MG Apixaban 5 mg BID PO 04/11/24 22:00 04/17/24 08:18 5 MG Carvedilol 3.125 mg Q12HR PO 04/11/24 22:00 04/16/24 22:22 3.125 MG Levothyroxine Sodium 100 mcg QAM@0600 PO 04/12/24 06:00 04/17/24 05:12 100 MCG Potassium Chloride 10 meq DAILY PO 04/12/24 10:00 04/17/24 09:00 10 MEQ Ondansetron HCl 4 mg Q4HP PRN IV 04/11/24 19:45 Acetaminophen 650 mg Q6HP PRN PO 04/11/24 19:45 04/15/24 22:51 650 MG Dextrose 50 ml UD PRN IV 04/11/24 19:45 Cancel Ibuprofen 600 mg Q4HP PRN PO 04/12/24 11:00 04/17/24 11:01 600 MG Guaifenesin/ Codeine Phosphate 10 ml Q4HPRN PRN PO 04/12/24 11:00 04/16/24 23:59 10 ML Albuterol 2.5 mg Q4HR NEB 04/12/24 18:00 04/17/24 13:34 2.5 MG Albuterol 2.5 mg Q4HPRN PRN NEB 04/12/24 15:00 Ipratropium [place] 0.5 mg Q4HR NEB 04/12/24 18:00 04/17/24 13:33 0.5 MG Ipratropium [place] 0.5 mg Q4HPRN PRN NEB 04/12/24 15:00 Azithromycin 250 ml @ 125 mls/hr DAILY IV 04/13/24 10:00 04/17/24 08:18 125 MLS/HR Melatonin 5 mg HS PO 04/13/24 22:00 04/16/24 22:23 5 MG Lorazepam 1 mg Q4HP PRN PO 04/13/24 14:45 04/17/24 11:48 1 MG Lactulose 30 ml Q6HR PRN PO 04/13/24 17:45 04/16/24 13:33 30 ML Dextrose 50 ml UD PRN IV 04/14/24 00:00 Insulin Glargine 30 units HS SC 04/14/24 22:00 04/16/24 22:48 30 UNITS Sildenafil Citrate 20 mg Q8H PO 04/14/24 20:00 04/17/24 11:59 20 MG Furosemide 40 mg BIDD IV 04/15/24 18:00 04/17/24 05:11 40 MG Diagnostic Test (Pha) 1 strip IQ4HR 04/16/24 02:00 04/17/24 11:52 1 STRIP Insulin Human Regular IQ4HR SC 04/16/24 02:00 04/17/24 11:53 15 UNITS Prednisone 20 mg BID PO 04/17/24 22:00 04/23/24 10:00 Laboratory Results Laboratory Tests 04/13/24 06:03 04/16/24 14:10 Microbiology Microbiology Date/Time Source Procedure Growth Status 04/11/24 16:00 Throat Nose/Throat Culture - Final Complete Labs and/or images reviewed: Labs reviewed by me Assessment/Plan Assessment/Plan Acute on chronic respiratory failure COPD with exacerbation Pneumonia possible Gram-positive pneumonia Hypokalemia Diabetes mellitus type 2 Constipation, improved. Systolic congestive heart failure Severe pulmonary Hypertension. Plan Continuing current management. Continue DuoNeb q.4 p.r.n. for shortness for breath. Continue Robitussin with codeine 10 mL every 6 hours p.r.n. for cough. Continue Toradol 30 mg IV every 8 hours as needed for pain. Maximum five days. Continue Zithromax 500 mg IV q.day. Continuing Rocephin 1 g IV q.day. Continue Solu-Medrol 60 mg IV every eight hours Continuing with sliding scale Insulin. Replace electrolytes as needed. Continue with albuterol neb to 20 instead of 10. [employer] input appreciated Continue Lasix to 40 mg IV b.i.d.. The patient was put on sildanefil for her pulmonary HTN. Prognosis guard. Plan discussed with: Patient Date of Service: Apr 17, 2024 Billing Provider: MY PINA MD Common Visit Codes: [id number] INP/OBS CARE(HIGH) MY PINA MD Apr 17, 2024 14:11
--- NOTE | 2024-04-17 22:43 | DVHPN2 ---
Progress Note - Dictate Date Seen: Apr 17, 2024 Medical Necessity Reason Pt with a Central, PICC or Fol: No Subjective Patient seen and examined at bedside. On supplemental oxygen. Overnight events reviewed. vital signs Vital Sign Date Time Temp Pulse Resp B/P (MAP) Pulse Ox O2 Delivery O2 Flow Rate FiO2 04/17/24 18:29 102 20 100 04/17/24 18:25 130/62 04/17/24 18:19 Nasal Cannula 4.0 04/17/24 18:19 36 04/17/24 17:03 97.4 97.4 Total Intake and Output 04/16/24 04/16/24 04/17/24 15:00 23:00 07:00 Intake Total 300 ml 1300 ml 1040 ml Balance 300 ml 1300 ml 1040 ml medications Current Medications Medications Dose Ordered Sig/Aquiles Route Start Time Stop Time Status Last Admin Dose Admin Ceftriaxone Sodium 50 ml @ 100 mls/hr DAILY@09 IV 04/12/24 09:00 04/17/24 08:17 100 MLS/HR Amlodipine Besylate 5 mg DAILY PO 04/12/24 10:00 04/16/24 09:24 5 MG Apixaban 5 mg BID PO 04/11/24 22:00 04/17/24 08:18 5 MG Carvedilol 3.125 mg Q12HR PO 04/11/24 22:00 04/16/24 22:22 3.125 MG Levothyroxine Sodium 100 mcg QAM@0600 PO 04/12/24 06:00 04/17/24 05:12 100 MCG Potassium Chloride 10 meq DAILY PO 04/12/24 10:00 04/17/24 09:00 10 MEQ Ondansetron HCl 4 mg Q4HP PRN IV 04/11/24 19:45 Acetaminophen 650 mg Q6HP PRN PO 04/11/24 19:45 04/15/24 22:51 650 MG Dextrose 50 ml UD PRN IV 04/11/24 19:45 Cancel Ibuprofen 600 mg Q4HP PRN PO 04/12/24 11:00 04/17/24 20:19 600 MG Guaifenesin/ Codeine Phosphate 10 ml Q4HPRN PRN PO 04/12/24 11:00 04/17/24 20:23 10 ML Albuterol 2.5 mg Q4HR NEB 04/12/24 18:00 04/17/24 21:40 2.5 MG Albuterol 2.5 mg Q4HPRN PRN NEB 04/12/24 15:00 Ipratropium [place] 0.5 mg Q4HR NEB 04/12/24 18:00 04/17/24 21:40 0.5 MG Ipratropium [place] 0.5 mg Q4HPRN PRN NEB 04/12/24 15:00 Azithromycin 250 ml @ 125 mls/hr DAILY IV 04/13/24 10:00 04/17/24 08:18 125 MLS/HR Melatonin 5 mg HS PO 04/13/24 22:00 04/16/24 22:23 5 MG Lorazepam 1 mg Q4HP PRN PO 04/13/24 14:45 04/17/24 11:48 1 MG Lactulose 30 ml Q6HR PRN PO 04/13/24 17:45 04/16/24 13:33 30 ML Dextrose 50 ml UD PRN IV 04/14/24 00:00 Insulin Glargine 30 units HS SC 04/14/24 22:00 04/16/24 22:48 30 UNITS Sildenafil Citrate 20 mg Q8H PO 04/14/24 20:00 04/17/24 11:59 20 MG Furosemide 40 mg BIDD IV 04/15/24 18:00 04/17/24 18:25 40 MG Diagnostic Test (Pha) 1 strip IQ4HR 04/16/24 02:00 04/17/24 20:11 1 STRIP Insulin Human Regular IQ4HR SC 04/16/24 02:00 04/17/24 20:15 12 UNITS Prednisone 20 mg BID PO 04/17/24 22:00 04/23/24 10:00 objective Gen.: Patient lying in bed in no apparent distress. On supplemental oxygen. Head: Normocephalic, atraumatic. Eyes: EOMI/PERRLA. Ears: Normal hearing. Normal anatomy. Neck/trachea: Trachea midline, supple. Nose: Normal external anatomy. Mouth: Moist mucous membranes. Chest: Decreased air entry bilaterally. No wheezing or rhonchi. Cardiovascular: Positive S1, positive S2. Regular rate and rhythm. Abdomen: Positive bowel sounds in all 4 quadrants. Soft, non-tender, non- distended. : Deferred. Rectal: Deferred. Skin: Warm, dry. Intact. Extremities: 2+ radial pulses bilaterally. No lower extremity edema. Neuro: Awake, alert, oriented x3. No gross motor or sensory deficits. Cranial nerves II through XII intact. Gait not assessed. laboratory and microbiology Laboratory Tests 04/16/24 14:10 04/13/24 06:03 Test 04/16/24 14:10 Range/Units Serum Glucose 332 H 74-106 mg/dL Assessment/Plan Impression: Acute on chronic hypoxic respiratory failure Dependence on supplemental oxygen AE COPD Anxiety Severe pulmonary hypertension. Events: Remains on supplemental oxygen, 3 LPM NC Taper O2 as tolerated O2 saturation 94% Continue bronchodilators Continue steroids - transition to prednisone PO Continue antibiotics Antitussive PRN cough Continue Revatio d/t pulmonary hypertension Anxiolytic PRN anxiety Labs and imaging reviewed. Rest of plan as noted below. Plan: Supplemental oxygen Titrate to keep O2 sats above 92%. Continue bronchodilators. Continue antibiotics IV steroids Incentive spirometry Revatio 20 mg po TID - hold if SBP <90 mmHg. She has severe pulmonary hypertension. She was previously on multiple agents for pulmonary hypertension. We will need to establish out patient care to re-initiate medications. Diurese w/ Lasix as tolerated Monitor renal function. Monitor electrolytes. Supplement as necessary. Monitor ins and outs. Will need outpatient followup for severe pulmonary hypertension. DVT prophylaxis. Prognosis: Poor given patient's multiple co-morbidities. Rest of plan per hospitalist and other consultants. Thank you Dr. Lepe, for allowing me to participate in this patient's care. Further recommendations will depend on the patient's clinical course. Please do not hesitate to contact me if you have any questions or concerns. This medical document was created using an electronic medical record system with [employer] dictation system. Although these documentations are being carefully reviewed, there may still be some phonetic and typographical changes. The errors are purely typographical, due to imperfection on the software program, and do not reflect any compromise in the patient's medical care. Dietary Evaluation Review Comments: Consider prune juice BID for constipation Expected Outcomes/Goals: F/U in 3-5 days Plan discussed with: Patient, Other ([facility] [place]) MYKEL SANDERS MD Apr 17, 2024 22:43
[2024-04-17] MEDS: predniSONE 20 MG TAB PO SCH (22:45)
[2024-04-18] VITALS (23 sets, daily range): BP systolic 105–137; BP diastolic 54–107; PULSE 89–120; RESP 14–24; TEMP 97.5–98.6; O2SAT 93–100
[2024-04-18] MEDS: diphenhdrAMINE HCL 25 MG CAP PO ONE (02:16)
[2024-04-18 11:13] LABS: Basophils # (auto) 0 10 ^3/uL (0-0.2); Basophils % (auto) 0.1 % (0.0-2.0); Eosinophils # (auto) 0 10 ^3/uL (0-0.8); Hematocrit 35.9 % (36.0-46.0); Hemoglobin 11.6 g/dL (12.2-16.2); Lymphocytes # (auto) 1.3 10 ^3/uL (0.4-5.4); Lymphocytes % (auto) 7.6 % (10.0-50.0); Mean Corpuscular Hemoglobin 28.3 pg (28.0-32.0); Mean Corpuscular Hgb Conc. 32.2 g/dL (32.0-36.0); Monocytes # (auto) 1.5 10 ^3/uL (0-1.3); Monocytes % (auto) 8.7 % (0.0-12.0); Neutrophils # (auto) 14.2 10 ^3/uL (1.6-8.6); Neutrophils % (auto) 83.6 % (37.0-80.0); Platelet Count (auto) 212 10^3/uL (140-450); Red Blood Cells 4.08 10^6/uL (4.0-5.20); Red Cell Distribution Width 16.6 % (11.8-14.3)
--- NOTE | 2024-04-18 13:35 | DVHPN2 ---
Subjective The patient is seen and examined at bedside. Still complain of severe shortness a breath. Patient is sitting on bed because she could not breath. Reviewed: Care Plan, H&P, Labs, Medications, Previous Orders, Radiology Changes from previous H/P or p: No Changes Objective Vitals Vital Signs Date Time Temp Pulse Resp B/P (MAP) Pulse Ox O2 Delivery O2 Flow Rate FiO2 04/18/24 11:59 98.3 04/18/24 11:28 92 124/69 04/18/24 09:23 14 100 04/18/24 09:17 Nasal Cannula 4.0 04/18/24 09:17 36 Intake/Output Intake and Output 04/18/24 07:00 Intake Total 2176 ml Balance 2176 ml Intake Oral 1876 ml IV Total 300 ml # Voids 6 # Bowel Movements 1 General Appearance: Alert, Oriented X3, Cooperative, mild distress HEENT: Atraumatic, PERRLA, EOMI, Mucous membr. moist/pink Neck: Supple Lungs: Clear to auscultation, Normal air movement Cardiovascular: Regular rate, Normal S1, Normal S2, No murmurs, Gallops, Rubs Abdomen: Normal bowel sounds, Soft, No tenderness Neuro: Cranial nerves 3-12 NL Psych/Mental Status: Mental status NL Medications Current Medications Medications Dose Ordered Sig/Aquiles Route Start Time Stop Time Status Last Admin Dose Admin Ceftriaxone Sodium 50 ml @ 100 mls/hr DAILY@09 IV 04/12/24 09:00 04/18/24 11:24 100 MLS/HR Amlodipine Besylate 5 mg DAILY PO 04/12/24 10:00 04/18/24 11:27 5 MG Apixaban 5 mg BID PO 04/11/24 22:00 04/18/24 11:28 5 MG Carvedilol 3.125 mg Q12HR PO 04/11/24 22:00 04/18/24 11:28 3.125 MG Levothyroxine Sodium 100 mcg QAM@0600 PO 04/12/24 06:00 04/18/24 05:17 100 MCG Potassium Chloride 10 meq DAILY PO 04/12/24 10:00 04/18/24 10:00 10 MEQ Ondansetron HCl 4 mg Q4HP PRN IV 04/11/24 19:45 Acetaminophen 650 mg Q6HP PRN PO 04/11/24 19:45 04/17/24 22:46 650 MG Dextrose 50 ml UD PRN IV 04/11/24 19:45 Cancel Ibuprofen 600 mg Q4HP PRN PO 04/12/24 11:00 04/18/24 11:59 600 MG Guaifenesin/ Codeine Phosphate 10 ml Q4HPRN PRN PO 04/12/24 11:00 04/17/24 20:23 10 ML Albuterol 2.5 mg Q4HR NEB 04/12/24 18:00 04/18/24 09:17 2.5 MG Albuterol 2.5 mg Q4HPRN PRN NEB 04/12/24 15:00 Ipratropium [place] 0.5 mg Q4HR NEB 04/12/24 18:00 04/18/24 09:17 0.5 MG Ipratropium [place] 0.5 mg Q4HPRN PRN NEB 04/12/24 15:00 Azithromycin 250 ml @ 125 mls/hr DAILY IV 04/13/24 10:00 04/17/24 08:18 125 MLS/HR Melatonin 5 mg HS PO 04/13/24 22:00 04/17/24 23:30 5 MG Lorazepam 1 mg Q4HP PRN PO 04/13/24 14:45 04/18/24 11:57 1 MG Lactulose 30 ml Q6HR PRN PO 04/13/24 17:45 04/16/24 13:33 30 ML Dextrose 50 ml UD PRN IV 04/14/24 00:00 Insulin Glargine 30 units HS SC 04/14/24 22:00 04/17/24 22:53 30 UNITS Sildenafil Citrate 20 mg Q8H PO 04/14/24 20:00 04/18/24 11:29 20 MG Furosemide 40 mg BIDD IV 04/15/24 18:00 04/18/24 05:21 40 MG Diagnostic Test (Pha) 1 strip IQ4HR 04/16/24 02:00 04/18/24 12:03 1 STRIP Insulin Human Regular IQ4HR SC 04/16/24 02:00 04/18/24 12:06 6 UNITS Prednisone 20 mg BID PO 04/17/24 22:00 04/23/24 10:00 04/18/24 11:27 20 MG Laboratory Results Laboratory Tests 04/16/24 14:10 04/18/24 10:30 Microbiology Microbiology Date/Time Source Procedure Growth Status 04/11/24 16:00 Throat Nose/Throat Culture - Final Complete Labs and/or images reviewed: Labs reviewed by me Assessment/Plan Assessment/Plan Acute on chronic respiratory failure COPD with exacerbation Pneumonia possible Gram-positive pneumonia Hypokalemia Diabetes mellitus type 2 Constipation, improved. Systolic congestive heart failure Severe pulmonary Hypertension. Plan Continuing current management. Continue DuoNeb q.4 p.r.n. for shortness for breath. Continue Robitussin with codeine 10 mL every 6 hours p.r.n. for cough. Continue Toradol 30 mg IV every 8 hours as needed for pain. Maximum five days. Continue Zithromax 500 mg IV q.day. Continuing Rocephin 1 g IV q.day. Continue Solu-Medrol 60 mg IV every eight hours Continuing with sliding scale Insulin. Replace electrolytes as needed. Continue with albuterol neb to 20 instead of 10. [employer] input appreciated Continue Lasix to 40 mg IV b.i.d.. The patient was put on sildanefil for her pulmonary HTN. Prognosis guard. This medical document was created using an electronic medical record system with [employer] direct computerized dictation system. Although this document has been carefully reviewed, there may still be some phonetic and typographical errors. These areas are purely typographical due to imperfections of the software programs, and do not reflect any compromise in the patient's medical care. Plan discussed with: Patient My Orders Orders - MY PINA MD Procedure Category Date Status Time Consistent DIET 04/18/24 Transmitted Carb(Ccho)Diabetes Lunch Cardiac DIET 04/18/24 Transmitted Diet-2gna,Lofat,Lochol Lunch Date of Service: Apr 18, 2024 Billing Provider: MY PINA MD Common Visit Codes: [id number] INP/OBS CARE(HIGH) MY PINA MD Apr 18, 2024 13:35
--- NOTE | 2024-04-18 21:25 | DVHPN2 ---
Progress Note - Dictate Date Seen: Apr 18, 2024 Medical Necessity Reason Pt with a Central, PICC or Fol: No Subjective Patient seen and examined at bedside. On supplemental oxygen. Overnight events reviewed. vital signs Vital Sign Date Time Temp Pulse Resp B/P (MAP) Pulse Ox O2 Delivery O2 Flow Rate FiO2 04/18/24 19:15 108 18 98 04/18/24 19:15 Nasal Cannula 3.0 04/18/24 19:15 32 04/18/24 18:30 98.3 04/18/24 17:29 132/74 Total Intake and Output 04/17/24 04/17/24 04/18/24 15:00 23:00 07:00 Intake Total 300 ml 876 ml 1000 ml Balance 300 ml 876 ml 1000 ml medications Current Medications Medications Dose Ordered Sig/Aquiles Route Start Time Stop Time Status Last Admin Dose Admin Ceftriaxone Sodium 50 ml @ 100 mls/hr DAILY@09 IV 04/12/24 09:00 04/18/24 11:24 100 MLS/HR Amlodipine Besylate 5 mg DAILY PO 04/12/24 10:00 04/18/24 11:27 5 MG Apixaban 5 mg BID PO 04/11/24 22:00 04/18/24 11:28 5 MG Carvedilol 3.125 mg Q12HR PO 04/11/24 22:00 04/18/24 11:28 3.125 MG Levothyroxine Sodium 100 mcg QAM@0600 PO 04/12/24 06:00 04/18/24 05:17 100 MCG Potassium Chloride 10 meq DAILY PO 04/12/24 10:00 04/18/24 10:00 10 MEQ Ondansetron HCl 4 mg Q4HP PRN IV 04/11/24 19:45 Acetaminophen 650 mg Q6HP PRN PO 04/11/24 19:45 04/17/24 22:46 650 MG Dextrose 50 ml UD PRN IV 04/11/24 19:45 Cancel Ibuprofen 600 mg Q4HP PRN PO 04/12/24 11:00 04/18/24 17:30 600 MG Guaifenesin/ Codeine Phosphate 10 ml Q4HPRN PRN PO 04/12/24 11:00 04/18/24 20:16 10 ML Albuterol 2.5 mg Q4HR NEB 04/12/24 18:00 04/18/24 19:15 2.5 MG Albuterol 2.5 mg Q4HPRN PRN NEB 04/12/24 15:00 Ipratropium [place] 0.5 mg Q4HR NEB 04/12/24 18:00 04/18/24 19:15 0.5 MG Ipratropium [place] 0.5 mg Q4HPRN PRN NEB 04/12/24 15:00 Azithromycin 250 ml @ 125 mls/hr DAILY IV 04/13/24 10:00 04/18/24 14:19 125 MLS/HR Melatonin 5 mg HS PO 04/13/24 22:00 04/17/24 23:30 5 MG Lorazepam 1 mg Q4HP PRN PO 04/13/24 14:45 04/18/24 17:29 1 MG Lactulose 30 ml Q6HR PRN PO 04/13/24 17:45 04/16/24 13:33 30 ML Dextrose 50 ml UD PRN IV 04/14/24 00:00 Insulin Glargine 30 units HS SC 04/14/24 22:00 04/17/24 22:53 30 UNITS Sildenafil Citrate 20 mg Q8H PO 04/14/24 20:00 04/18/24 20:14 20 MG Furosemide 40 mg BIDD IV 04/15/24 18:00 04/18/24 17:29 40 MG Diagnostic Test (Pha) 1 strip IQ4HR 04/16/24 02:00 04/18/24 20:17 1 STRIP Insulin Human Regular IQ4HR SC 04/16/24 02:00 04/18/24 20:22 6 UNITS Prednisone 20 mg BID PO 04/17/24 22:00 04/23/24 10:00 04/18/24 11:27 20 MG objective Gen.: Patient lying in bed in no apparent distress. On supplemental oxygen. Head: Normocephalic, atraumatic. Eyes: EOMI/PERRLA. Ears: Normal hearing. Normal anatomy. Neck/trachea: Trachea midline, supple. Nose: Normal external anatomy. Mouth: Moist mucous membranes. Chest: Decreased air entry bilaterally. No wheezing or rhonchi. Cardiovascular: Positive S1, positive S2. Regular rate and rhythm. Abdomen: Positive bowel sounds in all 4 quadrants. Soft, non-tender, non- distended. : Deferred. Rectal: Deferred. Skin: Warm, dry. Intact. Extremities: 2+ radial pulses bilaterally. No lower extremity edema. Neuro: Awake, alert, oriented x3. No gross motor or sensory deficits. Cranial nerves II through XII intact. Gait not assessed. laboratory and microbiology Laboratory Tests 04/18/24 10:30 04/16/24 14:10 Test 04/16/24 14:10 Range/Units Serum Glucose 332 H 74-106 mg/dL Assessment/Plan Impression: Acute on chronic hypoxic respiratory failure Dependence on supplemental oxygen AE COPD Anxiety Severe pulmonary hypertension. Events: Remains on supplemental oxygen, 2 LPM NC Taper O2 as tolerated Continue bronchodilators Continue steroids - taper as tolerated Continue antibiotics Antitussive PRN cough Continue Revatio TID for pulmonary hypertension Anxiolytic PRN anxiety Labs and imaging reviewed. Rest of plan as noted below. Plan: Supplemental oxygen Titrate to keep O2 sats above 92%. Continue bronchodilators. Continue antibiotics Steroids - taper as tolerated Incentive spirometry Revatio 20 mg po TID - hold if SBP <90 mmHg. She has severe pulmonary hypertension. She was previously on multiple agents for pulmonary hypertension. We will need to establish out patient care to re-initiate medications. Diurese w/ Lasix as tolerated Monitor renal function. Monitor electrolytes. Supplement as necessary. Monitor ins and outs. Will need outpatient followup for severe pulmonary hypertension. DVT prophylaxis. Prognosis: Poor given patient's multiple co-morbidities. Rest of plan per hospitalist and other consultants. Thank you Dr. Lepe, for allowing me to participate in this patient's care. Further recommendations will depend on the patient's clinical course. Please do not hesitate to contact me if you have any questions or concerns. This medical document was created using an electronic medical record system with [employer] dictation system. Although these documentations are being carefully reviewed, there may still be some phonetic and typographical changes. The errors are purely typographical, due to imperfection on the software program, and do not reflect any compromise in the patient's medical care. Dietary Evaluation Review Comments: Consider prune juice BID for constipation Expected Outcomes/Goals: F/U in 3-5 days Plan discussed with: Patient, Other (BOB [place]) MYKEL SANDERS MD Apr 18, 2024 21:25
[2024-04-19] VITALS (18 sets, daily range): BP systolic 100–126; BP diastolic 64–84; PULSE 95–124; RESP 18–24; TEMP 98.1–99.8; O2SAT 94–100
[2024-04-19 07:01] LABS: Basophils # (auto) 0 10 ^3/uL (0-0.2); Basophils % (auto) 0.2 % (0.0-2.0); Eosinophils # (auto) 0 10 ^3/uL (0-0.8); Eosinophils % (auto) 0.1 % (0.0-7.0); Hematocrit 37.4 % (36.0-46.0); Hemoglobin 12.1 g/dL (12.2-16.2); Lymphocytes # (auto) 1.3 10 ^3/uL (0.4-5.4); Mean Corpuscular Hemoglobin 28.5 pg (28.0-32.0); Mean Corpuscular Hgb Conc. 32.5 g/dL (32.0-36.0); Mean Corpuscular Volume 87.8 fL (80.0-100.0); Monocytes # (auto) 1.3 10 ^3/uL (0-1.3); Monocytes % (auto) 6.8 % (0.0-12.0); Neutrophils # (auto) 16.4 10 ^3/uL (1.6-8.6); Neutrophils % (auto) 85.9 % (37.0-80.0); Platelet Count (auto) 246 10^3/uL (140-450); Red Blood Cells 4.26 10^6/uL (4.0-5.20); White Blood Cell 19.1 10^3/uL (4.4-10.8)
[2024-04-19 07:14] LABS: Chloride 100 mmol/L (98-107); Potassium 4.1 mmol/L (3.5-5.1)
[2024-04-19 07:19] LABS: Anion Gap 4.99999 (5-15); Sodium 145 mmol/L (136-145)
[2024-04-19 07:22] LABS: Carbon Dioxide > 40 mmol/L (20-31)
[2024-04-19 07:32] LABS: BUN/Creatinine Ratio 49.4 (10.0-20.0); Blood Urea Nitrogen 39 mg/dL (9-23); Glucose 152 mg/dL (74-106)
--- NOTE | 2024-04-19 10:40 | DVHPN2 ---
Reviewed: Care Plan, H&P, Labs, Medications, Previous Orders, Radiology Changes from previous H/P or p: No Changes General: Per HPI Objective Vitals Vital Signs Date Time Temp Pulse Resp B/P (MAP) Pulse Ox O2 Delivery O2 Flow Rate FiO2 04/19/24 08:39 98.1 111 19 115/84 (94) 99 98.1 04/19/24 07:35 Nasal Cannula 3.0 04/19/24 07:35 32 Intake/Output Intake and Output 04/19/24 07:00 Intake Total 2200 ml Balance 2200 ml Intake Oral 2200 ml # Voids 8 # Bowel Movements 2 General Appearance: Alert, Oriented X3, Cooperative, mild distress HEENT: Atraumatic, PERRLA, EOMI, Mucous membr. moist/pink Neck: Supple Lungs: Clear to auscultation, Normal air movement Cardiovascular: Regular rate, Normal S1, Normal S2, No murmurs, Gallops, Rubs Abdomen: Normal bowel sounds, Soft, No tenderness Neuro: Cranial nerves 3-12 NL Psych/Mental Status: Mental status NL Medications Current Medications Medications Dose Ordered Sig/Aquiles Route Start Time Stop Time Status Last Admin Dose Admin Ceftriaxone Sodium 50 ml @ 100 mls/hr DAILY@09 IV 04/12/24 09:00 04/19/24 09:18 100 MLS/HR Amlodipine Besylate 5 mg DAILY PO 04/12/24 10:00 04/18/24 11:27 5 MG Apixaban 5 mg BID PO 04/11/24 22:00 04/18/24 21:55 5 MG Carvedilol 3.125 mg Q12HR PO 04/11/24 22:00 04/18/24 22:01 3.125 MG Levothyroxine Sodium 100 mcg QAM@0600 PO 04/12/24 06:00 04/19/24 05:38 100 MCG Potassium Chloride 10 meq DAILY PO 04/12/24 10:00 04/18/24 10:00 10 MEQ Ondansetron HCl 4 mg Q4HP PRN IV 04/11/24 19:45 Acetaminophen 650 mg Q6HP PRN PO 04/11/24 19:45 04/17/24 22:46 650 MG Dextrose 50 ml UD PRN IV 04/11/24 19:45 Cancel Ibuprofen 600 mg Q4HP PRN PO 04/12/24 11:00 04/19/24 08:37 600 MG Guaifenesin/ Codeine Phosphate 10 ml Q4HPRN PRN PO 04/12/24 11:00 04/19/24 08:47 10 ML Albuterol 2.5 mg Q4HR NEB 04/12/24 18:00 04/19/24 07:35 2.5 MG Albuterol 2.5 mg Q4HPRN PRN NEB 04/12/24 15:00 Ipratropium [place] 0.5 mg Q4HR NEB 04/12/24 18:00 04/19/24 07:35 0.5 MG Ipratropium [place] 0.5 mg Q4HPRN PRN NEB 04/12/24 15:00 Azithromycin 250 ml @ 125 mls/hr DAILY IV 04/13/24 10:00 04/18/24 14:19 125 MLS/HR Melatonin 5 mg HS PO 04/13/24 22:00 04/18/24 21:55 5 MG Lorazepam 1 mg Q4HP PRN PO 04/13/24 14:45 04/18/24 21:56 1 MG Lactulose 30 ml Q6HR PRN PO 04/13/24 17:45 04/18/24 21:56 30 ML Dextrose 50 ml UD PRN IV 04/14/24 00:00 Insulin Glargine 30 units HS SC 04/14/24 22:00 04/18/24 22:20 30 UNITS Sildenafil Citrate 20 mg Q8H PO 04/14/24 20:00 04/19/24 05:08 20 MG Furosemide 40 mg BIDD IV 04/15/24 18:00 04/19/24 05:43 40 MG Diagnostic Test (Pha) 1 strip IQ4HR 04/16/24 02:00 04/19/24 08:35 1 STRIP Insulin Human Regular IQ4HR SC 04/16/24 02:00 04/19/24 08:46 6 UNITS Prednisone 20 mg BID PO 04/17/24 22:00 04/23/24 10:00 04/18/24 21:55 20 MG Laboratory Results Laboratory Tests 04/19/24 06:25 Chemistry Test 04/19/24 06:25 Calcium Level 11.0 mg/dL (8.7-10.4) H Microbiology Microbiology Date/Time Source Procedure Growth Status 04/11/24 16:00 Throat Nose/Throat Culture - Final Complete Labs and/or images reviewed: Labs reviewed by me, Image(s) reviewed by me Assessment/Plan Assessment/Plan Acute on chronic respiratory failure COPD with exacerbation Pneumonia possible Gram-positive pneumonia Hypokalemia Diabetes mellitus type 2 Constipation, improved. Systolic congestive heart failure Severe pulmonary Hypertension. 04/19/2024: request case management for SNF placement Plan discussed with: Patient Date of Service: Apr 19, 2024 Billing Provider: SHAYY FERMIN DO Common Visit Codes: [id number] INP/OBS CARE(HIGH) SHAYY FERMIN DO Apr 19, 2024 10:39
[2024-04-19] MEDS: MORPHINE SULFATE INJ 2 MG/ml SYRG IV PRN (14:30)
--- NOTE | 2024-04-19 15:45 | DVH ---
CT abdomen and pelvis without contrast INDICATION: Abdominal and back pain TECHNIQUE: Serial axial images were performed through the abdomen and pelvis and then reformatted in the sagittal and coronal plane. All CT scans at this medical facility are performed using dose modulation techniques as appropriate t o a performed exam including the following: Automated exposure control was utilized; adjustment of the MA and/or KvP according to patient size; a nd use of iterative reconstruction technique. FINDINGS: Patchy infiltrates in the lung bases. Liver and spleen are normal in size without focal mass. No renal masses, stones or hydronephrosis. No masses or enlargement of the adrenal glands or pancreas. Calcifications throughout the pancreas co nsistent with chronic pancreatitis. No biliary dilatation. No gallstones. No distention of bowel loops to suggest mechanical obstruction of bowel. Fecal loading is present in the colon. No free fluid. IVC filter is present. Within the pelvis, bladder is smooth walled without stones. No abnormal masses or fluid collections. Uterus and ovaries unremarkable. IMPRESSION: 1. No acute pathology in the abdomen or pelvis given the limitations of noncontrast imaging 2. Patchy bibasilar infiltrates in the lungs 3. Fecal loading in the colon Computed Tomographic Radiation Dosimetry Report: Total CTDI vol = 18 mGy Total DLP = 926 mGy-cm Low dose protocols were performed.
--- NOTE | 2024-04-19 20:43 | DVHPN2 ---
Progress Note - Dictate Date Seen: Apr 19, 2024 Medical Necessity Reason Pt with a Central, PICC or Fol: No Subjective Patient seen and examined at bedside. Remains on supplemental oxygen. Overnight events reviewed. vital signs Vital Sign Date Time Temp Pulse Resp B/P (MAP) Pulse Ox O2 Delivery O2 Flow Rate FiO2 04/19/24 17:18 116/81 04/19/24 15:53 109 16 04/19/24 15:01 100 04/19/24 14:56 Nasal Cannula 2.0 04/19/24 14:56 28 04/19/24 13:00 99.8 99.8 Total Intake and Output 04/18/24 04/18/24 04/19/24 15:00 23:00 07:00 Intake Total 1100 ml 1100 ml Balance 1100 ml 1100 ml medications Current Medications Medications Dose Ordered Sig/Aquiles Route Start Time Stop Time Status Last Admin Dose Admin Ceftriaxone Sodium 50 ml @ 100 mls/hr DAILY@09 IV 04/12/24 09:00 04/19/24 09:18 100 MLS/HR Amlodipine Besylate 5 mg DAILY PO 04/12/24 10:00 04/19/24 11:21 5 MG Apixaban 5 mg BID PO 04/11/24 22:00 04/19/24 11:21 5 MG Carvedilol 3.125 mg Q12HR PO 04/11/24 22:00 04/19/24 11:22 3.125 MG Levothyroxine Sodium 100 mcg QAM@0600 PO 04/12/24 06:00 04/19/24 05:38 100 MCG Potassium Chloride 10 meq DAILY PO 04/12/24 10:00 04/19/24 11:23 10 MEQ Ondansetron HCl 4 mg Q4HP PRN IV 04/11/24 19:45 Acetaminophen 650 mg Q6HP PRN PO 04/11/24 19:45 04/19/24 11:23 650 MG Dextrose 50 ml UD PRN IV 04/11/24 19:45 Cancel Ibuprofen 600 mg Q4HP PRN PO 04/12/24 11:00 04/19/24 08:37 600 MG Guaifenesin/ Codeine Phosphate 10 ml Q4HPRN PRN PO 04/12/24 11:00 04/19/24 08:47 10 ML Albuterol 2.5 mg Q4HR NEB 04/12/24 18:00 04/19/24 18:35 2.5 MG Albuterol 2.5 mg Q4HPRN PRN NEB 04/12/24 15:00 Ipratropium [place] 0.5 mg Q4HR NEB 04/12/24 18:00 04/19/24 18:35 0.5 MG Ipratropium [place] 0.5 mg Q4HPRN PRN NEB 04/12/24 15:00 Azithromycin 250 ml @ 125 mls/hr DAILY IV 04/13/24 10:00 04/19/24 15:51 125 MLS/HR Melatonin 5 mg HS PO 04/13/24 22:00 04/18/24 21:55 5 MG Lorazepam 1 mg Q4HP PRN PO 04/13/24 14:45 04/19/24 11:56 1 MG Lactulose 30 ml Q6HR PRN PO 04/13/24 17:45 04/18/24 21:56 30 ML Dextrose 50 ml UD PRN IV 04/14/24 00:00 Insulin Glargine 30 units HS SC 04/14/24 22:00 04/18/24 22:20 30 UNITS Sildenafil Citrate 20 mg Q8H PO 04/14/24 20:00 04/19/24 20:31 20 MG Furosemide 40 mg BIDD IV 04/15/24 18:00 04/19/24 17:18 40 MG Diagnostic Test (Pha) 1 strip IQ4HR 04/16/24 02:00 04/19/24 17:19 1 STRIP Insulin Human Regular IQ4HR SC 04/16/24 02:00 04/19/24 14:34 6 UNITS Prednisone 20 mg BID PO 04/17/24 22:00 04/23/24 10:00 04/19/24 11:20 20 MG Morphine Sulfate 2 mg Q2HPRN PRN IV 04/19/24 14:15 04/19/24 14:30 2 MG objective Gen.: Patient lying in bed in no apparent distress. On supplemental oxygen. Head: Normocephalic, atraumatic. Eyes: EOMI/PERRLA. Ears: Normal hearing. Normal anatomy. Neck/trachea: Trachea midline, supple. Nose: Normal external anatomy. Mouth: Moist mucous membranes. Chest: Decreased air entry bilaterally. No wheezing or rhonchi. Cardiovascular: Positive S1, positive S2. Regular rate and rhythm. Abdomen: Positive bowel sounds in all 4 quadrants. Soft, non-tender, non- distended. : Deferred. Rectal: Deferred. Skin: Warm, dry. Intact. Extremities: 2+ radial pulses bilaterally. No lower extremity edema. Neuro: Awake, alert, oriented x3. No gross motor or sensory deficits. Cranial nerves II through XII intact. Gait not assessed. laboratory and microbiology Laboratory Tests 04/19/24 06:25 Test 04/19/24 06:25 Range/Units Serum Glucose 152 H 74-106 mg/dL Assessment/Plan Impression: Acute on chronic hypoxic respiratory failure Dependence on supplemental oxygen AE COPD Anxiety Severe pulmonary hypertension. Events: Remains on supplemental oxygen, 2 LPM NC Taper O2 as tolerated Continue bronchodilators Continue steroids - prednisone PO Continue antibiotics Antitussive PRN cough Continue Revatio TID for pulmonary hypertension Pain control Avoid oversedation Diurese as tolerated w/ Lasix Monitor renal function Monitor ins and outs. Anxiolytic PRN anxiety Labs and imaging reviewed. Rest of plan as noted below. Plan: Supplemental oxygen Titrate to keep O2 sats above 92%. Continue bronchodilators. Continue antibiotics Steroids - taper as tolerated Incentive spirometry Revatio 20 mg po TID - hold if SBP <90 mmHg. She has severe pulmonary hypertension. She was previously on multiple agents for pulmonary hypertension. We will need to establish out patient care to re-initiate medications. Diurese w/ Lasix as tolerated Monitor renal function. Monitor electrolytes. Supplement as necessary. Monitor ins and outs. Will need outpatient followup for severe pulmonary hypertension. DVT prophylaxis. Prognosis: Guarded given patient's multiple co-morbidities. Rest of plan per hospitalist and other consultants. Thank you Dr. Lepe, for allowing me to participate in this patient's care. Further recommendations will depend on the patient's clinical course. Please do not hesitate to contact me if you have any questions or concerns. This medical document was created using an electronic medical record system with [employer] dictation system. Although these documentations are being carefully reviewed, there may still be some phonetic and typographical changes. The errors are purely typographical, due to imperfection on the software program, and do not reflect any compromise in the patient's medical care. Dietary Evaluation Review Comments: Consider prune juice BID for constipation Expected Outcomes/Goals: F/U in 3-5 days Plan discussed with: Patient, Other (BOB Gallagher) MYKEL SANDERS MD Apr 19, 2024 20:43
[2024-04-20] VITALS (21 sets, daily range): BP systolic 103–130; BP diastolic 59–87; PULSE 97–125; RESP 18–24; TEMP 97.3–98.7; O2SAT 92–100
--- NOTE | 2024-04-20 07:58 | ECG ---
[facility] Test Date: 2024-04-19 Test Time: 13:20:14 Pat Name: CLINTON ALMONTE Department: Respiratoy Room: 0222 B Gender: F A R Collections Rep: Elliott NEWMANB: 1965 Requested By: SHAYY FERMIN Order Number: [id number] Reading MD: Ania Armenta Measurements Intervals [place] Rate: 103 P: 62 [place]: 192 QRS: 130 QRSD: 110 T: 48 QT: 345 QTc: 452 Interpretive Statements Sinus tachycardia Probable left atrial enlargement Probable RVH w/ secondary repol abnormality Baseline wander in lead(s) V6 Electronically Signed On 04-21-2024 10:32:40 PST by Ania Armenta Please click the below link to view image of tracing.
--- NOTE | 2024-04-20 19:51 | DVHPN2 ---
Reviewed: Care Plan, H&P, Labs, Medications, Previous Orders, Radiology Changes from previous H/P or p: No Changes General: Per HPI Objective Vitals Vital Signs Date Time Temp Pulse Resp B/P (MAP) Pulse Ox O2 Delivery O2 Flow Rate FiO2 04/20/24 19:02 111 20 100 04/20/24 18:55 Nasal Cannula* 3 32 04/20/24 17:39 130/87 04/20/24 17:00 98.7 98.7 Intake/Output Intake and Output 04/20/24 07:00 Intake Total 2130 ml Balance 2130 ml Intake Oral 2080 ml IV Total 50 ml # Voids 14 # Bowel Movements 2 General Appearance: Alert, Oriented X3, Cooperative, mild distress HEENT: Atraumatic, PERRLA, EOMI, Mucous membr. moist/pink Neck: Supple Lungs: Clear to auscultation, Normal air movement Cardiovascular: Regular rate, Normal S1, Normal S2, No murmurs, Gallops, Rubs Abdomen: Normal bowel sounds, Soft, No tenderness Neuro: Cranial nerves 3-12 NL Psych/Mental Status: Mental status NL Medications Current Medications Medications Dose Ordered Sig/Aquiles Route Start Time Stop Time Status Last Admin Dose Admin Ceftriaxone Sodium 50 ml @ 100 mls/hr DAILY@09 IV 04/12/24 09:00 04/20/24 08:31 100 MLS/HR Amlodipine Besylate 5 mg DAILY PO 04/12/24 10:00 04/19/24 11:21 5 MG Apixaban 5 mg BID PO 04/11/24 22:00 04/20/24 08:26 5 MG Carvedilol 3.125 mg Q12HR PO 04/11/24 22:00 04/19/24 11:22 3.125 MG Levothyroxine Sodium 100 mcg QAM@0600 PO 04/12/24 06:00 04/20/24 05:35 100 MCG Potassium Chloride 10 meq DAILY PO 04/12/24 10:00 04/20/24 08:26 10 MEQ Ondansetron HCl 4 mg Q4HP PRN IV 04/11/24 19:45 Acetaminophen 650 mg Q6HP PRN PO 04/11/24 19:45 04/19/24 11:23 650 MG Dextrose 50 ml UD PRN IV 04/11/24 19:45 Cancel Ibuprofen 600 mg Q4HP PRN PO 04/12/24 11:00 04/20/24 15:24 600 MG Guaifenesin/ Codeine Phosphate 10 ml Q4HPRN PRN PO 04/12/24 11:00 04/20/24 15:25 10 ML Albuterol 2.5 mg Q4HR NEB 04/12/24 18:00 04/20/24 18:57 2.5 MG Albuterol 2.5 mg Q4HPRN PRN NEB 04/12/24 15:00 Ipratropium [place] 0.5 mg Q4HR NEB 04/12/24 18:00 04/20/24 18:57 0.5 MG Ipratropium [place] 0.5 mg Q4HPRN PRN NEB 04/12/24 15:00 Azithromycin 250 ml @ 125 mls/hr DAILY IV 04/13/24 10:00 04/20/24 11:12 125 MLS/HR Melatonin 5 mg HS PO 04/13/24 22:00 04/19/24 22:01 5 MG Lorazepam 1 mg Q4HP PRN PO 04/13/24 14:45 04/20/24 15:24 1 MG Lactulose 30 ml Q6HR PRN PO 04/13/24 17:45 04/18/24 21:56 30 ML Dextrose 50 ml UD PRN IV 04/14/24 00:00 Insulin Glargine 30 units HS SC 04/14/24 22:00 04/19/24 23:09 30 UNITS Sildenafil Citrate 20 mg Q8H PO 04/14/24 20:00 04/20/24 11:36 20 MG Furosemide 40 mg BIDD IV 04/15/24 18:00 04/20/24 17:39 40 MG Diagnostic Test (Pha) 1 strip IQ4HR 04/16/24 02:00 04/20/24 17:39 1 STRIP Insulin Human Regular IQ4HR SC 04/16/24 02:00 04/20/24 17:39 6 UNITS Prednisone 20 mg BID PO 04/17/24 22:00 04/23/24 10:00 04/20/24 08:26 20 MG Morphine Sulfate 2 mg Q2HPRN PRN IV 04/19/24 14:15 04/19/24 14:30 2 MG Laboratory Results Laboratory Tests 04/19/24 06:25 Microbiology Microbiology Date/Time Source Procedure Growth Status 04/11/24 16:00 Throat Nose/Throat Culture - Final Complete Assessment/Plan Assessment/Plan Acute on chronic respiratory failure COPD with exacerbation Pneumonia possible Gram-positive pneumonia Hypokalemia Diabetes mellitus type 2 Constipation, improved. Systolic congestive heart failure Severe pulmonary Hypertension. 04/19/2024: request case management for SNF placement 04/20/2024: PT/OT to evaluate for placement Plan discussed with: Patient My Orders Orders - SHAYY FERMIN DO Procedure Category Date Status Time Pt Request For Service PT 04/20/24 Logged 13:42 Date of Service: Apr 20, 2024 Billing Provider: SHAYY FERMIN DO Common Visit Codes: [id number] INP/OBS CARE(HIGH) SHAYY FERMIN DO Apr 20, 2024 19:51
--- NOTE | 2024-04-20 22:52 | DVHPN2 ---
Progress Note - Dictate Date Seen: Apr 20, 2024 Medical Necessity Reason Pt with a Central, PICC or Fol: No Subjective Patient seen and examined at bedside. Remains on supplemental oxygen. Overnight events reviewed. vital signs Vital Sign Date Time Temp Pulse Resp B/P (MAP) Pulse Ox O2 Delivery O2 Flow Rate FiO2 04/20/24 22:00 115 95/63 04/20/24 21:56 20 100 04/20/24 21:50 Nasal Cannula 3.0 04/20/24 21:50 32 04/20/24 21:00 98.0 98.0 Total Intake and Output 04/19/24 04/19/24 04/20/24 15:00 23:00 07:00 Intake Total 560 ml 870 ml 700 ml Balance 560 ml 870 ml 700 ml medications Current Medications Medications Dose Ordered Sig/Aquiles Route Start Time Stop Time Status Last Admin Dose Admin Ceftriaxone Sodium 50 ml @ 100 mls/hr DAILY@09 IV 04/12/24 09:00 04/20/24 08:31 100 MLS/HR Amlodipine Besylate 5 mg DAILY PO 04/12/24 10:00 04/19/24 11:21 5 MG Apixaban 5 mg BID PO 04/11/24 22:00 04/20/24 22:33 5 MG Carvedilol 3.125 mg Q12HR PO 04/11/24 22:00 04/19/24 11:22 3.125 MG Levothyroxine Sodium 100 mcg QAM@0600 PO 04/12/24 06:00 04/20/24 05:35 100 MCG Potassium Chloride 10 meq DAILY PO 04/12/24 10:00 04/20/24 08:26 10 MEQ Ondansetron HCl 4 mg Q4HP PRN IV 04/11/24 19:45 Acetaminophen 650 mg Q6HP PRN PO 04/11/24 19:45 04/19/24 11:23 650 MG Dextrose 50 ml UD PRN IV 04/11/24 19:45 Cancel Ibuprofen 600 mg Q4HP PRN PO 04/12/24 11:00 04/20/24 15:24 600 MG Guaifenesin/ Codeine Phosphate 10 ml Q4HPRN PRN PO 04/12/24 11:00 04/20/24 15:25 10 ML Albuterol 2.5 mg Q4HR NEB 04/12/24 18:00 04/20/24 21:55 2.5 MG Albuterol 2.5 mg Q4HPRN PRN NEB 04/12/24 15:00 Ipratropium [place] 0.5 mg Q4HR NEB 04/12/24 18:00 04/20/24 21:55 0.5 MG Ipratropium [place] 0.5 mg Q4HPRN PRN NEB 04/12/24 15:00 Azithromycin 250 ml @ 125 mls/hr DAILY IV 04/13/24 10:00 04/20/24 11:12 125 MLS/HR Melatonin 5 mg HS PO 04/13/24 22:00 04/20/24 22:33 5 MG Lorazepam 1 mg Q4HP PRN PO 04/13/24 14:45 04/20/24 15:24 1 MG Lactulose 30 ml Q6HR PRN PO 04/13/24 17:45 04/18/24 21:56 30 ML Dextrose 50 ml UD PRN IV 04/14/24 00:00 Insulin Glargine 30 units HS SC 04/14/24 22:00 04/19/24 23:09 30 UNITS Sildenafil Citrate 20 mg Q8H PO 04/14/24 20:00 04/20/24 20:18 20 MG Furosemide 40 mg BIDD IV 04/15/24 18:00 04/20/24 17:39 40 MG Diagnostic Test (Pha) 1 strip IQ4HR 04/16/24 02:00 04/20/24 20:24 1 STRIP Insulin Human Regular IQ4HR SC 04/16/24 02:00 04/20/24 20:29 9 UNITS Prednisone 20 mg BID PO 04/17/24 22:00 04/23/24 10:00 04/20/24 22:33 20 MG Morphine Sulfate 2 mg Q2HPRN PRN IV 04/19/24 14:15 04/19/24 14:30 2 MG objective Gen.: Patient lying in bed in no apparent distress. On supplemental oxygen. Head: Normocephalic, atraumatic. Eyes: EOMI/PERRLA. Ears: Normal hearing. Normal anatomy. Neck/trachea: Trachea midline, supple. Nose: Normal external anatomy. Mouth: Moist mucous membranes. Chest: Decreased air entry bilaterally. No wheezing or rhonchi. Cardiovascular: Positive S1, positive S2. Regular rate and rhythm. Abdomen: Positive bowel sounds in all 4 quadrants. Soft, non-tender, non- distended. : Deferred. Rectal: Deferred. Skin: Warm, dry. Intact. Extremities: 2+ radial pulses bilaterally. No lower extremity edema. Neuro: Awake, alert, oriented x3. No gross motor or sensory deficits. Cranial nerves II through XII intact. Gait not assessed. laboratory and microbiology Laboratory Tests 04/19/24 06:25 Test 04/19/24 06:25 Range/Units Serum Glucose 152 H 74-106 mg/dL Assessment/Plan Impression: Acute on chronic hypoxic respiratory failure Dependence on supplemental oxygen AE COPD Anxiety Severe pulmonary hypertension. Events: Remains on supplemental oxygen, 3 LPM NC Taper O2 as tolerated Continue bronchodilators Continue steroids - prednisone PO Continue antibiotics Antitussive PRN cough Continue Revatio TID for pulmonary hypertension Pain control Avoid oversedation Diurese as tolerated w/ Lasix Monitor renal function Potassium supplementation Monitor ins and outs. IV fluids at 125 mL/hr. Anxiolytic PRN anxiety Labs and imaging reviewed. Rest of plan as noted below. Plan: Supplemental oxygen Titrate to keep O2 sats above 92%. Continue bronchodilators. Continue antibiotics Steroids - taper as tolerated Incentive spirometry Revatio 20 mg po TID - hold if SBP <90 mmHg. She has severe pulmonary hypertension. She was previously on multiple agents for pulmonary hypertension. We will need to establish out patient care to re-initiate medications. Diurese w/ Lasix as tolerated Monitor renal function. Monitor electrolytes. Supplement as necessary. Monitor ins and outs. Will need outpatient followup for severe pulmonary hypertension. DVT prophylaxis. Prognosis: Guarded given patient's multiple co-morbidities. Rest of plan per hospitalist and other consultants. Thank you Dr. Lepe, for allowing me to participate in this patient's care. Further recommendations will depend on the patient's clinical course. Please do not hesitate to contact me if you have any questions or concerns. This medical document was created using an electronic medical record system with [employer] system. Although these documentations are being carefully reviewed, there may still be some phonetic and typographical changes. The errors are purely typographical, due to imperfection on the software program, and do not reflect any compromise in the patient's medical care. Dietary Evaluation Review Comments: Consider prune juice BID for constipation Expected Outcomes/Goals: F/U in 3-5 days Plan discussed with: Patient, Other (BOB Trent) MYKEL SANDERS MD Apr 20, 2024 22:52
[2024-04-21] VITALS (23 sets, daily range): BP systolic 92–128; BP diastolic 52–85; PULSE 66–129; RESP 16–25; TEMP 97.8–98.1; O2SAT 90–100
[2024-04-21] MEDS: ALBUTEROL SULF 2.5 MG/0.5ML(0.5%) NEB SOLN NEB PRN (12:03)
[2024-04-21] MEDS: IPRATROPIUM BROM 0.5 MG/2.5ML INH SOL NEB PRN (12:03)
--- NOTE | 2024-04-21 23:12 | DVHPN2 ---
Progress Note - Dictate Date Seen: Apr 21, 2024 Medical Necessity Reason Pt with a Central, PICC or Fol: No Subjective Patient seen and examined at bedside. Remains on supplemental oxygen. Overnight events reviewed. vital signs Vital Sign Date Time Temp Pulse Resp B/P (MAP) Pulse Ox O2 Delivery O2 Flow Rate FiO2 04/21/24 22:43 74 20 100 04/21/24 22:35 Nasal Cannula* 3 32 04/21/24 22:00 102/66 04/21/24 21:00 97.9 97.9 Total Intake and Output 04/20/24 04/20/24 04/21/24 15:00 23:00 07:00 Intake Total 300 ml 1120 ml 350 ml Balance 300 ml 1120 ml 350 ml medications Current Medications Medications Dose Ordered Sig/Aquiles Route Start Time Stop Time Status Last Admin Dose Admin Ceftriaxone Sodium 50 ml @ 100 mls/hr DAILY@09 IV 04/12/24 09:00 04/21/24 10:38 100 MLS/HR Amlodipine Besylate 5 mg DAILY PO 04/12/24 10:00 04/21/24 10:42 5 MG Apixaban 5 mg BID PO 04/11/24 22:00 04/21/24 21:59 5 MG Carvedilol 3.125 mg Q12HR PO 04/11/24 22:00 04/21/24 10:42 3.125 MG Levothyroxine Sodium 100 mcg QAM@0600 PO 04/12/24 06:00 04/21/24 05:26 100 MCG Potassium Chloride 10 meq DAILY PO 04/12/24 10:00 04/21/24 10:43 10 MEQ Ondansetron HCl 4 mg Q4HP PRN IV 04/11/24 19:45 Acetaminophen 650 mg Q6HP PRN PO 04/11/24 19:45 04/21/24 02:15 650 MG Dextrose 50 ml UD PRN IV 04/11/24 19:45 Cancel Ibuprofen 600 mg Q4HP PRN PO 04/12/24 11:00 04/21/24 22:11 600 MG Guaifenesin/ Codeine Phosphate 10 ml Q4HPRN PRN PO 04/12/24 11:00 04/21/24 20:37 10 ML Albuterol 2.5 mg Q4HR NEB 04/12/24 18:00 04/21/24 22:35 2.5 MG Albuterol 2.5 mg Q4HPRN PRN NEB 04/12/24 15:00 04/21/24 12:03 2.5 MG Ipratropium [place] 0.5 mg Q4HR NEB 04/12/24 18:00 04/21/24 22:35 0.5 MG Ipratropium [place] 0.5 mg Q4HPRN PRN NEB 04/12/24 15:00 04/21/24 12:03 0.5 MG Azithromycin 250 ml @ 125 mls/hr DAILY IV 04/13/24 10:00 04/21/24 11:50 125 MLS/HR Melatonin 5 mg HS PO 04/13/24 22:00 04/21/24 21:59 5 MG Lorazepam 1 mg Q4HP PRN PO 04/13/24 14:45 04/21/24 15:35 1 MG Lactulose 30 ml Q6HR PRN PO 04/13/24 17:45 04/18/24 21:56 30 ML Dextrose 50 ml UD PRN IV 04/14/24 00:00 Insulin Glargine 30 units HS SC 04/14/24 22:00 04/21/24 22:12 30 UNITS Sildenafil Citrate 20 mg Q8H PO 04/14/24 20:00 04/21/24 20:30 20 MG Furosemide 40 mg BIDD IV 04/15/24 18:00 04/21/24 05:28 40 MG Diagnostic Test (Pha) 1 strip IQ4HR 04/16/24 02:00 04/21/24 20:00 1 STRIP Insulin Human Regular IQ4HR SC 04/16/24 02:00 04/21/24 20:42 9 UNITS Prednisone 20 mg BID PO 04/17/24 22:00 04/23/24 10:00 04/21/24 21:59 20 MG Morphine Sulfate 2 mg Q2HPRN PRN IV 04/19/24 14:15 04/19/24 14:30 2 MG objective Gen.: Patient lying in bed in no apparent distress. On supplemental oxygen. Head: Normocephalic, atraumatic. Eyes: EOMI/PERRLA. Ears: Normal hearing. Normal anatomy. Neck/trachea: Trachea midline, supple. Nose: Normal external anatomy. Mouth: Moist mucous membranes. Chest: Decreased air entry bilaterally. No wheezing or rhonchi. Cardiovascular: Positive S1, positive S2. Regular rate and rhythm. Abdomen: Positive bowel sounds in all 4 quadrants. Soft, non-tender, non- distended. : Deferred. Rectal: Deferred. Skin: Warm, dry. Intact. Extremities: 2+ radial pulses bilaterally. No lower extremity edema. Neuro: Awake, alert, oriented x3. No gross motor or sensory deficits. Cranial nerves II through XII intact. Gait not assessed. laboratory and microbiology Laboratory Tests 04/19/24 06:25 Test 04/19/24 06:25 Range/Units Serum Glucose 152 H 74-106 mg/dL Assessment/Plan Impression: Acute on chronic hypoxic respiratory failure Dependence on supplemental oxygen AE COPD Anxiety Severe pulmonary hypertension. Events: Remains on supplemental oxygen, 3 LPM NC Taper O2 as tolerated Continue bronchodilators Continue steroids - prednisone PO Continue antibiotics Antitussive PRN cough Continue Revatio TID for pulmonary hypertension Pain control Avoid oversedation Diurese as tolerated w/ Lasix Monitor renal function Potassium supplementation Monitor ins and outs. Anxiolytic PRN anxiety Labs and imaging reviewed. Rest of plan as noted below. Plan: Supplemental oxygen Titrate to keep O2 sats above 92%. Continue bronchodilators. Continue antibiotics Steroids - taper as tolerated Incentive spirometry Revatio 20 mg po TID - hold if SBP <90 mmHg. She has severe pulmonary hypertension. She was previously on multiple agents for pulmonary hypertension. We will need to establish out patient care to re-initiate medications. Diurese w/ Lasix as tolerated Monitor renal function. Monitor electrolytes. Supplement as necessary. Monitor ins and outs. Will need outpatient followup for severe pulmonary hypertension. DVT prophylaxis. Prognosis: Guarded given patient's multiple co-morbidities. Rest of plan per hospitalist and other consultants. Thank you Dr. Lepe, for allowing me to participate in this patient's care. Further recommendations will depend on the patient's clinical course. Please do not hesitate to contact me if you have any questions or concerns. This medical document was created using an electronic medical record system with [employer] system. Although these documentations are being carefully reviewed, there may still be some phonetic and typographical changes. The errors are purely typographical, due to imperfection on the software program, and do not reflect any compromise in the patient's medical care. Dietary Evaluation Review Comments: Consider prune juice BID for constipation Expected Outcomes/Goals: F/U in 3-5 days Plan discussed with: Patient, Other (BOB Trent) MYKEL SANDERS MD Apr 21, 2024 23:12
[2024-04-22] VITALS (18 sets, daily range): BP systolic 96–109; BP diastolic 60–75; PULSE 98–118; RESP 16–22; TEMP 97.4–98.7; O2SAT 91–100
--- NOTE | 2024-04-22 21:57 | DVHPN2 ---
Progress Note - Dictate Date Seen: Apr 22, 2024 Medical Necessity Reason Pt with a Central, PICC or Fol: No Subjective Patient seen and examined at bedside. Remains on supplemental oxygen. Overnight events reviewed. vital signs Vital Sign Date Time Temp Pulse Resp B/P (MAP) Pulse Ox O2 Delivery O2 Flow Rate FiO2 04/22/24 20:48 98.2 115 17 101/71 (81) 98 98.2 04/22/24 20:00 Nasal Cannula* 3 32 Total Intake and Output 04/21/24 04/21/24 04/22/24 15:00 23:00 07:00 Intake Total 300 ml 1600 ml 460 ml Balance 300 ml 1600 ml 460 ml medications Current Medications Medications Dose Ordered Sig/Aquiles Route Start Time Stop Time Status Last Admin Dose Admin Ceftriaxone Sodium 50 ml @ 100 mls/hr DAILY@09 IV 04/12/24 09:00 04/22/24 09:42 100 MLS/HR Amlodipine Besylate 5 mg DAILY PO 04/12/24 10:00 04/21/24 10:42 5 MG Apixaban 5 mg BID PO 04/11/24 22:00 04/22/24 09:49 5 MG Carvedilol 3.125 mg Q12HR PO 04/11/24 22:00 04/22/24 09:49 3.125 MG Levothyroxine Sodium 100 mcg QAM@0600 PO 04/12/24 06:00 04/22/24 05:26 100 MCG Potassium Chloride 10 meq DAILY PO 04/12/24 10:00 04/22/24 09:49 10 MEQ Ondansetron HCl 4 mg Q4HP PRN IV 04/11/24 19:45 Acetaminophen 650 mg Q6HP PRN PO 04/11/24 19:45 04/21/24 02:15 650 MG Dextrose 50 ml UD PRN IV 04/11/24 19:45 Cancel Ibuprofen 600 mg Q4HP PRN PO 04/12/24 11:00 04/22/24 09:48 600 MG Guaifenesin/ Codeine Phosphate 10 ml Q4HPRN PRN PO 04/12/24 11:00 04/22/24 15:45 10 ML Albuterol 2.5 mg Q4HR NEB 04/12/24 18:00 04/22/24 15:25 2.5 MG Albuterol 2.5 mg Q4HPRN PRN NEB 04/12/24 15:00 04/21/24 12:03 2.5 MG Ipratropium [place] 0.5 mg Q4HR NEB 04/12/24 18:00 04/22/24 15:25 0.5 MG Ipratropium [place] 0.5 mg Q4HPRN PRN NEB 04/12/24 15:00 04/21/24 12:03 0.5 MG Azithromycin 250 ml @ 125 mls/hr DAILY IV 04/13/24 10:00 04/22/24 09:42 125 MLS/HR Melatonin 5 mg HS PO 04/13/24 22:00 04/21/24 21:59 5 MG Lorazepam 1 mg Q4HP PRN PO 04/13/24 14:45 04/22/24 01:52 1 MG Lactulose 30 ml Q6HR PRN PO 04/13/24 17:45 04/18/24 21:56 30 ML Dextrose 50 ml UD PRN IV 04/14/24 00:00 Insulin Glargine 30 units HS SC 04/14/24 22:00 04/21/24 22:12 30 UNITS Sildenafil Citrate 20 mg Q8H PO 04/14/24 20:00 04/22/24 04:17 20 MG Furosemide 40 mg BIDD IV 04/15/24 18:00 04/22/24 18:15 40 MG Diagnostic Test (Pha) 1 strip IQ4HR 04/16/24 02:00 04/22/24 16:00 1 STRIP Insulin Human Regular IQ4HR SC 04/16/24 02:00 04/22/24 21:45 6 UNITS Prednisone 20 mg BID PO 04/17/24 22:00 04/23/24 10:00 04/22/24 09:49 20 MG Morphine Sulfate 2 mg Q2HPRN PRN IV 04/19/24 14:15 04/19/24 14:30 2 MG objective Gen.: Patient lying in bed in no apparent distress. On supplemental oxygen. Head: Normocephalic, atraumatic. Eyes: EOMI/PERRLA. Ears: Normal hearing. Normal anatomy. Neck/trachea: Trachea midline, supple. Nose: Normal external anatomy. Mouth: Moist mucous membranes. Chest: Decreased air entry bilaterally. No wheezing or rhonchi. Cardiovascular: Positive S1, positive S2. Regular rate and rhythm. Abdomen: Positive bowel sounds in all 4 quadrants. Soft, non-tender, non- distended. : Deferred. Rectal: Deferred. Skin: Warm, dry. Intact. Extremities: 2+ radial pulses bilaterally. No lower extremity edema. Neuro: Awake, alert, oriented x3. No gross motor or sensory deficits. Cranial nerves II through XII intact. Gait not assessed. laboratory and microbiology Laboratory Tests 04/19/24 06:25 Test 04/19/24 06:25 Range/Units Serum Glucose 152 H 74-106 mg/dL Assessment/Plan Impression: Acute on chronic hypoxic respiratory failure Dependence on supplemental oxygen AE COPD Anxiety Severe pulmonary hypertension. Events: Remains on supplemental oxygen, 3 LPM NC Taper O2 as tolerated Continue bronchodilators Continue steroids - prednisone PO Continue antibiotics Antitussive PRN cough Incentive spirometry Continue Revatio TID for pulmonary hypertension Pain control Avoid oversedation Diurese as tolerated w/ Lasix Monitor renal function Potassium supplementation Monitor ins and outs. Anxiolytic PRN anxiety Disposition per hospitalist. Labs and imaging reviewed. Rest of plan as noted below. Plan: Supplemental oxygen Titrate to keep O2 sats above 92%. Continue bronchodilators. Continue antibiotics Steroids - taper as tolerated Incentive spirometry Revatio 20 mg po TID - hold if SBP <90 mmHg. She has severe pulmonary hypertension. She was previously on multiple agents for pulmonary hypertension. We will need to establish out patient care to re-initiate medications. Diurese w/ Lasix as tolerated Monitor renal function. Monitor electrolytes. Supplement as necessary. Monitor ins and outs. Will need outpatient followup for severe pulmonary hypertension. DVT prophylaxis. Prognosis: Guarded given patient's multiple co-morbidities. Rest of plan per hospitalist and other consultants. Thank you Dr. Lepe, for allowing me to participate in this patient's care. Further recommendations will depend on the patient's clinical course. Please do not hesitate to contact me if you have any questions or concerns. This medical document was created using an electronic medical record system with [employer] system. Although these documentations are being carefully reviewed, there may still be some phonetic and typographical changes. The errors are purely typographical, due to imperfection on the software program, and do not reflect any compromise in the patient's medical care. Dietary Evaluation Review Comments: Consider prune juice BID for constipation Expected Outcomes/Goals: F/U in 3-5 days Plan discussed with: Patient, Other (BOB Mojica) MYKEL SANDERS MD Apr 22, 2024 21:56
[2024-04-22] MEDS ORDERED: NITROGLYCERIN 0.4 MG SL TAB SL PRN (22:45)
[2024-04-22] MEDS ORDERED: MORPHINE SULFATE 4 MG/ML SYR/VIAL IV PRN (22:45)
[2024-04-22] MEDS: MIDODRINE HCL 10 MG TAB PO ONE (22:55)
[2024-04-23] VITALS (13 sets, daily range): BP systolic 106–114; BP diastolic 72–75; PULSE 70–125; RESP 17–22; TEMP 97.7–98.3; O2SAT 89–99
--- NOTE | 2024-04-23 12:33 | DVHPN2 ---
Reviewed: Care Plan, H&P, Labs, Medications, Previous Orders, Radiology Changes from previous H/P or p: No Changes General: Per HPI Objective Vitals Vital Signs Date Time Temp Pulse Resp B/P (MAP) Pulse Ox O2 Delivery O2 Flow Rate FiO2 04/23/24 10:25 103 18 97 04/23/24 10:19 Nasal Cannula 2.0 04/23/24 10:19 28 04/23/24 10:17 96/63 04/23/24 09:00 98.3 98.3 Intake/Output Intake and Output 04/23/24 06:59 Intake Total 1690 ml Balance 1690 ml Intake Oral 1390 ml IV Total 300 ml # Voids 13 # Bowel Movements 3 General Appearance: Alert, Oriented X3, Cooperative, mild distress HEENT: Atraumatic, PERRLA, EOMI, Mucous membr. moist/pink Neck: Supple Lungs: Clear to auscultation, Normal air movement Cardiovascular: Regular rate, Normal S1, Normal S2, No murmurs, Gallops, Rubs Abdomen: Normal bowel sounds, Soft, No tenderness Neuro: Cranial nerves 3-12 NL Psych/Mental Status: Mental status NL Medications Current Medications Medications Dose Ordered Sig/Aquiles Route Start Time Stop Time Status Last Admin Dose Admin Amlodipine Besylate 5 mg DAILY PO 04/12/24 10:00 04/21/24 10:42 5 MG Apixaban 5 mg BID PO 04/11/24 22:00 04/23/24 09:16 5 MG Carvedilol 3.125 mg Q12HR PO 04/11/24 22:00 04/23/24 09:17 3.125 MG Levothyroxine Sodium 100 mcg QAM@0600 PO 04/12/24 06:00 04/23/24 05:09 100 MCG Potassium Chloride 10 meq DAILY PO 04/12/24 10:00 04/23/24 09:17 10 MEQ Ondansetron HCl 4 mg Q4HP PRN IV 04/11/24 19:45 Acetaminophen 650 mg Q6HP PRN PO 04/11/24 19:45 04/21/24 02:15 650 MG Dextrose 50 ml UD PRN IV 04/11/24 19:45 Cancel Ibuprofen 600 mg Q4HP PRN PO 04/12/24 11:00 04/22/24 09:48 600 MG Guaifenesin/ Codeine Phosphate 10 ml Q4HPRN PRN PO 04/12/24 11:00 04/23/24 09:19 10 ML Albuterol 2.5 mg Q4HR NEB 04/12/24 18:00 04/23/24 10:19 2.5 MG Albuterol 2.5 mg Q4HPRN PRN NEB 04/12/24 15:00 04/21/24 12:03 2.5 MG Ipratropium [place] 0.5 mg Q4HR NEB 04/12/24 18:00 04/23/24 10:19 0.5 MG Ipratropium [place] 0.5 mg Q4HPRN PRN NEB 04/12/24 15:00 04/21/24 12:03 0.5 MG Azithromycin 250 ml @ 125 mls/hr DAILY IV 04/13/24 10:00 04/23/24 11:00 125 MLS/HR Melatonin 5 mg HS PO 04/13/24 22:00 04/22/24 22:27 5 MG Lorazepam 1 mg Q4HP PRN PO 04/13/24 14:45 04/22/24 23:43 1 MG Lactulose 30 ml Q6HR PRN PO 04/13/24 17:45 04/23/24 09:15 30 ML Dextrose 50 ml UD PRN IV 04/14/24 00:00 Insulin Glargine 30 units HS SC 04/14/24 22:00 04/22/24 22:29 30 UNITS Sildenafil Citrate 20 mg Q8H PO 04/14/24 20:00 04/23/24 05:09 20 MG Furosemide 40 mg BIDD IV 04/15/24 18:00 04/23/24 05:10 40 MG Diagnostic Test (Pha) 1 strip IQ4HR 04/16/24 02:00 04/23/24 12:00 1 STRIP Insulin Human Regular IQ4HR SC 04/16/24 02:00 04/23/24 12:03 6 UNITS Morphine Sulfate 2 mg Q2HPRN PRN IV 04/19/24 14:15 04/19/24 14:30 2 MG Morphine Sulfate 2 mg Q30MP PRN IV 04/22/24 22:45 Nitroglycerin 0.4 mg Q5MINP PRN SL 04/22/24 22:45 Laboratory Results Laboratory Tests 04/19/24 06:25 Cardiac Markers Test 04/22/24 23:02 B-Type Natriuretic Peptide 31.08 pg/mL (0-100) Microbiology Microbiology Date/Time Source Procedure Growth Status 04/11/24 16:00 Throat Nose/Throat Culture - Final Complete Assessment/Plan Assessment/Plan Acute on chronic respiratory failure COPD with exacerbation Pneumonia possible Gram-positive pneumonia Hypokalemia Diabetes mellitus type 2 Constipation, improved. Systolic congestive heart failure Severe pulmonary Hypertension. 04/19/2024: request case management for SNF placement 04/20/2024: PT/OT to evaluate for placement Plan discussed with: Patient Date of Service: Apr 22, 2024 Billing Provider: SHAYY FERMIN DO Common Visit Codes: [id number] INP/OBS CARE(HIGH) SHAYY FERMIN DO Apr 23, 2024 12:33
--- NOTE | 2024-04-23 12:34 | DVHDS2 ---
Discharge Summary Date of Admission Apr 11, 2024 at 19:36 Date of Discharge: Apr 21, 2024 Labs/Diagnostic Data: Laboratory Results Test 04/23/24 11:58 04/22/24 23:02 04/19/24 06:25 04/14/24 07:23 POC Glucose 242 mg/dl (70-106) Troponin I High Sensitivity 4 ng/L (</=34) B-Type Natriuretic Peptide 31.08 pg/mL (0-100) White Blood Count 19.1 10^3/uL (4.4-10.8) Red Blood Count 4.26 10^6/uL (4.0-5.20) Hemoglobin 12.1 g/dL (12.2-16.2) Hematocrit 37.4 % (36.0-46.0) Mean Corpuscular Volume 87.8 fL (80.0-100.0) Mean Corpuscular Hemoglobin 28.5 pg (28.0-32.0) Mean Corpuscular Hemoglobin Concent 32.5 g/dL (32.0-36.0) Red Cell Distribution Width 17.0 % (11.8-14.3) Platelet Count 246 10^3/uL (140-450) Mean Platelet Volume 7.9 fL (6.9-10.8) Neutrophils (%) (Auto) 85.9 % (37.0-80.0) Lymphocytes (%) (Auto) 7.0 % (10.0-50.0) Monocytes (%) (Auto) 6.8 % (0.0-12.0) Eosinophils (%) (Auto) 0.1 % (0.0-7.0) Basophils (%) (Auto) 0.2 % (0.0-2.0) Neutrophils # (Auto) 16.4 10 ^3/uL (1.6-8.6) Lymphocytes # (Auto) 1.3 10 ^3/uL (0.4-5.4) Monocytes # (Auto) 1.3 10 ^3/uL (0-1.3) Eosinophils # (Auto) 0 10 ^3/uL (0-0.8) Basophils # (Auto) 0 10 ^3/uL (0-0.2) Nucleated Red Blood Cells 0.0 % Sodium Level 145 mmol/L (136-145) Potassium Level 4.1 mmol/L (3.5-5.1) Chloride Level 100 mmol/L (98-107) Carbon Dioxide Level > 40 mmol/L (20-31) Anion Gap 4.17448 (5-15) Blood Urea Nitrogen 39 mg/dL (9-23) Creatinine 0.79 mg/dL (0.550-1.02) Glomerular Filtration Rate Calc 86 mL/min (>90) BUN/Creatinine Ratio 49.4 (10.0-20.0) Serum Glucose 152 mg/dL (74-106) Calcium Level 11.0 mg/dL (8.7-10.4) Blood Gas Specimen Type Arterial Blood Gas Sample Site Right radial Blood Gas Patient Temperature 37.0 Arterial Blood Date Drawn [id number] Arterial Blood pH 7.428 (7.350-7.450) Arterial Blood Partial Pressure CO2 50.0 mmHg (32.0-45.0) Arterial Blood Partial Pressure O2 89.3 mmHg (83.0-108.0) Arterial Blood HCO3 32.3 mmol/L (21.0-28.0) Arterial Blood Oxygen Saturation 96.0 % (94.0-98.0) Arterial Blood Base Excess 6.8 mmol/L (-2.0-3.0) Arterial Blood Oxyhemoglobin 94.8 % (94.0-98.0) Arterial Blood Carboxyhemoglobin 0.7 % (0.5-1.5) Arterial Blood Methemoglobin 0.5 % (0.0-1.5) Johnson Test Yes Blood Gas Total Hemoglobin 12.60 g/dL (12.0-16.0) Blood Gas Liter Flow 2.00 Blood Gas Modality Nasal cannula FiO2 % 28.0 Test 04/12/24 07:13 04/11/24 16:00 04/11/24 15:03 Hepatitis B Surface Antigen Negative (Negative) Hepatitis C Antibody Reactive (Negative) Influenza Type A Antigen Negative (Negative) Influenza Type B Antigen Negative (Negative) SARS-CoV-2 Antigen (Rapid) Negative (NEGATIVE) Group A Streptococcus Rapid Negative Total Bilirubin 0.7 mg/dL (0.2-1.0) Aspartate Amino Transferase (AST) 30 U/L (13-40) Alanine Aminotransferase (ALT) 26 U/L (7-40) Alkaline Phosphatase 125 U/L (46-116) Total Protein 7.4 g/dL (5.7-8.2) Albumin 3.5 g/dL (3.2-4.8) Other Laboratory Tests 04/19/24 06:25 Condition at Discharge: Fair Final Diagnosis/Problems List see above Discharge Disposition: [facility] Facility Discharge Statement: "Patient was advised to return to the ER or call 911 if any headaches, dizziness, shortness of breath, chest pain, abdominal pain, bleeding, fevers, or worsening of medical condition. Patient was counseled about treatment plan, medications, possible side effects, patientverbalized understanding. All questions were answered to the best of my ability. This discharge took greater then 30 minutes in planning, reviewing documentation, counseling the patient, and discussing with other team members." ASSESSMENT ASSESSMENT Assessment Date of Service: Apr 23, 2024 Billing Provider: SHAYY FERMIN DO Common Visit Codes: [id number] DISCH DAY >30min SHAYY FERMIN DO Apr 23, 2024 12:34
--- NOTE | 2024-04-23 23:03 | DVHPN2 ---
Progress Note - Dictate Date Seen: Apr 23, 2024 Medical Necessity Reason Pt with a Central, PICC or Fol: No Subjective Patient seen and examined at bedside. Remains on supplemental oxygen. Overnight events reviewed. vital signs Vital Sign Date Time Temp Pulse Resp B/P (MAP) Pulse Ox O2 Delivery O2 Flow Rate FiO2 04/23/24 14:26 103 18 99 04/23/24 14:08 97.7 04/23/24 10:19 Nasal Cannula 2.0 04/23/24 10:19 28 04/23/24 10:17 96/63 Total Intake and Output 04/22/24 04/22/24 04/23/24 15:00 23:00 07:00 Intake Total 300 ml 490 ml 900 ml Balance 300 ml 490 ml 900 ml medications Current Medications Medications Dose Ordered Sig/Aquiles Route Start Time Stop Time Status Last Admin Dose Admin Dextrose 50 ml UD PRN IV 04/11/24 19:45 Cancel objective Gen.: Patient lying in bed in no apparent distress. On supplemental oxygen. Head: Normocephalic, atraumatic. Eyes: EOMI/PERRLA. Ears: Normal hearing. Normal anatomy. Neck/trachea: Trachea midline, supple. Nose: Normal external anatomy. Mouth: Moist mucous membranes. Chest: Decreased air entry bilaterally. No wheezing or rhonchi. Cardiovascular: Positive S1, positive S2. Regular rate and rhythm. Abdomen: Positive bowel sounds in all 4 quadrants. Soft, non-tender, non- distended. : Deferred. Rectal: Deferred. Skin: Warm, dry. Intact. Extremities: 2+ radial pulses bilaterally. No lower extremity edema. Neuro: Awake, alert, oriented x3. No gross motor or sensory deficits. Cranial nerves II through XII intact. Gait not assessed. laboratory and microbiology Laboratory Tests 04/19/24 06:25 Test 04/19/24 06:25 Range/Units Serum Glucose 152 H 74-106 mg/dL Assessment/Plan Impression: Acute on chronic hypoxic respiratory failure Dependence on supplemental oxygen AE COPD Anxiety Severe pulmonary hypertension. Events: Remains on supplemental oxygen, 3 LPM NC Taper O2 as tolerated Continue bronchodilators Continue steroids - prednisone PO Continue antibiotics Antitussive PRN cough Incentive spirometry Continue Revatio TID for pulmonary hypertension Pain control Avoid oversedation Diurese as tolerated w/ Lasix Monitor renal function Potassium supplementation Monitor ins and outs. Anxiolytic PRN anxiety Disposition per hospitalist. Labs and imaging reviewed. Rest of plan as noted below. Plan: Supplemental oxygen Titrate to keep O2 sats above 92%. Continue bronchodilators. Continue antibiotics Steroids - taper as tolerated Incentive spirometry Revatio 20 mg po TID - hold if SBP <90 mmHg. She has severe pulmonary hypertension. She was previously on multiple agents for pulmonary hypertension. We will need to establish out patient care to re-initiate medications. Diurese w/ Lasix as tolerated Monitor renal function. Monitor electrolytes. Supplement as necessary. Monitor ins and outs. Will need outpatient followup for severe pulmonary hypertension. DVT prophylaxis. Prognosis: Guarded given patient's multiple co-morbidities. Rest of plan per hospitalist and other consultants. Thank you Dr. Lepe, for allowing me to participate in this patient's care. Further recommendations will depend on the patient's clinical course. Please do not hesitate to contact me if you have any questions or concerns. This medical document was created using an electronic medical record system with [employer] computerized dictation system. Although these documentations are being carefully reviewed, there may still be some phonetic and typographical changes. The errors are purely typographical, due to imperfection on the software program, and do not reflect any compromise in the patient's medical care. Dietary Evaluation Review Comments: Consider prune juice BID for constipation Expected Outcomes/Goals: F/U in 3-5 days Plan discussed with: Patient, Other (BOB [place]) MYKEL SANDERS MD Apr 23, 2024 23:03
--- NOTE | 2024-04-24 11:41 | ECG ---
[facility] Test Date: 2024-04-22 Test Time: 22:05:56 Pat Name: CLINTON ALMONTE Department: Room: 0222T Gender: F Heel Seat Flap Stapler: mabel pak : [id number] Requested By: DAMIEN BILLINGSLEY Order Number: [id number] Reading MD: Measurements Intervals [place] Rate: 107 P: 63 [place]: 185 QRS: 144 QRSD: 102 T: 55 QT: 333 QTc: 445 Interpretive Statements Sinus tachycardia Probable left atrial enlargement Probable inferior infarct, recent Posterior infarct, acute (LCx) Lateral leads are also involved Please click the below link to view image of tracing.
== END 2024-04-23 15:30 | DRG 137 ==
LOC: EDBD 14:33 → ER 14:33 → OVERFLOW 19:36 → EAST 23:04 → CENTRAL 04-15 22:50 → TELE-CENTR 04-22 23:08
PROVIDERS: ADMIT Internal Medicine; ATTEND Internal Medicine
PROC: 5A09357 Assistance with Respiratory Ventilation, Less than 24 Consecutive Hours, Continuous Positive Airway Pressure (ICD-10-PCS; principal; 2024-04-15)
PROC: 5A09357 Assistance with Respiratory Ventilation, Less than 24 Consecutive Hours, Continuous Positive Airway Pressure (ICD-10-PCS; 2024-04-16)
PROC: 5A09357 Assistance with Respiratory Ventilation, Less than 24 Consecutive Hours, Continuous Positive Airway Pressure (ICD-10-PCS; 2024-04-17)
DX: J15.69 Pneumonia due to other Gram-negative bacteria (principal); J96.21 Acute and chronic respiratory failure with hypoxia; R65.11 Systemic inflammatory response syndrome (SIRS) of non-infectious origin with acute organ dysfunction; I27.20 Pulmonary hypertension, unspecified; I50.40 Unspecified combined systolic (congestive) and diastolic (congestive) heart failure; I11.0 Hypertensive heart disease with heart failure; E11.9 Type 2 diabetes mellitus without complications; D64.9 Anemia, unspecified; J15.9 Unspecified bacterial pneumonia; J44.0 Chronic obstructive pulmonary disease with (acute) lower respiratory infection; Z20.822 Contact with and (suspected) exposure to COVID-19; J44.1 Chronic obstructive pulmonary disease with (acute) exacerbation; E87.6 Hypokalemia; F41.9 Anxiety disorder, unspecified; I48.91 Unspecified atrial fibrillation; K59.03 Drug induced constipation; M87.9 Osteonecrosis, unspecified; T40.605A Adverse effect of unspecified narcotics, initial encounter; J98.4 Other disorders of lung; Z99.81 Dependence on supplemental oxygen; Z88.1 Allergy status to other antibiotic agents; Z87.891 Personal history of nicotine dependence; Z80.0 Family history of malignant neoplasm of digestive organs; Z81.3 Family history of other psychoactive substance abuse and dependence; Z63.72 Alcoholism and drug addiction in family; Z79.891 Long term (current) use of opiate analgesic; Z79.01 Long term (current) use of anticoagulants
CPT/HCPCS: 36415; 36600; 71045; 71046; 74176; 80048; 80053; 82805; 82962; 83880; 84484; 85025; 86803; 87070; 87340; 87426; 87804; 87880; 93005; 94640; 94644; 94660; 97110; 97116; 97163; 99291; G0378; J1815; J1885; J3480

== ENCOUNTER 2024-04-24 21:18 | Inpatient (IN) | payer MEDICAID ==
[~2024-04-24] VITALS: Ht 160 cm; Wt 78.4 kg
[~2024-04-24 21:18] MED LIST changes: -ATOR40TA52 PO; -DOCU-94 PO; -FAMO-12 PO; +FURO40TA4 PO; -HYDR-4902 PO; -MELA3TAB27 PO; -METO25TA93 PO; -PRED20TA2 PO
--- NOTE | 2024-04-24 21:53 | ED.PDOC ---
SOB-HPI HPI Comments 58-year-old female came to ER via EMS due to shortness of breath. Per EMS, patient was picked up at a nursing facility after she was just discharged from here yesterday with a diagnosis of Acute on Chronic Respiratory Failure, COPD, CHF, Severe Pulmonary Hypertension. Patient claims she wasn't been taken cared for properly at the nursing facility, claims she has not gotten any medications. Patient since then has been having chest pain, productive cough and worsening shortness of breath again Chief Complaint: Shortness of breath Time Seen by MD: 21:52 Primary Care Provider: NONE Reviewed notes: Nurses Notes Information Source: Patient Mode of Arrival: EMS Severity: Moderate Timing: Hours Duration: Since onset Context: At Rest, With Light Exertion PE Risk Factors: None History of: COPD, CHF Prehospital treatment: Oxygen Modifying Factors: Nothing Associated Signs and Symptoms: Wheeze, Cough, Chest Pain Quality: Aching, Tightness If cough with SOB: Productive Past Medical History PAST MEDICAL HISTORY: CHF, COPD, DM, HTN Past Medical History (Other): Severe pulmonary hypertension Surgical History: Denies all surgeries UTILITY MANAGER History: No Pertinent UTILITY MANAGER History Family History Family History: Reviewed,noncontributory to illness, Unknown Social History Smoker: Quit Greater Than 1 Year Alcohol: Denies ETOH Use Drugs: Denies Drug Use Lives In: Home Constitutional: denies: chills, diaphoresis, fatigue, fever, malaise, sweats, weakness, others EENTM: denies: blurred vision, double vision, ear bleeding, ear discharge, ear drainage, ear pain, ear ringing, eye pain, eye redness, hearing loss, mouth pain, mouth swelling, nasal discharge, nose bleeding, nose congestion, nose pain, photophobia, tearing, throat pain, throat swelling, voice changes, others Respiratory: reports: cough, SOB at rest, shortness of breath; denies: hemoptysis, orthopnea, SOB with excertion, stridor, wheezing, others Cardiovascular: reports: chest pain, dizzy spells, diaphoresis Gastrointestinal: denies: abdomen distended, abdominal pain, blood streaked bowels, constipated, diarrhea, dysphagia, difficulty swallowing, hematemesis, melena, nausea, poor appetite, poor fluid intake, rectal bleeding, rectal pain, vomiting, others Genitourinary: denies: abnormal vagina bleeding, burning, dyspareunia, dysuria, flank pain, frequency, hematuria, incontinence, pain, , vagina discharge, urgency, others Neurological: denies: dizziness, fainting, headache, left sided numbness, left sided weakness, numbness, paresthesia, pre-existing deficit, right sided numbne ss, right sided weakness, seizure, speech problems, tingling, tremors, weakness, others Musculoskeletal: denies: back pain, gout, joint pain, joint swelling, muscle pain, muscle stiffness, neck pain, others Integumetry: denies: bruises, change in color, change in hair/nails, dryness, laceration, lesions, lumps, rash, wounds, others Allergic/Immunocompromised: denies: Difficulty Healing, Frequent Infections, Hives, Itching, others Hematologic/Lymphatic: denies: anemia, blood clots, easy bleeding, easy bruising, swollen glands, others Endocrine: denies: excessive hunger, excessive sweating, excessive thirst, excessive urination, flushing, intolerance to cold, intolerance to heat, unexplained weight gain, unexplained weight loss, others Psychiatric: denies: anxiety, bipolar disorder, depression, hopeless, panic disorder, schizophrenia, sleepless, suicidal, others Physical Exam General Appearance: No Apparent Distress, Normal HEENT: Normal ENT Inspection, Pharynx Normal, TMs Normal Neck: Full Range of Motion, Non-Tender, Normal, Normal Inspection Respiratory: Chest Non-Tender, Lungs Clear, No Accessory Muscle Use, No Respiratory Distress, Normal Breath Sounds Cardiovascular: No Edema, No JVD, No Murmur, No Gallop, Normal Peripheral Pulses, Regular Rate/Rhythm Breast Exam: Deferred Gastrointestinal: No Organomegaly, Non Tender, No Pulsatile Mass, Normal Bowel Sounds, Soft Genitalia: Deferred Pelvic: Deferred Rectal: Deferred Extremities: No calf tenderness, Normal capillary refill, Normal inspection, Normal range of motion, Non-tender, No pedal edema Musculoskeletal : Apperance: Normal Neurologic: Alert, regulatory internship II-XII nml as Tested, No Motor Deficits, Normal Affect, Normal Mood, No Sensory Deficits Cerebellar Function: Normal Reflexes: Normal Skin: Dry, Normal Color, Warm Lymphatic: No Adenopathy Was a procedure done? Was a procedure done?: No Differential Dx Differential Diagnosis: Asthma, Bronchitis, CHF, COPD, Hyperventilation, Myocardial infarction, Panic Attack, Pneumonia, Respiratory Distress X-Ray, Labs, Meds, VS Vital Signs Date Time Temp Pulse Resp B/P (MAP) Pulse Ox O2 Delivery O2 Flow Rate FiO2 04/24/24 22:31 119 04/24/24 21:21 114 04/24/24 21:18 98.1 112 24 99/74 (82) 100 Lab Test 04/24/24 22:21 04/24/24 21:45 Range/Units Troponin I High Sensitivity 7 6 </=34 ng/L White Blood Count 23.2 H 4.4-10.8 10^3/uL Red Blood Count 4.27 4.0-5.20 10^6/uL Hemoglobin 12.5 12.2-16.2 g/dL Hematocrit 39.1 36.0-46.0 % Mean Corpuscular Volume 91.5 # 80.0-100.0 fL Mean Corpuscular Hemoglobin 29.2 28.0-32.0 pg Mean Corpuscular Hemoglobin Concent 31.9 L 32.0-36.0 g/dL Red Cell Distribution Width 17.1 H 11.8-14.3 % Platelet Count 313 140-450 10^3/uL Mean Platelet Volume 7.7 6.9-10.8 fL Neutrophils (%) (Auto) 77.6 37.0-80.0 % Lymphocytes (%) (Auto) 10.0 10.0-50.0 % Monocytes (%) (Auto) 11.0 0.0-12.0 % Eosinophils (%) (Auto) 1.2 0.0-7.0 % Basophils (%) (Auto) 0.2 0.0-2.0 % Neutrophils # (Auto) 18.0 H 1.6-8.6 10 ^3/uL Lymphocytes # (Auto) 2.3 0.4-5.4 10 ^3/uL Monocytes # (Auto) 2.5 H 0-1.3 10 ^3/uL Eosinophils # (Auto) 0.3 0-0.8 10 ^3/uL Basophils # (Auto) 0 0-0.2 10 ^3/uL Nucleated Red Blood Cells 0.1 % Sodium Level 141 136-145 mmol/L Potassium Level 4.2 3.5-5.1 mmol/L Chloride Level 100 98-107 mmol/L Carbon Dioxide Level 39 H 20-31 mmol/L Anion Gap 2 L 5-15 Blood Urea Nitrogen 25 H 9-23 mg/dL Creatinine 0.78 0.550-1.02 mg/dL Glomerular Filtration Rate Calc 87 >90 mL/min BUN/Creatinine Ratio 32.1 H 10.0-20.0 Serum Glucose 153 H 74-106 mg/dL Calcium Level 9.5 8.7-10.4 mg/dL B-Type Natriuretic Peptide 35.04 0-100 pg/mL Time of 1ST Reevaluation: 21:45 Reevaluation 1ST: Unchanged Patient Education/Counseling: Diagnosis, Treatment Family Education/Counseling: No Family Present Departure 1 Departure Time of Disposition: 00:21 (Patient presents with a right lower lobe pneumonia. We will treat patient with antibiotics and the patient for further workup.) Impression: Primary Impression: Right lower lobe pneumonia Qualified Codes: J18.9 - Pneumonia, unspecified organism Additional Impressions: Acute chest pain Dyspnea Qualified Codes: R06.02 - Shortness of breath Disposition: ADMITTED INPATIENT Admit to: Med Surg Condition: Serious Critical Care Note Critical Care Time?: Yes (35 min-critical care time only) Stability Stability form required: No Heart Score Heart Score: Heart Score Response (Comments) Value History Moderate Suspicious 1 EKG Repolarization Disturb 1 Age 45-64 1 Risk Factors >3 or Hx ASHD 2 Troponin Normal limit 0 Total 5 I personally scribed for BERTRAM IQBAL MD ([email or web address]) on 04/24/24 at 21:53. Electronically submitted by Jeison Doss ([email or web address]). BERTRAM IQBAL MD Apr 24, 2024 21:53
[2024-04-24 21:56] LABS: Basophils # (auto) 0 10 ^3/uL (0-0.2); Basophils % (auto) 0.2 % (0.0-2.0); Eosinophils # (auto) 0.3 10 ^3/uL (0-0.8); Eosinophils % (auto) 1.2 % (0.0-7.0); Hematocrit 39.1 % (36.0-46.0); Hemoglobin 12.5 g/dL (12.2-16.2); Lymphocytes # (auto) 2.3 10 ^3/uL (0.4-5.4); Mean Corpuscular Hemoglobin 29.2 pg (28.0-32.0); Mean Corpuscular Hgb Conc. 31.9 g/dL (32.0-36.0); Mean Corpuscular Volume 91.5 fL (80.0-100.0); Monocytes # (auto) 2.5 10 ^3/uL (0-1.3); Neutrophils % (auto) 77.6 % (37.0-80.0); Nucleated Red Blood Cells % 0.1 %; Platelet Count (auto) 313 10^3/uL (140-450); Red Blood Cells 4.27 10^6/uL (4.0-5.20); Red Cell Distribution Width 17.1 % (11.8-14.3); White Blood Cell 23.2 10^3/uL (4.4-10.8)
[2024-04-24 22:01] LABS: Chloride 100 mmol/L (98-107); Potassium 4.2 mmol/L (3.5-5.1); Sodium 141 mmol/L (136-145)
[2024-04-24 22:02] LABS: Anion Gap 2 (5-15)
[2024-04-24 22:03] LABS: Calcium 9.5 mg/dL (8.7-10.4)
[2024-04-24 22:08] LABS: BUN/Creatinine Ratio 32.1 (10.0-20.0); Blood Urea Nitrogen 25 mg/dL (9-23); Carbon Dioxide 39 mmol/L (20-31); Glucose 153 mg/dL (74-106)
--- NOTE | 2024-04-24 23:32 | ECG ---
[facility] Test Date: 2024-04-24 Test Time: 22:31:10 Pat Name: CLINTON ALMONTE Department: ED Room: 0290T Gender: F Rn Oncology Research: NUVIA : 1965 Requested By: BERTRAM IQBAL Order Number: [id number] Reading MD: Reece Parikh Measurements Intervals [place] Rate: 119 P: 100 [place]: 162 QRS: 17 QRSD: 107 T: 154 QT: 335 QTc: 472 Interpretive Statements Ventricular-paced complexes No further rhythm analysis attempted due to paced rhythm Probable anterior infarct, age indeterminate Minimal ST elevation, inferior leads Lateral leads are also involved Electronically Signed On 04-28-2024 8:49:49 PST by Reece Parikh Please click the below link to view image of tracing.
--- NOTE | 2024-04-24 23:56 | DVH ---
CHEST RADIOGRAPH Indication: sob Technique: Single frontal view of the chest was obtained Comparison: XY CHEST PORTABLE on DOS: 04/11/24, XY CHEST PORTABLE on DOS: 02/15/24, XY CHEST PORTABLE on DOS: 01/19/24 Findings/ IMPRESSION: Right lower lobe consolidation concerning for airspace disease.
[2024-04-25] VITALS (20 sets, daily range): BP systolic 106–118; BP diastolic 71–80; PULSE 98–130; RESP 16–96; TEMP 98–98.7; O2SAT 6–100
[2024-04-25] MEDS: ONDANSETRON HCL 4 MG/2 ML VIAL IV ONE ×2 (01:30→04:02)
[2024-04-25] MEDS: MORPHINE SULFATE 4 MG/ML SYR/VIAL IV ONE ×2 (01:33→04:01)
[2024-04-25 01:53] LABS: Urine Bacteria None Seen /hpf (None Seen)
[2024-04-25] MEDS: ALBUTEROL SULF 2.5 MG/0.5ML(0.5%) NEB SOLN NEB SCH ×2 (02:03→10:04)
[2024-04-25 02:04] LABS: Urine Blood Negative /uL (Negative); Urine Clarity Clear (Clear); Urine Color Light-Yellow (Yellow); Urine Protein, UAD Negative (Negative); Urine Specific Gravity 1.016 (1.001-1.035); Urine Squamous Epithelial Cell FEW /hpf (<5); Urine Urobilinogen Normal (Negative); Urine WBC 4 /HPF (0-5)
[2024-04-25] MEDS: IPRATROPIUM BROM 0.5 MG/2.5ML INH SOL NEB SCH (02:04)
[2024-04-25] MEDS: VANCOMYCIN 1GM/250ML KIT 200 ML IV ONE (04:12)
[2024-04-25] MEDS: AZITHROMYCIN 250 MG TAB PO ONE (04:12)
--- NOTE | 2024-04-25 04:27 | ECG ---
[facility] Test Date: 2024-04-24 Test Time: 21:21:34 Pat Name: CLINTON ALMONTE Department: ED Room: 0290T Gender: F Emergency Room Technician: NUVIA : 1965 Requested By: BERTRAM IQBAL Order Number: [id number] Reading MD: Reece Parikh Measurements Intervals [place] Rate: 114 P: 52 SD: 185 QRS: 138 QRSD: 94 T: 13 QT: 332 QTc: 458 Interpretive Statements Sinus tachycardia Left atrial enlargement Anteroseptal infarct, age indeterminate Electronically Signed On 04-28-2024 8:49:45 PST by Reece Parikh Please click the below link to view image of tracing.
[2024-04-25] MEDS: CEFEPIME 2GM/50ML NS 50 ML IV ONE (05:33)
--- NOTE | 2024-04-25 08:11 | DVHHP2 ---
History of Present Illness Reason for Visit: Shortness of breath History of Present Illness This 58-year-old female presents in the ED via EMS with a chief complaint of shortness of breath. The patient with multiple hospital admission for the past few months with respiratory concerns reports was just discharged from here yeste rday with diagnosis of acute on chronic respiratory failure and COPD. The patient states that she was discharged to post acute rehabilitation, was not able to get proper care for which shortness of breath worsened prompted her to call 911. The patient denies chest pain, palpitation, abdominal pain, or other acute symptoms. Past medical history of COPD, CHF, AFib on Eliquis, hypertension, diabetes, and severe pulmonary hypertension. Past Medical History As stated in HPI Past Surgical History Denies Family History Reviewed, non-contributory to the management of this case. Past Social History The patient lives at home, denies smoking, alcohol or illicit drugs abuse. Review of Systems Constitutional: Yes: Malaise; No: Fever, Chills, Sweats, Weakness, Other Eyes: No: Pain, Vision change, Conjunctivae inflammation, Eyelid inflammation, Other, Redness ENT: No: Ear pain, Ear discharge, Nose pain, Nose discharge, Nose congestion, Mouth pain, Mouth swelling, Throat pain, Throat swelling, Other Respiratory: Cough, Shortness of breath, SOB with excertion; No: Dry, Wheezing, Hemoptysis, Pleuritic Pain, Sputum, Wheezing, Other Cardiovascular: No: Chest Pain, Palpitations, Orthopnea, Paroxysmal Noc. Dyspnea, Edema, Lt Headedness, Other Gastrointestinal: No: Nausea, Vomiting, Abdominal Pain, Diarrhea, Constipation, Melena, Hematochezia, Other Genitourinary: No Dysuria, No Frequency, No Incontinence, No Hematuria, No Retention, No Other Musculoskeletal: No: other, neck pain, shoulder pain, arm pain, back pain, hand pain, leg pain, foot pain Skin: No: Rash, Lesions, Jaundice, Bruising, Other Neurological: No: Weakness, Numbness, Incoordination, Change in speech, Confusion, Seizures, Other Allergies: Coded Allergies: Levofloxacin (Verified Allergy, Unknown, 01/19/24) Medications Current Medications Medications Dose Ordered Sig/Aquiles Route Start Time Stop Time Status Last Admin Dose Admin Albuterol 1.25 mg Q4HP NEB 04/25/24 02:00 04/25/24 06:21 1.25 MG Ipratropium [place] 0.5 mg Q4HR NEB 04/25/24 02:00 04/25/24 06:21 0.5 MG Exam Vital Signs Vital Signs Date Time Temp Pulse Resp B/P (MAP) Pulse Ox O2 Delivery O2 Flow Rate FiO2 04/25/24 08:03 102 22 96 Nasal Cannula* 2 28 04/25/24 08:02 99.1 100/76 (84) 99.1 General Appearance: Alert, Oriented X3, Cooperative, moderate distress HEENT: Atraumatic, PERRLA, EOMI Respiratory: Other (Rales, shortness of breath on exertion) Cardiovascular: Regular rate, Normal S1, Normal S2 Abdominal: Normal bowel sounds, Soft, No tenderness Extremities: No clubbing, No cyanosis, No edema, Normal pulses Skin: No rashes, No breakdown, No significant lesion Neuro: Normal gait, Normal speech, Strength at 5/5 X4 ext, Normal tone Psych/Mental Status: Mental status NL Labs/Xrays Labs Test 04/25/24 01:05 04/25/24 00:29 04/24/24 21:45 Range/Units Urine Color Light-yellow Yellow Urine Clarity Clear Clear Urine pH 6.0 5.0-9.0 Urine Specific [place] 1.016 1.001-1.035 Urine Protein Negative Negative Urine Ketones Negative Negative Urine Blood Negative Negative /uL Urine Nitrite Negative Negative Urine Bilirubin Negative Negative Urine Urobilinogen Normal Negative mg/dL Urine Leukocyte Esterase Negative Negative /uL Urine RBC 1 0 - 4 /hpf Urine Microscopic WBC 4 0-5 /HPF Urine Squamous Epithelial Cells Few <5 /hpf Urine Bacteria None seen None Seen /hpf Urine Glucose 4+ H Normal mg/dL Troponin I High Sensitivity 6 </=34 ng/L White Blood Count 23.2 H 4.4-10.8 10^3/uL Red Blood Count 4.27 4.0-5.20 10^6/uL Hemoglobin 12.5 12.2-16.2 g/dL Hematocrit 39.1 36.0-46.0 % Mean Corpuscular Volume 91.5 # 80.0-100.0 fL Mean Corpuscular Hemoglobin 29.2 28.0-32.0 pg Mean Corpuscular Hemoglobin Concent 31.9 L 32.0-36.0 g/dL Red Cell Distribution Width 17.1 H 11.8-14.3 % Platelet Count 313 140-450 10^3/uL Mean Platelet Volume 7.7 6.9-10.8 fL Neutrophils (%) (Auto) 77.6 37.0-80.0 % Lymphocytes (%) (Auto) 10.0 10.0-50.0 % Monocytes (%) (Auto) 11.0 0.0-12.0 % Eosinophils (%) (Auto) 1.2 0.0-7.0 % Basophils (%) (Auto) 0.2 0.0-2.0 % Neutrophils # (Auto) 18.0 H 1.6-8.6 10 ^3/uL Lymphocytes # (Auto) 2.3 0.4-5.4 10 ^3/uL Monocytes # (Auto) 2.5 H 0-1.3 10 ^3/uL Eosinophils # (Auto) 0.3 0-0.8 10 ^3/uL Basophils # (Auto) 0 0-0.2 10 ^3/uL Nucleated Red Blood Cells 0.1 % Sodium Level 141 136-145 mmol/L Potassium Level 4.2 3.5-5.1 mmol/L Chloride Level 100 98-107 mmol/L Carbon Dioxide Level 39 H 20-31 mmol/L Anion Gap 2 L 5-15 Blood Urea Nitrogen 25 H 9-23 mg/dL Creatinine 0.78 0.550-1.02 mg/dL Glomerular Filtration Rate Calc 87 >90 mL/min BUN/Creatinine Ratio 32.1 H 10.0-20.0 Serum Glucose 153 H 74-106 mg/dL Calcium Level 9.5 8.7-10.4 mg/dL B-Type Natriuretic Peptide 35.04 0-100 pg/mL PROCEDURE(s): CXRP - CHEST PORTABLE REASON: sob ORDER NUMBER(s): [id number], ACCESSION NUMBER(s): [id number] CHEST RADIOGRAPH Indication: sob Technique: Single frontal view of the chest was obtained Comparison: XY CHEST PORTABLE on DOS: 04/11/24, XY CHEST PORTABLE on DOS: 02/15/24, XY CHEST PORTABLE on DOS: 01/19/24 Findings/ IMPRESSION: Right lower lobe consolidation concerning for airspace disease. Assessment/Plan Assessment/Plan # right lower lobe pneumonia # COPD exacerbation # acute on chronic respiratory failure Admit to telemetry unit O2 to keep saturation >90% Vanco and cefepime IV steroids Blood and sputum culture Pulmonary consult Med neb treatment q4h Chest x-ray in a.m. # hypertension # severe pulmonary hypertension # CHF # paroxysmal AFib on Eliquis Amlodipine carvedilol Losartan Lasix Eliquis Check BNP # diabetes type 2 Insulin sliding scale Glipizide # hypothyroidism Levothyroxine DVT prophylaxis Medical plan discussed with patient and RN Plan discussed with: Patient Date of Service: Apr 25, 2024 Billing Provider: LAURA MCNAIR Common Visit Codes: [id number] INP/OBS CARE (HIGH) LAURA MCNAIRP Apr 25, 2024 08:11
[2024-04-25] MEDS ORDERED: MORPHINE SULFATE INJ 2 MG/ml SYRG IV PRN (08:15)
[2024-04-25] MEDS ORDERED: NITROGLYCERIN 0.4 MG SL TAB SL PRN (08:15)
[2024-04-25] MEDS ORDERED: IPRATROPIUM BROM 0.5 MG/2.5ML INH SOL NEB PRN (09:00)
[2024-04-25] MEDS ORDERED: ALBUTEROL SULF 2.5 MG/0.5ML(0.5%) NEB SOLN NEB PRN (09:00)
[2024-04-25] MEDS ORDERED: VANCOMYCIN PER PHARMACY 0 MG IV SCH (09:00)
[2024-04-25] MEDS ORDERED: DEXTROSE (50%) 50ML SYRG IV PRN ×2 (09:15→10:15)
[2024-04-25] MEDS: MORPHINE SULFATE INJ 2 MG/ml SYRG IV PRN (09:47)
[2024-04-25] MEDS ORDERED: ENOXAPARIN SOD 40 MG/0.4 ML SYRINGE SC SCH (10:00)
[2024-04-25] MEDS: MONTELUKAST SODIUM 10 MG TAB PO SCH (10:41)
[2024-04-25] MEDS: methylPREDNISolone SOD SUCC 125 MG/2 ML VL IV SCH (10:41)
[2024-04-25] MEDS: APIXABAN 5 MG TAB PO SCH (10:42)
[2024-04-25] MEDS: CARVEDILOL 3.125 MG TAB PO SCH (10:42)
[2024-04-25] MEDS: FUROSEMIDE 20 MG TAB PO SCH (10:43)
[2024-04-25] MEDS: POTASSIUM CHL 10 Meq TABLET PO SCH (10:43)
[2024-04-25] MEDS: LOSARTAN POTASSIUM 25 MG TAB PO SCH (10:44)
[2024-04-25] MEDS: amLODIPine BESYLATE 5 MG TAB PO SCH (10:44)
[2024-04-25] MEDS: glipiZIDE 5 MG TAB PO SCH (10:54)
[2024-04-25] MEDS ORDERED: InsuLIN REG 1unit/0.01ml Soln (100units/ml) SC SCH (11:30)
[2024-04-25] MEDS ORDERED: ACCU-CHEK COMFORT CURVE STRIP VI SCH (11:30)
[2024-04-25] MEDS: ACCU-CHEK COMFORT CURVE STRIP VI SCH (11:39)
[2024-04-25] MEDS: InsuLIN REG 1unit/0.01ml Soln (100units/ml) SC SCH (11:40)
[2024-04-25] MEDS ORDERED: IPRATROPIUM BROM 0.5 MG/2.5ML INH SOL NEB SCH (12:00)
[2024-04-25] MEDS ORDERED: ALBUTEROL SULF 2.5 MG/0.5ML(0.5%) NEB SOLN NEB SCH (12:00)
[2024-04-25] MEDS: INSULIN LANTUS (GLARGINE) 1 /0.01ml (100units/ml) SC ONE (13:31)
[2024-04-25] MEDS: CEFEPIME 1GM/ 50ML 50 ML IV SCH (14:36)
[2024-04-25] MEDS: HYDROcodone-ACET 5/325MG TAB PO PRN (14:57)
[2024-04-25] MEDS: VANCOMYCIN 1GM/250ML KIT 250 ML IV SCH (17:54)
[2024-04-25] MEDS ORDERED: LIDO5PAD12 EX (20:03)
[2024-04-25] MEDS ORDERED: LACT10SO3 PO (20:03)
[2024-04-25] MEDS: INSULIN LANTUS (GLARGINE) 1 /0.01ml (100units/ml) SC SCH (21:42)
[2024-04-25] MEDS: LACTULOSE 20Gm/30ML SOLN PO ONE (21:44)
[2024-04-26] VITALS (22 sets, daily range): BP systolic 96–130; BP diastolic 61–86; PULSE 92–122; RESP 18–24; TEMP 97.1–98.3; O2SAT 92–100
[2024-04-26] MEDS: MELATONIN 5 MG TAB PO ONE (04:39)
[2024-04-26] MEDS: FLEET ENEMA(ADULT) 135 ML PR ONE (04:39)
--- NOTE | 2024-04-26 06:26 | DVH ---
EXAM: XR Chest, 1 View CLINICAL INDICATION: sob TECHNIQUE: Frontal view of the chest. COMPARISON: XY CHEST PORTABLE on DOS: 04/24/24, XY CHEST PORTABLE on DOS: 04/11/24, XY CHEST PORTABLE on DOS: 02/15/24, XY CHEST PORTABLE on DOS: 01/19/24 FINDINGS: LUNGS AND PLEURAL SPACES: Pulmonary congestion and edema. Pneumonia cannot be excluded. No pneumoth orax. HEART: Unremarkable. No cardiomegaly. MEDIASTINUM: Unremarkable. Normal mediastinal contour. BONES/JOINTS: Unremarkable. No acute fracture. OTHER FINDINGS: . . IMPRESSION: Pulmonary congestion and edema. Pneumonia cannot be excluded.
[2024-04-26 07:09] LABS: Basophils # (auto) 0 10 ^3/uL (0-0.2); Basophils % (auto) 0.3 % (0.0-2.0); Eosinophils # (auto) 0 10 ^3/uL (0-0.8); Eosinophils % (auto) 0.1 % (0.0-7.0); Hematocrit 32.8 % (36.0-46.0); Hemoglobin 10.7 g/dL (12.2-16.2); Lymphocytes # (auto) 0.8 10 ^3/uL (0.4-5.4); Lymphocytes % (auto) 5.7 % (10.0-50.0); Mean Corpuscular Hemoglobin 29.4 pg (28.0-32.0); Mean Corpuscular Hgb Conc. 32.7 g/dL (32.0-36.0); Mean Corpuscular Volume 89.9 fL (80.0-100.0); Monocytes # (auto) 0.4 10 ^3/uL (0-1.3); Monocytes % (auto) 2.7 % (0.0-12.0); Neutrophils # (auto) 12.4 10 ^3/uL (1.6-8.6); Neutrophils % (auto) 91.2 % (37.0-80.0); Platelet Count (auto) 239 10^3/uL (140-450); Red Blood Cells 3.65 10^6/uL (4.0-5.20); Red Cell Distribution Width 17.3 % (11.8-14.3); White Blood Cell 13.6 10^3/uL (4.4-10.8)
[2024-04-26 07:38] LABS: Alanine Aminotransferase 27 U/L (7-40); Alkaline Phosphatase 85 U/L (46-116); Anion Gap 5 (5-15); Aspartate Aminotransferase 18 U/L (13-40); BUN/Creatinine Ratio 38.8 (10.0-20.0); Bilirubin, Total 0.5 mg/dL (0.2-1.0); Calcium 10.2 mg/dL (8.7-10.4); Chloride 101 mmol/L (98-107); Potassium 3.7 mmol/L (3.5-5.1); Sodium 139 mmol/L (136-145)
[2024-04-26 07:45] LABS: Blood Urea Nitrogen 26 mg/dL (9-23); Carbon Dioxide 33 mmol/L (20-31); Glucose 239 mg/dL (74-106); Total Protein 5.4 g/dL (5.7-8.2)
[2024-04-26] MEDS: POTASSIUM CHL 10 Meq TABLET PO SCH (12:15)
--- NOTE | 2024-04-26 17:12 | DVHPNRES ---
Progress Note Date Seen: Apr 26, 2024 Resident Creating Document: EVENS POMPA RESIDENT Medical Necessity Reason Pt with a Central, PICC or Fol: No Medical Necessity Reason Shortness of breaths Pneumonia Subjective Review of Systems This is 58-year-old female with a past medical history of COPD, CHF, AFib on Eliquis, hypertension, diabetes, and severe pulmonary hypertension presented to the ED via EMS with a chief complaint of shortness of breath. Patient was recently discharge from here on 04/23/2024. The patient with multiple hospital admission for the past few months with respiratory concerns reports was just discharged from here yesterday with diagnosis of acute on chronic respiratory failure and COPD. The patient states that she was discharged to post acute rehabilitation, was not able to get proper care for which shortness of breath worsened prompted her to call 911. The patient denies chest pain, palpitation, abdominal pain, or other acute symptoms. vitals: HR:112, RR: 24, bp, 93/48. Wbc on admssion: 23.2. ECHO in 12/2023: Normal left ventricular size and dimension. Normal left ventricular systolic function estimated ejection fraction 55% Objective vital signs Vital Sign Date Time Temp Pulse Resp B/P (MAP) Pulse Ox O2 Delivery O2 Flow Rate FiO2 04/26/24 14:09 114 18 100 04/26/24 14:00 Nasal Cannula* 3 32 04/26/24 11:18 128/86 04/26/24 08:57 97.4 97.4 Total Intake and Output 04/25/24 04/25/24 04/26/24 15:00 23:00 07:00 Intake Total 300.0 ml 700 ml Output Total 1 ml Balance 299.0 ml 700 ml medications Current Medications Medications Dose Ordered Sig/Aquiles Route Start Time Stop Time Status Last Admin Dose Admin Ipratropium [place] 0.5 mg Q4HR NEB 04/25/24 02:00 04/26/24 13:59 0.5 MG Acetaminophen/ Hydrocodone Bitart 1 tab Q4HP PRN PO 04/25/24 08:15 04/26/24 14:55 1 TAB Acetaminophen 650 mg Q6HP PRN PO 04/25/24 08:15 Morphine Sulfate 2 mg Q4HPRN PRN IV 04/25/24 08:15 04/25/24 09:47 2 MG Nitroglycerin 0.4 mg Q5MINP PRN SL 04/25/24 08:15 Morphine Sulfate 2 mg Q30M PRN IV 04/25/24 08:15 Vancomycin HCl 0 ml @ 0 mls/hr UD IV 04/25/24 09:00 Cefepime HCl 50 ml @ 12.5 mls/hr Q8HR IV 04/25/24 14:00 04/26/24 14:05 12.5 MLS/HR Methylprednisolone Sodium Succinate 60 mg BID IV 04/25/24 10:00 04/26/24 10:14 60 MG Amlodipine Besylate 5 mg DAILY PO 04/25/24 10:00 04/25/24 10:44 5 MG Apixaban 5 mg BID PO 04/25/24 10:00 04/26/24 10:15 5 MG Carvedilol 3.125 mg BID PO 04/25/24 10:00 04/26/24 10:18 3.125 MG Furosemide 20 mg DAILY PO 04/25/24 10:00 04/26/24 10:15 20 MG Glipizide 5 mg DAILY PO 04/25/24 10:00 04/26/24 10:17 5 MG Losartan Potassium 25 mg DAILY PO 04/25/24 10:00 04/26/24 10:17 25 MG Montelukast Sodium 10 mg DAILY PO 04/25/24 10:00 04/26/24 10:16 10 MG Diagnostic Test (Pha) 1 strip ACHS 04/25/24 11:30 04/26/24 11:30 1 STRIP Insulin Human Regular ACHS SC 04/25/24 11:30 04/26/24 12:00 8 UNITS Dextrose 50 ml UD PRN IV 04/25/24 10:15 Insulin Glargine 10 units HS SC 04/25/24 22:00 04/25/24 21:42 10 UNITS Vancomycin HCl 250 ml @ 250 mls/hr Q12H IV 04/25/24 16:00 04/26/24 16:29 250 MLS/HR Potassium Chloride 10 meq DAILY PO 04/26/24 12:15 Lidocaine 1 patch DAILY@1800 TOP 04/27/24 18:00 Docusate Sodium 100 mg BID PO 04/26/24 22:00 Polyethylene Glycol 17 gm DAILYPRN PRN PO 04/26/24 17:00 Melatonin 10 mg HS PO 04/26/24 22:00 Examination General Appearance: Alert, Oriented X3, Cooperative,moderate acute distress, shortness of breath HEENT: Atraumatic, PERRLA, EOMI, Mucous membrane moist/pink Respiratory: crackles, rales , congestion Cardiovascular: Regular rate, Normal S1, Normal S2, No murmurs, no chest wall tenderness Abdominal: NO distention, no tenderness, bowel sounds present, no scars noted Extremities: bruises, peticheia mild edema, Skin: No rashes, No breakdown, No significant lesion Neuro: Normal gait, Normal speech, Strength at 5/5 X4 ext, Normal tone, Sensation intact, Cranial nerves 3-12 NL, Reflexes 2+ Psych/Mental Status: Mental status NL, Mood NL laboratory and microbiology Laboratory Tests 04/26/24 06:43 Test 04/26/24 06:43 Range/Units Serum Glucose 239 H 74-106 mg/dL Microbiology Date/Time Source Procedure Growth Status 04/26/24 12:10 Sputum Gram Stain - Final Resulted 04/26/24 12:10 Sputum Respiratory Culture Pending Resulted 04/25/24 23:43 Nose MRSA Screen - Final Complete 04/25/24 10:24 Blood Blood Culture - Preliminary NO GROWTH AFTER 24 HOURS OF INCUBATION. Resulted Problem List/Assessment/Plan Problem List/Assessment/Plan Assessment Sepsis due to pneumonia Right lower lobe pneumonia COPD exacerbation Acute on chronic respiratory failure obesity bmi: 29.5 Diabeties type II, A1c 7.4 acute on chronic HFpEF AFib history of DVT and PE with COVID infection hypertension, severe pulmonary hypertension Plans: Antibiotics: Vanco and cefepime O2 to keep saturation >90% IV steroids Blood and sputum culture: pending Pulmonary consult Med neb treatment q4h Continue Eliquis IV Furosemide 20 bridget Code status: full Goal of care discussed for more than 35 minutes case and plan discussed with Dr. Lepe Plan discussed with: Patient My Orders My Orders Orders - EVENS POMPA RESIDENT Procedure Category Date Status Time Drug Screen LAB 04/26/24 Logged 08:10 Potassium Er Tablet PHA 04/26/24 In Process (Klor-Con Tablet) 12:15 Lidocaine 5% Topical PHA 04/27/24 In Process Patch (Lidoderm 5% 18:00 Docusate Sodium PHA 04/26/24 In Process Capsule (Colace 22:00 Polyethylene Glycol PHA 1/27/25 In Process 17g Powder (Miralax 17:00 Melatonin (Melatonin) PHA 04/26/24 In Process 22:00 Date of Service: Apr 26, 2024 Billing Provider: MY LEPE MD Common Visit Codes: [id number] INP/OBS CARE(HIGH) EVENS POMPA RESIDENT Apr 26, 2024 17:12 MY LEPE MD Apr 27, 2024 10:11
[2024-04-26] MEDS: LIDOCAINE 5% TOPICAL PATCH TOP ONE (17:30)
[2024-04-26] MEDS: MELATONIN 5 MG TAB PO SCH (21:13)
[2024-04-26] MEDS: DOCUSATE SOD 100 MG CAP PO SCH (21:14)
[2024-04-26] MEDS: INSULIN LANTUS (GLARGINE) 1 /0.01ml (100units/ml) SC SCH (21:49)
[2024-04-27] VITALS (19 sets, daily range): BP systolic 109–126; BP diastolic 56–83; PULSE 67–120; RESP 16–22; TEMP 97.4–98.6; O2SAT 91–100
[2024-04-27] MEDS: ONDANSETRON ODT 4 MG TAB PO ONE (00:58)
[2024-04-27] MEDS: THROAT LOZENGES(CEPASTAT) MT PRN (01:00)
[2024-04-27 07:09] LABS: Hemoglobin 11.6 g/dL (12.2-16.2); Mean Corpuscular Hemoglobin 29.6 pg (28.0-32.0); Mean Corpuscular Hgb Conc. 32.1 g/dL (32.0-36.0); Mean Corpuscular Volume 92.2 fL (80.0-100.0); Platelet Count (auto) 293 10^3/uL (140-450); Red Blood Cells 3.91 10^6/uL (4.0-5.20); Red Cell Distribution Width 17.8 % (11.8-14.3); White Blood Cell 17.5 10^3/uL (4.4-10.8)
[2024-04-27 07:13] LABS: Anion Gap 4 (5-15); Chloride 102 mmol/L (98-107); Potassium 4.8 mmol/L (3.5-5.1); Sodium 139 mmol/L (136-145)
[2024-04-27 07:16] LABS: Calcium 10.9 mg/dL (8.7-10.4); Carbon Dioxide 33 mmol/L (20-31)
[2024-04-27 07:20] LABS: Blood Urea Nitrogen 35 mg/dL (9-23)
[2024-04-27 07:22] LABS: Glucose 459 mg/dL (74-106)
[2024-04-27 07:52] LABS: Band Neutrophils % (manual) 0; Basophils % (manual) 0 (0.0-2.0); Blast Cells 0; Eosinophils % (manual) 0 (0-7); Metamyelocytes % 0; Myelocytes % 0; Promyelocytes % 0; Reactive Lymphocytes 0
[2024-04-27 11:55] LABS: Lymphocytes % (manual) 4 (10.0-50.0); Monocytes % (manual) 4 (0-12)
[2024-04-27 11:56] LABS: Platelet Estimate Adequate
--- NOTE | 2024-04-27 14:50 | DVH ---
Procedure: CT CHEST WITHOUT CONTRAST Reason for study/Clinical History: mass less in right lung Comparison Study: None available at time of dictation. Exam Date: 04/27/2024 02:21 PM TECHNIQUE: Multidetector CT of the chest was performed from the lung apices to the upper abdomen with out the use of intravenous contract. Axial, coronal and sagittal multiplanar reformats were performed . Radiation Dose Information: CT Dose: CTDI volume is 15.42 mGy. Dose-length product is 563.25 mGy*cm The dose indicators for CT are the volume Computed Tomography (CT) Dose Index (CTDIvol) and the Dose Length Product (DLP), and are measured in units of mGy and mGy-cm, respectively. These indicators are not patient dose, but values generated from the CT scanner acquisition factors. The report includes radiation exposure data for exposures received during this examination. FINDINGS: Lower neck: Normal thyroid. Lungs: Patchy bilateral peribronchial thickening and tree-in-bud nodularity most prominent in the rig ht middle lobe. Heart/Vascular Structures: Cardiomegaly. Diffusely enlarged pulmonary arterial tree. Main pulmonary artery measures up to 3.8 cm. Peripheral calcifications are present in the left main pulmonary artery . Lymph Nodes: No adenopathy Pleura: No pleural effusion or significant pneumothorax. Musculoskeletal: No acute osseous abnormality. Scoliosis. Soft tissues: Normal. Upper abdomen: Partially imaged IVC filter. Coarse calcifications associated with the pancreas are s uggestive of changes of chronic pancreatitis. IMPRESSION: Diffusely enlarged pulmonary arterial tree may represent underlying peripheral arterial hypertension and likely corresponds to question of mass on chest radiograph. Patchy bilateral peribronchial thickening and tree-in-bud nodularity is likely infectious or inflamma tory. Radiation optimization: All CT scans at this facility use at least one of these dose optimization jennifer hniques: automated exposure control mA and/or kV adjustment per patient size (includes targeted exam s where dose is matched to clinical indication) or iterative reconstruction.
--- NOTE | 2024-04-27 15:34 | DVHPNRES ---
Progress Note Date Seen: Apr 27, 2024 Resident Creating Document: EVENS POMPA RESIDENT Medical Necessity Reason Pt with a Central, PICC or Fol: No Medical Necessity Reason Pnuemonia Acute on chronic respiratory Subjective Review of Systems This is 58-year-old female with a past medical history of COPD, CHF, AFib on Eliquis, hypertension, diabetes, and severe pulmonary hypertension presented to the ED via EMS with a chief complaint of shortness of breath. Patient was recently discharge from here on 04/23/2024. The patient with multiple hospital admission for the past few months with respiratory concerns reports was just discharged from here yesterday with diagnosis of acute on chronic respiratory failure and COPD. The patient states that she was discharged to post acute rehabilitation, was not able to get proper care for which shortness of breath worsened prompted her to call 911. The patient denies chest pain, palpitation, abdominal pain, or other acute symptoms. vitals: HR:112, RR: 24, bp, 93/48. Wbc on admssion: 23.2. ECHO in 12/2023: Normal left ventricular size and dimension. Normal left ventricular systolic function estimated ejection fraction 55% PN: 04/27/2024: Patient is examined today. She is sitting in bed and leaning forward. She continues to have this hacking chronic cough. She denied any fever or chills. Just persistent coughing this has been going on for a long time. Lab work today revealed an increasing WBC 17.5, chemistry revealed glucose of 499, bicarbonate level otherwise unremarkable. Patient is currently on vancomycin and cefepime and furosemide among others. Looks like furosemide is leading to the metabolic alkalosis. On previous admission, patient was placed on sildenafil feel for her pulmonary hypertension we will add that to her medication list today. Objective vital signs Vital Sign Date Time Temp Pulse Resp B/P (MAP) Pulse Ox O2 Delivery O2 Flow Rate FiO2 04/27/24 13:57 111 18 100 04/27/24 13:48 Nasal Cannula 3.0 04/27/24 13:48 32 04/27/24 12:00 98.6 114/82 (93) 98.6 Total Intake and Output 04/26/24 04/26/24 04/27/24 15:00 23:00 07:00 Intake Total 550 ml 450 ml Output Total 1 ml 1 ml 700 ml Balance -1 ml 549 ml -250 ml medications Current Medications Medications Dose Ordered Sig/Aquiles Route Start Time Stop Time Status Last Admin Dose Admin Ipratropium [place] 0.5 mg Q4HR NEB 04/25/24 02:00 04/27/24 13:48 0.5 MG Acetaminophen/ Hydrocodone Bitart 1 tab Q4HP PRN PO 04/25/24 08:15 04/27/24 11:39 1 TAB Acetaminophen 650 mg Q6HP PRN PO 04/25/24 08:15 Morphine Sulfate 2 mg Q4HPRN PRN IV 04/25/24 08:15 04/25/24 09:47 2 MG Morphine Sulfate 2 mg Q30M PRN IV 04/25/24 08:15 Vancomycin HCl 0 ml @ 0 mls/hr UD IV 04/25/24 09:00 Cefepime HCl 50 ml @ 12.5 mls/hr Q8HR IV 04/25/24 14:00 04/27/24 14:59 12.5 MLS/HR Methylprednisolone Sodium Succinate 60 mg BID IV 04/25/24 10:00 04/27/24 10:02 60 MG Amlodipine Besylate 5 mg DAILY PO 04/25/24 10:00 04/27/24 10:04 5 MG Apixaban 5 mg BID PO 04/25/24 10:00 04/27/24 10:03 5 MG Carvedilol 3.125 mg BID PO 04/25/24 10:00 04/27/24 10:05 3.125 MG Furosemide 20 mg DAILY PO 04/25/24 10:00 04/27/24 10:03 20 MG Glipizide 5 mg DAILY PO 04/25/24 10:00 04/27/24 10:04 5 MG Losartan Potassium 25 mg DAILY PO 04/25/24 10:00 04/27/24 10:05 25 MG Montelukast Sodium 10 mg DAILY PO 04/25/24 10:00 04/27/24 10:04 10 MG Diagnostic Test (Pha) 1 strip ACHS 04/25/24 11:30 04/27/24 11:26 1 STRIP Insulin Human Regular ACHS SC 04/25/24 11:30 04/27/24 11:26 8 UNITS Dextrose 50 ml UD PRN IV 04/25/24 10:15 Vancomycin HCl 250 ml @ 250 mls/hr Q12H IV 04/25/24 16:00 04/27/24 03:39 250 MLS/HR Potassium Chloride 10 meq DAILY PO 04/26/24 12:15 04/27/24 10:04 10 MEQ Lidocaine 1 patch DAILY@1800 TOP 04/27/24 18:00 Docusate Sodium 100 mg BID PO 04/26/24 22:00 04/27/24 10:03 100 MG Polyethylene Glycol 17 gm DAILYPRN PRN PO 04/26/24 17:00 Melatonin 10 mg HS PO 04/26/24 22:00 04/26/24 21:13 10 MG Insulin Glargine 10 units HS SC 04/26/24 22:00 04/26/24 21:49 10 UNITS Throat Lozenges 1 simran Q2HP PRN MT 04/27/24 00:15 04/27/24 03:41 1 SIMRAN Nitroglycerin 0.4 mg Q5MINP PRN SL 04/28/24 18:00 Examination General Appearance: Alert, Oriented X3, Cooperative,moderate acute distress, shortness of breath HEENT: Atraumatic, PERRLA, EOMI, Mucous membrane moist/pink Respiratory: Decreased air entry on the R> L; crackles, rales Cardiovascular: Regular rate, Normal S1, Normal S2, No murmurs, no chest wall tenderness Abdominal: NO distention, no tenderness, bowel sounds present, no scars noted Extremities: bruises, peticheia mild edema, Skin: No rashes, No breakdown, No significant lesion Neuro: Normal gait, Normal speech, Strength at 5/5 X4 ext, Normal tone, Sensation intact, Cranial nerves 3-12 NL, Reflexes 2+ Psych/Mental Status: Mental status NL, Mood NL laboratory and microbiology Laboratory Tests 04/27/24 06:12 Test 04/27/24 06:12 Range/Units Serum Glucose 459 *H 74-106 mg/dL Microbiology Date/Time Source Procedure Growth Status 04/26/24 12:10 Sputum Gram Stain - Final Resulted 04/26/24 12:10 Sputum Respiratory Culture - Preliminary Resulted 04/25/24 23:43 Nose MRSA Screen - Final Complete 04/25/24 10:24 Blood Blood Culture - Preliminary NO GROWTH AFTER 48 HOURS OF INCUBATION. Resulted Problem List/Assessment/Plan Problem List/Assessment/Plan Assessment Sepsis due to pneumonia Right lower lobe pneumonia COPD exacerbation Acute on chronic respiratory failure obesity bmi: 29.5 Diabeties type II, A1c 7.4 Acute on chronic HFpEF AFib history of DVT and PE with COVID infection hypertension, severe pulmonary hypertension Metabolic alkalosis likely secondary to lasix Plans: CT lung without constrast Antibiotics: Vanco and cefepime O2 to keep saturation >90% IV steroids Blood and sputum culture: pending Pulmonary consult Med neb treatment q4h Continue Eliquis Stop IV Furosemide 20 bridget Add sildenafil 30mg tid Code status: full Goal of care discussed for more than 35 minutes case and plan discussed with Dr. Lepe Plan discussed with: Patient My Orders My Orders Orders - EVENS POMPA Procedure Category Date Status Time Docusate Sodium PHA 04/26/24 In Process Capsule (Colace 22:00 Polyethylene Glycol PHA 04/26/24 In Process 17g Powder (Miralax 17:00 Melatonin (Melatonin) PHA 04/26/24 In Process 22:00 Insulin Lantus PHA 04/26/24 In Process (Glargine) (Lantus) 22:00 *Consult CONS 04/27/24 Transmitted / 13:[address] 04/27/24 Resulted 13:58 Date of Service: Apr 27, 2024 Billing Provider: MY LEPE MD Common Visit Codes: [id number] INP/OBS CARE(HIGH) EVENS POMPA RESIDENT Apr 27, 2024 15:34 MY LEPE MD Apr 28, 2024 10:04
[2024-04-27] MEDS: SILDENAFIL CITRATE 20 MG TAB PO ONE (15:49)
[2024-04-27] MEDS: INSULIN LANTUS (GLARGINE) 1 /0.01ml (100units/ml) SC SCH (15:50)
[2024-04-27] MEDS: ACCU-CHEK COMFORT CURVE STRIP VI SCH (17:00)
[2024-04-27] MEDS: InsuLIN REG 1unit/0.01ml Soln (100units/ml) SC SCH (17:00)
[2024-04-27] MEDS: SILDENAFIL CITRATE 20 MG TAB PO SCH (19:47)
--- NOTE | 2024-04-27 23:29 | DVHINCON2 ---
Date of service: Apr 27, 2024 Referring Physician Tammie Barajas MD Reason for Consultation Acute on chronic hypoxic respiratory failure, pulmonary nodules, pulmonary hypertension, COPD exacerbation History of Present Illness A 58-year-old woman with past medical history of COPD, CHF, AFib on Eliquis, hypertension, diabetes, and severe pulmonary hypertension who presented to ED on 04/25/24 via EMS with a chief complaint of shortness of breath. The patient with multiple hospital admissions for the past few months with respiratory concerns, was just discharged from here day prior to presentation with diagnosis of acute on chronic respiratory failure and COPD. The patient states that she was discharged to post acute rehabilitation, was not able to get proper care and shortness of breath worsened, prompting her to call 911. The patient denied chest pain, palpitation, abdominal pain, or other acute symptoms. Patient was admitted for further care and pulmonary consultation is requested for evaluation and management due to the above findings. Review of Systems: 14-point review of systems negative unless otherwise noted above. Past Medical History: COPD, CHF, AFib on Eliquis, hypertension, diabetes, and severe pulmonary hypertension. Past Surgical History: None Medications: Reviewed. Allergies: Levofloxacin. Family History: Drug addiction cirrhosis colon cancer. Social History: Nonsmoker. No alcohol or illicit drug use. Family History: Drug addiction G8 BROTHER FH: cirrhosis G8 MOTHER G8 FATHER G8 SISTER FH: colon cancer NIECE Allergies: Coded Allergies: Levofloxacin (Verified Allergy, Unknown, 01/19/24) Home Meds Active Scripts Diclofenac Sodium (Topical) (Voltaren Arthritis Pain) 1 % Gel, 1 % EX BIDPRN PRN for 30 Days, #1 GEL Prov:KATT COHEN MD 02/21/24 Potassium Chloride (POTASSIUM CHLORIDE CR) 10 Meq Tb, 1 TAB PO DAILY for 15 Days, #15 TAB 5 Refills Prov:LAUREN WANG RESIDENT 01/22/24 Furosemide (Furosemide) 20 Mg Tab, 1 TAB PO DAILY for 15 Days, #15 TAB 1 Refill Prov:LAUREN AWNG RESIDENT 01/22/24 Reported Medications Lidocaine (Lidocaine Patch 5%) 5 % Pad, 5 % EX, PAD 04/25/24 Lactulose (Lactulose) Unknown Strength Tatiana, PO 04/25/24 Levothyroxine Sodium (Levothyroxine Sodium) Unknown Strength Tab, PO QAM for 30 Days, MCG 01/20/24 Glipizide (Glipizide) 5 Mg Tab, 5 MG PO DAILY for 30 Days, MG 01/20/24 Apixaban Base (ELIQUIS) 5 Mg Tab, 5 MG PO BID, TAB 01/20/24 Carvedilol (Carvedilol) 3.125 Mg Tab, 3.125 MG PO BID for 30 Days, MG 01/20/24 Cyclobenzaprine Hcl (Cyclobenzaprine Hcl) 10 Mg Tab, 10 MG PO QPM for 30 Days, MG 01/20/24 Losartan Potassium (Losartan Potassium) 25 Mg Tab, 25 MG PO DAILY for 30 Days, MG 01/20/24 Amlodipine Besylate (Amlodipine Besylate) 5 Mg Tab, 5 MG PO DAILY for 30 Days, MG 01/20/24 Montelukast Sodium (MONTELUKAST SODIUM) 10 Mg Tab, 1 TAB PO DAILY, #30 TAB 5 Refills 01/20/24 Current Medications Current Medications Medications (Trade) Dose Ordered Sig/Aquiles Route PRN Reason Start Time Stop Time Status Last Admin Lidocaine (Lidoderm 5% Topical Patch) 1 patch DAILY@1800 TOP 04/27/24 18:00 Throat Lozenges (Cepastat Lozenges) 1 javy Q2HP PRN MT FOR SORE THROAT 04/27/24 00:15 04/27/24 20:40 Nitroglycerin (Ntrostat Sublingual) 0.4 mg Q5MINP PRN SL FOR CHEST PAIN 04/28/24 18:00 Future Hold Insulin Glargine (Lantus) 15 units HS SC 04/27/24 15:30 04/27/24 22:36 Diagnostic Test (Pha) (Accu-Chek Comfort Curve T) 1 strip IQ4HR 04/27/24 16:00 04/27/24 19:46 Insulin Human Regular (InsuLIN R) IQ4HR SC 04/27/24 16:00 04/27/24 20:00 Dextrose 50 ml UD PRN IV Blood Sugar LESS THAN 60 04/27/24 15:30 Sildenafil Citrate (Revatio) 20 mg TID@08,14,20 PO 04/27/24 20:00 04/27/24 19:47 Vital Signs Vital Signs Date Time Temp Pulse Resp B/P (MAP) Pulse Ox O2 Delivery O2 Flow Rate FiO2 1/28/25 22:59 108 20 100 04/27/24 22:54 Nasal Cannula 3.0 04/27/24 22:54 32 04/27/24 22:17 112/66 04/27/24 21:00 98.0 98.0 Physical Exam Gen.: Patient lying in bed in no apparent distress. On supplemental oxygen. Head: Normocephalic, atraumatic. Eyes: EOMI/PERRLA. Ears: Normal hearing. Normal anatomy. Neck/trachea: Trachea midline, supple. Nose: Normal external anatomy. Mouth: Moist mucous membranes. Chest: Decreased air entry bilaterally. No wheezing or rhonchi. Cardiovascular: Positive S1, positive S2. Regular rate and rhythm. Abdomen: Positive bowel sounds in all 4 quadrants. Soft, non-tender, non-dist ended. : Deferred. Rectal: Deferred. Skin: Warm, dry. Intact. Extremities: 2+ radial pulses bilaterally. No lower extremity edema. Neuro: Awake, alert, oriented x3. No gross motor or sensory deficits. Cranial nerves II through XII intact. Gait not assessed. Labs/Diagnostic Data Labs Test 04/27/24 19:53 04/27/24 06:12 04/26/24 15:25 04/26/24 06:43 Range/Units POC Glucose 378 H 70-106 mg/dl White Blood Count 17.5 #H 4.4-10.8 10^3/uL Red Blood Count 3.91 L 4.0-5.20 10^6/uL Hemoglobin 11.6 L 12.2-16.2 g/dL Hematocrit 36.0 36.0-46.0 % Mean Corpuscular Volume 92.2 80.0-100.0 fL Mean Corpuscular Hemoglobin 29.6 28.0-32.0 pg Mean Corpuscular Hemoglobin Concent 32.1 32.0-36.0 g/dL Red Cell Distribution Width 17.8 H 11.8-14.3 % Platelet Count 293 140-450 10^3/uL Mean Platelet Volume 8.3 6.9-10.8 fL Neutrophils (%) (Auto) 37.0-80.0 % Lymphocytes (%) (Auto) 10.0-50.0 % Monocytes (%) (Auto) 0.0-12.0 % Basophils (%) (Auto) 0.0-2.0 % Neutrophils # (Auto) 1.6-8.6 10 ^3/uL Lymphocytes # (Auto) 0.4-5.4 10 ^3/uL Monocytes # (Auto) 0-1.3 10 ^3/uL Differential Total Cells Counted 100.0 100 Neutrophils % (Manual) 92 H 37.0-80.0 Band Neutrophils % (Manual) 0 Lymphocytes % (Manual) 4 L 10.0-50.0 Monocytes % (Manual) 4 0-12 Eosinophils % (Manual) 0 0-7 Basophils % (Manual) 0 0.0-2.0 Metamyelocytes % (manual) 0 Myelocytes % (Manual) 0 Promyelocytes % (Manual) 0 Blast Cells % (Manual) 0 Reactive Lymphocytes 0 Platelet Estimate Adequate Sodium Level 139 136-145 mmol/L Potassium Level 4.8 3.5-5.1 mmol/L Chloride Level 102 98-107 mmol/L Carbon Dioxide Level 33 H 20-31 mmol/L Anion Gap 4 L 5-15 Blood Urea Nitrogen 35 H 9-23 mg/dL Creatinine 0.92 # 0.550-1.02 mg/dL Glomerular Filtration Rate Calc 71 >90 mL/min BUN/Creatinine Ratio 38.0 H 10.0-20.0 Serum Glucose 459 *H 74-106 mg/dL Calcium Level 10.9 H 8.7-10.4 mg/dL Vancomycin Level Trough 18.5 H 5-10 ug/mL Eosinophils (%) (Auto) 0.1 0.0-7.0 % Eosinophils # (Auto) 0 0-0.8 10 ^3/uL Basophils # (Auto) 0 0-0.2 10 ^3/uL Nucleated Red Blood Cells 0.0 % Hemoglobin A1c 7.4 H <5.7 % A1C Total Bilirubin 0.5 0.2-1.0 mg/dL Aspartate Amino Transferase (AST) 18 13-40 U/L Alanine Aminotransferase (ALT) 27 7-40 U/L Alkaline Phosphatase 85 46-116 U/L Total Protein 5.4 L 5.7-8.2 g/dL Albumin 3.0 L 3.2-4.8 g/dL Test 04/25/24 01:05 04/25/24 00:29 04/24/24 21:45 Range/Units Urine Color Light-yellow Yellow Urine Clarity Clear Clear Urine pH 6.0 5.0-9.0 Urine Specific Sulphur 1.016 1.001-1.035 Urine Protein Negative Negative Urine Ketones Negative Negative Urine Blood Negative Negative /uL Urine Nitrite Negative Negative Urine Bilirubin Negative Negative Urine Urobilinogen Normal Negative mg/dL Urine Leukocyte Esterase Negative Negative /uL Urine RBC 1 0 - 4 /hpf Urine Microscopic WBC 4 0-5 /HPF Urine Squamous Epithelial Cells Few <5 /hpf Urine Bacteria None seen None Seen /hpf Urine Glucose 4+ H Normal mg/dL Troponin I High Sensitivity 6 </=34 ng/L B-Type Natriuretic Peptide 35.04 0-100 pg/mL Microbiology Date/Time Source Procedure Growth Status 04/26/24 12:10 Sputum Gram Stain - Final Resulted 04/26/24 12:10 Sputum Respiratory Culture - Preliminary Resulted 04/25/24 23:43 Nose MRSA Screen - Final Complete 04/25/24 10:24 Blood Blood Culture - Preliminary NO GROWTH AFTER 48 HOURS OF INCUBATION. Resulted Assessment Impression: Acute on chronic hypoxic respiratory failure Dependence on supplemental oxygen Pulmonary nodules Pulmonary hypertension COPD exacerbation Obesity BMI 30 Anxiety Plan: Supplemental oxygen 3 LPM NC Titrate to keep O2 sats above 92%. Taper O2 as tolerated. Continue bronchodilators. Continue antibiotics IV steroids Revatio TID for pulmonary hypertension Accu-Cheks, ISS Monitor renal function. Monitor electrolytes. Supplement as necessary. Monitor ins and outs. Diet and lifestyle modifications for weight reduction Obesity - complicates all care DVT prophylaxis. Prognosis: Poor given patient's multiple co-morbidities. Rest of plan per hospitalist and other consultants. Thank you Dr. Barajas, for allowing me to participate in this patient's care. Further recommendations will depend on the patient's clinical course. Please do not hesitate to contact me if you have any questions or concerns. This medical document was created using an electronic medical record system with [employer] dictation system. Although these documentations are being carefully reviewed, there may still be some phonetic and typographical changes. The errors are purely typographical, due to imperfection on the software program, and do not reflect any compromise in the patient's medical care. Plan discussed with: Patient, Other (BOB Syed/MD Barajas) MYKEL SANDERS MD Apr 27, 2024 23:29
[2024-04-28] VITALS (24 sets, daily range): BP systolic 92–127; BP diastolic 46–81; PULSE 94–117; RESP 18–20; TEMP 97.8–98.4; O2SAT 93–100
[2024-04-28] MEDS: LIDOCAINE 5% TOPICAL PATCH TOP SCH (01:34)
[2024-04-28 07:17] LABS: Basophils # (auto) 0 10 ^3/uL (0-0.2); Basophils % (auto) 0.1 % (0.0-2.0); Eosinophils # (auto) 0 10 ^3/uL (0-0.8); Hematocrit 34.3 % (36.0-46.0); Lymphocytes # (auto) 0.6 10 ^3/uL (0.4-5.4); Lymphocytes % (auto) 3.9 % (10.0-50.0); Mean Corpuscular Hemoglobin 29.4 pg (28.0-32.0); Mean Corpuscular Hgb Conc. 32.1 g/dL (32.0-36.0); Mean Corpuscular Volume 91.6 fL (80.0-100.0); Monocytes # (auto) 0.4 10 ^3/uL (0-1.3); Monocytes % (auto) 2.6 % (0.0-12.0); Neutrophils # (auto) 14.1 10 ^3/uL (1.6-8.6); Neutrophils % (auto) 93.4 % (37.0-80.0); Nucleated Red Blood Cells % 0.1 %; Platelet Count (auto) 259 10^3/uL (140-450); Red Blood Cells 3.74 10^6/uL (4.0-5.20); Red Cell Distribution Width 17.8 % (11.8-14.3); White Blood Cell 15.1 10^3/uL (4.4-10.8)
[2024-04-28 08:03] LABS: Chloride 100 mmol/L (98-107); Sodium 138 mmol/L (136-145)
[2024-04-28 08:04] LABS: Anion Gap 4 (5-15)
[2024-04-28 08:10] LABS: BUN/Creatinine Ratio 51.2 (10.0-20.0); Blood Urea Nitrogen 42 mg/dL (9-23); Calcium 10.9 mg/dL (8.7-10.4); Carbon Dioxide 34 mmol/L (20-31); Glucose 321 mg/dL (74-106); Potassium 5.5 mmol/L (3.5-5.1)
[2024-04-28] MEDS: SILDENAFIL CITRATE 20 MG TAB PO SCH (16:52)
[2024-04-28] MEDS ORDERED: NITROGLYCERIN 0.4 MG SL TAB SL PRN (18:00)
--- NOTE | 2024-04-28 19:40 | DVHPNRES ---
Progress Note Date Seen: Apr 28, 2024 Resident Creating Document: EVENS POMPA RESIDENT Medical Necessity Reason Pt with a Central, PICC or Fol: No Medical Necessity Reason Acute on chronic hypoxic respiratory failure, pulmonary nodules, pulmonary hypertension, COPD exacerbation Subjective Review of Systems This is 58-year-old female with a past medical history of COPD, CHF, AFib on Eliquis, hypertension, diabetes, and severe pulmonary hypertension presented to the ED via EMS with a chief complaint of shortness of breath. Patient was recently discharge from here on 04/23/2024. The patient with multiple hospital admission for the past few months with respiratory concerns reports was just discharged from here yesterday with diagnosis of acute on chronic respiratory failure and COPD. The patient states that she was discharged to post acute rehabilitation, was not able to get proper care for which shortness of breath worsened prompted her to call 911. The patient denies chest pain, palpitation, abdominal pain, or other acute symptoms. vitals: HR:112, RR: 24, bp, 93/48. Wbc on admssion: 23.2. ECHO in 12/2023: Normal left ventricular size and dimension. Normal left ventricular systolic function estimated ejection fraction 55% PN: 04/27/2024: Patient is examined today. She is sitting in bed and leaning forward. She continues to have this hacking chronic cough. She denied any fever or chills. Just persistent coughing this has been going on for a long time. Lab work today revealed an increasing WBC 17.5, chemistry revealed glucose of 499, bicarbonate level otherwise unremarkable. Patient is currently on vancomycin and cefepime and furosemide among others. Looks like furosemide is leading to the metabolic alkalosis. On previous admission, patient was placed on sildenafil feel for her pulmonary hypertension we will add that to her medication list today. PN 04/28/2024: Patient was seen in her room today patient was sleeping. For a long time patient has been complaining about being unable to sleep so we let patient's left. 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 Pulmonology recommended adding fluconazole 200 mg daily to the patient's regimen. Patient also has pulmonary hypertension for which we added sildenafil 20mg t.i.d. Objective vital signs Vital Sign Date Time Temp Pulse Resp B/P (MAP) Pulse Ox O2 Delivery O2 Flow Rate FiO2 04/28/24 17:25 97.8 110 18 96/62 (73) 94 97.8 04/28/24 15:09 Nasal Cannula 2.0 04/28/24 15:09 28 Total Intake and Output 04/27/24 04/27/24 04/28/24 15:00 23:00 07:00 Intake Total 50 ml 50 ml 1100 ml Output Total 1 ml 651 ml Balance 49 ml -601 ml 1100 ml medications Current Medications Medications Dose Ordered Sig/Aquiles Route Start Time Stop Time Status Last Admin Dose Admin Ipratropium [place] 0.5 mg Q4HR NEB 04/25/24 02:00 04/28/24 15:09 0.5 MG Acetaminophen/ Hydrocodone Bitart 1 tab Q4HP PRN PO 04/25/24 08:15 04/28/24 12:34 1 TAB Acetaminophen 650 mg Q6HP PRN PO 04/25/24 08:15 Morphine Sulfate 2 mg Q4HPRN PRN IV 04/25/24 08:15 04/25/24 09:47 2 MG Morphine Sulfate 2 mg Q30M PRN IV 04/25/24 08:15 Vancomycin HCl 0 ml @ 0 mls/hr UD IV 04/25/24 09:00 Cefepime HCl 50 ml @ 12.5 mls/hr Q8HR IV 04/25/24 14:00 04/28/24 15:26 12.5 MLS/HR Methylprednisolone Sodium Succinate 60 mg BID IV 04/25/24 10:00 04/28/24 10:38 60 MG Amlodipine Besylate 5 mg DAILY PO 04/25/24 10:00 04/28/24 10:27 5 MG Apixaban 5 mg BID PO 04/25/24 10:00 04/28/24 10:27 5 MG Carvedilol 3.125 mg BID PO 04/25/24 10:00 04/28/24 10:26 3.125 MG Glipizide 5 mg DAILY PO 04/25/24 10:00 04/28/24 10:26 5 MG Losartan Potassium 25 mg DAILY PO 04/25/24 10:00 04/28/24 10:27 25 MG Montelukast Sodium 10 mg DAILY PO 04/25/24 10:00 04/28/24 10:24 10 MG Potassium Chloride 10 meq DAILY PO 04/26/24 12:15 04/28/24 10:27 10 MEQ Lidocaine 1 patch DAILY@1800 TOP 04/27/24 18:00 04/28/24 18:22 1 PATCH Docusate Sodium 100 mg BID PO 04/26/24 22:00 04/28/24 10:28 100 MG Polyethylene Glycol 17 gm DAILYPRN PRN PO 04/26/24 17:00 Melatonin 10 mg HS PO 04/26/24 22:00 04/27/24 22:05 10 MG Throat Lozenges 1 simran Q2HP PRN MT 04/27/24 00:15 04/28/24 10:48 1 SIMRAN Insulin Glargine 15 units HS SC 04/27/24 15:30 04/27/24 22:36 15 UNITS Diagnostic Test (Pha) 1 strip IQ4HR 04/27/24 16:00 04/28/24 16:00 1 STRIP Insulin Human Regular IQ4HR SC 04/27/24 16:00 04/28/24 17:16 3 UNITS Dextrose 50 ml UD PRN IV 04/27/24 15:30 Sildenafil Citrate 20 mg TID@08,14,20 PO 04/28/24 14:00 04/28/24 16:52 20 MG Ondansetron HCl 4 mg Q6HPRN PRN IV 04/28/24 14:45 Vancomycin HCl 250 ml @ 250 mls/hr Q16H IV 04/29/24 08:00 Fluconazole 200 mg DAILY PO 04/29/24 10:00 UNV Examination General Appearance: Alert, Oriented X3, Cooperative,moderate acute distress, shortness of breath HEENT: Atraumatic, PERRLA, EOMI, Mucous membrane moist/pink Respiratory: Decreased air entry on the R> L; crackles, rales improving, less Oxygen demand Cardiovascular: Regular rate, Normal S1, Normal S2, No murmurs, no chest wall tenderness Abdominal: NO distention, no tenderness, bowel sounds present, no scars noted Extremities: bruises, peticheia mild edema, Skin: No rashes, No breakdown, No significant lesion Neuro: Normal gait, Normal speech, Strength at 5/5 X4 ext, Normal tone, Sensation intact, Cranial nerves 3-12 NL, Reflexes 2+ Psych/Mental Status: Mental status NL, Mood NL laboratory and microbiology Laboratory Tests 04/28/24 06:36 Test 04/28/24 06:36 Range/Units Serum Glucose 321 H 74-106 mg/dL Microbiology Date/Time Source Procedure Growth Status 04/26/24 12:10 Sputum Gram Stain - Final Resulted 04/26/24 12:10 Sputum Respiratory Culture - Preliminary Resulted 04/25/24 23:43 Nose MRSA Screen - Final Complete 04/25/24 10:24 Blood Blood Culture - Preliminary NO GROWTH AFTER 72 HOURS OF INCUBATION. Resulted Problem List/Assessment/Plan Problem List/Assessment/Plan Assessment Sepsis due to pneumonia Right lower lobe pneumonia atypical pneumonia COPD exacerbation Acute on chronic respiratory failure, now on 2L OXYGEN obesity bmi: 29.5 Diabeties type II, A1c 7.4 Acute on chronic HFpEF AFib history of DVT and PE with COVID infection hypertension, severe pulmonary hypertension Metabolic alkalosis likely secondary to lasix Plans: CT lung without constrast Antibiotics: Vanco and cefepime O2 to keep saturation >90% IV steroids Blood and sputum culture: pending Pulmonary consult Med neb treatment q4h Continue Eliquis Stop IV Furosemide 20 bridget Sildenafil 30mg tid Fluconazole 200 mg daily Code status: full Goal of care discussed for more than 35 minutes case and plan discussed with Dr. Lepe Plan discussed with: Patient My Orders My Orders Orders - EVENS POMPA Procedure Category Date Status Time Sildenafil Citrate PHA 04/28/24 In Process (Revatio) 14:00 Ondansetron Hcl PHA 04/28/24 In Process (Zofran) 14:45 Date of Service: Apr 28, 2024 Billing Provider: MY LEPE MD Common Visit Codes: [id number] INP/OBS CARE(HIGH) EVENS POMPA Apr 28, 2024 19:40 MY LEPE MD Apr 29, 2024 12:02
[2024-04-28] MEDS: FLUCONAZOLE 100 MG TAB PO ONE (20:11)
--- NOTE | 2024-04-28 22:40 | DVHPN2 ---
Progress Note - Dictate Date Seen: Apr 28, 2024 Medical Necessity Reason Pt with a Central, PICC or Fol: No Subjective Patient seen and examined at bedside. Remains on supplemental oxygen Overnight events reviewed. vital signs Vital Sign Date Time Temp Pulse Resp B/P (MAP) Pulse Ox O2 Delivery O2 Flow Rate FiO2 04/28/24 22:06 102 20 100 04/28/24 22:01 Nasal Cannula* 2 28 04/28/24 21:00 98.0 123/75 (91) 98.0 Total Intake and Output 04/27/24 04/27/24 04/28/24 15:00 23:00 07:00 Intake Total 50 ml 50 ml 1100 ml Output Total 1 ml 651 ml Balance 49 ml -601 ml 1100 ml medications Current Medications Medications Dose Ordered Sig/Aquiles Route Start Time Stop Time Status Last Admin Dose Admin Ipratropium [place] 0.5 mg Q4HR NEB 04/25/24 02:00 04/28/24 22:01 0.5 MG Acetaminophen/ Hydrocodone Bitart 1 tab Q4HP PRN PO 04/25/24 08:15 04/28/24 12:34 1 TAB Acetaminophen 650 mg Q6HP PRN PO 04/25/24 08:15 Morphine Sulfate 2 mg Q4HPRN PRN IV 04/25/24 08:15 04/25/24 09:47 2 MG Morphine Sulfate 2 mg Q30M PRN IV 04/25/24 08:15 Vancomycin HCl 0 ml @ 0 mls/hr UD IV 04/25/24 09:00 Cefepime HCl 50 ml @ 12.5 mls/hr Q8HR IV 04/25/24 14:00 04/28/24 15:26 12.5 MLS/HR Methylprednisolone Sodium Succinate 60 mg BID IV 04/25/24 10:00 04/28/24 10:38 60 MG Amlodipine Besylate 5 mg DAILY PO 04/25/24 10:00 04/28/24 10:27 5 MG Apixaban 5 mg BID PO 04/25/24 10:00 04/28/24 10:27 5 MG Carvedilol 3.125 mg BID PO 04/25/24 10:00 04/28/24 10:26 3.125 MG Glipizide 5 mg DAILY PO 04/25/24 10:00 04/28/24 10:26 5 MG Losartan Potassium 25 mg DAILY PO 04/25/24 10:00 04/28/24 10:27 25 MG Montelukast Sodium 10 mg DAILY PO 04/25/24 10:00 04/28/24 10:24 10 MG Potassium Chloride 10 meq DAILY PO 04/26/24 12:15 04/28/24 10:27 10 MEQ Lidocaine 1 patch DAILY@1800 TOP 04/27/24 18:00 04/28/24 18:22 1 PATCH Docusate Sodium 100 mg BID PO 04/26/24 22:00 04/28/24 10:28 100 MG Polyethylene Glycol 17 gm DAILYPRN PRN PO 04/26/24 17:00 Melatonin 10 mg HS PO 04/26/24 22:00 04/27/24 22:05 10 MG Throat Lozenges 1 simran Q2HP PRN MT 04/27/24 00:15 04/28/24 10:48 1 SIMRAN Insulin Glargine 15 units HS SC 04/27/24 15:30 04/27/24 22:36 15 UNITS Diagnostic Test (Pha) 1 strip IQ4HR 04/27/24 16:00 04/28/24 20:20 1 STRIP Insulin Human Regular IQ4HR SC 04/27/24 16:00 04/28/24 20:19 2 UNITS Dextrose 50 ml UD PRN IV 04/27/24 15:30 Sildenafil Citrate 20 mg TID@08,14,20 PO 04/28/24 14:00 04/28/24 20:11 20 MG Ondansetron HCl 4 mg Q6HPRN PRN IV 04/28/24 14:45 Vancomycin HCl 250 ml @ 250 mls/hr Q16H IV 04/29/24 08:00 Fluconazole 200 mg DAILY PO 04/29/24 10:00 objective Gen.: Patient lying in bed in no apparent distress. On supplemental oxygen. Head: Normocephalic, atraumatic. Eyes: EOMI/PERRLA. Ears: Normal hearing. Normal anatomy. Neck/trachea: Trachea midline, supple. Nose: Normal external anatomy. Mouth: Moist mucous membranes. Chest: Decreased air entry bilaterally. No wheezing or rhonchi. Cardiovascular: Positive S1, positive S2. Regular rate and rhythm. Abdomen: Positive bowel sounds in all 4 quadrants. Soft, non-tender, non- distended. : Deferred. Rectal: Deferred. Skin: Warm, dry. Intact. Extremities: 2+ radial pulses bilaterally. No lower extremity edema. Neuro: Awake, alert, oriented x3. No gross motor or sensory deficits. Cranial nerves II through XII intact. Gait not assessed. laboratory and microbiology Laboratory Tests 04/28/24 06:36 Test 04/28/24 06:36 Range/Units Serum Glucose 321 H 74-106 mg/dL Assessment/Plan Impression: Acute on chronic hypoxic respiratory failure Dependence on supplemental oxygen Pulmonary nodules Pulmonary hypertension COPD exacerbation Obesity BMI 30 Anxiety Events: Remains on supplemental oxygen, 3 LPM NC Taper O2 as tolerated Continue bronchodilators Continue IV steroids Continue antibiotics Revatio for pulmonary hypertension Incentive spirometry Start Diflucan 200 mg po daily due to tree-in-bud opacities on CT chest Diurese to euvolemia Monitor renal function. Monitor electrolytes. Supplement as necessary. Labs and imaging reviewed. Rest of plan as noted below. Plan: Supplemental oxygen Titrate to keep O2 sats above 92%. Continue bronchodilators. Continue antibiotics IV steroids Revatio TID for pulmonary hypertension Accu-Cheks, ISS Monitor renal function. Monitor electrolytes. Supplement as necessary. Monitor ins and outs. Diet and lifestyle modifications for weight reduction Obesity - complicates all care DVT prophylaxis. Prognosis: Poor given patient's multiple co-morbidities. Rest of plan per hospitalist and other consultants. Thank you Dr. Barajas, for allowing me to participate in this patient's care. Further recommendations will depend on the patient's clinical course. Please do not hesitate to contact me if you have any questions or concerns. This medical document was created using an electronic medical record system with [employer] dictation system. Although these documentations are being carefully reviewed, there may still be some phonetic and typographical changes. The errors are purely typographical, due to imperfection on the software program, and do not reflect any compromise in the patient's medical care. Plan discussed with: Patient, Other (BOB Wagner/MYKEL Montiel MD Apr 28, 2024 22:40
[2024-04-29] VITALS (24 sets, daily range): BP systolic 131–145; BP diastolic 79–91; PULSE 50–109; RESP 16–20; TEMP 97.7–98.7; O2SAT 93–100
[2024-04-29] MEDS: VANCOMYCIN 1GM/250ML KIT 250 ML IV SCH (09:04)
[2024-04-29] MEDS: FLUCONAZOLE 100 MG TAB PO SCH (09:06)
[2024-04-29] MEDS: POLYETHYLENE GLYCOL 17 GM PWDR PO PRN (09:09)
[2024-04-29 09:39] LABS: Basophils # (auto) 0 10 ^3/uL (0-0.2); Basophils % (auto) 0.2 % (0.0-2.0); Eosinophils # (auto) 0 10 ^3/uL (0-0.8); Hematocrit 36.9 % (36.0-46.0); Hemoglobin 11.6 g/dL (12.2-16.2); Lymphocytes # (auto) 0.7 10 ^3/uL (0.4-5.4); Lymphocytes % (auto) 4.4 % (10.0-50.0); Mean Corpuscular Hemoglobin 29.3 pg (28.0-32.0); Mean Corpuscular Hgb Conc. 31.5 g/dL (32.0-36.0); Mean Corpuscular Volume 92.9 fL (80.0-100.0); Monocytes # (auto) 0.4 10 ^3/uL (0-1.3); Monocytes % (auto) 2.8 % (0.0-12.0); Neutrophils # (auto) 14.6 10 ^3/uL (1.6-8.6); Neutrophils % (auto) 92.6 % (37.0-80.0); Nucleated Red Blood Cells % 0.2 %; Platelet Count (auto) 255 10^3/uL (140-450); Red Blood Cells 3.97 10^6/uL (4.0-5.20); Red Cell Distribution Width 17.9 % (11.8-14.3); White Blood Cell 15.8 10^3/uL (4.4-10.8)
[2024-04-29 09:52] LABS: Alanine Aminotransferase 27 U/L (7-40); Albumin 3.2 g/dL (3.2-4.8); Alkaline Phosphatase 80 U/L (46-116); Anion Gap 7 (5-15); BUN/Creatinine Ratio 55.4 (10.0-20.0); Carbon Dioxide 29 mmol/L (20-31); Chloride 104 mmol/L (98-107); Sodium 140 mmol/L (136-145)
[2024-04-29 09:53] LABS: Bilirubin, Total 0.4 mg/dL (0.2-1.0); Total Protein 6.1 g/dL (5.7-8.2)
--- NOTE | 2024-04-29 10:07 | CONS ---
Pharmacy Clinical Information: CQM HF. There are no records of lipid panel results from this patient at any visit in this hospital; would be beneficial to obtain lipid panel to recommend a guidelines-based recommendation for statin therapy. Should be noted that the patient has received atorvastatin 40mg at this hospital in previous visits without having as a home medication (per external medication history). If patient was considered a candidate for statin therapy in previous visits, please consider adding statin therapy to the patient home medication. LUCY VILLEDA PHARMACIST Apr 29, 2024 10:07
[2024-04-29 10:21] LABS: Aspartate Aminotransferase < 8 U/L (13-40); Blood Urea Nitrogen 36 mg/dL (9-23); Calcium 11.3 mg/dL (8.7-10.4); Glucose 179 mg/dL (74-106); Potassium 5.5 mmol/L (3.5-5.1)
[2024-04-29] MEDS: diphenhdrAMINE HCL 50 MG/1 ML VL IV PRN (11:50)
[2024-04-29] MEDS: INSULIN LANTUS (GLARGINE) 1 /0.01ml (100units/ml) SC SCH (12:15)
[2024-04-29] MEDS: ATORVASTATIN 20 MG TAB PO ONE (12:26)
[2024-04-29] MEDS: ATORVASTATIN 20 MG TAB PO SCH (21:55)
--- NOTE | 2024-04-29 22:22 | DVHPNRES ---
Progress Note Date Seen: Apr 29, 2024 Resident Creating Document: EVENS POMPA RESIDENT Medical Necessity Reason Pt with a Central, PICC or Fol: No Medical Necessity Reason Acute respiratory failure Atypical pneumonia Subjective Review of Systems This is 58-year-old female with a past medical history of COPD, CHF, AFib on Eliquis, hypertension, diabetes, and severe pulmonary hypertension presented to the ED via EMS with a chief complaint of shortness of breath. Patient was recently discharge from here on 04/23/2024. The patient with multiple hospital admission for the past few months with respiratory concerns reports was just discharged from here yesterday with diagnosis of acute on chronic respiratory failure and COPD. The patient states that she was discharged to post acute rehabilitation, was not able to get proper care for which shortness of breath worsened prompted her to call 911. The patient denies chest pain, palpitation, abdominal pain, or other acute symptoms. vitals: HR:112, RR: 24, bp, 93/48. Wbc on admssion: 23.2. ECHO in 12/2023: Normal left ventricular size and dimension. Normal left ventricular systolic function estimated ejection fraction 55% PN: 04/27/2024: Patient is examined today. She is sitting in bed and leaning forward. She continues to have this hacking chronic cough. She denied any fever or chills. Just persistent coughing this has been going on for a long time. Lab work today revealed an increasing WBC 17.5, chemistry revealed glucose of 499, bicarbonate level otherwise unremarkable. Patient is currently on vancomycin and cefepime and furosemide among others. Looks like furosemide is leading to the metabolic alkalosis. On previous admission, patient was placed on sildenafil feel for her pulmonary hypertension we will add that to her medication list today. PN 04/28/2024: Patient was seen in her room today patient was sleeping. For a long time patient has been complaining about being unable to sleep so we let patient's left. Yesterday we had because color rod pointer to given input on this patient management per pulmonology CT of the chest revealed Diffusely enlarged pulmonary arterial tree may represent underlying peripheral arterial hypertension and likely corresponds to question of mass on chest radiograph.Patchy bilateral peribronchial thickening and tree-in-bud nodularity is likely infectious or inflammatory. Pulmonology recommended adding fluconazole 200 mg daily to the patient's regimen. Patient also has pulmonary hypertension for which we added sildenafil 20mg t.i.d. PN 04/29/2024: Patient is seen and examined today. At the time of visit patient was receiving breathing treatment by RT. Vitals were grossly unremarkable patient is currently on 2 L of oxygen. Lab work today is normal except for potassium that was 5.5 patient is currently on potassium 1 mg daily that is currently on hold and also put in the hyperkalemia treatment. Complained today of generalized pruritus. We recommended Benadryl for the patient. If patient continues to have pruritus likely to discontinue the fluconazole. Because the last medication that was added and patient started itching today. Currently rod pointer is on the case and patient is started on fluconazole for the atypical pneumonia. And we are monitoring closely. Seems that patient is doing good is likely that we may discharge the patient home tomorrow. Objective vital signs Vital Sign Date Time Temp Pulse Resp B/P (MAP) Pulse Ox O2 Delivery O2 Flow Rate FiO2 04/29/24 21:00 97.7 103 20 145/81 (102) 96 97.7 04/29/24 18:22 Nasal Cannula* 2 28 Total Intake and Output 04/28/24 04/28/24 04/29/24 15:00 23:00 07:00 Intake Total 50 ml 600 ml 875 ml Output Total 1 ml 1 ml Balance 49 ml 599 ml 875 ml medications Current Medications Medications Dose Ordered Sig/Aquiles Route Start Time Stop Time Status Last Admin Dose Admin Ipratropium [place] 0.5 mg Q4HR NEB 04/25/24 02:00 04/29/24 18:22 0.5 MG Acetaminophen/ Hydrocodone Bitart 1 tab Q4HP PRN PO 04/25/24 08:15 04/29/24 05:48 1 TAB Acetaminophen 650 mg Q6HP PRN PO 04/25/24 08:15 Morphine Sulfate 2 mg Q4HPRN PRN IV 04/25/24 08:15 04/25/24 09:47 2 MG Morphine Sulfate 2 mg Q30M PRN IV 04/25/24 08:15 Vancomycin HCl 0 ml @ 0 mls/hr UD IV 04/25/24 09:00 Cefepime HCl 50 ml @ 12.5 mls/hr Q8HR IV 04/25/24 14:00 04/29/24 14:01 12.5 MLS/HR Methylprednisolone Sodium Succinate 60 mg BID IV 04/25/24 10:00 04/29/24 09:05 60 MG Amlodipine Besylate 5 mg DAILY PO 04/25/24 10:00 04/29/24 09:08 5 MG Apixaban 5 mg BID PO 04/25/24 10:00 04/29/24 09:06 5 MG Carvedilol 3.125 mg BID PO 04/25/24 10:00 04/29/24 09:07 3.125 MG Glipizide 5 mg DAILY PO 04/25/24 10:00 04/29/24 09:07 5 MG Losartan Potassium 25 mg DAILY PO 04/25/24 10:00 04/29/24 09:06 25 MG Montelukast Sodium 10 mg DAILY PO 04/25/24 10:00 04/29/24 09:07 10 MG Potassium Chloride 10 meq DAILY PO 04/26/24 12:15 04/28/24 10:27 10 MEQ Lidocaine 1 patch DAILY@1800 TOP 04/27/24 18:00 04/29/24 19:17 1 PATCH Docusate Sodium 100 mg BID PO 04/26/24 22:00 04/28/24 22:48 100 MG Polyethylene Glycol 17 gm DAILYPRN PRN PO 04/26/24 17:00 04/29/24 09:09 17 GM Melatonin 10 mg HS PO 04/26/24 22:00 04/28/24 22:35 10 MG Throat Lozenges 1 simran Q2HP PRN MT 04/27/24 00:15 04/29/24 05:03 1 SIMRAN Diagnostic Test (Pha) 1 strip IQ4HR 04/27/24 16:00 04/29/24 20:21 1 STRIP Insulin Human Regular IQ4HR SC 04/27/24 16:00 04/29/24 20:25 9 UNITS Dextrose 50 ml UD PRN IV 04/27/24 15:30 Sildenafil Citrate 20 mg TID@08,14,20 PO 04/28/24 14:00 04/29/24 20:25 20 MG Ondansetron HCl 4 mg Q6HPRN PRN IV 04/28/24 14:45 Vancomycin HCl 250 ml @ 250 mls/hr Q16H IV 04/29/24 08:00 04/29/24 09:04 250 MLS/HR Fluconazole 200 mg DAILY PO 04/29/24 10:00 04/29/24 09:06 200 MG Atorvastatin Calcium 40 mg HS PO 04/29/24 22:00 Diphenhydramine HCl 50 mg Q6HR PRN IV 04/29/24 11:30 04/29/24 20:35 50 MG Insulin Glargine 25 units HS SC 04/29/24 12:15 Examination General Appearance: Alert, Oriented X3, Cooperative, Mild acute distress HEENT: Atraumatic, PERRLA, EOMI, Mucous membrane moist/pink Respiratory: Decreased air entry on the R> L; crackles, rales improving, less Oxygen demand on 2L of Oxygen Cardiovascular: Regular rate, Normal S1, Normal S2, No murmurs, no chest wall tenderness Abdominal: NO distention, no tenderness, bowel sounds present, no scars noted Extremities: bruises, peticheia mild edema, Skin: No rashes, No breakdown, No significant lesion Neuro: Normal gait, Normal speech, Strength at 5/5 X4 ext, Normal tone, Sensation intact, Cranial nerves 3-12 NL, Reflexes 2+ Psych/Mental Status: Mental status NL, Mood NL laboratory and microbiology Laboratory Tests 04/29/24 06:12 Test 04/29/24 06:12 Range/Units Serum Glucose 179 H 74-106 mg/dL Microbiology Date/Time Source Procedure Growth Status 04/26/24 12:10 Sputum Gram Stain - Final Resulted 04/26/24 12:10 Sputum Respiratory Culture - Preliminary Resulted 04/25/24 23:43 Nose MRSA Screen - Final Complete 04/25/24 10:24 Blood Blood Culture - Preliminary NO GROWTH AFTER 72 HOURS OF INCUBATION. Resulted Problem List/Assessment/Plan Problem List/Assessment/Plan Assessment Sepsis due to pneumonia Right lower lobe pneumonia atypical pneumonia COPD exacerbation Acute on chronic respiratory failure, now on 2L OXYGEN obesity bmi: 29.5 Diabeties type II, A1c 7.4 Acute on chronic HFpEF AFib history of DVT and PE with COVID infection hypertension, severe pulmonary hypertension Metabolic alkalosis likely secondary to lasix Plans: Antibiotics: Vanco and cefepime O2 to keep saturation >90% IV steroids Blood and sputum culture: pending Pulmonary consult Med neb treatment q4h Continue Eliquis Stop IV Furosemide 20 bridget Sildenafil 30mg tid Fluconazole 200 mg daily Atorvastatin Code status: full Goal of care discussed for more than 35 minutes case and plan discussed with Dr. Lepe Plan discussed with: Patient My Orders My Orders Orders - EVENS POMPA Procedure Category Date Status Time Atorvastatin (Lipitor) PHA 04/29/24 In Process 22:00 Diphenhdramine PHA 04/29/24 In Process Injection (Benadryl 11:30 Insulin Lantus PHA 04/29/24 In Process (Glargine) (Lantus) 12:15 Date of Service: Apr 29, 2024 Billing Provider: MY LEPE MD Common Visit Codes: [id number] INP/OBS CARE(HIGH) EVENS POMPA Apr 29, 2024 22:22 MY LEPE MD May 03, 2024 11:02
[2024-04-29] MEDS: ALBUTEROL SULF 2.5 MG/0.5ML(0.5%) NEB SOLN NEB ONE (22:50)
[2024-04-29] MEDS: FUROSEMIDE 20 MG/2 ML VIAL IV ONE (23:00)
--- NOTE | 2024-04-29 23:28 | DVHPN2 ---
Progress Note - Dictate Date Seen: Apr 29, 2024 Medical Necessity Reason Pt with a Central, PICC or Fol: No Subjective Patient seen and examined at bedside. Remains on supplemental oxygen Overnight events reviewed. vital signs Vital Sign Date Time Temp Pulse Resp B/P (MAP) Pulse Ox O2 Delivery O2 Flow Rate FiO2 04/29/24 23:09 98 18 100 04/29/24 23:00 145/81 04/29/24 22:50 Nasal Cannula* 2 28 04/29/24 21:00 97.7 97.7 Total Intake and Output 04/28/24 04/28/24 04/29/24 15:00 23:00 07:00 Intake Total 50 ml 600 ml 875 ml Output Total 1 ml 1 ml Balance 49 ml 599 ml 875 ml medications Current Medications Medications Dose Ordered Sig/Aquiles Route Start Time Stop Time Status Last Admin Dose Admin Ipratropium [place] 0.5 mg Q4HR NEB 04/25/24 02:00 04/29/24 22:21 0.5 MG Acetaminophen/ Hydrocodone Bitart 1 tab Q4HP PRN PO 04/25/24 08:15 04/29/24 05:48 1 TAB Acetaminophen 650 mg Q6HP PRN PO 04/25/24 08:15 Morphine Sulfate 2 mg Q4HPRN PRN IV 04/25/24 08:15 04/25/24 09:47 2 MG Morphine Sulfate 2 mg Q30M PRN IV 04/25/24 08:15 Vancomycin HCl 0 ml @ 0 mls/hr UD IV 04/25/24 09:00 Cefepime HCl 50 ml @ 12.5 mls/hr Q8HR IV 04/25/24 14:00 04/29/24 21:59 12.5 MLS/HR Methylprednisolone Sodium Succinate 60 mg BID IV 04/25/24 10:00 04/29/24 21:51 60 MG Amlodipine Besylate 5 mg DAILY PO 04/25/24 10:00 04/29/24 09:08 5 MG Apixaban 5 mg BID PO 04/25/24 10:00 04/29/24 21:56 5 MG Carvedilol 3.125 mg BID PO 04/25/24 10:00 04/29/24 21:58 3.125 MG Glipizide 5 mg DAILY PO 04/25/24 10:00 04/29/24 09:07 5 MG Losartan Potassium 25 mg DAILY PO 04/25/24 10:00 04/29/24 09:06 25 MG Montelukast Sodium 10 mg DAILY PO 04/25/24 10:00 04/29/24 09:07 10 MG Potassium Chloride 10 meq DAILY PO 04/26/24 12:15 Hold 04/28/24 10:27 10 MEQ Lidocaine 1 patch DAILY@1800 TOP 04/27/24 18:00 04/29/24 19:17 1 PATCH Docusate Sodium 100 mg BID PO 04/26/24 22:00 04/29/24 21:56 100 MG Polyethylene Glycol 17 gm DAILYPRN PRN PO 04/26/24 17:00 04/29/24 09:09 17 GM Melatonin 10 mg HS PO 04/26/24 22:00 04/29/24 21:54 10 MG Throat Lozenges 1 simran Q2HP PRN MT 04/27/24 00:15 04/29/24 05:03 1 SIMRAN Diagnostic Test (Pha) 1 strip IQ4HR 04/27/24 16:00 04/29/24 20:21 1 STRIP Insulin Human Regular IQ4HR SC 04/27/24 16:00 04/29/24 20:25 9 UNITS Dextrose 50 ml UD PRN IV 04/27/24 15:30 Sildenafil Citrate 20 mg TID@08,14,20 PO 04/28/24 14:00 04/29/24 20:25 20 MG Ondansetron HCl 4 mg Q6HPRN PRN IV 04/28/24 14:45 Vancomycin HCl 250 ml @ 250 mls/hr Q16H IV 04/29/24 08:00 04/29/24 09:04 250 MLS/HR Fluconazole 200 mg DAILY PO 04/29/24 10:00 04/29/24 09:06 200 MG Atorvastatin Calcium 40 mg HS PO 04/29/24 22:00 04/29/24 21:55 40 MG Diphenhydramine HCl 50 mg Q6HR PRN IV 04/29/24 11:30 04/29/24 20:35 50 MG Insulin Glargine 25 units HS SC 04/29/24 12:15 objective Gen.: Patient lying in bed in no apparent distress. On supplemental oxygen. Head: Normocephalic, atraumatic. Eyes: EOMI/PERRLA. Ears: Normal hearing. Normal anatomy. Neck/trachea: Trachea midline, supple. Nose: Normal external anatomy. Mouth: Moist mucous membranes. Chest: Decreased air entry bilaterally. No wheezing or rhonchi. Cardiovascular: Positive S1, positive S2. Regular rate and rhythm. Abdomen: Positive bowel sounds in all 4 quadrants. Soft, non-tender, non- distended. : Deferred. Rectal: Deferred. Skin: Warm, dry. Intact. Extremities: 2+ radial pulses bilaterally. No lower extremity edema. Neuro: Awake, alert, oriented x3. No gross motor or sensory deficits. Cranial nerves II through XII intact. Gait not assessed. laboratory and microbiology Laboratory Tests 04/29/24 06:12 Test 04/29/24 06:12 Range/Units Serum Glucose 179 H 74-106 mg/dL Assessment/Plan Impression: Acute on chronic hypoxic respiratory failure Dependence on supplemental oxygen Pulmonary nodules Pulmonary hypertension COPD exacerbation Obesity BMI 30 Anxiety Events: Remains on supplemental oxygen, 3 LPM NC Taper O2 as tolerated Continue bronchodilators Continue IV steroids Continue antibiotics Revatio for pulmonary hypertension Incentive spirometry Diflucan 200 mg po daily due to tree-in-bud opacities on CT chest Diurese to euvolemia Monitor renal function. Monitor electrolytes. Supplement as necessary. Labs and imaging reviewed. Rest of plan as noted below. Plan: Supplemental oxygen Titrate to keep O2 sats above 92%. Continue bronchodilators. Continue antibiotics IV steroids Revatio TID for pulmonary hypertension Accu-Cheks, ISS Monitor renal function. Monitor electrolytes. Supplement as necessary. Monitor ins and outs. Diet and lifestyle modifications for weight reduction Obesity - complicates all care DVT prophylaxis. Prognosis: Poor given patient's multiple co-morbidities. Rest of plan per hospitalist and other consultants. Thank you Dr. Barajas, for allowing me to participate in this patient's care. Further recommendations will depend on the patient's clinical course. Please do not hesitate to contact me if you have any questions or concerns. This medical document was created using an electronic medical record system with [employer] system. Although these documentations are being carefully reviewed, there may still be some phonetic and typographical changes. The errors are purely typographical, due to imperfection on the software program, and do not reflect any compromise in the patient's medical care. Plan discussed with: Patient, Other (BOB Mcgee) MYKEL SANDERS MD Apr 29, 2024 23:27
[2024-04-30] VITALS (21 sets, daily range): BP systolic 114–152; BP diastolic 69–99; PULSE 81–108; RESP 14–20; TEMP 97.6–98.3; O2SAT 91–100
[2024-04-30] MEDS: VANCOMYCIN 1GM/250ML KIT 250 ML IV SCH (02:59)
[2024-04-30 06:04] LABS: Basophils # (auto) 0 10 ^3/uL (0-0.2); Eosinophils # (auto) 0 10 ^3/uL (0-0.8); Hematocrit 33.8 % (36.0-46.0); Hemoglobin 11.1 g/dL (12.2-16.2); Lymphocytes # (auto) 0.8 10 ^3/uL (0.4-5.4); Lymphocytes % (auto) 7.4 % (10.0-50.0); Mean Corpuscular Hemoglobin 29.7 pg (28.0-32.0); Mean Corpuscular Hgb Conc. 32.8 g/dL (32.0-36.0); Mean Corpuscular Volume 90.4 fL (80.0-100.0); Monocytes # (auto) 0.5 10 ^3/uL (0-1.3); Monocytes % (auto) 4.3 % (0.0-12.0); Neutrophils # (auto) 9.9 10 ^3/uL (1.6-8.6); Neutrophils % (auto) 88.3 % (37.0-80.0); Platelet Count (auto) 213 10^3/uL (140-450); Red Blood Cells 3.73 10^6/uL (4.0-5.20); Red Cell Distribution Width 17.4 % (11.8-14.3); White Blood Cell 11.2 10^3/uL (4.4-10.8)
[2024-04-30 06:14] LABS: Anion Gap 2 (5-15); Chloride 103 mmol/L (98-107); Potassium 4.3 mmol/L (3.5-5.1); Sodium 143 mmol/L (136-145)
[2024-04-30 06:20] LABS: BUN/Creatinine Ratio 64.4 (10.0-20.0)
[2024-04-30 06:24] LABS: Blood Urea Nitrogen 29 mg/dL (9-23); Calcium 11.4 mg/dL (8.7-10.4); Carbon Dioxide 38 mmol/L (20-31); Glucose 110 mg/dL (74-106)
--- NOTE | 2024-04-30 08:36 | ECG ---
[facility] Test Date: 2024-04-29 Test Time: 22:41:28 Pat Name: CLINTON ALMONTE Department: Room: 0290T B Gender: F Maintenance Coordinator: MALVIN : 1965 Requested By: EVENS POMPA Order Number: [id number] Reading MD: Measurements Intervals [place] Rate: 92 P: 66 TX: 195 QRS: 118 QRSD: 89 T: 55 QT: 340 QTc: 421 Interpretive Statements Sinus rhythm Probable left atrial enlargement Low voltage with right axis deviation RSR' in V1 or V2, right VCD or RVH Minimal ST elevation, inferior leads Please click the below link to view image of tracing.
--- NOTE | 2024-04-30 12:01 | DVHPN2 ---
Subjective The patient is seen and examined at bedside. Still complain of severe shortness for breath. Reviewed: Care Plan, H&P, Labs, Medications, Previous Orders, Radiology Changes from previous H/P or p: No Changes Eyes: No Pain, No Vision change, No Conjunctivae inflammation, No Eyelid inflammation, No Other, No Redness ENT: No Ear pain, No Ear discharge, No Nose pain, No Nose discharge, No Nose congestion, No Mouth pain, No Mouth swelling, No Throat pain, No Throat swelling, No Other Cardiovascular: No Chest Pain, No Palpitations, No Orthopnea, No Paroxysmal Noc. Dyspnea, No Edema, No Lt Headedness, No Other Respiratory: Cough; No Dry; Shortness of breath, SOB with excertion; No Wheezing, No Hemoptysis, No Pleuritic Pain, No Sputum, No Other Gastrointestinal: No Nausea, No Vomiting, No Abdominal Pain, No Diarrhea, No Constipation, No Melena, No Hematochezia, No Other Genitourinary: No Dysuria, No Frequency, No Incontinence, No Hematuria, No Retention, No Other Musculoskeletal: No other, No neck pain, No shoulder pain, No arm pain, No back pain, No hand pain, No leg pain, No foot pain Skin: No Rash, No Lesions, No Jaundice, No Bruising, No Other Objective Vitals Vital Signs Date Time Temp Pulse Resp B/P (MAP) Pulse Ox O2 Delivery O2 Flow Rate FiO2 04/30/24 11:05 91 134/79 04/30/24 10:28 18 97 04/30/24 10:22 Nasal Cannula 2.0 04/30/24 10:22 28 04/30/24 09:00 97.9 97.9 Intake/Output Intake and Output 04/30/24 07:00 Intake Total 2495 ml Output Total 1602 ml Balance 893 ml Intake Oral 1820 ml IV Total 675 ml Output Urine Total 1600 ml Stool Total 2 ml # Voids 3 # Bowel Movements 1 General Appearance: Alert, Cooperative, mild distress HEENT: Atraumatic, PERRLA, EOMI, Mucous membr. moist/pink Neck: Supple Lungs: Clear to auscultation, Normal air movement Cardiovascular: Regular rate, Normal S1, Normal S2, No murmurs, Gallops, Rubs Abdomen: Normal bowel sounds, Soft, No tenderness Neuro: Cranial nerves 3-12 NL Psych/Mental Status: Mental status NL Medications Current Medications Medications Dose Ordered Sig/Aquiles Route Start Time Stop Time Status Last Admin Dose Admin Ipratropium [place] 0.5 mg Q4HR NEB 04/25/24 02:00 04/30/24 10:22 0.5 MG Acetaminophen/ Hydrocodone Bitart 1 tab Q4HP PRN PO 04/25/24 08:15 04/30/24 11:02 1 TAB Acetaminophen 650 mg Q6HP PRN PO 04/25/24 08:15 Morphine Sulfate 2 mg Q4HPRN PRN IV 04/25/24 08:15 04/25/24 09:47 2 MG Morphine Sulfate 2 mg Q30M PRN IV 04/25/24 08:15 Vancomycin HCl 0 ml @ 0 mls/hr UD IV 04/25/24 09:00 Cefepime HCl 50 ml @ 12.5 mls/hr Q8HR IV 04/25/24 14:00 04/30/24 05:23 12.5 MLS/HR Methylprednisolone Sodium Succinate 60 mg BID IV 04/25/24 10:00 04/30/24 11:05 60 MG Amlodipine Besylate 5 mg DAILY PO 04/25/24 10:00 04/30/24 11:03 5 MG Apixaban 5 mg BID PO 04/25/24 10:00 04/30/24 11:03 5 MG Carvedilol 3.125 mg BID PO 04/25/24 10:00 04/30/24 11:05 3.125 MG Glipizide 5 mg DAILY PO 04/25/24 10:00 04/30/24 11:05 5 MG Losartan Potassium 25 mg DAILY PO 04/25/24 10:00 04/30/24 11:04 25 MG Montelukast Sodium 10 mg DAILY PO 04/25/24 10:00 04/30/24 11:04 10 MG Potassium Chloride 10 meq DAILY PO 04/26/24 12:15 Hold 04/28/24 10:27 10 MEQ Lidocaine 1 patch DAILY@1800 TOP 04/27/24 18:00 04/30/24 08:21 1 PATCH Docusate Sodium 100 mg BID PO 04/26/24 22:00 04/30/24 11:03 100 MG Polyethylene Glycol 17 gm DAILYPRN PRN PO 04/26/24 17:00 04/29/24 09:09 17 GM Melatonin 10 mg HS PO 04/26/24 22:00 04/29/24 21:54 10 MG Throat Lozenges 1 simran Q2HP PRN MT 04/27/24 00:15 04/30/24 08:32 1 SIMRAN Diagnostic Test (Pha) 1 strip IQ4HR 04/27/24 16:00 04/30/24 11:15 1 STRIP Insulin Human Regular IQ4HR SC 04/27/24 16:00 04/30/24 11:45 9 UNITS Dextrose 50 ml UD PRN IV 04/27/24 15:30 Sildenafil Citrate 20 mg TID@08,14,20 PO 04/28/24 14:00 04/30/24 08:21 20 MG Ondansetron HCl 4 mg Q6HPRN PRN IV 04/28/24 14:45 Fluconazole 200 mg DAILY PO 04/29/24 10:00 04/30/24 11:04 200 MG Atorvastatin Calcium 40 mg HS PO 04/29/24 22:00 04/29/24 21:55 40 MG Diphenhydramine HCl 50 mg Q6HR PRN IV 04/29/24 11:30 04/30/24 08:31 50 MG Insulin Glargine 25 units HS SC 04/29/24 12:15 04/29/24 23:53 25 UNITS Vancomycin HCl 250 ml @ 250 mls/hr Q16H IV 04/30/24 03:00 04/30/24 02:59 250 MLS/HR Laboratory Results Laboratory Tests 04/30/24 05:07 Chemistry Test 04/30/24 05:07 Calcium Level 11.4 mg/dL (8.7-10.4) H Urinalysis Test 04/25/24 01:05 Urine Color Light-yellow (Yellow) Urine Clarity Clear (Clear) Urine pH 6.0 (5.0-9.0) Urine Specific [place] 1.016 (1.001-1.035) Urine Protein Negative (Negative) Urine Ketones Negative (Negative) Urine Blood Negative /uL (Negative) Urine Nitrite Negative (Negative) Urine Bilirubin Negative (Negative) Urine Urobilinogen Normal mg/dL (Negative) Urine Leukocyte Esterase Negative /uL (Negative) Urine RBC 1 /hpf (0 - 4) Urine Microscopic WBC 4 /HPF (0-5) Urine Squamous Epithelial Cells Few /hpf (<5) Urine Bacteria None seen /hpf (None Seen) Urine Glucose 4+ mg/dL (Normal) H Microbiology Microbiology Date/Time Source Procedure Growth Status 04/26/24 12:10 Sputum Gram Stain - Final Resulted 04/26/24 12:10 Sputum Respiratory Culture - Preliminary Resulted 04/25/24 23:43 Nose MRSA Screen - Final Complete 04/25/24 10:24 Blood Blood Culture - Final NO GROWTH AFTER 5 DAYS OF INCUBATION. Complete Labs and/or images reviewed: Labs reviewed by me Assessment/Plan Assessment/Plan Sepsis due to pneumonia Right lower lobe pneumonia atypical pneumonia COPD exacerbation Acute on chronic respiratory failure, now on 2L OXYGEN obesity bmi: 29.5 Diabeties type II, A1c 7.4 Acute on chronic HFpEF AFib history of DVT and PE with COVID infection hypertension, severe pulmonary hypertension Metabolic alkalosis likely secondary to lasix Plan: Continuing IV Antibiotics: Vanco and cefepime Continuing O2 to keep saturation >90% Continuing IV steroids We will follow up with Blood and sputum culture Pulmonary consult appreciated Continuing with nebulizer treatment q4h Continue Eliquis Continuing Sildenafil 30mg tid Continuing Fluconazole 200 mg daily Continuing Atorvastatin Code status: full This medical document was created using an electronic medical record system with [employer] direct computerized dictation system. Although this document has been carefully reviewed, there may still be some phonetic and typographical errors. These areas are purely typographical due to imperfections of the software programs, and do not reflect any compromise in the patient's medical care. Plan discussed with: Patient Date of Service: Apr 30, 2024 Billing Provider: MY PINA MD Common Visit Codes: [id number] INP/OBS CARE(HIGH) MY PINA MD Apr 30, 2024 12:01
--- NOTE | 2024-04-30 23:08 | DVHPN2 ---
Progress Note - Dictate Date Seen: Apr 30, 2024 Medical Necessity Reason Pt with a Central, PICC or Fol: No Subjective Patient seen and examined at bedside. Remains on supplemental oxygen Overnight events reviewed. vital signs Vital Sign Date Time Temp Pulse Resp B/P (MAP) Pulse Ox O2 Delivery O2 Flow Rate FiO2 04/30/24 20:52 97.6 103 14 131/84 (100) 95 97.6 04/30/24 20:00 Nasal Cannula* 3 32 Total Intake and Output 04/29/24 04/29/24 04/30/24 15:00 23:00 07:00 Intake Total 300 ml 950 ml 1245 ml Output Total 1 ml 1 ml 1600 ml Balance 299 ml 949 ml -355 ml medications Current Medications Medications Dose Ordered Sig/Aquiles Route Start Time Stop Time Status Last Admin Dose Admin Ipratropium [place] 0.5 mg Q4HR NEB 04/25/24 02:00 04/30/24 18:58 0.5 MG Acetaminophen/ Hydrocodone Bitart 1 tab Q4HP PRN PO 04/25/24 08:15 04/30/24 21:51 1 TAB Acetaminophen 650 mg Q6HP PRN PO 04/25/24 08:15 Morphine Sulfate 2 mg Q4HPRN PRN IV 04/25/24 08:15 04/25/24 09:47 2 MG Morphine Sulfate 2 mg Q30M PRN IV 04/25/24 08:15 Vancomycin HCl 0 ml @ 0 mls/hr UD IV 04/25/24 09:00 Cefepime HCl 50 ml @ 12.5 mls/hr Q8HR IV 04/25/24 14:00 04/30/24 13:55 12.5 MLS/HR Methylprednisolone Sodium Succinate 60 mg BID IV 04/25/24 10:00 04/30/24 11:05 60 MG Amlodipine Besylate 5 mg DAILY PO 04/25/24 10:00 04/30/24 11:03 5 MG Apixaban 5 mg BID PO 04/25/24 10:00 04/30/24 11:03 5 MG Carvedilol 3.125 mg BID PO 04/25/24 10:00 04/30/24 11:05 3.125 MG Glipizide 5 mg DAILY PO 04/25/24 10:00 04/30/24 11:05 5 MG Losartan Potassium 25 mg DAILY PO 04/25/24 10:00 04/30/24 11:04 25 MG Montelukast Sodium 10 mg DAILY PO 04/25/24 10:00 04/30/24 11:04 10 MG Potassium Chloride 10 meq DAILY PO 04/26/24 12:15 Hold 04/28/24 10:27 10 MEQ Lidocaine 1 patch DAILY@1800 TOP 04/27/24 18:00 04/30/24 08:21 1 PATCH Docusate Sodium 100 mg BID PO 04/26/24 22:00 04/30/24 11:03 100 MG Polyethylene Glycol 17 gm DAILYPRN PRN PO 04/26/24 17:00 04/29/24 09:09 17 GM Melatonin 10 mg HS PO 04/26/24 22:00 04/30/24 21:52 10 MG Throat Lozenges 1 simran Q2HP PRN MT 04/27/24 00:15 04/30/24 13:58 1 SIMRAN Diagnostic Test (Pha) 1 strip IQ4HR 04/27/24 16:00 04/30/24 20:27 1 STRIP Insulin Human Regular IQ4HR SC 04/27/24 16:00 04/30/24 20:00 9 UNITS Dextrose 50 ml UD PRN IV 04/27/24 15:30 Sildenafil Citrate 20 mg TID@08,14,20 PO 04/28/24 14:00 04/30/24 20:16 20 MG Ondansetron HCl 4 mg Q6HPRN PRN IV 04/28/24 14:45 Fluconazole 200 mg DAILY PO 04/29/24 10:00 04/30/24 11:04 200 MG Atorvastatin Calcium 40 mg HS PO 04/29/24 22:00 04/29/24 21:55 40 MG Diphenhydramine HCl 50 mg Q6HR PRN IV 04/29/24 11:30 04/30/24 08:31 50 MG Insulin Glargine 25 units HS SC 04/29/24 12:15 04/29/24 23:53 25 UNITS Vancomycin HCl 250 ml @ 250 mls/hr Q16H IV 04/30/24 03:00 04/30/24 18:57 250 MLS/HR objective Gen.: Patient lying in bed in no apparent distress. On supplemental oxygen. Head: Normocephalic, atraumatic. Eyes: EOMI/PERRLA. Ears: Normal hearing. Normal anatomy. Neck/trachea: Trachea midline, supple. Nose: Normal external anatomy. Mouth: Moist mucous membranes. Chest: Decreased air entry bilaterally. No wheezing or rhonchi. Cardiovascular: Positive S1, positive S2. Regular rate and rhythm. Abdomen: Positive bowel sounds in all 4 quadrants. Soft, non-tender, non- distended. : Deferred. Rectal: Deferred. Skin: Warm, dry. Intact. Extremities: 2+ radial pulses bilaterally. No lower extremity edema. Neuro: Awake, alert, oriented x3. No gross motor or sensory deficits. Cranial nerves II through XII intact. Gait not assessed. laboratory and microbiology Laboratory Tests 04/30/24 05:07 Test 04/30/24 05:07 Range/Units Serum Glucose 110 H 74-106 mg/dL Assessment/Plan Impression: Acute on chronic hypoxic respiratory failure Dependence on supplemental oxygen Pulmonary nodules Pulmonary hypertension COPD exacerbation Obesity BMI 30 Anxiety Events: Remains on supplemental oxygen, 3 LPM NC Taper O2 as tolerated Continue bronchodilators Continue IV steroids Continue antibiotics Revatio for pulmonary hypertension Incentive spirometry Diflucan 200 mg po daily due to tree-in-bud opacities on CT chest Diurese to euvolemia Monitor renal function. Monitor electrolytes. Supplement as necessary. Labs and imaging reviewed. Rest of plan as noted below. Plan: Supplemental oxygen Titrate to keep O2 sats above 92%. Continue bronchodilators. Continue antibiotics IV steroids Revatio TID for pulmonary hypertension Accu-Cheks, ISS Monitor renal function. Monitor electrolytes. Supplement as necessary. Monitor ins and outs. Diet and lifestyle modifications for weight reduction Obesity - complicates all care DVT prophylaxis. Prognosis: Poor given patient's multiple co-morbidities. Rest of plan per hospitalist and other consultants. Thank you Dr. Barajas, for allowing me to participate in this patient's care. Further recommendations will depend on the patient's clinical course. Please do not hesitate to contact me if you have any questions or concerns. This medical document was created using an electronic medical record system with [employer] system. Although these documentations are being carefully reviewed, there may still be some phonetic and typographical changes. The errors are purely typographical, due to imperfection on the software program, and do not reflect any compromise in the patient's medical care. Plan discussed with: Patient, Other (BOB Acosta) MYKEL SANDERS MD Apr 30, 2024 23:08
[2024-05-01] VITALS (21 sets, daily range): BP systolic 110–131; BP diastolic 65–87; PULSE 79–113; RESP 13–22; TEMP 98–98.6; O2SAT 94–100
[2024-05-01 06:16] LABS: Basophils # (auto) 0 10 ^3/uL (0-0.2); Basophils % (auto) 0.1 % (0.0-2.0); Eosinophils # (auto) 0 10 ^3/uL (0-0.8); Hematocrit 33.2 % (36.0-46.0); Lymphocytes # (auto) 0.5 10 ^3/uL (0.4-5.4); Lymphocytes % (auto) 3.5 % (10.0-50.0); Mean Corpuscular Hemoglobin 29.9 pg (28.0-32.0); Mean Corpuscular Hgb Conc. 33.2 g/dL (32.0-36.0); Monocytes # (auto) 0.5 10 ^3/uL (0-1.3); Monocytes % (auto) 3.8 % (0.0-12.0); Neutrophils # (auto) 12.3 10 ^3/uL (1.6-8.6); Neutrophils % (auto) 92.6 % (37.0-80.0); Nucleated Red Blood Cells % 0.1 %; Platelet Count (auto) 191 10^3/uL (140-450); Red Blood Cells 3.68 10^6/uL (4.0-5.20); Red Cell Distribution Width 17.7 % (11.8-14.3); White Blood Cell 13.3 10^3/uL (4.4-10.8)
[2024-05-01 06:45] LABS: Anion Gap 6 (5-15); Chloride 102 mmol/L (98-107); Potassium 4.5 mmol/L (3.5-5.1); Sodium 142 mmol/L (136-145)
[2024-05-01 06:51] LABS: BUN/Creatinine Ratio 52.7 (10.0-20.0)
[2024-05-01 06:52] LABS: Blood Urea Nitrogen 39 mg/dL (9-23); Calcium 11.2 mg/dL (8.7-10.4); Carbon Dioxide 34 mmol/L (20-31); Glucose 205 mg/dL (74-106)
[2024-05-01] MEDS: ONDANSETRON HCL 4 MG/2 ML VIAL IV PRN (07:56)
[2024-05-01] MEDS: InsuLIN REG 1unit/0.01ml Soln (100units/ml) IV ONE (11:58)
--- NOTE | 2024-05-01 15:10 | DVHPN2 ---
Subjective The patient is seen and examined at bedside. Still have severe shortness of breath. Reviewed: Care Plan, H&P, Labs, Medications, Previous Orders, Radiology Changes from previous H/P or p: No Changes Eyes: No Pain, No Vision change, No Conjunctivae inflammation, No Eyelid inflammation, No Other, No Redness ENT: No Ear pain, No Ear discharge, No Nose pain, No Nose discharge, No Nose congestion, No Mouth pain, No Mouth swelling, No Throat pain, No Throat swelling, No Other Cardiovascular: No Chest Pain, No Palpitations, No Orthopnea, No Paroxysmal Noc. Dyspnea, No Edema, No Lt Headedness, No Other Respiratory: Cough; No Dry; Shortness of breath, SOB with excertion; No Wheezing, No Hemoptysis, No Pleuritic Pain, No Sputum, No Other Gastrointestinal: No Nausea, No Vomiting, No Abdominal Pain, No Diarrhea, No Constipation, No Melena, No Hematochezia, No Other Genitourinary: No Dysuria, No Frequency, No Incontinence, No Hematuria, No Retention, No Other Musculoskeletal: No other, No neck pain, No shoulder pain, No arm pain, No back pain, No hand pain, No leg pain, No foot pain Skin: No Rash, No Lesions, No Jaundice, No Bruising, No Other Objective Vitals Vital Signs Date Time Temp Pulse Resp B/P (MAP) Pulse Ox O2 Delivery O2 Flow Rate FiO2 05/01/24 13:50 99 16 100 05/01/24 13:49 Nasal Cannula* 2 28 05/01/24 13:33 135/71 05/01/24 13:00 98.3 98.3 Intake/Output Intake and Output 05/01/24 07:00 Intake Total 950 ml Output Total 1 ml Balance 949 ml Intake Oral 850 ml IV Total 100 ml Stool Total 1 ml # Voids 7 # Bowel Movements 1 General Appearance: Alert, Cooperative, No acute distress HEENT: Atraumatic, PERRLA, EOMI, Mucous membr. moist/pink Neck: Supple Lungs: Clear to auscultation, Normal air movement Cardiovascular: Regular rate, Normal S1, Normal S2, No murmurs, Gallops, Rubs Abdomen: Normal bowel sounds, Soft, No tenderness Neuro: Cranial nerves 3-12 NL Psych/Mental Status: Mental status NL Medications Current Medications Medications Dose Ordered Sig/Aquiles Route Start Time Stop Time Status Last Admin Dose Admin Ipratropium [place] 0.5 mg Q4HR NEB 04/25/24 02:00 05/01/24 13:49 0.5 MG Acetaminophen/ Hydrocodone Bitart 1 tab Q4HP PRN PO 04/25/24 08:15 04/30/24 21:51 1 TAB Acetaminophen 650 mg Q6HP PRN PO 04/25/24 08:15 Morphine Sulfate 2 mg Q4HPRN PRN IV 04/25/24 08:15 05/01/24 13:33 2 MG Morphine Sulfate 2 mg Q30M PRN IV 04/25/24 08:15 Vancomycin HCl 0 ml @ 0 mls/hr UD IV 04/25/24 09:00 Cefepime HCl 50 ml @ 12.5 mls/hr Q8HR IV 04/25/24 14:00 05/01/24 13:36 12.5 MLS/HR Methylprednisolone Sodium Succinate 60 mg BID IV 04/25/24 10:00 05/01/24 10:13 60 MG Amlodipine Besylate 5 mg DAILY PO 04/25/24 10:00 05/01/24 10:17 5 MG Apixaban 5 mg BID PO 04/25/24 10:00 05/01/24 10:15 5 MG Carvedilol 3.125 mg BID PO 04/25/24 10:00 05/01/24 10:14 3.125 MG Glipizide 5 mg DAILY PO 04/25/24 10:00 05/01/24 10:16 5 MG Losartan Potassium 25 mg DAILY PO 04/25/24 10:00 05/01/24 10:15 25 MG Montelukast Sodium 10 mg DAILY PO 04/25/24 10:00 05/01/24 10:15 10 MG Potassium Chloride 10 meq DAILY PO 04/26/24 12:15 Hold 04/28/24 10:27 10 MEQ Lidocaine 1 patch DAILY@1800 TOP 04/27/24 18:00 04/30/24 08:21 1 PATCH Docusate Sodium 100 mg BID PO 04/26/24 22:00 05/01/24 10:13 100 MG Polyethylene Glycol 17 gm DAILYPRN PRN PO 04/26/24 17:00 05/01/24 07:55 17 GM Melatonin 10 mg HS PO 04/26/24 22:00 04/30/24 21:52 10 MG Throat Lozenges 1 simran Q2HP PRN MT 04/27/24 00:15 05/01/24 11:57 1 SIMRAN Diagnostic Test (Pha) 1 strip IQ4HR 04/27/24 16:00 05/01/24 10:58 1 STRIP Insulin Human Regular IQ4HR SC 04/27/24 16:00 05/01/24 11:48 10 UNITS Dextrose 50 ml UD PRN IV 04/27/24 15:30 Sildenafil Citrate 20 mg TID@08,14,20 PO 04/28/24 14:00 05/01/24 13:36 20 MG Ondansetron HCl 4 mg Q6HPRN PRN IV 04/28/24 14:45 05/01/24 13:34 4 MG Fluconazole 200 mg DAILY PO 04/29/24 10:00 05/01/24 10:15 200 MG Atorvastatin Calcium 40 mg HS PO 04/29/24 22:00 04/30/24 23:32 40 MG Diphenhydramine HCl 50 mg Q6HR PRN IV 04/29/24 11:30 05/01/24 13:32 50 MG Insulin Glargine 25 units HS SC 04/29/24 12:15 04/30/24 22:00 25 UNITS Vancomycin HCl 250 ml @ 250 mls/hr Q16H IV 04/30/24 03:00 05/01/24 10:54 250 MLS/HR Laboratory Results Laboratory Tests 05/01/24 05:23 Chemistry Test 05/01/24 05:23 Calcium Level 11.2 mg/dL (8.7-10.4) H Urinalysis Test 04/25/24 01:05 Urine Color Light-yellow (Yellow) Urine Clarity Clear (Clear) Urine pH 6.0 (5.0-9.0) Urine Specific [place] 1.016 (1.001-1.035) Urine Protein Negative (Negative) Urine Ketones Negative (Negative) Urine Blood Negative /uL (Negative) Urine Nitrite Negative (Negative) Urine Bilirubin Negative (Negative) Urine Urobilinogen Normal mg/dL (Negative) Urine Leukocyte Esterase Negative /uL (Negative) Urine RBC 1 /hpf (0 - 4) Urine Microscopic WBC 4 /HPF (0-5) Urine Squamous Epithelial Cells Few /hpf (<5) Urine Bacteria None seen /hpf (None Seen) Urine Glucose 4+ mg/dL (Normal) H Microbiology Microbiology Date/Time Source Procedure Growth Status 04/26/24 12:10 Sputum Gram Stain - Final Resulted 04/26/24 12:10 Sputum Respiratory Culture - Preliminary Resulted 04/25/24 23:43 Nose MRSA Screen - Final Complete 04/25/24 10:24 Blood Blood Culture - Final NO GROWTH AFTER 5 DAYS OF INCUBATION. Complete Labs and/or images reviewed: Labs reviewed by me Assessment/Plan Assessment/Plan Sepsis due to pneumonia Right lower lobe pneumonia atypical pneumonia COPD exacerbation Acute on chronic respiratory failure, now on 2L OXYGEN obesity bmi: 29.5 Diabeties type II, A1c 7.4 Acute on chronic HFpEF AFib history of DVT and PE with COVID infection hypertension, severe pulmonary hypertension Metabolic alkalosis likely secondary to lasix Plan: Continuing IV Antibiotics: Vanco and cefepime Continuing O2 to keep saturation >90% Continuing IV steroids We will follow up with Blood and sputum culture Pulmonary consult appreciated Continuing with nebulizer treatment q4h Continue Eliquis Continuing Sildenafil 30mg tid Continuing Fluconazole 200 mg daily Continuing Atorvastatin Code status: full This medical document was created using an electronic medical record system with [employer] computerized dictation system. Although this document has been carefully reviewed, there may still be some phonetic and typographical errors. These areas are purely typographical due to imperfections of the software programs, and do not reflect any compromise in the patient's medical care. Plan discussed with: Patient My Orders Orders - MY PINA MD Procedure Category Date Status Time Check Blood Glucose ROSE 05/01/24 In Process 11:07 Date of Service: May 01, 2024 Billing Provider: MY PINA MD Common Visit Codes: [id number] INP/OBS CARE(HIGH) MY PINA MD May 01, 2024 15:10
[2024-05-01] MEDS: BISACODYL 10 MG RECT SUPP PR ONE (16:41)
[2024-05-01] MEDS: DEXTROSE (50%) 50ML SYRG IV PRN (16:47)
[2024-05-01] MEDS: ONDANSETRON HCL 4 MG/2 ML VIAL IV ONE (17:43)
--- NOTE | 2024-05-01 18:54 | DVH ---
Procedure: XY CHEST PORTABLE 05/01/2024 05:07 PM Indication: chest pain Comparison: CT scan dated 04/27/2024, XY CHEST PORTABLE on DOS: 04/26/24, XY CHEST PORTABLE on DOS: , XY CHEST PORTABLE on DOS: 04/11/24 TECHNIQUE: XY CHEST PORTABLE FINDINGS: Medical devices: None. Cardiomediastinal: The heart is normal in size. Pulmonary vasculature is within normal limits. Athero sclerotic calcification of the aortic arch noted. Prominent bilateral jessy especially on the right si de corresponding to enlarged bilateral pulmonary arteries related to pulmonary arterial hypertension. Lungs: No lobar consolidation. Mild right basilar reticular opacities. The costophrenic angles are c lear. No pneumothorax. Bones/soft tissues: No acute abnormality is noted. IMPRESSION: 1. Mild right basilar reticular opacities that may represent subsegmental atelectasis or residual inf iltrates. Recommend clinical and biochemical correlation.
--- NOTE | 2024-05-01 19:25 | RESUS ---
CODE ASSIST ASSESSSMENT Initial Information Code Assist Date: May 01, 2024 Code Assist Time: 16:47 Room # 290B Provider Name DR SANDERS ON UNIT PROVIDED ORDERS, DR PINA AWARE VIA TELEPHONE Time Notified: 16:47 Situation Staff concerned/worried, speci: Other Situation comment: BLOOD GLUCOSE 13 Background Background: SEE EMR Assessment Blood Pressure Systolic: 113 Blood Pressure Diastolic: 68 Respiratory Rate: 22 O2 Sat by Pulse Oximetry: 98 Bedside Blood Glucose: 13 Assessment comment: D50 GIVEN PER HYPOGLYCEMIA PROTOCOL RECHECKED BLOOD GLUCOSE 308, PATIENT AWAKE/ALERT C/O CHEST PAIN AND ABDOMINAL PAIN. Recommendations/Interventions Procedures: Accu check, CXR Portable, Troponin, EKG, O2 Mask/NC (2 LITERS VIA NC) Other Interventions KUB ORDERED FOR NO BM X 5 DAYS, SUPPOSITORY ORDERED Outcome Outcome: Problem Resolved Follow up Report Follow up Report SUPPOSITORY ORDERED PER DR IPNA FOR CONSTIPATION Team Members Team Members UBALDO MONTALVO RN, JAVED RN, LYLY RN, LUIS RN, Ubaldo Clemons RN May 01, 2024 19:25
--- NOTE | 2024-05-01 21:12 | DVH ---
Procedure: XY KUB ABDOMEN SINGLE VIEW Exam Date: 05/01/2024 05:07 PM History: abdominal pain N/V Comparison Study: None Technique: AP of the chest AP upright of the abdomen AP supine of the abdomen Findings/ impression: Minimal bibasilar subsegmental atelectasis. Severe calcification and tortuosity of the thoracic aorta which is not well characterized on this study. The abdomen demonstrates mode rate to severe fecal retention throughout the colon. IVC filter projected over the IVC. No radiopaque foreign objects. No acute osseous abnormalities.
--- NOTE | 2024-05-01 23:13 | DVHPN2 ---
Progress Note - Dictate Date Seen: May 01, 2024 Medical Necessity Reason Pt with a Central, PICC or Fol: No Subjective Patient seen and examined at bedside. Remains on supplemental oxygen Overnight events reviewed. vital signs Vital Sign Date Time Temp Pulse Resp B/P (MAP) Pulse Ox O2 Delivery O2 Flow Rate FiO2 05/01/24 22:52 86 18 120/76 05/01/24 21:00 98.3 96 98.3 05/01/24 18:35 Nasal Cannula 2.0 05/01/24 18:35 28 Total Intake and Output 04/30/24 04/30/24 05/01/24 15:00 23:00 07:00 Intake Total 50 ml 450 ml 450 ml Output Total 1 ml Balance 50 ml 449 ml 450 ml medications Current Medications Medications Dose Ordered Sig/Aquiles Route Start Time Stop Time Status Last Admin Dose Admin Ipratropium [place] 0.5 mg Q4HR NEB 04/25/24 02:00 05/01/24 22:36 0.5 MG Acetaminophen/ Hydrocodone Bitart 1 tab Q4HP PRN PO 04/25/24 08:15 04/30/24 21:51 1 TAB Acetaminophen 650 mg Q6HP PRN PO 04/25/24 08:15 Morphine Sulfate 2 mg Q4HPRN PRN IV 04/25/24 08:15 05/01/24 22:52 2 MG Morphine Sulfate 2 mg Q30M PRN IV 04/25/24 08:15 Vancomycin HCl 0 ml @ 0 mls/hr UD IV 04/25/24 09:00 Cefepime HCl 50 ml @ 12.5 mls/hr Q8HR IV 04/25/24 14:00 05/01/24 21:45 12.5 MLS/HR Methylprednisolone Sodium Succinate 60 mg BID IV 04/25/24 10:00 05/01/24 21:37 60 MG Amlodipine Besylate 5 mg DAILY PO 04/25/24 10:00 05/01/24 10:17 5 MG Apixaban 5 mg BID PO 04/25/24 10:00 05/01/24 21:36 5 MG Carvedilol 3.125 mg BID PO 04/25/24 10:00 05/01/24 21:36 3.125 MG Glipizide 5 mg DAILY PO 04/25/24 10:00 05/01/24 10:16 5 MG Losartan Potassium 25 mg DAILY PO 04/25/24 10:00 05/01/24 10:15 25 MG Montelukast Sodium 10 mg DAILY PO 04/25/24 10:00 05/01/24 10:15 10 MG Potassium Chloride 10 meq DAILY PO 04/26/24 12:15 Hold 04/28/24 10:27 10 MEQ Lidocaine 1 patch DAILY@1800 TOP 04/27/24 18:00 05/01/24 16:41 1 PATCH Docusate Sodium 100 mg BID PO 04/26/24 22:00 05/01/24 22:54 100 MG Polyethylene Glycol 17 gm DAILYPRN PRN PO 04/26/24 17:00 05/01/24 07:55 17 GM Melatonin 10 mg HS PO 04/26/24 22:00 05/01/24 21:35 10 MG Throat Lozenges 1 simran Q2HP PRN MT 04/27/24 00:15 05/01/24 11:57 1 SIMRAN Diagnostic Test (Pha) 1 strip IQ4HR 04/27/24 16:00 05/01/24 23:08 1 STRIP Insulin Human Regular IQ4HR SC 04/27/24 16:00 05/01/24 23:06 6 UNITS Dextrose 50 ml UD PRN IV 04/27/24 15:30 05/01/24 16:47 50 ML Sildenafil Citrate 20 mg TID@08,14,20 PO 04/28/24 14:00 05/01/24 20:22 20 MG Ondansetron HCl 4 mg Q6HPRN PRN IV 04/28/24 14:45 05/01/24 13:34 4 MG Fluconazole 200 mg DAILY PO 04/29/24 10:00 05/01/24 10:15 200 MG Atorvastatin Calcium 40 mg HS PO 04/29/24 22:00 05/01/24 21:35 40 MG Diphenhydramine HCl 50 mg Q6HR PRN IV 04/29/24 11:30 05/01/24 13:32 50 MG Insulin Glargine 25 units HS SC 04/29/24 12:15 04/30/24 22:00 25 UNITS Vancomycin HCl 250 ml @ 250 mls/hr Q16H IV 04/30/24 03:00 05/01/24 10:54 250 MLS/HR objective Gen.: Patient lying in bed in no apparent distress. On supplemental oxygen. Head: Normocephalic, atraumatic. Eyes: EOMI/PERRLA. Ears: Normal hearing. Normal anatomy. Neck/trachea: Trachea midline, supple. Nose: Normal external anatomy. Mouth: Moist mucous membranes. Chest: Decreased air entry bilaterally. No wheezing or rhonchi. Cardiovascular: Positive S1, positive S2. Regular rate and rhythm. Abdomen: Positive bowel sounds in all 4 quadrants. Soft, non-tender, non- distended. : Deferred. Rectal: Deferred. Skin: Warm, dry. Intact. Extremities: 2+ radial pulses bilaterally. No lower extremity edema. Neuro: Awake, alert, oriented x3. No gross motor or sensory deficits. Cranial nerves II through XII intact. Gait not assessed. laboratory and microbiology Laboratory Tests 05/01/24 05:23 Test 05/01/24 05:23 Range/Units Serum Glucose 205 H 74-106 mg/dL Assessment/Plan Impression: Acute on chronic hypoxic respiratory failure Dependence on supplemental oxygen Pulmonary nodules Pulmonary hypertension COPD exacerbation Obesity BMI 30 Anxiety Events: Remains on supplemental oxygen, 2 LPM NC Taper O2 as tolerated Rapid response was called Hypoglycemia - D50 given. STAT CXR and KUB ordered. KUB showed findings c/w constipation. Recommend bowel regimen Refer to hospitalist. Continue bronchodilators Continue steroids Continue antibiotics Revatio for pulmonary hypertension Incentive spirometry Diflucan 200 mg po daily due to tree-in-bud opacities on CT chest Diurese to euvolemia Monitor renal function. Monitor electrolytes. Supplement as necessary. Labs and imaging reviewed. Rest of plan as noted below. Plan: Supplemental oxygen Titrate to keep O2 sats above 92%. Continue bronchodilators. Continue antibiotics IV steroids Revatio TID for pulmonary hypertension Accu-Cheks, ISS Monitor renal function. Monitor electrolytes. Supplement as necessary. Monitor ins and outs. Diet and lifestyle modifications for weight reduction Obesity - complicates all care DVT prophylaxis. Prognosis: Poor given patient's multiple co-morbidities. Condition: Critical Rest of plan per hospitalist and other consultants. A total of 35 minutes of critical care time was spent reviewing the patient record, examining the patient, making a diagnostic and therapeutic plan, discussing this plan with the medical personnel, following up on diagnostic studies and following the patient for clinical stability excluding any and all procedures. At least 50% of this time was spent in direct, [id number] contact. Thank you Dr. Barajas, for allowing me to participate in this patient's care. Further recommendations will depend on the patient's clinical course. Please do not hesitate to contact me if you have any questions or concerns. This medical document was created using an electronic medical record system with [employer] dictation system. Although these documentations are being carefully reviewed, there may still be some phonetic and typographical changes. The errors are purely typographical, due to imperfection on the software program, and do not reflect any compromise in the patient's medical care. Plan discussed with: Other (BOB Acosta) Critical Care Time(min): 35 MYKEL SANDERS MD May 01, 2024 23:13
[2024-05-02] VITALS (21 sets, daily range): BP systolic 117–146; BP diastolic 71–89; PULSE 74–111; RESP 18–20; TEMP 97.9–98.2; O2SAT 92–100
[2024-05-02 10:45] LABS: Basophils # (auto) 0.1 10 ^3/uL (0-0.2); Basophils % (auto) 0.2 % (0.0-2.0); Eosinophils # (auto) 0 10 ^3/uL (0-0.8); Hematocrit 37.1 % (36.0-46.0); Hemoglobin 11.9 g/dL (12.2-16.2); Lymphocytes # (auto) 0.8 10 ^3/uL (0.4-5.4); Lymphocytes % (auto) 3.1 % (10.0-50.0); Mean Corpuscular Hemoglobin 29.6 pg (28.0-32.0); Mean Corpuscular Hgb Conc. 32.1 g/dL (32.0-36.0); Mean Corpuscular Volume 92.2 fL (80.0-100.0); Monocytes # (auto) 1.1 10 ^3/uL (0-1.3); Monocytes % (auto) 4.5 % (0.0-12.0); Neutrophils # (auto) 22.4 10 ^3/uL (1.6-8.6); Neutrophils % (auto) 92.2 % (37.0-80.0); Platelet Count (auto) 195 10^3/uL (140-450); Red Blood Cells 4.03 10^6/uL (4.0-5.20); Red Cell Distribution Width 18.5 % (11.8-14.3); White Blood Cell 24.3 10^3/uL (4.4-10.8)
[2024-05-02 10:49] LABS: Chloride 105 mmol/L (98-107); Potassium 4.5 mmol/L (3.5-5.1); Sodium 143 mmol/L (136-145)
[2024-05-02 10:50] LABS: Anion Gap 3 (5-15)
[2024-05-02 10:55] LABS: BUN/Creatinine Ratio 36.3 (10.0-20.0); Blood Urea Nitrogen 29 mg/dL (9-23); Calcium 11.1 mg/dL (8.7-10.4); Carbon Dioxide 35 mmol/L (20-31); Glucose 86 mg/dL (74-106)
--- NOTE | 2024-05-02 14:54 | DVHPNRES ---
Progress Note Date Seen: May 02, 2024 Resident Creating Document: EV[facility] POMPA RESIDENT Medical Necessity Reason Pt with a Central, PICC or Fol: No Medical Necessity Reason respiratory failure hypoglycemia 05/01/2024 Subjective Review of Systems This is 58-year-old female with a past medical history of COPD, CHF, AFib on Eliquis, hypertension, diabetes, and severe pulmonary hypertension presented to the ED via EMS with a chief complaint of shortness of breath. Patient was recently discharge from here on 04/23/2024. The patient with multiple hospital admission for the past few months with respiratory concerns reports was just discharged from here yesterday with diagnosis of acute on chronic respiratory failure and COPD. The patient states that she was discharged to post acute rehabilitation, was not able to get proper care for which shortness of breath worsened prompted her to call 911. The patient denies chest pain, palpitation, abdominal pain, or other acute symptoms. vitals: HR:112, RR: 24, bp, 93/48. Wbc on admssion: 23.2. ECHO in 12/2023: Normal left ventricular size and dimension. Normal left ventricular systolic function estimated ejection fraction 55% PN: 04/27/2024: Patient is examined today. She is sitting in bed and leaning forward. She continues to have this hacking chronic cough. She denied any fever or chills. Just persistent coughing this has been going on for a long time. Lab work today revealed an increasing WBC 17.5, chemistry revealed glucose of 499, bicarbonate level otherwise unremarkable. Patient is currently on vancomycin and cefepime and furosemide among others. Looks like furosemide is leading to the metabolic alkalosis. On previous admission, patient was placed on sildenafil feel for her pulmonary hypertension we will add that to her medication list today. PN 04/28/2024: Patient was seen in her room today patient was sleeping. For a long time patient has been complaining about being unable to sleep so we let patient's left. Yesterday we had because color snow removing supervisor to given input on this patient management per pulmonology CT of the chest revealed Diffusely enlarged pulmonary arterial tree may represent underlying peripheral arterial hypertension and likely corresponds to question of mass on chest radiograph.Patchy bilateral peribronchial thickening and tree-in-bud nodularity is likely infectious or inflammatory. Pulmonology recommended adding fluconazole 200 mg daily to the patient's regimen. Patient also has pulmonary hypertension for which we added sildenafil 20mg t.i.d. PN 04/29/2024: Patient is seen and examined today. At the time of visit patient was receiving breathing treatment by RT. Vitals were grossly unremarkable patient is currently on 2 L of oxygen. Lab work today is normal except for potassium that was 5.5 patient is currently on potassium 1 mg daily that is currently on hold and also put in the hyperkalemia treatment. Complained today of generalized pruritus. We recommended Benadryl for the patient. If patient continues to have pruritus likely to discontinue the fluconazole. Because the last medication that was added and patient started itching today. Currently snow removing supervisor is on the case and patient is started on fluconazole for the atypical pneumonia. And we are monitoring closely. Seems that patient is doing good is likely that we may discharge the patient home tomorrow. PN 05/01/2024: Patient is seen and examined today at the bedside. She is doing well and seems more color full a lot more colorful. Patient, however, continues to have this chronic cough rough gargling cough on her chest. Her oxygen demand however is reduced currently on 2L. Her home oxygen needs is 3L. She is currently on vanco and cefepime for 7 days and fluconazole for 4 days. She has been on antibiotics for 7days cha stop vanco + Cefepime now. Patient was in hypoglycemia yesterday 05/01/2024. Her blood sugar reads 13. Objective vital signs Vital Sign Date Time Temp Pulse Resp B/P (MAP) Pulse Ox O2 Delivery O2 Flow Rate FiO2 05/02/24 13:54 94 18 98 05/02/24 13:48 Nasal Cannula 2.0 05/02/24 13:48 28 05/02/24 12:37 112/76 05/02/24 09:00 98.0 98.0 Total Intake and Output 05/01/24 05/01/24 05/02/24 15:00 23:00 07:00 Intake Total 50 ml 1350 ml 700 ml Balance 50 ml 1350 ml 700 ml medications Current Medications Medications Dose Ordered Sig/Aquiles Route Start Time Stop Time Status Last Admin Dose Admin Ipratropium [place] 0.5 mg Q4HR NEB 04/25/24 02:00 05/02/24 13:48 0.5 MG Acetaminophen/ Hydrocodone Bitart 1 tab Q4HP PRN PO 04/25/24 08:15 04/30/24 21:51 1 TAB Acetaminophen 650 mg Q6HP PRN PO 04/25/24 08:15 Morphine Sulfate 2 mg Q4HPRN PRN IV 04/25/24 08:15 05/02/24 12:07 2 MG Morphine Sulfate 2 mg Q30M PRN IV 04/25/24 08:15 Vancomycin HCl 0 ml @ 0 mls/hr UD IV 04/25/24 09:00 Cefepime HCl 50 ml @ 12.5 mls/hr Q8HR IV 04/25/24 14:00 05/02/24 14:21 12.5 MLS/HR Methylprednisolone Sodium Succinate 60 mg BID IV 04/25/24 10:00 05/02/24 09:32 60 MG Amlodipine Besylate 5 mg DAILY PO 04/25/24 10:00 05/01/24 10:17 5 MG Apixaban 5 mg BID PO 04/25/24 10:00 05/02/24 09:33 5 MG Carvedilol 3.125 mg BID PO 04/25/24 10:00 05/02/24 09:27 3.125 MG Glipizide 5 mg DAILY PO 04/25/24 10:00 05/01/24 10:16 5 MG Losartan Potassium 25 mg DAILY PO 04/25/24 10:00 05/01/24 10:15 25 MG Montelukast Sodium 10 mg DAILY PO 04/25/24 10:00 05/02/24 09:28 10 MG Potassium Chloride 10 meq DAILY PO 04/26/24 12:15 Hold 04/28/24 10:27 10 MEQ Lidocaine 1 patch DAILY@1800 TOP 04/27/24 18:00 05/01/24 16:41 1 PATCH Docusate Sodium 100 mg BID PO 04/26/24 22:00 05/02/24 09:28 100 MG Polyethylene Glycol 17 gm DAILYPRN PRN PO 04/26/24 17:00 05/01/24 07:55 17 GM Melatonin 10 mg HS PO 04/26/24 22:00 05/01/24 21:35 10 MG Throat Lozenges 1 simran Q2HP PRN MT 04/27/24 00:15 05/01/24 11:57 1 SIMRAN Diagnostic Test (Pha) 1 strip IQ4HR 04/27/24 16:00 05/02/24 11:58 1 STRIP Insulin Human Regular IQ4HR SC 04/27/24 16:00 05/02/24 09:35 2 UNITS Dextrose 50 ml UD PRN IV 04/27/24 15:30 05/01/24 16:47 50 ML Sildenafil Citrate 20 mg TID@08,14,20 PO 04/28/24 14:00 05/02/24 14:20 20 MG Ondansetron HCl 4 mg Q6HPRN PRN IV 04/28/24 14:45 05/01/24 13:34 4 MG Fluconazole 200 mg DAILY PO 04/29/24 10:00 05/02/24 09:33 200 MG Atorvastatin Calcium 40 mg HS PO 04/29/24 22:00 05/01/24 21:35 40 MG Diphenhydramine HCl 50 mg Q6HR PRN IV 04/29/24 11:30 05/01/24 13:32 50 MG Insulin Glargine 25 units HS SC 04/29/24 12:15 04/30/24 22:00 25 UNITS Vancomycin HCl 250 ml @ 250 mls/hr Q16H IV 04/30/24 03:00 05/02/24 03:39 250 MLS/HR Examination General Appearance: Alert, Oriented X3, Cooperative, Mild acute distress HEENT: Atraumatic, PERRLA, EOMI, Mucous membrane moist/pink Respiratory: Decreased air entry on the R> L; crackles, rales improving, less Oxygen demand on 2L of Oxygen Cardiovascular: Regular rate, Normal S1, Normal S2, No murmurs, no chest wall tenderness Abdominal: NO distention, no tenderness, bowel sounds present, no scars noted Extremities: bruises, petechiae, mild edema, Skin: No rashes, No breakdown, No significant lesion Neuro: Normal gait, Normal speech, Strength at 5/5 X4 ext, Normal tone, Sensation intact, Cranial nerves 3-12 NL, Reflexes 2+ Psych/Mental Status: Mental status NL, Mood NL laboratory and microbiology laboratory and microbiology Laboratory Tests 05/02/24 10:14 Test 05/02/24 10:14 Range/Units Serum Glucose 86 74-106 mg/dL Microbiology Date/Time Source Procedure Growth Status 04/26/24 12:10 Sputum Gram Stain - Final Resulted 04/26/24 12:10 Sputum Respiratory Culture - Preliminary Resulted 04/25/24 23:43 Nose MRSA Screen - Final Complete 04/25/24 10:24 Blood Blood Culture - Final NO GROWTH AFTER 5 DAYS OF INCUBATION. Complete Problem List/Assessment/Plan Problem List/Assessment/Plan Assessment Sepsis due to pneumonia Right lower lobe pneumonia atypical pneumonia COPD exacerbation Acute on chronic respiratory failure, now on 2L OXYGEN obesity bmi: 29.5 Diabeties type II, A1c 7.4 Acute on chronic HFpEF AFib History of DVT and PE with COVID infection hypertension, Severe pulmonary hypertension Metabolic alkalosis likely secondary to lasix Blood and sputum culture: Few growth of Filamentous Fungi. Sent to referral lab for identification and susceptibility. Hypoglycemia: glucose 13 Plans: Continue Fluconazole 200 mg daily Sildenafil 30mg tid Atorvastatin Continue Eliquis IV steroids Med neb treatment q4h D/C Moderate sliding skill Monitor health status and glucose level Stop: Vanco and cefepime O2 to keep saturation >90% Stop IV Furosemide 20 mg Code status: full Goal of care discussed for more than 25 minutes case and plan discussed with Dr. Lepe Plan discussed with: Patient My Orders My Orders Orders - EV[facility] POMPA Procedure Category Date Status Time Consistent DIET 05/02/24 Transmitted Carb(Ccho)Diabetes Breakfast Date of Service: May 02, 2024 Billing Provider: MY LEPE MD Common Visit Codes: [id number] INP/OBS CARE(HIGH) [facility] POM[facility] RESIDENT May 02, 2024 14:54 MY LEPE MD May 03, 2024 11:03
[2024-05-02] MEDS: diphenhdrAMINE HCL 25 MG CAP PO PRN (15:00)
[2024-05-02] MEDS ORDERED: DEXTROSE (50%) 50ML SYRG IV PRN (17:45)
[2024-05-02] MEDS: ACCU-CHEK COMFORT CURVE STRIP VI SCH (21:37)
[2024-05-02] MEDS: InsuLIN REG 1unit/0.01ml Soln (100units/ml) SC SCH (21:39)
--- NOTE | 2024-05-02 22:50 | DVHPN2 ---
Progress Note - Dictate Date Seen: May 02, 2024 Medical Necessity Reason Pt with a Central, PICC or Fol: No Subjective Patient seen and examined at bedside. Remains on supplemental oxygen Overnight events reviewed. vital signs Vital Sign Date Time Temp Pulse Resp B/P (MAP) Pulse Ox O2 Delivery O2 Flow Rate FiO2 05/02/24 22:25 97 18 98 05/02/24 21:20 136/76 05/02/24 21:00 97.9 97.9 05/02/24 20:00 Nasal Cannula* 3 32 Total Intake and Output 05/01/24 05/01/24 05/02/24 14:59 22:59 06:59 Intake Total 50 ml 1350 ml 700 ml Balance 50 ml 1350 ml 700 ml medications Current Medications Medications Dose Ordered Sig/Aquiles Route Start Time Stop Time Status Last Admin Dose Admin Ipratropium [place] 0.5 mg Q4HR NEB 04/25/24 02:00 05/02/24 22:24 0.5 MG Acetaminophen/ Hydrocodone Bitart 1 tab Q4HP PRN PO 04/25/24 08:15 04/30/24 21:51 1 TAB Acetaminophen 650 mg Q6HP PRN PO 04/25/24 08:15 Morphine Sulfate 2 mg Q4HPRN PRN IV 04/25/24 08:15 05/02/24 19:18 2 MG Morphine Sulfate 2 mg Q30M PRN IV 04/25/24 08:15 Vancomycin HCl 0 ml @ 0 mls/hr UD IV 04/25/24 09:00 Cefepime HCl 50 ml @ 12.5 mls/hr Q8HR IV 04/25/24 14:00 05/02/24 21:18 12.5 MLS/HR Methylprednisolone Sodium Succinate 60 mg BID IV 04/25/24 10:00 05/02/24 21:18 60 MG Amlodipine Besylate 5 mg DAILY PO 04/25/24 10:00 05/01/24 10:17 5 MG Apixaban 5 mg BID PO 04/25/24 10:00 05/02/24 21:19 5 MG Carvedilol 3.125 mg BID PO 04/25/24 10:00 05/02/24 21:20 3.125 MG Glipizide 5 mg DAILY PO 04/25/24 10:00 05/01/24 10:16 5 MG Losartan Potassium 25 mg DAILY PO 04/25/24 10:00 05/01/24 10:15 25 MG Montelukast Sodium 10 mg DAILY PO 04/25/24 10:00 05/02/24 09:28 10 MG Potassium Chloride 10 meq DAILY PO 04/26/24 12:15 Hold 04/28/24 10:27 10 MEQ Lidocaine 1 patch DAILY@1800 TOP 04/27/24 18:00 05/02/24 18:33 1 PATCH Docusate Sodium 100 mg BID PO 04/26/24 22:00 05/02/24 21:19 100 MG Polyethylene Glycol 17 gm DAILYPRN PRN PO 04/26/24 17:00 05/01/24 07:55 17 GM Melatonin 10 mg HS PO 04/26/24 22:00 05/02/24 21:20 10 MG Throat Lozenges 1 simran Q2HP PRN MT 04/27/24 00:15 05/02/24 19:18 1 SIMRAN Sildenafil Citrate 20 mg TID@08,14,20 PO 04/28/24 14:00 05/02/24 21:20 20 MG Ondansetron HCl 4 mg Q6HPRN PRN IV 04/28/24 14:45 05/01/24 13:34 4 MG Fluconazole 200 mg DAILY PO 04/29/24 10:00 05/02/24 09:33 200 MG Atorvastatin Calcium 40 mg HS PO 04/29/24 22:00 05/02/24 21:19 40 MG Insulin Glargine 25 units HS SC 04/29/24 12:15 04/30/24 22:00 25 UNITS Vancomycin HCl 250 ml @ 250 mls/hr Q16H IV 04/30/24 03:00 05/02/24 18:34 250 MLS/HR Diphenhydramine HCl 50 mg Q6HP PRN PO 05/02/24 14:45 05/02/24 15:00 50 MG Diagnostic Test (Pha) 1 strip ACHS 05/02/24 22:00 05/02/24 21:37 1 STRIP Insulin Human Regular ACHS SC 05/02/24 22:00 05/02/24 21:39 6 UNITS Dextrose 50 ml UD PRN IV 05/02/24 17:45 objective Gen.: Patient lying in bed in no apparent distress. On supplemental oxygen. Head: Normocephalic, atraumatic. Eyes: EOMI/PERRLA. Ears: Normal hearing. Normal anatomy. Neck/trachea: Trachea midline, supple. Nose: Normal external anatomy. Mouth: Moist mucous membranes. Chest: Decreased air entry bilaterally. No wheezing or rhonchi. Cardiovascular: Positive S1, positive S2. Regular rate and rhythm. Abdomen: Positive bowel sounds in all 4 quadrants. Soft, non-tender, non- distended. : Deferred. Rectal: Deferred. Skin: Warm, dry. Intact. Extremities: 2+ radial pulses bilaterally. No lower extremity edema. Neuro: Awake, alert, oriented x3. No gross motor or sensory deficits. Cranial nerves II through XII intact. Gait not assessed. laboratory and microbiology Laboratory Tests 05/02/24 10:14 Test 05/02/24 10:14 Range/Units Serum Glucose 86 74-106 mg/dL Assessment/Plan Impression: Acute on chronic hypoxic respiratory failure Dependence on supplemental oxygen Pulmonary nodules Pulmonary hypertension COPD exacerbation Obesity BMI 30 Anxiety Events: Remains on supplemental oxygen, 3 LPM NC Taper O2 as tolerated Continue bowel regimen Continue bronchodilators Continue IV steroids Continue antibiotics Revatio TID for pulmonary hypertension Incentive spirometry Anxiolytic PRN Diflucan 200 mg po daily due to tree-in-bud opacities on CT chest Maintain euvolemia Monitor renal function. Monitor electrolytes. Supplement as necessary. Recommend PT eval. Labs and imaging reviewed. Rest of plan as noted below. Plan: Supplemental oxygen Titrate to keep O2 sats above 92%. Continue bronchodilators. Continue antibiotics IV steroids Revatio TID for pulmonary hypertension Accu-Cheks, ISS Monitor renal function. Monitor electrolytes. Supplement as necessary. Monitor ins and outs. Diet and lifestyle modifications for weight reduction Obesity - complicates all care DVT prophylaxis. Prognosis: Poor given patient's multiple co-morbidities. Condition: Critical Rest of plan per hospitalist and other consultants. A total of 35 minutes of critical care time was spent reviewing the patient record, examining the patient, making a diagnostic and therapeutic plan, discussing this plan with the medical personnel, following up on diagnostic studies and following the patient for clinical stability excluding any and all procedures. At least 50% of this time was spent in direct, [id number] contact. Thank you Dr. Barajas, for allowing me to participate in this patient's care. Further recommendations will depend on the patient's clinical course. Please do not hesitate to contact me if you have any questions or concerns. This medical document was created using an electronic medical record system with [employer] computerized dictation system. Although these documentations are being carefully reviewed, there may still be some phonetic and typographical changes. The errors are purely typographical, due to imperfection on the software program, and do not reflect any compromise in the patient's medical care. Plan discussed with: Patient, Other (BOB Kowalski) MYKEL SANDERS MD May 02, 2024 22:50
[2024-05-03] VITALS (19 sets, daily range): BP systolic 126–138; BP diastolic 80–99; PULSE 73–114; RESP 16–20; TEMP 97.4–98.4; O2SAT 91–100
[2024-05-03 06:49] LABS: Basophils # (auto) 0 10 ^3/uL (0-0.2); Basophils % (auto) 0.1 % (0.0-2.0); Eosinophils # (auto) 0 10 ^3/uL (0-0.8); Hematocrit 32.9 % (36.0-46.0); Hemoglobin 10.6 g/dL (12.2-16.2); Lymphocytes # (auto) 0.4 10 ^3/uL (0.4-5.4); Lymphocytes % (auto) 3.8 % (10.0-50.0); Mean Corpuscular Hemoglobin 30.1 pg (28.0-32.0); Mean Corpuscular Hgb Conc. 32.2 g/dL (32.0-36.0); Mean Corpuscular Volume 93.4 fL (80.0-100.0); Monocytes # (auto) 0.3 10 ^3/uL (0-1.3); Monocytes % (auto) 2.9 % (0.0-12.0); Neutrophils # (auto) 10.7 10 ^3/uL (1.6-8.6); Neutrophils % (auto) 93.2 % (37.0-80.0); Nucleated Red Blood Cells % 0.1 %; Platelet Count (auto) 141 10^3/uL (140-450); Red Blood Cells 3.52 10^6/uL (4.0-5.20); Red Cell Distribution Width 18.4 % (11.8-14.3); White Blood Cell 11.4 10^3/uL (4.4-10.8)
[2024-05-03] MEDS ORDERED: DEXTROSE (50%) 50ML SYRG IV PRN (07:45)
--- NOTE | 2024-05-03 10:50 | ECG ---
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
--- NOTE | 2024-05-03 10:50 | ECG ---
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
[2024-05-03] MEDS: ACCU-CHEK COMFORT CURVE STRIP VI SCH (11:33)
[2024-05-03] MEDS: InsuLIN REG 1unit/0.01ml Soln (100units/ml) SC SCH ×2 (11:53→21:47)
--- NOTE | 2024-05-03 15:53 | DVHPNRES ---
Progress Note Date Seen: May 03, 2024 Resident Creating Document: EVENS POMPA RESIDENT Medical Necessity Reason Pt with a Central, PICC or Fol: No Medical Necessity Reason at baseline respiratory status hypoglycemia Subjective Review of Systems This is 58-year-old female with a past medical history of COPD, CHF, AFib on Eliquis, hypertension, diabetes, and severe pulmonary hypertension presented to the ED via EMS with a chief complaint of shortness of breath. Patient was recently discharge from here on 04/23/2024. The patient with multiple hospital admission for the past few months with respiratory concerns reports was just discharged from here yesterday with diagnosis of acute on chronic respiratory failure and COPD. The patient states that she was discharged to post acute rehabilitation, was not able to get proper care for which shortness of breath worsened prompted her to call 911. The patient denies chest pain, palpitation, abdominal pain, or other acute symptoms. vitals: HR:112, RR: 24, bp, 93/48. Wbc on admssion: 23.2. ECHO in 12/2023: Normal left ventricular size and dimension. Normal left ventricular systolic function estimated ejection fraction 55% PN: 04/27/2024: Patient is examined today. She is sitting in bed and leaning forward. She continues to have this hacking chronic cough. She denied any fever or chills. Just persistent coughing this has been going on for a long time. Lab work today revealed an increasing WBC 17.5, chemistry revealed glucose of 499, bicarbonate level otherwise unremarkable. Patient is currently on vancomycin and cefepime and furosemide among others. Looks like furosemide is leading to the metabolic alkalosis. On previous admission, patient was placed on sildenafil feel for her pulmonary hypertension we will add that to her medication list today. PN 04/28/2024: Patient was seen in her room today patient was sleeping. For a long time patient has been complaining about being unable to sleep so we let patient's left. Yesterday we had because color cotton factor to given input on this patient management per pulmonology CT of the chest revealed Diffusely enlarged pulmonary arterial tree may represent underlying peripheral arterial hypertension and likely corresponds to question of mass on chest radiograph.Patchy bilateral peribronchial thickening and tree-in-bud nodularity is likely infectious or inflammatory. Pulmonology recommended adding fluconazole 200 mg daily to the patient's regimen. Patient also has pulmonary hypertension for which we added sildenafil 20mg t.i.d. PN 04/29/2024: Patient is seen and examined today. At the time of visit patient was receiving breathing treatment by RT. Vitals were grossly unremarkable patient is currently on 2 L of oxygen. Lab work today is normal except for potassium that was 5.5 patient is currently on potassium 1 mg daily that is currently on hold and also put in the hyperkalemia treatment. Complained today of generalized pruritus. We recommended Benadryl for the patient. If patient continues to have pruritus likely to discontinue the fluconazole. Because the last medication that was added and patient started itching today. Currently cotton factor is on the case and patient is started on fluconazole for the atypical pneumonia. And we are monitoring closely. Seems that patient is doing good is likely that we may discharge the patient home tomorrow. PN 05/02/2024: Patient is seen and examined today at the bedside. She is doing well and seems more color full a lot more colorful. Patient, however, continues to have this chronic cough rough gargling cough on her chest. Her oxygen demand however is reduced currently on 2L. Her home oxygen needs is 3L. She is currently on vanco and cefepime for 7 days and fluconazole for 4 days. She has been on antibiotics for 7days cha stop vanco + Cefepime now. Patient was in hypoglycemia yesterday 05/01/2024. Her blood sugar reads 13. PN 05/03/2024: Patient is seen and examined. Patient is getting better. Shortness of breath is improved.I will add doxycyline 100 mg BID to her medication regime. Patient want to go back to the SNF and 3L oxygensn. I have educated to abstain from smoking and smoking environment. She is willing to go back to the snf versus home. Objective vital signs Vital Sign Date Time Temp Pulse Resp B/P (MAP) Pulse Ox O2 Delivery O2 Flow Rate FiO2 05/03/24 14:42 82 16 97 05/03/24 14:42 Nasal Cannula* 3 32 05/03/24 14:13 130/95 05/03/24 13:00 97.4 97.4 Total Intake and Output 05/02/24 05/02/24 05/03/24 15:00 23:00 07:00 Intake Total 50 ml 408 ml 850 ml Output Total 300 ml Balance 50 ml 108 ml 850 ml medications Current Medications Medications Dose Ordered Sig/Aquiles Route Start Time Stop Time Status Last Admin Dose Admin Ipratropium Golden 0.5 mg Q4HR NEB 04/25/24 02:00 05/03/24 14:42 0.5 MG Acetaminophen/ Hydrocodone Bitart 1 tab Q4HP PRN PO 04/25/24 08:15 05/02/24 22:59 1 TAB Acetaminophen 650 mg Q6HP PRN PO 04/25/24 08:15 Morphine Sulfate 2 mg Q4HPRN PRN IV 04/25/24 08:15 05/03/24 13:43 2 MG Morphine Sulfate 2 mg Q30M PRN IV 04/25/24 08:15 Vancomycin HCl 0 ml @ 0 mls/hr UD IV 04/25/24 09:00 Cefepime HCl 50 ml @ 12.5 mls/hr Q8HR IV 04/25/24 14:00 05/03/24 14:52 12.5 MLS/HR Methylprednisolone Sodium Succinate 60 mg BID IV 04/25/24 10:00 05/03/24 08:35 60 MG Amlodipine Besylate 5 mg DAILY PO 04/25/24 10:00 05/03/24 08:36 5 MG Apixaban 5 mg BID PO 04/25/24 10:00 05/03/24 08:35 5 MG Carvedilol 3.125 mg BID PO 04/25/24 10:00 05/03/24 08:37 3.125 MG Glipizide 5 mg DAILY PO 04/25/24 10:00 05/03/24 11:33 5 MG Losartan Potassium 25 mg DAILY PO 04/25/24 10:00 05/03/24 08:36 25 MG Montelukast Sodium 10 mg DAILY PO 04/25/24 10:00 05/03/24 08:36 10 MG Potassium Chloride 10 meq DAILY PO 04/26/24 12:15 Hold 04/28/24 10:27 10 MEQ Lidocaine 1 patch DAILY@1800 TOP 04/27/24 18:00 05/02/24 18:33 1 PATCH Docusate Sodium 100 mg BID PO 04/26/24 22:00 05/03/24 08:36 100 MG Polyethylene Glycol 17 gm DAILYPRN PRN PO 04/26/24 17:00 05/03/24 08:47 17 GM Melatonin 10 mg HS PO 04/26/24 22:00 05/02/24 21:20 10 MG Throat Lozenges 1 simran Q2HP PRN MT 04/27/24 00:15 05/02/24 19:18 1 SIMRAN Sildenafil Citrate 20 mg TID@08,14,20 PO 04/28/24 14:00 05/03/24 13:43 20 MG Ondansetron HCl 4 mg Q6HPRN PRN IV 04/28/24 14:45 05/01/24 13:34 4 MG Fluconazole 200 mg DAILY PO 04/29/24 10:00 05/03/24 08:35 200 MG Atorvastatin Calcium 40 mg HS PO 04/29/24 22:00 05/02/24 21:19 40 MG Insulin Glargine 25 units HS SC 04/29/24 12:15 05/02/24 23:08 25 UNITS Vancomycin HCl 250 ml @ 250 mls/hr Q16H IV 04/30/24 03:00 05/03/24 13:43 250 MLS/HR Diphenhydramine HCl 50 mg Q6HP PRN PO 05/02/24 14:45 05/03/24 08:37 50 MG Diagnostic Test (Pha) 1 strip ACHS 05/03/24 11:30 05/03/24 11:33 1 STRIP Insulin Human Regular HS SC 05/03/24 22:00 Insulin Human Regular AC SC 05/03/24 11:30 05/03/24 11:53 6 UNITS Dextrose 50 ml UD PRN IV 05/03/24 07:45 Examination General Appearance: Alert, Oriented X3, Cooperative, Mild acute distress HEENT: Atraumatic, PERRLA, EOMI, Mucous membrane moist/pink Respiratory: Decreased air entry on the R> L; crackles, rales improving, less Oxygen demand on 3L of Oxygen Cardiovascular: Regular rate, Normal S1, Normal S2, No murmurs, no chest wall tenderness Abdominal: NO distention, no tenderness, bowel sounds present, no scars noted Extremities: bruises, petechiae, mild edema, Skin: No rashes, No breakdown, No significant lesion Neuro: Normal gait, Normal speech, Strength at 5/5 X4 ext, Normal tone, Sensation intact, Cranial nerves 3-12 NL, Reflexes 2+ Psych/Mental Status: Mental status NL, Mood NL laboratory and microbiology Laboratory Tests 05/03/24 05:43 05/02/24 10:14 Test 05/02/24 10:14 Range/Units Serum Glucose 86 74-106 mg/dL Microbiology Date/Time Source Procedure Growth Status 04/26/24 12:10 Sputum Gram Stain - Final Resulted 04/26/24 12:10 Sputum Respiratory Culture - Preliminary Resulted 04/25/24 23:43 Nose MRSA Screen - Final Complete 04/25/24 10:24 Blood Blood Culture - Final NO GROWTH AFTER 5 DAYS OF INCUBATION. Complete Problem List/Assessment/Plan Problem List/Assessment/Plan Assessment Sepsis due to pneumonia Right lower lobe pneumonia atypical pneumonia COPD exacerbation Acute on chronic respiratory failure, now on 2L OXYGEN obesity bmi: 29.5 Diabeties type II, A1c 7.4 Acute on chronic HFpEF AFib History of DVT and PE with COVID infection hypertension, Severe pulmonary hypertension Metabolic alkalosis likely secondary to lasix Blood and sputum culture: Few growth of Filamentous Fungi. Sent to referral lab for --identification and susceptibility. Hypoglycemia: glucose 13 Plans: Continue Fluconazole 200 mg daily Start [id number] mg bid Sildenafil 30mg tid Atorvastatin Continue Eliquis IV steroids Med neb treatment q4h D/C Moderate sliding skill Monitor health status and glucose level Stop: Vanco and cefepime O2 to keep saturation >90% Stop IV Furosemide 20 mg Code status: full Goal of care discussed for more than 25 minutes case and plan discussed with Dr. Lepe Plan discussed with: Patient My Orders My Orders Orders - EVENS POMPA Procedure Category Date Status Time Glucose Blood PHA 05/03/24 In Process (Accu-Chek Comfort 11:30 Insulin R (Human) PHA 05/03/24 In Process (Insulin R) 22:00 Insulin R (Human) PHA 05/03/24 In Process (Insulin R) 11:30 Dextrose 50% Syringe PHA 05/03/24 In Process 07:45 Pt Request For Service PT 05/03/24 Logged 14:03 * Training And Development Rep CONS 05/03/24 Transmitted Consult Doxycycline Tablet PHA 05/03/24 Transmitted (Vibramycin Tablet) 22:00 Date of Service: May 03, 2024 Billing Provider: MY LEPE MD Common Visit Codes: [id number] INP/OBS CARE(HIGH) EVENS POMPA RESIDENT May 03, 2024 15:53 MY LEPE MD May 03, 2024 18:54
[2024-05-03] MEDS: FLEET ENEMA(ADULT) 135 ML PR ONE (20:28)
[2024-05-03] MEDS: DOXYCYCLINE 100 MG TAB/CAP PO SCH (21:33)
--- NOTE | 2024-05-03 22:17 | DVHPN2 ---
Progress Note - Dictate Date Seen: May 03, 2024 Medical Necessity Reason Pt with a Central, PICC or Fol: No Subjective Patient seen and examined at bedside. Remains on supplemental oxygen Overnight events reviewed. vital signs Vital Sign Date Time Temp Pulse Resp B/P (MAP) Pulse Ox O2 Delivery O2 Flow Rate FiO2 05/03/24 22:13 82 16 100 05/03/24 22:07 Nasal Cannula* 3 32 05/03/24 21:39 121/67 05/03/24 17:00 97.9 97.9 Total Intake and Output 05/02/24 05/02/24 05/03/24 15:00 23:00 07:00 Intake Total 50 ml 408 ml 850 ml Output Total 300 ml Balance 50 ml 108 ml 850 ml medications Current Medications Medications Dose Ordered Sig/Aquiles Route Start Time Stop Time Status Last Admin Dose Admin Ipratropium Pollock 0.5 mg Q4HR NEB 04/25/24 02:00 05/03/24 22:07 0.5 MG Acetaminophen/ Hydrocodone Bitart 1 tab Q4HP PRN PO 04/25/24 08:15 05/02/24 22:59 1 TAB Acetaminophen 650 mg Q6HP PRN PO 04/25/24 08:15 Morphine Sulfate 2 mg Q4HPRN PRN IV 04/25/24 08:15 05/03/24 18:04 2 MG Morphine Sulfate 2 mg Q30M PRN IV 04/25/24 08:15 Vancomycin HCl 0 ml @ 0 mls/hr UD IV 04/25/24 09:00 Cefepime HCl 50 ml @ 12.5 mls/hr Q8HR IV 04/25/24 14:00 05/03/24 21:32 12.5 MLS/HR Methylprednisolone Sodium Succinate 60 mg BID IV 04/25/24 10:00 05/03/24 21:33 60 MG Amlodipine Besylate 5 mg DAILY PO 04/25/24 10:00 05/03/24 08:36 5 MG Apixaban 5 mg BID PO 04/25/24 10:00 05/03/24 21:38 5 MG Carvedilol 3.125 mg BID PO 04/25/24 10:00 05/03/24 21:39 3.125 MG Glipizide 5 mg DAILY PO 04/25/24 10:00 05/03/24 11:33 5 MG Losartan Potassium 25 mg DAILY PO 04/25/24 10:00 05/03/24 08:36 25 MG Montelukast Sodium 10 mg DAILY PO 04/25/24 10:00 05/03/24 08:36 10 MG Potassium Chloride 10 meq DAILY PO 04/26/24 12:15 Hold 04/28/24 10:27 10 MEQ Lidocaine 1 patch DAILY@1800 TOP 04/27/24 18:00 05/03/24 17:42 1 PATCH Docusate Sodium 100 mg BID PO 04/26/24 22:00 05/03/24 21:32 100 MG Polyethylene Glycol 17 gm DAILYPRN PRN PO 04/26/24 17:00 05/03/24 08:47 17 GM Melatonin 10 mg HS PO 04/26/24 22:00 05/03/24 21:32 10 MG Throat Lozenges 1 simran Q2HP PRN MT 04/27/24 00:15 05/02/24 19:18 1 SIMRAN Sildenafil Citrate 20 mg TID@08,14,20 PO 04/28/24 14:00 05/03/24 21:33 20 MG Ondansetron HCl 4 mg Q6HPRN PRN IV 04/28/24 14:45 05/01/24 13:34 4 MG Fluconazole 200 mg DAILY PO 04/29/24 10:00 05/03/24 08:35 200 MG Atorvastatin Calcium 40 mg HS PO 04/29/24 22:00 05/03/24 21:32 40 MG Insulin Glargine 25 units HS SC 04/29/24 12:15 05/03/24 21:48 25 UNITS Vancomycin HCl 250 ml @ 250 mls/hr Q16H IV 04/30/24 03:00 05/03/24 13:43 250 MLS/HR Diphenhydramine HCl 50 mg Q6HP PRN PO 05/02/24 14:45 05/03/24 08:37 50 MG Diagnostic Test (Pha) 1 strip ACHS 05/03/24 11:30 05/03/24 21:48 1 STRIP Insulin Human Regular HS SC 05/03/24 22:00 05/03/24 21:47 6 UNITS Insulin Human Regular AC SC 05/03/24 11:30 05/03/24 17:42 2 UNITS Dextrose 50 ml UD PRN IV 05/03/24 07:45 Doxycycline Monohydrate 100 mg Q12HR PO 05/03/24 22:00 05/03/24 21:33 100 MG objective Gen.: Patient lying in bed in no apparent distress. On supplemental oxygen. Head: Normocephalic, atraumatic. Eyes: EOMI/PERRLA. Ears: Normal hearing. Normal anatomy. Neck/trachea: Trachea midline, supple. Nose: Normal external anatomy. Mouth: Moist mucous membranes. Chest: Decreased air entry bilaterally. No wheezing or rhonchi. Cardiovascular: Positive S1, positive S2. Regular rate and rhythm. Abdomen: Positive bowel sounds in all 4 quadrants. Soft, non-tender, non- distended. : Deferred. Rectal: Deferred. Skin: Warm, dry. Intact. Extremities: 2+ radial pulses bilaterally. No lower extremity edema. Neuro: Awake, alert, oriented x3. No gross motor or sensory deficits. Cranial nerves II through XII intact. Gait not assessed. laboratory and microbiology Laboratory Tests 05/03/24 05:43 05/02/24 10:14 Test 05/02/24 10:14 Range/Units Serum Glucose 86 74-106 mg/dL Assessment/Plan Impression: Acute on chronic hypoxic respiratory failure Dependence on supplemental oxygen Pulmonary nodules Pulmonary hypertension COPD exacerbation Obesity BMI 30 Anxiety Events: Remains on supplemental oxygen, 3 LPM NC Taper O2 as tolerated Enema ordered for constipation Continue bowel regimen Continue bronchodilators Continue IV steroids Continue antibiotics Revatio TID for pulmonary hypertension Incentive spirometry Anxiolytic PRN Diflucan 200 mg po daily due to tree-in-bud opacities on CT chest Maintain euvolemia Monitor renal function. Monitor electrolytes. Supplement as necessary. Recommend PT eval. Labs and imaging reviewed. Rest of plan as noted below. Plan: Supplemental oxygen Titrate to keep O2 sats above 92%. Continue bronchodilators. Continue antibiotics IV steroids Revatio TID for pulmonary hypertension Accu-Cheks, ISS Monitor renal function. Monitor electrolytes. Supplement as necessary. Monitor ins and outs. Diet and lifestyle modifications for weight reduction Obesity - complicates all care DVT prophylaxis. Prognosis: Poor given patient's multiple co-morbidities. Condition: Critical Rest of plan per hospitalist and other consultants. A total of 35 minutes of critical care time was spent reviewing the patient record, examining the patient, making a diagnostic and therapeutic plan, discussing this plan with the medical personnel, following up on diagnostic studies and following the patient for clinical stability excluding any and all procedures. At least 50% of this time was spent in direct, [id number] contact. Thank you Dr. Barajas, for allowing me to participate in this patient's care. Further recommendations will depend on the patient's clinical course. Please do not hesitate to contact me if you have any questions or concerns. This medical document was created using an electronic medical record system with [employer] dictation system. Although these documentations are being carefully reviewed, there may still be some phonetic and typographical changes. The errors are purely typographical, due to imperfection on the software program, and do not reflect any compromise in the patient's medical care. Plan discussed with: Patient, Other (BOB Knott) MYKEL SANDERS MD May 03, 2024 22:17
[2024-05-04] VITALS (21 sets, daily range): BP systolic 126–146; BP diastolic 78–88; PULSE 70–104; RESP 16–22; TEMP 97.8–98.3; O2SAT 95–100
[2024-05-04 07:49] LABS: Basophils # (auto) 0 10 ^3/uL (0-0.2); Basophils % (auto) 0.2 % (0.0-2.0); Eosinophils # (auto) 0 10 ^3/uL (0-0.8); Hematocrit 32.2 % (36.0-46.0); Hemoglobin 10.8 g/dL (12.2-16.2); Lymphocytes # (auto) 0.3 10 ^3/uL (0.4-5.4); Lymphocytes % (auto) 3.5 % (10.0-50.0); Mean Corpuscular Hemoglobin 30.4 pg (28.0-32.0); Mean Corpuscular Hgb Conc. 33.6 g/dL (32.0-36.0); Mean Corpuscular Volume 90.4 fL (80.0-100.0); Monocytes # (auto) 0.4 10 ^3/uL (0-1.3); Monocytes % (auto) 3.9 % (0.0-12.0); Neutrophils % (auto) 92.4 % (37.0-80.0); Nucleated Red Blood Cells % 0.1 %; Platelet Count (auto) 134 10^3/uL (140-450); Red Blood Cells 3.56 10^6/uL (4.0-5.20); Red Cell Distribution Width 17.3 % (11.8-14.3); White Blood Cell 9.8 10^3/uL (4.4-10.8)
[2024-05-04] MEDS: ACETAMINOPHEN 325 MG TAB PO PRN (12:27)
--- NOTE | 2024-05-04 16:40 | DVHDSRES ---
Discharge Summary Date of Admission Resident Creating Document: EVENS POMPA RESIDENT Apr 25, 2024 at 08:09 Date of Discharge: May 04, 2024 Admitting Diagnosis Shortness of breath Labs/Diagnostic Data: PATIENT: NAMRATA ALMONTET: [id number] UNIT: [id number] : 1965 LOC: [facility] AGE / SEX: 58 / F ADM STATUS: ADM IN SERVICE 165 ORDERING PHYSICIAN: MYKEL SANDERS MD PROCEDURE(s): CXRP - CHEST PORTABLE REASON: chest pain ORDER NUMBER(s): [id number], ACCESSION NUMBER(s): [id number] Procedure: XY CHEST PORTABLE 05/01/2024 05:07 PM Indication: chest pain Comparison: CT scan dated 04/27/2024, XY CHEST PORTABLE on DOS: 04/26/24, XY CHEST PORTABLE on DOS: 04/24/24, XY CHEST PORTABLE on DOS: 04/11/24 TECHNIQUE: XY CHEST PORTABLE FINDINGS: Medical devices: None. Cardiomediastinal: The heart is normal in size. Pulmonary vasculature is within normal limits. Atherosclerotic calcification of the aortic arch noted. Prominent bilateral jessy especially on the right side corresponding to enlarged bilateral pulmonary arteries related to pulmonary arterial hypertension. Lungs: No lobar consolidation. Mild right basilar reticular opacities. The costophrenic angles are clear. No pneumothorax. Bones/soft tissues: No acute abnormality is noted. IMPRESSION: 1. Mild right basilar reticular opacities that may represent subsegmental atelectasis or residual infiltrates. Recommend clinical and biochemical correlation. ATED BY: PERLA VASQUEZ MD DICTATED DATE/TIME: 05/01/24 279 PATIENT: NAMRATA ALMONTET: [id number] UNIT: [id number] : 1965 LOC: [facility] AGE / SEX: 58 / F ADM STATUS: ADM IN SERVICE 54 ORDERING PHYSICIAN: MY PIAN MD PROCEDURE(s): KUB - KUB ABDOMEN SINGLE VIEW REASON: abdominal pain N/V ORDER NUMBER(s): [id number], ACCESSION NUMBER(s): [id number] Procedure: XY KUB ABDOMEN SINGLE VIEW Exam Date: 05/01/2024 05:07 PM History: abdominal pain N/V Comparison Study: None Technique: AP of the chest AP upright of the abdomen AP supine of the abdomen Findings/ impression: Minimal bibasilar subsegmental atelectasis. Severe calcification and tortuosity of the thoracic aorta which is not well characterized on this study. The abdomen demonstrates moderate to severe fecal retention throughout the colon. IVC filter projected over the IVC. No radiopaque foreign objects. No acute osseous abnormalities. ATED BY: KRISTINA HOPKINS DO DICTATED DATE/TIME: 05/01/242109 PATIENT: CLINTON ALMONTEACCT: [id number] UNIT: [id number] : 1965 LOC: [facility] ROOM / BED: [address] [place] [address] AGE / SEX: 58 / F ADM STATUS: ADM IN SERVICE 1358 ORDERING PHYSICIAN: EVENS POMPA RESIDENT PROCEDURE(s): CX2CT - CHEST WITHOUT CONTRAST REASON: ? mass less in right lung ORDER NUMBER(s): [id number], ACCESSION NUMBER(s): [id number] Procedure: CT CHEST WITHOUT CONTRAST Reason for study/Clinical History: mass less in right lung Comparison Study: None available at time of dictation. Exam Date: 04/27/2024 02:21 PM TECHNIQUE: Multidetector CT of the chest was performed from the lung apices to the upper abdomen without the use of intravenous contract. Axial, coronal and sagittal multiplanar reformats were performed. Radiation Dose Information: CT Dose: CTDI volume is 15.42 mGy. Dose-length product is 563.25 mGy*cm The dose indicators for CT are the volume Computed Tomography (CT) Dose Index (CTDIvol) and the Dose Length Product (DLP), and are measured in units of mGy and mGy-cm, respectively. These indicators are not patient dose, but values generated from the CT scanner acquisition factors. The report includes radiation exposure data for exposures received during this examination. FINDINGS: Lower neck: Normal thyroid. Lungs: Patchy bilateral peribronchial thickening and tree-in-bud nodularity most prominent in the right middle lobe. Heart/Vascular Structures: Cardiomegaly. Diffusely enlarged pulmonary arterial tree. Main pulmonary artery measures up to 3.8 cm. Peripheral calcifications are present in the left main pulmonary artery. Lymph Nodes: No adenopathy Pleura: No pleural effusion or significant pneumothorax. Musculoskeletal: No acute osseous abnormality. Scoliosis. Soft tissues: Normal. Upper abdomen: Partially imaged IVC filter. Coarse calcifications associated with the pancreas are suggestive of changes of chronic pancreatitis. IMPRESSION: Diffusely enlarged pulmonary arterial tree may represent underlying peripheral arterial hypertension and likely corresponds to question of mass on chest radiograph. Patchy bilateral peribronchial thickening and tree-in-bud nodularity is likely infectious or inflammatory. Radiation optimization: All CT scans at this facility use at least one of these dose optimization techniques: automated exposure control mA and/or kV adjustment per patient size (includes targeted exams where dose is matched to clinical indication) or iterative reconstruction. ATED BY: WILLIAN MARTINEZ MD DICTATED DATE/TIME: 04/27/24 1447 PATIENT: CLINTON ALMONTEACCT: [id number] UNIT: [id number] : 1965 LOC: [facility] ROOM / BED: [facility] / AGE / SEX: 58 / F ADM STATUS: ADM IN SERVICE 0400 ORDERING PHYSICIAN: [facility]IA[facility] PROCEDURE(s): CXRP - CHEST PORTABLE REASON: sob ORDER NUMBER(s): [id number], ACCESSION NUMBER(s): [id number] EXAM: XR Chest, 1 View CLINICAL INDICATION: sob TECHNIQUE: Frontal view of the chest. COMPARISON: XY CHEST PORTABLE on DOS: 04/24/24, XY CHEST PORTABLE on DOS: 04/11/24, XY CHEST PORTABLE on DOS: 02/15/24, XY CHEST PORTABLE on DOS: 01/19/24 FINDINGS: LUNGS AND PLEURAL SPACES: Pulmonary congestion and edema. Pneumonia cannot be excluded. No pneumothorax. HEART: Unremarkable. No cardiomegaly. MEDIASTINUM: Unremarkable. Normal mediastinal contour. BONES/JOINTS: Unremarkable. No acute fracture. OTHER FINDINGS: . . IMPRESSION: Pulmonary congestion and edema. Pneumonia cannot be excluded. ATED BY: NOEL BELTRAN MD DICTATED DATE/TIME: 04/26/24 0623 PATIENT: CLINTON ALMONTEACCT: [id number] UNIT: [id number] : 1965 LOC: ER ROOM / BED: / AGE / SEX: 58 / F ADM STATUS: REG ER SERVICE 213 ORDERING PHYSICIAN: BERTRAM IQBAL MD PROCEDURE(s): CXRP - CHEST PORTABLE REASON: sob ORDER NUMBER(s): [id number], ACCESSION NUMBER(s): [id number] CHEST RADIOGRAPH Indication: sob Technique: Single frontal view of the chest was obtained Comparison: XY CHEST PORTABLE on DOS: 04/11/24, XY CHEST PORTABLE on DOS: 02/15/24, XY CHEST PORTABLE on DOS: 01/19/24 Findings/ IMPRESSION: Right lower lobe consolidation concerning for airspace disease. ATED BY: KRISTINA HOPKINS DO DICTATED DATE/TIME: 04/24/24 3646 Laboratory Results Test 05/04/24 06:39 05/04/24 05:11 05/03/24 11:25 05/02/24 10:14 White Blood Count 9.8 10^3/uL (4.4-10.8) Red Blood Count 3.56 10^6/uL (4.0-5.20) Hemoglobin 10.8 g/dL (12.2-16.2) Hematocrit 32.2 % (36.0-46.0) Mean Corpuscular Volume 90.4 fL (80.0-100.0) Mean Corpuscular Hemoglobin 30.4 pg (28.0-32.0) Mean Corpuscular Hemoglobin Concent 33.6 g/dL (32.0-36.0) Red Cell Distribution Width 17.3 % (11.8-14.3) Platelet Count 134 10^3/uL (140-450) Mean Platelet Volume 8.0 fL (6.9-10.8) Neutrophils (%) (Auto) 92.4 % (37.0-80.0) Lymphocytes (%) (Auto) 3.5 % (10.0-50.0) Monocytes (%) (Auto) 3.9 % (0.0-12.0) Eosinophils (%) (Auto) 0.0 % (0.0-7.0) Basophils (%) (Auto) 0.2 % (0.0-2.0) Neutrophils # (Auto) 9.0 10 ^3/uL (1.6-8.6) Lymphocytes # (Auto) 0.3 10 ^3/uL (0.4-5.4) Monocytes # (Auto) 0.4 10 ^3/uL (0-1.3) Eosinophils # (Auto) 0 10 ^3/uL (0-0.8) Basophils # (Auto) 0 10 ^3/uL (0-0.2) Nucleated Red Blood Cells 0.1 % Creatinine 0.68 mg/dL (0.550-1.02) Glomerular Filtration Rate Calc 100 mL/min (>90) POC Glucose 219 mg/dl (70-106) Vancomycin Level Trough 13.2 ug/mL (5-10) Sodium Level 143 mmol/L (136-145) Potassium Level 4.5 mmol/L (3.5-5.1) Chloride Level 105 mmol/L (98-107) Carbon Dioxide Level 35 mmol/L (20-31) Anion Gap 3 (5-15) Blood Urea Nitrogen 29 mg/dL (9-23) BUN/Creatinine Ratio 36.3 (10.0-20.0) Serum Glucose 86 mg/dL (74-106) Calcium Level 11.1 mg/dL (8.7-10.4) Test 05/01/24 19:12 04/29/24 06:12 04/27/24 06:12 04/26/24 06:43 Troponin I High Sensitivity 9 ng/L (</=34) Total Bilirubin 0.4 mg/dL (0.2-1.0) Aspartate Amino Transferase (AST) < 8 U/L (13-40) Alanine Aminotransferase (ALT) 27 U/L (7-40) Alkaline Phosphatase 80 U/L (46-116) Total Protein 6.1 g/dL (5.7-8.2) Albumin 3.2 g/dL (3.2-4.8) Differential Total Cells Counted 100.0 (100) Neutrophils % (Manual) 92 (37.0-80.0) Band Neutrophils % (Manual) 0 Lymphocytes % (Manual) 4 (10.0-50.0) Monocytes % (Manual) 4 (0-12) Eosinophils % (Manual) 0 (0-7) Basophils % (Manual) 0 (0.0-2.0) Metamyelocytes % (manual) 0 Myelocytes % (Manual) 0 Promyelocytes % (Manual) 0 Blast Cells % (Manual) 0 Reactive Lymphocytes 0 Platelet Estimate Adequate Hemoglobin A1c 7.4 % A1C (<5.7) Test 04/25/24 01:05 04/24/24 21:45 Urine Color Light-yellow (Yellow) Urine Clarity Clear (Clear) Urine pH 6.0 (5.0-9.0) Urine Specific [place] 1.016 (1.001-1.035) Urine Protein Negative (Negative) Urine Ketones Negative (Negative) Urine Blood Negative /uL (Negative) Urine Nitrite Negative (Negative) Urine Bilirubin Negative (Negative) Urine Urobilinogen Normal mg/dL (Negative) Urine Leukocyte Esterase Negative /uL (Negative) Urine RBC 1 /hpf (0 - 4) Urine Microscopic WBC 4 /HPF (0-5) Urine Squamous Epithelial Cells Few /hpf (<5) Urine Bacteria None seen /hpf (None Seen) Urine Glucose 4+ mg/dL (Normal) B-Type Natriuretic Peptide 35.04 pg/mL (0-100) Other Laboratory Tests 05/04/24 06:39 05/02/24 10:14 Brief Hx & Hospital Course: Brief HPI and Hospital course This is 58-year-old female with a past medical history of COPD, CHF, AFib on Eliquis, hypertension, diabetes, and severe pulmonary hypertension presented to the ED via EMS with a chief complaint of shortness of breath. Patient was recently discharge from here on 04/23/2024. The patient with multiple hospital admission for the past few months with respiratory concerns reports was just discharged from here yesterday with diagnosis of acute on chronic respiratory failure and COPD. The patient states that she was discharged to post acute rehabilitation, was not able to get proper care for which shortness of breath worsened prompted her to call 911. The patient denies chest pain, palpitation, abdominal pain, or other acute symptoms. vitals: HR:112, RR: 24, bp, 93/48. Wbc on admssion: 23.2. ECHO in 12/2023: Normal left ventricular size and dimension. Normal left ventricular systolic function estimated ejection fraction 55% and significant pulmonary hyptertension. While on admission, patient continued to have a hacking cough. Chest x-ray showed Right lower lobe consolidation concerning for airspace disease. WBC 17.5, glucose of 499. Patient statred on vancomycin, cefepime and furosemide solumedrol, lantus initiated and titrated up as needed, and sildenafil for pulmonary hypertension whilst monitor her vitals and chemistry closely. Medications were adjusted each day based on the clinical and labs data. Despite the above regimen, patient still did not show any signs of improvement. CT chest without construct showed "diffusely enlarged pulmonary arterial tree may represent underlying peripheral arterial hypertension and likely corresponds to question of mass on chest radiograph. Patchy bilateral peribronchial thickening and tree-in-bud nodularity is likely infectious or inflammatory". Pulmonology consult and recommended adding fluconazole 200 mg daily to the patient's regimen. Patient complained of pruritis the following and was given benedryl which resolves the pruritis. Vanco and Cefepime were discontinued on da 7, whilst fluconazole continued. On 05/01/2024, patient experienced hypoglycemia with glucose of 13 which was quickly corrected. We continued to monitor patient for additional two days to reassess her pulmonary function and monitor her chemistries. Given the improvement and in preparation for discharge, We started on oral doxycyline 100 mg BID. Today, patient is doing well. WBC; 9.8, glucose 178. She remains on 3L of oxygen her baseline and expressed interest in returng to SNF for rehabillitation. I have counseled the patient on staying away from cigarette smoking or second hand smoking. She said her partner smoke and she will prefer to go to SNF. She had physical therapy as well. bin filler informed. Examination General Appearance: Alert, Oriented X3, Cooperative HEENT: Atraumatic, PERRLA, EOMI, Mucous membrane moist/pink Respiratory: Decreased air entry on the R> L; crackles, rales improving,on 3L of Oxygen ( Baseline) Cardiovascular: Regular rate, Normal S1, Normal S2, No murmurs, no chest wall tenderness Abdominal: NO distention, no tenderness, bowel sounds present, no scars noted Extremities: no edema,atrophy weakness Skin: No rashes, No breakdown, No significant lesion Neuro: Normal gait, Normal speech, Strength at 5/5 X4 ext, Normal tone, Sensation intact, Cranial nerves 3-12 NL, Reflexes 2+ Psych/Mental Status: Mental status NL, Mood NL Diagnoses Severe Sepsis due to pneumonia Right lower lobe pneumonia atypical pneumonia COPD exacerbation Acute on chronic respiratory failure, on 3L OXYGEN ( 2-3 L) obesity bmi: 29.5 Diabeties type II, A1c 7.4 Acute on chronic HFpEF AFib History of DVT and PE with COVID infection hypertension, Severe pulmonary hypertension Metabolic alkalosis likely secondary to lasix Blood and sputum culture: Few growth of Filamentous Fungi. Sent to referral lab for --identification and susceptibility. Hypoglycemia: glucose 13 Discharge Plan Continue Fluconazole 200 mg dailyx 7 days Continue [id number] mg bid x 7 days Sildenafil 30mg tid Atorvastatin Continue Eliquis Medrol barney as directed Med neb treatment q4h Moderate sliding skill Monitor health status and glucose level Follow up with PCP follow up with your office spec return to ED if symptoms does not continue to improve Discharge plan discussed with DR. Pina Consults/Reason for consult Pulmonary consult: Acute on chronic hypoxic respiratory failure, pulmonary nodules, pulmonary hypertension, COPD exacerbation Condition at Discharge: Good Final Diagnosis/Problems List Sepsis due to pneumonia Right lower lobe pneumonia atypical pneumonia COPD exacerbation Acute on chronic respiratory failure, now on 2L OXYGEN obesity bmi: 29.5 Diabeties type II, A1c 7.4 Acute on chronic HFpEF AFib History of DVT and PE with COVID infection hypertension, Severe pulmonary hypertension Metabolic alkalosis likely secondary to lasix Blood and sputum culture: Few growth of Filamentous Fungi. Sent to referral lab for --identification and susceptibility. Hypoglycemia: glucose 13 [facility]position[facility] Discharge Instruct/Medications Diet: See Comment Diet comment: diabetic diet Activity: No Restrictions, As Tolerated Follow Up/Referral: 7 days at the discharge clinic Medications: doxcycline 100 mg bid medrol barney Discharge Statement: "Patient was advised to return to the ER or call 911 if any headaches, dizziness, shortness of breath, chest pain, abdominal pain, bleeding, fevers, or worsening of medical condition. Patient was counseled about treatment plan, medications, possible side effects, patientverbalized understanding. All questions were answered to the best of my ability. This discharge took greater then 30 minutes in planning, reviewing documentation, counseling the patient, and discussing with other team members." ASSESSMENT ASSESSMENT Assessment Sepsis due to pneumonia Right lower lobe pneumonia atypical pneumonia COPD exacerbation Acute on chronic respiratory failure, now on 2L OXYGEN obesity bmi: 29.5 Diabeties type II, A1c 7.4 Acute on chronic HFpEF AFib History of DVT and PE with COVID infection hypertension, Severe pulmonary hypertension Metabolic alkalosis likely secondary to lasix Blood and sputum culture: Few growth of Filamentous Fungi. Sent to referral lab for --identification and susceptibility. Hypoglycemia: glucose 13 Date of Service: May 04, 2024 Billing Provider: MY PINA MD Common Visit Codes: 57703-ISR/OBS DISCH DAY >30min EVENS POMPA RESIDENT May 04, 2024 16:40 MY PINA MD May 06, 2024 07:26
[2024-05-04] MEDS: POLYETHYLENE GLYCOL 17 GM PWDR PO ONE (16:54)
--- NOTE | 2024-05-04 23:46 | DVHPN2 ---
Progress Note - Dictate Date Seen: May 04, 2024 Medical Necessity Reason Pt with a Central, PICC or Fol: No Subjective Patient seen and examined at bedside. Remains on supplemental oxygen Overnight events reviewed. vital signs Vital Sign Date Time Temp Pulse Resp B/P (MAP) Pulse Ox O2 Delivery O2 Flow Rate FiO2 05/04/24 22:37 100 05/04/24 22:22 20 100 05/04/24 22:16 Nasal Cannula* 3 32 05/04/24 21:37 126/87 05/04/24 21:00 98.1 98.1 Total Intake and Output 05/03/24 05/03/24 05/04/24 15:00 23:00 07:00 Intake Total 300 ml 900 ml 600 ml Balance 300 ml 900 ml 600 ml medications Current Medications Medications Dose Ordered Sig/Aquiles Route Start Time Stop Time Status Last Admin Dose Admin Ipratropium [place] 0.5 mg Q4HR NEB 04/25/24 02:00 05/04/24 22:16 0.5 MG Acetaminophen 650 mg Q6HP PRN PO 04/25/24 08:15 05/04/24 12:27 650 MG Cefepime HCl 50 ml @ 12.5 mls/hr Q8HR IV 04/25/24 14:00 05/04/24 16:52 12.5 MLS/HR Methylprednisolone Sodium Succinate 60 mg BID IV 04/25/24 10:00 05/04/24 21:35 60 MG Amlodipine Besylate 5 mg DAILY PO 04/25/24 10:00 05/04/24 09:30 5 MG Apixaban 5 mg BID PO 04/25/24 10:00 05/04/24 21:38 5 MG Carvedilol 3.125 mg BID PO 04/25/24 10:00 05/04/24 21:37 3.125 MG Glipizide 5 mg DAILY PO 04/25/24 10:00 05/04/24 09:42 5 MG Losartan Potassium 25 mg DAILY PO 04/25/24 10:00 05/04/24 11:04 25 MG Montelukast Sodium 10 mg DAILY PO 04/25/24 10:00 05/04/24 09:27 10 MG Potassium Chloride 10 meq DAILY PO 04/26/24 12:15 Hold 04/28/24 10:27 10 MEQ Lidocaine 1 patch DAILY@1800 TOP 04/27/24 18:00 05/04/24 17:12 1 PATCH Docusate Sodium 100 mg BID PO 04/26/24 22:00 05/04/24 21:36 100 MG Polyethylene Glycol 17 gm DAILYPRN PRN PO 04/26/24 17:00 05/03/24 08:47 17 GM Melatonin 10 mg HS PO 04/26/24 22:00 05/04/24 21:57 10 MG Throat Lozenges 1 simran Q2HP PRN MT 04/27/24 00:15 05/04/24 04:13 1 SIMRAN Sildenafil Citrate 20 mg TID@08,14,20 PO 04/28/24 14:00 05/04/24 21:36 20 MG Ondansetron HCl 4 mg Q6HPRN PRN IV 04/28/24 14:45 05/01/24 13:34 4 MG Fluconazole 200 mg DAILY PO 04/29/24 10:00 05/04/24 09:27 200 MG Atorvastatin Calcium 40 mg HS PO 04/29/24 22:00 05/04/24 21:35 40 MG Insulin Glargine 25 units HS SC 04/29/24 12:15 05/04/24 22:02 25 UNITS Diphenhydramine HCl 50 mg Q6HP PRN PO 05/02/24 14:45 05/03/24 08:37 50 MG Diagnostic Test (Pha) 1 strip ACHS 05/03/24 11:30 05/04/24 21:38 1 STRIP Insulin Human Regular HS SC 05/03/24 22:00 05/04/24 22:03 10 UNITS Insulin Human Regular AC SC 05/03/24 11:30 05/04/24 17:03 3 UNITS Dextrose 50 ml UD PRN IV 05/03/24 07:45 Doxycycline Monohydrate 100 mg Q12HR PO 05/03/24 22:00 05/04/24 21:35 100 MG objective Gen.: Patient lying in bed in no apparent distress. On supplemental oxygen. Head: Normocephalic, atraumatic. Eyes: EOMI/PERRLA. Ears: Normal hearing. Normal anatomy. Neck/trachea: Trachea midline, supple. Nose: Normal external anatomy. Mouth: Moist mucous membranes. Chest: Decreased air entry bilaterally. No wheezing or rhonchi. Cardiovascular: Positive S1, positive S2. Regular rate and rhythm. Abdomen: Positive bowel sounds in all 4 quadrants. Soft, non-tender, non- distended. : Deferred. Rectal: Deferred. Skin: Warm, dry. Intact. Extremities: 2+ radial pulses bilaterally. No lower extremity edema. Neuro: Awake, alert, oriented x3. No gross motor or sensory deficits. Cranial nerves II through XII intact. Gait not assessed. laboratory and microbiology Laboratory Tests 05/04/24 06:39 05/02/24 10:14 Test 05/02/24 10:14 Range/Units Serum Glucose 86 74-106 mg/dL Assessment/Plan Impression: Acute on chronic hypoxic respiratory failure Dependence on supplemental oxygen Pulmonary nodules Pulmonary hypertension COPD exacerbation Obesity BMI 30 Anxiety Events: Remains on supplemental oxygen, 3 LPM NC Taper O2 as tolerated Stool softeners for constipation Continue bowel regimen Continue bronchodilators Continue IV steroids Continue antibiotics Revatio TID for pulmonary hypertension Incentive spirometry Anxiolytic PRN Diflucan 200 mg po daily due to tree-in-bud opacities on CT chest Maintain euvolemia Monitor renal function. Monitor electrolytes. Supplement as necessary. Recommend PT eval. Awaiting discharge. Labs and imaging reviewed. Rest of plan as noted below. Plan: Supplemental oxygen Titrate to keep O2 sats above 92%. Continue bronchodilators. Continue antibiotics IV steroids Revatio TID for pulmonary hypertension Accu-Cheks, ISS Monitor renal function. Monitor electrolytes. Supplement as necessary. Monitor ins and outs. Diet and lifestyle modifications for weight reduction Obesity - complicates all care DVT prophylaxis. Prognosis: Guarded given patient's multiple co-morbidities. Rest of plan per hospitalist and other consultants. Thank you Dr. Barajas, for allowing me to participate in this patient's care. Further recommendations will depend on the patient's clinical course. Please do not hesitate to contact me if you have any questions or concerns. This medical document was created using an electronic medical record system with [employer] dictation system. Although these documentations are being carefully reviewed, there may still be some phonetic and typographical changes. The errors are purely typographical, due to imperfection on the software program, and do not reflect any compromise in the patient's medical care. Plan discussed with: Patient, Other (BOB Adam) MYKEL SANDERS MD May 04, 2024 23:46
[2024-05-05] VITALS (11 sets, daily range): BP systolic 117–145; BP diastolic 77–94; PULSE 88–106; RESP 16–20; TEMP 97.5–97.7; O2SAT 92–100
[2024-05-05] MEDS: PANTOPRAZOLE 40 MG/10 ML VIAL INJ IV ONE (05:59)
[2024-05-05] MEDS: PNEUMOCOCCAL VACC POLYS 25 MCG/0.5 ML VIAL IM ONE (16:06)
--- NOTE | 2024-05-05 19:06 | DVHPNRES ---
Progress Note Date Seen: May 05, 2024 Resident Creating Document: EVENS POMPA RESIDENT Medical Necessity Reason Pt with a Central, PICC or Fol: No Medical Necessity Reason Shortness of breaths COPD exacerbation Acute hypoxic respiratory failure Subjective Review of Systems Review of Systems This is 58-year-old female with a past medical history of COPD, CHF, AFib on Eliquis, hypertension, diabetes, and severe pulmonary hypertension presented to the ED via EMS with a chief complaint of shortness of breath. Patient was recently discharge from here on 04/23/2024. The patient with multiple hospital admission for the past few months with respiratory concerns reports was just discharged from here yesterday with diagnosis of acute on chronic respiratory failure and COPD. The patient states that she was discharged to post acute rehabilitation, was not able to get proper care for which shortness of breath worsened prompted her to call 911. The patient denies chest pain, palpitation, abdominal pain, or other acute symptoms. vitals: HR:112, RR: 24, bp, 93/48. Wbc on admssion: 23.2. ECHO in 12/2023: Normal left ventricular size and dimension. Normal left ventricular systolic function estimated ejection fraction 55% PN: 04/27/2024: Patient is examined today. She is sitting in bed and leaning forward. She continues to have this hacking chronic cough. She denied any fever or chills. Just persistent coughing this has been going on for a long time. Lab work today revealed an increasing WBC 17.5, chemistry revealed glucose of 499, bicarbonate level otherwise unremarkable. Patient is currently on vancomycin and cefepime and furosemide among others. Looks like furosemide is leading to the metabolic alkalosis. On previous admission, patient was placed on sildenafil feel for her pulmonary hypertension we will add that to her medication list today. PN 04/28/2024: Patient was seen in her room today patient was sleeping. For a long time patient has been complaining about being unable to sleep so we let patient's left. Yesterday we had because color loom repairer to given input on this patient management per pulmonology CT of the chest revealed Diffusely enlarged pulmonary arterial tree may represent underlying peripheral arterial hypertension and likely corresponds to question of mass on chest radiograph.Patchy bilateral peribronchial thickening and tree-in-bud nodularity is likely infectious or inflammatory. Pulmonology recommended adding fluconazole 200 mg daily to the patient's regimen. Patient also has pulmonary hypertension for which we added sildenafil 20mg t.i.d. PN 04/29/2024: Patient is seen and examined today. At the time of visit patient was receiving breathing treatment by RT. Vitals were grossly unremarkable patient is currently on 2 L of oxygen. Lab work today is normal except for potassium that was 5.5 patient is currently on potassium 1 mg daily that is currently on hold and also put in the hyperkalemia treatment. Complained today of generalized pruritus. We recommended Benadryl for the patient. If patient continues to have pruritus likely to discontinue the fluconazole. Because the last medication that was added and patient started itching today. Currently loom repairer is on the case and patient is started on fluconazole for the atypical pneumonia. And we are monitoring closely. Seems that patient is doing good is likely that we may discharge the patient home tomorrow. PN 05/02/2024: Patient is seen and examined today at the bedside. She is doing well and seems more color full a lot more colorful. Patient, however, continues to have this chronic cough rough gargling cough on her chest. Her oxygen demand however is reduced currently on 2L. Her home oxygen needs is 3L. She is currently on vanco and cefepime for 7 days and fluconazole for 4 days. She has been on antibiotics for 7days cha stop vanco + Cefepime now. Patient was in hypoglycemia yesterday 05/01/2024. Her blood sugar reads 13. PN 05/03/2024: Patient is seen and examined. Patient is getting better. Shortness of breath is improved.I will add doxycyline 100 mg BID to her medication regime. Patient want to go back to the SNF and 3L oxygensn. I have educated to abstain from smoking and smoking environment. She is willing to go back to the snf versus home. PN: 05/05/2024: Patient was discharged yesterday to SNF. But she decided not to go because she does not feel like the face. She told the nurses to find her another. manager of environmental services communicated with the patient's "Per patient she is okay to return to [facility] as she does not want to go to facility [place]" she was discharged this afternoon. Objective vital signs Vital Sign Date Time Temp Pulse Resp B/P (MAP) Pulse Ox O2 Delivery O2 Flow Rate FiO2 2/5/25 13:00 97.5 94 16 135/80 (98) 95 97.5 05/05/24 10:00 Nasal Cannula 2.0 05/05/24 10:00 28 Total Intake and Output 05/04/24 05/04/24 05/05/24 15:00 23:00 07:00 Intake Total 50 ml 480 ml 0 ml Balance 50 ml 480 ml 0 ml Examination General Appearance: Alert, Oriented X3, Cooperative HEENT: Atraumatic, PERRLA, EOMI, Mucous membrane moist/pink Respiratory: Decreased air entry on the R> L; crackles, rales improving,on 3L of Oxygen ( Baseline) Cardiovascular: Regular rate, Normal S1, Normal S2, No murmurs, no chest wall tenderness Abdominal: NO distention, no tenderness, bowel sounds present, no scars noted Extremities: no edema,atrophy weakness Skin: No rashes, No breakdown, No significant lesion Neuro: Normal gait, Normal speech, Strength at 5/5 X4 ext, Normal tone, Sensation intact, Cranial nerves 3-12 NL, Reflexes 2+ Psych/Mental Status: Mental status NL, Mood NL laboratory and microbiology Laboratory Tests 05/04/24 06:39 05/02/24 10:14 Test 05/02/24 10:14 Range/Units Serum Glucose 86 74-106 mg/dL Microbiology Date/Time Source Procedure Growth Status 04/26/24 12:10 Sputum Gram Stain - Final Resulted 04/26/24 12:10 Sputum Respiratory Culture - Preliminary Resulted 04/25/24 23:43 Nose MRSA Screen - Final Complete 04/25/24 10:24 Blood Blood Culture - Final NO GROWTH AFTER 5 DAYS OF INCUBATION. Complete Problem List/Assessment/Plan Problem List/Assessment/Plan Assessment Sepsis due to pneumonia Right lower lobe pneumonia atypical pneumonia COPD exacerbation Acute on chronic respiratory failure, now on 2L OXYGEN obesity bmi: 29.5 Diabeties type II, A1c 7.4 Acute on chronic HFpEF AFib History of DVT and PE with COVID infection hypertension, Severe pulmonary hypertension Metabolic alkalosis likely secondary to lasix Blood and sputum culture: Few growth of Filamentous Fungi. Sent to referral lab for --identification and susceptibility. Hypoglycemia: glucose 13 Plans: Continue Fluconazole 200 mg daily Start [id number] mg bid Sildenafil 30mg tid Atorvastatin Continue Eliquis IV steroids Med neb treatment q4h D/C Moderate sliding skill Monitor health status and glucose level Stop: Vanco and cefepime O2 to keep saturation >90% Stop IV Furosemide 20 mg Code status: full Goal of care discussed for more than 25 minutes case and plan discussed with Dr. Lepe Plan discussed with: Patient Date of Service: May 05, 2024 Billing Provider: MY LEPE MD Common Visit Codes: 12053-PLLUWNHAAT INP/OBS CARE(HIGH) EVENS POMPA RESIDENT May 05, 2024 19:06 MY LEPE MD May 06, 2024 07:25
--- NOTE | 2024-05-05 22:16 | DVHPN2 ---
Progress Note - Dictate Date Seen: May 05, 2024 Medical Necessity Reason Pt with a Central, PICC or Fol: No Subjective Patient seen and examined at bedside. Remains on supplemental oxygen Overnight events reviewed. vital signs Vital Sign Date Time Temp Pulse Resp B/P (MAP) Pulse Ox O2 Delivery O2 Flow Rate FiO2 05/05/24 13:00 97.5 94 16 135/80 (98) 95 97.5 05/05/24 10:00 Nasal Cannula 2.0 05/05/24 10:00 28 Total Intake and Output 05/04/24 05/04/24 05/05/24 15:00 23:00 07:00 Intake Total 50 ml 480 ml 0 ml Balance 50 ml 480 ml 0 ml objective Gen.: Patient lying in bed in no apparent distress. On supplemental oxygen. Head: Normocephalic, atraumatic. Eyes: EOMI/PERRLA. Ears: Normal hearing. Normal anatomy. Neck/trachea: Trachea midline, supple. Nose: Normal external anatomy. Mouth: Moist mucous membranes. Chest: Decreased air entry bilaterally. No wheezing or rhonchi. Cardiovascular: Positive S1, positive S2. Regular rate and rhythm. Abdomen: Positive bowel sounds in all 4 quadrants. Soft, non-tender, non- distended. : Deferred. Rectal: Deferred. Skin: Warm, dry. Intact. Extremities: 2+ radial pulses bilaterally. No lower extremity edema. Neuro: Awake, alert, oriented x3. No gross motor or sensory deficits. Cranial nerves II through XII intact. Gait not assessed. laboratory and microbiology Laboratory Tests 05/04/24 06:39 05/02/24 10:14 Test 05/02/24 10:14 Range/Units Serum Glucose 86 74-106 mg/dL Assessment/Plan Impression: Acute on chronic hypoxic respiratory failure Dependence on supplemental oxygen Pulmonary nodules Pulmonary hypertension COPD exacerbation Obesity BMI 30 Anxiety Events: Remains on supplemental oxygen, 3 LPM NC Taper O2 as tolerated Continue bronchodilators Complete steroid course Completed antibiotics Revatio TID for pulmonary hypertension Diflucan 200 mg po daily due to tree-in-bud opacities on CT chest Incentive spirometry Colace for constipation Recommend PT eval. Awaiting discharge. Labs and imaging reviewed. Rest of plan as noted below. Plan: Supplemental oxygen Titrate to keep O2 sats above 92%. Continue bronchodilators. Completed antibiotics Complete steroid course Revatio TID for pulmonary hypertension Accu-Cheks, ISS PRN. Monitor renal function. Monitor electrolytes. Supplement as necessary. Monitor ins and outs. Diet and lifestyle modifications for weight reduction Obesity - complicates all care DVT prophylaxis. Prognosis: Guarded given patient's multiple co-morbidities. Rest of plan per hospitalist and other consultants. Thank you Dr. Barajas, for allowing me to participate in this patient's care. Further recommendations will depend on the patient's clinical course. Please do not hesitate to contact me if you have any questions or concerns. This medical document was created using an electronic medical record system with ViewRay dictation system. Although these documentations are being carefully reviewed, there may still be some phonetic and typographical changes. The errors are purely typographical, due to imperfection on the software program, and do not reflect any compromise in the patient's medical care. Plan discussed with: Patient, Other (BOB Adam) MYKEL SANDERS MD May 05, 2024 22:16
== END 2024-05-05 16:20 | DRG 720 ==
LOC: EDUNIT# 21:18 → EDBD 21:18 → ER 21:18 → TELE 04-25 08:09 → TELE-WESTW 04-25 17:19
PROVIDERS: ADMIT Internal Medicine; ATTEND Internal Medicine
DX: A41.50 Gram-negative sepsis, unspecified (principal); J96.20 Acute and chronic respiratory failure, unspecified whether with hypoxia or hypercapnia; I50.33 Acute on chronic diastolic (congestive) heart failure; J15.69 Pneumonia due to other Gram-negative bacteria; E87.3 Alkalosis; E11.649 Type 2 diabetes mellitus with hypoglycemia without coma; I11.0 Hypertensive heart disease with heart failure; I27.20 Pulmonary hypertension, unspecified; J15.9 Unspecified bacterial pneumonia; J44.0 Chronic obstructive pulmonary disease with (acute) lower respiratory infection; R65.20 Severe sepsis without septic shock; J44.1 Chronic obstructive pulmonary disease with (acute) exacerbation; I48.0 Paroxysmal atrial fibrillation; E03.9 Hypothyroidism, unspecified; E66.9 Obesity, unspecified; F41.9 Anxiety disorder, unspecified; Z88.1 Allergy status to other antibiotic agents; Z87.891 Personal history of nicotine dependence; Z79.01 Long term (current) use of anticoagulants; Z63.72 Alcoholism and drug addiction in family; Z80.0 Family history of malignant neoplasm of digestive organs; Z81.3 Family history of other psychoactive substance abuse and dependence; Z99.81 Dependence on supplemental oxygen; Z86.718 Personal history of other venous thrombosis and embolism; Z86.711 Personal history of pulmonary embolism; Z68.29 Body mass index [BMI] 29.0-29.9, adult
CPT/HCPCS: 36415; 71045; 71250; 74018; 80048; 80053; 80202; 81001; 82565; 82962; 83036; 83880; 84484; 85007; 85025; 85027; 87040; 87070; 87081; 87205; 93005; 94640; 97110; 97116; 97163; 97530; 99291; G0378; J0692; J1815; J2405; J2470; Q0162

== ENCOUNTER → 2024-08-20 | Outpatient (CLI) | payer MEDICAID ==
[~2024-08-20] MED LIST changes: +ALBUTEROL SULF 2.5 MG/0.5ML(0.5%) NEB SOLN ONE; -FURO20TA3 PO; +LACT10SO3 PO; +LIDO5PAD12 EX
== END | disposition home or self-care (01) ==
LOC: RT 11:21
PROVIDERS: ATTEND Internal Medicine Pulmonary Disease
DX: J44.9 Chronic obstructive pulmonary disease, unspecified (principal); E66.9 Obesity, unspecified; Z79.899 Other long term (current) drug therapy
CPT/HCPCS: 94060; 94618; 94729

== ENCOUNTER 2024-09-15 14:10 | Inpatient (IN) | payer MEDICAID ==
[~2024-09-15] VITALS: Ht 149.9 cm; Wt 78.7 kg
[~2024-09-15 14:10] MED LIST changes: -ALBUTEROL SULF 2.5 MG/0.5ML(0.5%) NEB SOLN ONE; +AMLO1TAB21 PO; +ATOR40TA52 PO; +POTA-228 PO; +SILD20TA41 PO; +ZOLP5TAB5 PO
[2024-09-15 14:59] VITALS: PULSE 111; RESP 20; O2SAT 89
[2024-09-15] MEDS: ALBUTEROL SULF 2.5 MG/0.5ML(0.5%) NEB SOLN HHN ONE (15:02)
[2024-09-15] MEDS: IPRATROPIUM BROM 0.5 MG/2.5ML INH SOL HHN ONE (15:02)
--- NOTE | 2024-09-15 15:10 | ED.PDOC ---
SOB-HPI HPI Comments 59-year-old female who comes in with chief complaint of shortness a breath. The patient has a history of shortness for breath over the past two weeks. At this time, the patient has been having a clear cough. The patient denies any chest pain, nausea, vomiting or diarrhea. There has been no fever or any leg swelling. The patient does have a history of COPD and has been on 4 L of oxygen nasal cannula. At time she states that she is able to decrease it to 3 L. she was released from [facility] approximately one week ago. At that time she was diagnosed with pneumonia. The patient has no other complaints at this time. Chief Complaint: Shortness of Breath Time Seen by MD: 14:28 Primary Care Provider: NONE Reviewed notes: Nurses Notes, Medications, Allergies (Allergies listed above) Information Source: Patient Mode of Arrival: Wheelchair Severity: Moderate Timing: Weeks Duration: Since onset Context: At Rest PE Risk Factors: None History of: COPD, CHF, Other (History of PE in the past) Prehospital treatment: None Modifying Factors: Nothing Associated Signs and Symptoms: Wheeze, Cough If cough with SOB: Productive, Clear Past Medical History PAST MEDICAL HISTORY: Arthritis (Rheumatoid arthritis), CHF, COPD, DM, High Lipids, HTN, PE, Thyroid Past Medical History (Other): DVT, pulmonary hypertension Surgical History: BTL, Surgical History (Other): Left cataract surgery BIOCHEMISTRY PROFESSOR History: No Pertinent BIOCHEMISTRY PROFESSOR History Family History Family History: Family hx of HTN Social History Smoker: Quit Greater Than 1 Year Alcohol: Denies ETOH Use Drugs: Denies Drug Use Lives In: Home Constitutional: denies: chills, diaphoresis, fatigue, fever, malaise, sweats, weakness, others EENTM: denies: blurred vision, double vision, ear bleeding, ear discharge, ear drainage, ear pain, ear ringing, eye pain, eye redness, hearing loss, mouth pain, mouth swelling, nasal discharge, nose bleeding, nose congestion, nose pain, photophobia, tearing, throat pain, throat swelling, voice changes, others Respiratory: reports: cough, shortness of breath; denies: hemoptysis, orthopnea, SOB at rest, SOB with excertion, stridor, wheezing, others Cardiovascular: denies: chest pain, dizzy spells, diaphoresis, Dyspnea on exertion, edema, irregular heart beat, left arm pain, lightheadedness, palpitations, PND, syncope, others Gastrointestinal: denies: abdomen distended, abdominal pain, blood streaked bowels, constipated, diarrhea, dysphagia, difficulty swallowing, hematemesis, melena, nausea, poor appetite, poor fluid intake, rectal bleeding, rectal pain, vomiting, others Genitourinary: denies: abnormal vagina bleeding, burning, dyspareunia, dysuria, flank pain, frequency, hematuria, incontinence, pain, , vagina discharge, urgency, others Neurological: denies: dizziness, fainting, headache, left sided numbness, left sided weakness, numbness, paresthesia, pre-existing deficit, right sided numbness, right sided weakness, seizure, speech problems, tingling, tremors, we akness, others Musculoskeletal: denies: back pain, gout, joint pain, joint swelling, muscle pain, muscle stiffness, neck pain, others Integumetry: denies: bruises, change in color, change in hair/nails, dryness, laceration, lesions, lumps, rash, wounds, others Allergic/Immunocompromised: denies: Difficulty Healing, Frequent Infections, Hives, Itching, others Hematologic/Lymphatic: denies: anemia, blood clots, easy bleeding, easy bruising, swollen glands, others Endocrine: denies: excessive hunger, excessive sweating, excessive thirst, excessive urination, flushing, intolerance to cold, intolerance to heat, unexplained weight gain, unexplained weight loss, others Psychiatric: denies: anxiety, bipolar disorder, depression, hopeless, panic disorder, schizophrenia, sleepless, suicidal, others Physical Exam General Appearance: Moderate Distress HEENT: Normal ENT Inspection, Pharynx Normal, TMs Normal Neck: Full Range of Motion, Non-Tender, Normal, Normal Inspection Respiratory: Chest Non-Tender, Decreased Breath Sounds, Lungs Clear, No A ccessory Muscle Use, Respiratory Distress Cardiovascular: No Edema, No JVD, No Murmur, No Gallop, Tachycardia Breast Exam: Deferred Gastrointestinal: No Organomegaly, Non Tender, No Pulsatile Mass, Normal Bowel Sounds, Soft Genitalia: Deferred Pelvic: Deferred Rectal: Deferred Extremities: No calf tenderness, Normal capillary refill, Pedal edema Musculoskeletal : Apperance: Normal Neurologic: Alert, refinery operator crude unit II-XII nml as Tested, Motor Weakness, Normal Affect, Normal Mood, No Sensory Deficits Cerebellar Function: Normal Reflexes: Normal Skin: Dry, Pallor, Warm Lymphatic: No Adenopathy EKG EKG : Pulse Rate (adult): 103 Cardiac Rhythm: Afib Block: None Was a procedure done? Was a procedure done?: No Differential Dx Differential Diagnosis: Asthma, Bronchitis, Cardiogenic Shock, CHF, COPD, Pneumonia X-Ray, Labs, Meds, VS Vital Signs Date Time Temp Pulse Resp B/P (MAP) Pulse Ox O2 Delivery O2 Flow Rate FiO2 09/15/24 15:10 103 09/15/24 15:03 20 92 Nasal Cannula* 3 32 09/15/24 14:59 111 20 89 Nasal Cannula* 3 32 09/15/24 14:59 98.6 112 20 99/64 (76) 89 98.6 09/15/24 14:57 103 09/15/24 14:48 103 09/15/24 14:10 98.9 106 23 95/58 (70) 93 98.9 09/15/24 14:10 23 93 Nasal Cannula 3.0 Lab Test 09/15/24 16:13 09/15/24 15:00 09/15/24 14:42 Range/Units Lactic Acid Level 3.9 *H 2.2 *H 0.4-2.0 mmol/L Troponin I High Sensitivity 4 4 </=34 ng/L White Blood Count 7.2 4.4-10.8 10^3/uL Red Blood Count 4.46 4.0-5.20 10^6/uL Hemoglobin 12.0 L 12.2-16.2 g/dL Hematocrit 36.4 36.0-46.0 % Mean Corpuscular Volume 81.7 80.0-100.0 fL Mean Corpuscular Hemoglobin 27.0 L 28.0-32.0 pg Mean Corpuscular Hemoglobin Concent 33.0 32.0-36.0 g/dL Red Cell Distribution Width 15.8 H 11.8-14.3 % Platelet Count 211 140-450 10^3/uL Mean Platelet Volume 6.8 L 6.9-10.8 fL Neutrophils (%) (Auto) 58.0 37.0-80.0 % Lymphocytes (%) (Auto) 25.4 10.0-50.0 % Monocytes (%) (Auto) 12.4 H 0.0-12.0 % Eosinophils (%) (Auto) 3.8 0.0-7.0 % Basophils (%) (Auto) 0.4 0.0-2.0 % Neutrophils # (Auto) 4.2 1.6-8.6 10 ^3/uL Lymphocytes # (Auto) 1.8 0.4-5.4 10 ^3/uL Monocytes # (Auto) 0.9 0-1.3 10 ^3/uL Eosinophils # (Auto) 0.3 0-0.8 10 ^3/uL Basophils # (Auto) 0 0-0.2 10 ^3/uL Nucleated Red Blood Cells 0.1 % D-Dimer, Quantitative 0.81 H 0.0-0.49 mg/L FEU Sodium Level 141 136-145 mmol/L Potassium Level 3.3 L 3.5-5.1 mmol/L Chloride Level 99 98-107 mmol/L Carbon Dioxide Level 35 H 20-31 mmol/L Anion Gap 7 5-15 Blood Urea Nitrogen 17 9-23 mg/dL Creatinine 0.84 0.550-1.02 mg/dL Glomerular Filtration Rate Calc 79 >90 mL/min BUN/Creatinine Ratio 20.2 H 10.0-20.0 Serum Glucose 176 H 74-106 mg/dL Calcium Level 11.4 H 8.7-10.4 mg/dL B-Type Natriuretic Peptide 34.69 0-100 pg/mL Current Medications Medications (Trade) Dose Ordered Sig/Aquiles Route Start Time Stop Time Status Last Admin Methylprednisolone Sodium Succinate (Solu Medrol) 125 mg ONCE ONCE IV 09/15/24 14:45 09/15/24 14:46 DC 09/15/24 15:11 Ipratropium [place] (Atrovent Medneb) 1 mg ONCE ONCE N 09/15/24 14:45 09/15/24 14:46 DC 09/15/24 15:02 Albuterol (Ventolin Medneb) 20 mg ONCE ONCE N 09/15/24 14:45 09/15/24 14:46 DC 09/15/24 15:02 IV Hep-Lock was established The patient was given a continuous breathing treatment of albuterol and Atrovent. CXR: IMPRESSION: Patchy bibasilar airspace opacity. Pulmonary vascular congestion. IV Hep-Lock was established. The patient was given normal saline per sepsis protocol but the patient does have a history of CHF. Blood cultures x2 were drawn. The 1st lactic acid level came back at 2.2 in his now gone up to 3.9 The patient is being given two antibiotics should cover our sepsis protocol At this time the patient will be admitted Because the D-dimer is slightly elevated, the patient is also getting a CAT scan of the chest as well as ultrasound of the lower extremities to rule out DVT and PE Images Reviewed?: Images reviewed and evaluated by me Time of 1ST Reevaluation: 15:09 Reevaluation 1ST: Improved Patient Education/Counseling: Diagnosis, Treatment, Prognosis Family Education/Counseling: No Family Present SEPSIS Sepsis Screen Date sepsis recognized/suspect: Sep 15, 2024 Time Sepsis recognized/suspect: 1429 Recent Procedure: No On Antibiotic Therapy: No Respiratory Rate >20: Yes Heart Rate >90: Yes Temp<36 C (96.8 F) or >38.3 C: No SBP <90 or MAP <65 mmHG: No New Acute Mental Status Change: No Is the patient on CPAP, BIPAP,: No Physician Orders Urinalysis (09/15/24 14:42) Med Neb Initial Treatment (09/15/24 14:42) Chest Portable (09/15/24 14:42) Heplock Iv (09/15/24 14:42) Pulse Oximetry (09/15/24 14:42) Bridge/Structure Inspection Team Leader (09/15/24 14:42) Blood Pressure (09/15/24 14:42) Electrocardigram (09/15/24 14:42) Blood Culture (09/15/24 14:42) Troponin-I Hs (09/15/24 17:42) Electrocardigram (09/15/24 15:42) Electrocardigram (09/15/24 17:42) Sodium Chloride 0.9% (09/15/24 17:00) Azithromycin 500mg/ 250ml (Zithromax 50 (09/15/24 17:00) Chest Without Contrast (09/15/24 16:54) Chest With Contrast (09/15/24 17:03) Magnesium (09/15/24 17:12) Ct Angio Chest Contrast (09/15/24 17:16) Bilat Lower Dvt (09/15/24 17:16) Vital Signs Date Time Temp Pulse Resp B/P (MAP) Pulse Ox O2 Delivery O2 Flow Rate FiO2 09/15/24 15:10 103 09/15/24 15:03 20 92 Nasal Cannula* 3 32 09/15/24 14:59 111 20 89 Nasal Cannula* 3 32 09/15/24 14:59 98.6 112 20 99/64 (76) 89 98.6 09/15/24 14:57 103 09/15/24 14:48 103 09/15/24 14:10 98.9 106 23 95/58 (70) 93 98.9 09/15/24 14:10 23 93 Nasal Cannula 3.0 Laboratory Tests Test 09/15/24 14:42 09/15/24 15:00 09/15/24 16:13 Lactic Acid Level 2.2 mmol/L (0.4-2.0) *H 3.9 mmol/L (0.4-2.0) *H White Blood Count 7.2 10^3/uL (4.4-10.8) Medications Medications Dose Ordered Sig/Aquiles Route Start Time Stop Time Status Last Admin Dose Admin Albuterol 20 mg ONCE ONCE HHN 09/15/24 14:45 09/15/24 14:46 DC 09/15/24 15:02 Ipratropium [place] 1 mg ONCE ONCE N 09/15/24 14:45 09/15/24 14:46 DC 09/15/24 15:02 Methylprednisolone Sodium Succinate 125 mg ONCE ONCE IV 09/15/24 14:45 09/15/24 14:46 DC 09/15/24 15:11 Departure 1 Departure Time of Disposition: 17:19 Impression: Primary Impression: Acute and chronic respiratory failure Additional Impressions: Sepsis Qualified Codes: A41.9 - Sepsis, unspecified organism Elevated lactic acid level Disposition: ADMITTED INPATIENT Admit to: Tele Condition: Fair Critical Care Note Critical Care Time?: Yes (45 min-critical care time only) Stability Stability form required: Yes Unstable for transfer: Telemetry monitoring (Telemetry monitoring required), ED Physician Assesment (Clinical assesment) Heart Score Heart Score: Heart Score Response (Comments) Value History Moderate Suspicious 1 EKG N/A 0 Age 45-64 1 Risk Factors >3 or Hx ASHD 2 Troponin Normal limit 0 Total 4 I personally scribed for INDIO TOMLIN MD ([email or web address]) on 09/15/24 at 16:40. Electronically submitted by Sonya Hall ([email or web address]). INDIO TOMLIN MD Sep 15, 2024 15:10
[2024-09-15] MEDS: methylPREDNISolone SOD SUCC 125 MG/2 ML VL IV ONE (15:11)
[2024-09-15 15:15] LABS: Basophils # (auto) 0 10 ^3/uL (0-0.2); Basophils % (auto) 0.4 % (0.0-2.0); Eosinophils # (auto) 0.3 10 ^3/uL (0-0.8); Eosinophils % (auto) 3.8 % (0.0-7.0); Hematocrit 36.4 % (36.0-46.0); Lymphocytes # (auto) 1.8 10 ^3/uL (0.4-5.4); Lymphocytes % (auto) 25.4 % (10.0-50.0); Mean Corpuscular Volume 81.7 fL (80.0-100.0); Monocytes # (auto) 0.9 10 ^3/uL (0-1.3); Monocytes % (auto) 12.4 % (0.0-12.0); Neutrophils # (auto) 4.2 10 ^3/uL (1.6-8.6); Nucleated Red Blood Cells % 0.1 %; Platelet Count (auto) 211 10^3/uL (140-450); Red Blood Cells 4.46 10^6/uL (4.0-5.20); Red Cell Distribution Width 15.8 % (11.8-14.3); White Blood Cell 7.2 10^3/uL (4.4-10.8)
[2024-09-15 15:24] LABS: Chloride 99 mmol/L (98-107); Sodium 141 mmol/L (136-145)
[2024-09-15 15:25] LABS: Anion Gap 7 (5-15)
[2024-09-15 15:26] LABS: Calcium 11.4 mg/dL (8.7-10.4); Carbon Dioxide 35 mmol/L (20-31); Potassium 3.3 mmol/L (3.5-5.1)
[2024-09-15 15:30] LABS: BUN/Creatinine Ratio 20.2 (10.0-20.0); Blood Urea Nitrogen 17 mg/dL (9-23); Glucose 176 mg/dL (74-106)
[2024-09-15 15:42] LABS: Lactic Acid w/Reflex 2.2 mmol/L (0.4-2.0)
--- NOTE | 2024-09-15 15:46 | DVH ---
XY CHEST PORTABLE, HISTORY: sob COMPARISON: XY CHEST PORTABLE on DOS: 05/01/24, XY CHEST PORTABLE on DOS: 04/26/24, XY CHEST PORTABLE on DOS: 04/24/24 XY CHEST PORTABLE on DOS: 05/01/24, XY CHEST PORTABLE on DOS: 04/26/24, XY CHEST PORTABLE on DOS: 5 TECHNICAL DATA: 1 view of the chest was obtained. FINDINGS: Lines and tubes: None Cardiomediastinal silhouette: normal Pulmonary vasculature: prominent Lung expansion: normal Lung airspace: Patchy bibasilar airspace opacity. Lung interstitium: normal Pleura: normal Pneumothorax: no Bones: Unremarkable Other: no IMPRESSION: Patchy bibasilar airspace opacity. Pulmonary vascular congestion.
[2024-09-15] MEDS ORDERED: cefEPIME 1gm INJ VIAL IM ONE (17:00)
--- NOTE | 2024-09-15 17:21 | DVHINCON2 ---
Date of service: Sep 15, [address] Monahan Reason for Consultation Atypical pneumonia vs Aspergillosis History of Present Illness A 59-year-old woman with past medical history including COPD, history of PE and DVT, pulmonary hypertension, DM type 2, hypertension, CHF and RA who presents to the ED today referred by her PCP due to sputum culture showing Aspergillus fumigatus. She had sputum culture positive for Aspergillus fumigatus in March of 2024, for which pt reports she started treatment at the hospital but developed itchiness, so medication was discontinued at that time. Patient complains of shortness of breath recently, uses 3 L of oxygen at home. She also reports pain in her upper back at the level of the lungs as well as bilateral lower extremity pain that gets worse with walking. She uses a walker but currently unable to walk significant distances. Denies chest pain, fever/chills, abdominal pain or other acute complaints. On ED workup, CBC and CMP were grossly unremarkable. D-dimer was slightly elevated at 0.81, lactic acid was elevated at 3.9. Troponins were negative and BNP was normal range at 34.69. Initial chest x-ray showing patchy bibasilar opacities, worse in the right lung. Plan to obtain CT scan with contrast of the chest. Patient was admitted for further care for possible bronchoscopy, and pulmonary consultation was requested for evaluation and management of atypical pneumonia vs. aspergillosis. Review of Systems: 14-point review of systems negative unless otherwise noted above. Past Medical History: COPD, history of PE and DVT, pulmonary hypertension, type 2 diabetes mellitus, hypertension, CHF, dyslipidemia, rheumatoid arthritis, and hypothyroidism. Past Surgical History: None Medications: Reviewed. Allergies: Ketorolac Tromethamine Levofloxacin. Family History: Family history of cirrhosis, colon cancer, and drug addiction. Social History: No smoking. No alcohol use. No illicit drug use. Family History: Drug addiction G8 BROTHER FH: cirrhosis G8 MOTHER G8 FATHER G8 SISTER FH: colon cancer NIECE Allergies: Coded Allergies: Ketorolac Tromethamine (Verified Allergy, Unknown, 09/15/24) Levofloxacin (Verified Allergy, Unknown, 01/19/24) Home Meds Active Scripts Diclofenac Sodium (Topical) (Voltaren Arthritis Pain) 1 % Gel, 1 % EX BIDPRN PRN for 30 Days, #1 GEL Prov:KATT COHEN MD 02/21/24 Potassium Chloride (POTASSIUM CHLORIDE CR) 10 Meq Tb, 1 TAB PO DAILY for 15 Days, #15 TAB 5 Refills Prov:LAUREN WANG RESIDENT 01/22/24 Reported Medications Levothyroxine Sodium (Levothyroxine Sodium) 100 Mcg Tab, 1 TAB PO DAILY for 31 Days, #31 04/29/24 Furosemide (Furosemide) 40 Mg Tab, 1 TAB PO BID for 31 Days, #62 04/29/24 Lidocaine (Lidocaine Patch 5%) 5 % Pad, 5 % EX, PAD 04/25/24 Lactulose (Lactulose) Unknown Strength Tatiana, PO 04/25/24 Glipizide (Glipizide) 5 Mg Tab, 5 MG PO DAILY for 30 Days, MG 01/20/24 Apixaban Base (ELIQUIS) 5 Mg Tab, 5 MG PO BID, TAB 01/20/24 Carvedilol (Carvedilol) 3.125 Mg Tab, 3.125 MG PO BID for 30 Days, MG 01/20/24 Cyclobenzaprine Hcl (Cyclobenzaprine Hcl) 10 Mg Tab, 10 MG PO QPM for 30 Days, MG 01/20/24 Losartan Potassium (Losartan Potassium) 25 Mg Tab, 25 MG PO DAILY for 30 Days, MG 01/20/24 Amlodipine Besylate (Amlodipine Besylate) 5 Mg Tab, 5 MG PO DAILY for 30 Days, MG 01/20/24 Montelukast Sodium (MONTELUKAST SODIUM) 10 Mg Tab, 1 TAB PO DAILY, #30 TAB 5 Refills 01/20/24 Vital Signs Vital Signs Date Time Temp Pulse Resp B/P (MAP) Pulse Ox O2 Delivery O2 Flow Rate FiO2 09/15/24 15:10 103 09/15/24 15:03 20 92 Nasal Cannula* 3 32 09/15/24 14:59 98.6 99/64 (76) 98.6 Physical Exam Gen.: Patient lying in bed in no apparent distress. On supplemental oxygen. Head: Normocephalic, atraumatic. Eyes: EOMI/PERRLA. Ears: Normal hearing. Normal anatomy. Neck/trachea: Trachea midline, supple. Nose: Normal external anatomy. Mouth: Moist mucous membranes. Chest: Decreased air entry bilaterally. No wheezing or rhonchi. Cardiovascular: Positive S1, positive S2. Regular rate and rhythm. Abdomen: Positive bowel sounds in all 4 quadrants. Soft, non-tender, non- distended. : Deferred. Rectal: Deferred. Skin: Warm, dry. Intact. Extremities: 2+ radial pulses bilaterally. No lower extremity edema. Neuro: Awake, alert, oriented x3. No gross motor or sensory deficits. Cranial nerves II through XII intact. Gait not assessed. Labs/Diagnostic Data Labs Test 09/15/24 16:13 09/15/24 15:00 Range/Units Lactic Acid Level 3.9 *H 0.4-2.0 mmol/L Troponin I High Sensitivity 4 </=34 ng/L White Blood Count 7.2 4.4-10.8 10^3/uL Red Blood Count 4.46 4.0-5.20 10^6/uL Hemoglobin 12.0 L 12.2-16.2 g/dL Hematocrit 36.4 36.0-46.0 % Mean Corpuscular Volume 81.7 80.0-100.0 fL Mean Corpuscular Hemoglobin 27.0 L 28.0-32.0 pg Mean Corpuscular Hemoglobin Concent 33.0 32.0-36.0 g/dL Red Cell Distribution Width 15.8 H 11.8-14.3 % Platelet Count 211 140-450 10^3/uL Mean Platelet Volume 6.8 L 6.9-10.8 fL Neutrophils (%) (Auto) 58.0 37.0-80.0 % Lymphocytes (%) (Auto) 25.4 10.0-50.0 % Monocytes (%) (Auto) 12.4 H 0.0-12.0 % Eosinophils (%) (Auto) 3.8 0.0-7.0 % Basophils (%) (Auto) 0.4 0.0-2.0 % Neutrophils # (Auto) 4.2 1.6-8.6 10 ^3/uL Lymphocytes # (Auto) 1.8 0.4-5.4 10 ^3/uL Monocytes # (Auto) 0.9 0-1.3 10 ^3/uL Eosinophils # (Auto) 0.3 0-0.8 10 ^3/uL Basophils # (Auto) 0 0-0.2 10 ^3/uL Nucleated Red Blood Cells 0.1 % D-Dimer, Quantitative 0.81 H 0.0-0.49 mg/L FEU Sodium Level 141 136-145 mmol/L Potassium Level 3.3 L 3.5-5.1 mmol/L Chloride Level 99 98-107 mmol/L Carbon Dioxide Level 35 H 20-31 mmol/L Anion Gap 7 5-15 Blood Urea Nitrogen 17 9-23 mg/dL Creatinine 0.84 0.550-1.02 mg/dL Glomerular Filtration Rate Calc 79 >90 mL/min BUN/Creatinine Ratio 20.2 H 10.0-20.0 Serum Glucose 176 H 74-106 mg/dL Calcium Level 11.4 H 8.7-10.4 mg/dL B-Type Natriuretic Peptide 34.69 0-100 pg/mL Assessment Impression: Acute on chronic hypoxic respiratory failure 2/2 AE COPD Rule out Atypical pneumonia Acute exacerbation of COPD Atelectasis Ex-smoker Lactic acid Hypercalcemia Hypokalemia Elevated D-dimer Obesity BMI 34.6 Plan: Of note, prior Resp cx Mar 2024: Aspergillus fumigatus. Pt did not tolerate fluconazole due to itching and it was discontinued by hospitalist team. Plan for CT chest with contrast to r/o PE and to evaluate for lymphadenopathy, r/o bronchiectasis and atypical pneumonia. US Venous Doppler of BLE to r/o DVT. Wells criteria: Moderate risk for PE/DVT. Elevated d-dimer, tachycardia, borderline SBP in 90s. BNP-wnl. BUN/Creat within normal limits. Will consider Bronchoscopy with bronchoalveolar lavage, possible brushings, possible biopsy based on results. Consent for Bronchoscopy with bronchoalveolar lavage, possible brushings, possible biopsy Supplemental oxygen Keep o2 sat above 92% On 3 LPM via NC Continue steroids Recommend Doxycycline 100mg IVPB [id number] for 10 days. Received Azithromycin already today. Ok to start Doxycycline in the AM. Recommend Cefepime 1gm IVPB q8 hours for 7 days. Received first dose in ED. Consult ID and f/u recommendations. Defer initiation of antifungal to ID Prior resp cx: Aspergillus fumigatus. Mold susceptibility: Voriconaz. 0.5 mcg/mL susceptible. Send magnesium given hypokalemia, add on lab. DVT prophylaxis. Prognosis: Guarded given patient's multiple co-morbidities. Rest of plan per hospitalist and other consultants. Thank you, Dr. Monahan, for allowing me to participate in this patient's care. Further recommendations will depend on the patient's clinical course. Please do not hesitate to contact me if you have any questions or concerns. This medical document was created using an electronic medical record system with [employer] computerized dictation system. Although these documentations are being carefully reviewed, there may still be some phonetic and typographical changes. The errors are purely typographical, due to imperfection on the software program, and do not reflect any compromise in the patient's medical care. Plan discussed with: Patient, Other (RN/Dr. Monahan) MYKEL SANDERS MD Sep 15, 2024 17:21
[2024-09-15] MEDS: CEFEPIME 2GM/50ML NS 50 ML IV ONE ×2 (17:50→17:57)
[2024-09-15] MEDS: SODIUM CHLORIDE 0.9% 1,000 ML IV ONE (17:58)
[2024-09-15] MEDS: IOHEXOL 300 MG/ML 100ML BOTTLE IJ ONE (17:59)
[2024-09-15] MEDS: AZITHROMYCIN 500MG/ 250ML 250 ML IV ONE (18:14)
--- NOTE | 2024-09-15 18:26 | DVH ---
EXAM: CT CHEST WITH CONTRAST History: Hx aspergillus on prior resp culture, evaluate for LAD, PNA Comparison Study: CT CHEST WITHOUT CONTRAST on DOS: 04/27/24, CT CHEST WITH CONTRAST on DOS: 02/17/24 TECHNIQUE: A digital bag end sewer image was obtained. During the uneventful, intravenous administration of c ontrast material, multislice data acquisition was obtained through the chest. The data set was subseq uently reconstructed into axial, coronal, and sagittal images. Radiation Dose : CTDI vol 13.51 mGy, DLP 517.56 mGy*cm. Findings: Lungs: Similar to slightly decreased conspicuity of bilateral peribronchial thickening and tree-in-bu d nodularity. Pleura: Unremarkable Heart/Great vessels: No cardiomegaly or pericardial effusion. Partially visualized IVC filter. Enlarg ed pulmonary arteries. Mediastinum: Unremarkable Soft tissues/Bones: Mild multilevel degenerative changes of the thoracic spine. Chronic right rib fra cture deformities. Multifocal hypodense lesions in the spleen, slightly more prominent compared to 02/17/2024. Numerous calcifications throughout the pancreas favored sequela of chronic pancreatitis. Dilated main pancreat ic duct. Cholelithiasis versus vicarious excretion of contrast. The remaining partially visualized up per abdomen is within normal limits. Impression: 1. Similar to slightly decreased conspicuity bilateral peribronchial thickening and tree-in-bud nodul arity consistent with history of known infectious etiology. 2. Enlarged pulmonary arteries. Correlate for pulmonary artery hypertension. 3. Hypodense lesions in the spleen are slightly more prominent compared to 02/17/2024. Consider furth er evaluation with ultrasound or contrast-enhanced CT as indicated.
--- NOTE | 2024-09-15 18:40 | DVH ---
EXAM: US Duplex Bilateral Lower Extremities Veins CLINICAL INDICATION: elevated d-dimer, r/o BLE DVT TECHNIQUE: Real-time duplex ultrasound scan of the bilateral lower extremity veins integrating B-mod e two-dimensional vascular structure, Doppler spectral analysis, color flow Doppler imaging and compr ession. COMPARISON: None FINDINGS: RIGHT DEEP VEINS: Unremarkable. No DVT in the right common femoral, femoral, proximal deep femoral or popliteal veins. The veins demonstrate normal color flow, are normally compressible, with normal phasic flow and/or augmentation response. RIGHT SUPERFICIAL VEINS: Unremarkable. No thrombus in the visualized right great saphenous vein. LEFT DEEP VEINS: Unremarkable. No DVT in the left common femoral, femoral, proximal deep femoral o r popliteal veins. The veins demonstrate normal color flow, are normally compressible, with normal p hasic flow and/or augmentation response. LEFT SUPERFICIAL VEINS: Unremarkable. No thrombus in the visualized left great saphenous vein. SOFT TISSUES: No acute findings. No popliteal cyst. OTHER FINDINGS: . IMPRESSION: No DVT.
--- NOTE | 2024-09-15 18:42 | DVHHPRES ---
History of Present Illness Resident Creating Document: LAUREN WANG RESIDENT History of Present Illness This is a 59-year-old female with past medical history of rheumatoid arthritis, hypertension, CHF, COPD, type 2 diabetes mellitus, dyslipidemia, pulmonary embolism, history of DVT and pulmonary hypertension, hypothyroidism who presented to the ED referred by her PCP due to sputum culture showing Aspergillus fumigatus. The patient had sputum culture showing Aspergillus fumigatus in March of 2024 for which the patient states that she started treatment at the hospital but developed itchiness so medication was discontinued at that time. Patient stated that she has been feeling shortness of breath recently and states that she uses 3 L of oxygen at home. Patient also reports pain in her upper back at the level of the lungs as well as bilateral lower extremity pain that gets worse with walking. The patient uses a walker but states that now is not able to walk significant distances. Patient is currently reports shortness of breath but denies chest pain, fever/chills, abdominal pain or any other additional symptoms. Upon admission CBC and CMP were grossly unremarkable. D-dimer was slightly elevated at 0.81, lactic acid was elevated at 3.9. Troponins were negative and BNP was normal range at 34.69. Initial chest x-ray is showing patchy bibasilar opacities that are worse in the right lung. We will order a CT scan with contrast of the chest. We will also admit the patient for bronchoscopy and further assessment and management of her condition. Past medical history: rheumatoid arthritis, hypertension, CHF, COPD, type 2 diabetes mellitus, dyslipidemia, pulmonary embolism, history of DVT and pulmon shirley hypertension, hypothyroidism Family History: None Smoke: No ALCOHOL: none Drugs: None Lives: with Family Domestic Violence: Neg Review of Systems Constitutional: No: Fever, Chills, Sweats, Weakness, Malaise, Other Eyes: No: Pain, Vision change, Conjunctivae inflammation, Eyelid inflammation, Other, Redness ENT: No: Ear pain, Ear discharge, Nose pain, Nose discharge, Nose congestion, Mouth pain, Mouth swelling, Throat pain, Throat swelling, Other Respiratory: Shortness of breath; No: Cough, Dry, SOB with excertion, Wheezing, Hemoptysis, Pleuritic Pain, Sputum, Wheezing, Other Cardiovascular: No: Chest Pain, Palpitations, Orthopnea, Paroxysmal Noc. Dyspnea, Edema, Lt Headedness, Other Gastrointestinal: No: Nausea, Vomiting, Abdominal Pain, Diarrhea, Constipation, Melena, Hematochezia, Other Genitourinary: No Dysuria, No Frequency, No Incontinence, No Hematuria, No Retention, No Other Musculoskeletal: back pain, leg pain; No: other, neck pain, shoulder pain, arm pain, hand pain, foot pain Skin: No: Rash, Lesions, Jaundice, Bruising, Other Neurological: No: Weakness, Numbness, Incoordination, Change in speech, Confusion, Seizures, Other Allergies: Coded Allergies: Ketorolac Tromethamine (Verified Allergy, Unknown, 09/15/24) Levofloxacin (Verified Allergy, Unknown, 01/19/24) Exam Vital Signs Vital Signs Date Time Temp Pulse Resp B/P (MAP) Pulse Ox O2 Delivery O2 Flow Rate FiO2 09/15/24 18:00 118 34 111/55 (73) 88 09/15/24 15:03 Nasal Cannula* 3 32 09/15/24 14:59 98.6 98.6 General Appearance: Alert, Oriented X3, Cooperative, mild distress HEENT: Atraumatic, PERRLA, EOMI, Mucous membr. moist/pink Respiratory: Other (There is decreased breath sounds on bilateral lung schmidt but worse in the right lung base.) Cardiovascular: Regular rate, Normal S1, Normal S2, No murmurs Abdominal: Normal bowel sounds, Soft, No tenderness, No hepatospenomegaly, No masses Extremities: No clubbing, No cyanosis, Normal pulses, Other (There is very mild bilateral nonpitting edema on both feet) Skin: No rashes, No breakdown, No significant lesion Neuro: Normal speech, Strength at 5/5 X4 ext, Normal tone, Sensation intact, Cranial nerves 3-12 NL, Reflexes 2+, Other (Patient states that has not been able to walk normally with her walker because of severe pain on lower extremities likely due to claudication.) Psych/Mental Status: Mental status NL, Mood NL Labs/Xrays Labs Test 09/15/24 16:13 09/15/24 15:00 Range/Units Lactic Acid Level 3.9 *H 0.4-2.0 mmol/L Magnesium Level 1.6 1.6-2.6 mg/dL Troponin I High Sensitivity 4 </=34 ng/L White Blood Count 7.2 4.4-10.8 10^3/uL Red Blood Count 4.46 4.0-5.20 10^6/uL Hemoglobin 12.0 L 12.2-16.2 g/dL Hematocrit 36.4 36.0-46.0 % Mean Corpuscular Volume 81.7 80.0-100.0 fL Mean Corpuscular Hemoglobin 27.0 L 28.0-32.0 pg Mean Corpuscular Hemoglobin Concent 33.0 32.0-36.0 g/dL Red Cell Distribution Width 15.8 H 11.8-14.3 % Platelet Count 211 140-450 10^3/uL Mean Platelet Volume 6.8 L 6.9-10.8 fL Neutrophils (%) (Auto) 58.0 37.0-80.0 % Lymphocytes (%) (Auto) 25.4 10.0-50.0 % Monocytes (%) (Auto) 12.4 H 0.0-12.0 % Eosinophils (%) (Auto) 3.8 0.0-7.0 % Basophils (%) (Auto) 0.4 0.0-2.0 % Neutrophils # (Auto) 4.2 1.6-8.6 10 ^3/uL Lymphocytes # (Auto) 1.8 0.4-5.4 10 ^3/uL Monocytes # (Auto) 0.9 0-1.3 10 ^3/uL Eosinophils # (Auto) 0.3 0-0.8 10 ^3/uL Basophils # (Auto) 0 0-0.2 10 ^3/uL Nucleated Red Blood Cells 0.1 % D-Dimer, Quantitative 0.81 H 0.0-0.49 mg/L FEU Sodium Level 141 136-145 mmol/L Potassium Level 3.3 L 3.5-5.1 mmol/L Chloride Level 99 98-107 mmol/L Carbon Dioxide Level 35 H 20-31 mmol/L Anion Gap 7 5-15 Blood Urea Nitrogen 17 9-23 mg/dL Creatinine 0.84 0.550-1.02 mg/dL Glomerular Filtration Rate Calc 79 >90 mL/min BUN/Creatinine Ratio 20.2 H 10.0-20.0 Serum Glucose 176 H 74-106 mg/dL Calcium Level 11.4 H 8.7-10.4 mg/dL B-Type Natriuretic Peptide 34.69 0-100 pg/mL Assessment/Plan Assessment/Plan Assessment/plan Acute hypoxic respiratory failure likely due to fungal pneumonia Possible Gram-positive/Gram-negative bacterial pneumonia Sepsis likely due to above Bilateral lower extremity pain likely due to claudication and severe peripheral artery disease Hypokalemia COPD Rheumatoid arthritis Acute diastolic heart failure Dyslipidemia Primary hypertension Hypothyroidism History of DVT and PE (on Eliquis 5 mg b.i.d.) Pulmonary hypertension Plan -initial chest x-ray is showing patchy bibasilar opacities that are worse in the right lung -ordered CT scan of the chest with contrast -patient was started on IV azithromycin and cefepime -patient will be scheduled for bronchoscopy tomorrow -keep patient NPO -replace potassium -hold anticoagulation for now. we will restart anticoagulation after bronchoscopy -ordered bilateral lower extremity arterial Doppler -start home medications amlodipine 5 mg daily, carvedilol 3.125 b.i.d., furosemide 40 mg IV daily, levothyroxine 100 mcg daily -order TSH and free T4 -ordered sputum cultures and blood cultures. -pain medication -Consulted pulmonology -Echocardiogram Goals of care discussed with the patient at bedside for >35min, FULL CODE Plan discussed with Dr. Evans Plan discussed with: Patient Date of Service: Sep 15, 2024 Billing Provider: NICOLE EVANS MD Common Visit Codes: 54993-[id number] INP/OBS CARE (HIGH) Secondary Visit Codes: 84039-[id number] CARE PLAN 30 MINUTES LAUREN WANG RESIDENT Sep 15, 2024 18:42 NICOLE EVANS MD Sep 15, 2024 18:48
[2024-09-15] MEDS: POTASSIUM EFFERVESENT TAB 25 MEQ PO ONE (18:47)
[2024-09-15] MEDS: HYDROcodone-ACET 5/325MG TAB PO PRN (18:48)
[2024-09-15 18:58] LABS: Triglycerides 105 mg/dL (< 150)
[2024-09-15 18:59] LABS: LDL Cholesterol 58 mg/dL (< 100)
[2024-09-15 19:00] LABS: Cholesterol 108 mg/dL (< 200)
[2024-09-15 19:04] LABS: HDL Cholesterol 33 mg/dL (40-59)
[2024-09-15 19:45] VITALS: PULSE 116; RESP 18; O2SAT 95
[2024-09-15 20:07] LABS: Urine Bacteria None Seen /hpf (None Seen)
[2024-09-15 20:21] LABS: Urine Blood Negative /uL (Negative); Urine Clarity Clear (Clear); Urine Color Light-Yellow (Yellow); Urine Protein, UAD Negative (Negative); Urine Specific Gravity 1.025 (1.001-1.035); Urine Squamous Epithelial Cell FEW /hpf (<5); Urine Urobilinogen Normal (Negative); Urine WBC 1 /HPF (0-5); Urine pH 6.5 (5.0-9.0)
[2024-09-15 20:27] LABS: Opiate Scree,Urine Pos (NEGATIVE)
[2024-09-15 20:30] LABS: Amphetamine Screen, Urine Neg (NEGATIVE); Barbiturate Scree,Urine Neg (NEGATIVE); Benzodiazephine Screen, Urine Neg (NEGATIVE); Cannabinoid Screen, Urine Neg (NEGATIVE); Cocaine Screen, Urine Neg (NEGATIVE); Phencyclidine Screen, Urine Neg (NEGATIVE)
[2024-09-15] MEDS: OXYCODONE W/ ACETAMINOPHEN 5/325MG TABLET PO PRN (21:06)
[2024-09-15] MEDS: CARVEDILOL 3.125 MG TAB PO SCH (21:07)
[2024-09-15] MEDS: ACETAMINOPHEN 325 MG TAB PO PRN (21:07)
--- NOTE | 2024-09-15 21:15 | DVH ---
EXAM: US BILAT LOW EXT ART DUPLEX HISTORY: claudication symptoms COMPARISON: None TECHNIQUE: Real-time grayscale and color Doppler images of the bilateral lower extremities were obtai camilo with spectral waveform analysis. Findings: Arterial peak systolic velocities reported in units of centimeters per second (cm/sec): Right side: Common femoral - 104 Profunda - 84 Proximal SFA - 107 Mid SFA - 90 Distal SFA - 66 Popliteal - 83 Posterior tibial - 56 Dorsalis pedis - 49 Diffuse multiphasic waveforms with the exception of the which are monophasic. Left side: Common femoral - 117 Profunda - 114 Proximal SFA - 107 Mid SFA - 92 Distal SFA - 67 Popliteal - 76 Posterior tibial - 57 Dorsalis pedis - 76 Diffuse multiphasic waveforms with the exception of the which are monophasic. IMPRESSION: 1. No evidence of hemodynamically significant stenosis throughout the bilateral lower extremity arter ial systems.
[2024-09-16] VITALS (11 sets, daily range): BP systolic 103–113; BP diastolic 69–72; PULSE 90–109; RESP 12–22; TEMP 97.9–98.6; O2SAT 89–100
[2024-09-16 06:05] LABS: Basophils # (auto) 0 10 ^3/uL (0-0.2); Basophils % (auto) 0.1 % (0.0-2.0); Eosinophils # (auto) 0 10 ^3/uL (0-0.8); Eosinophils % (auto) 0.2 % (0.0-7.0); Hematocrit 33.8 % (36.0-46.0); Lymphocytes # (auto) 0.7 10 ^3/uL (0.4-5.4); Lymphocytes % (auto) 14.8 % (10.0-50.0); Mean Corpuscular Hemoglobin 26.7 pg (28.0-32.0); Mean Corpuscular Hgb Conc. 32.6 g/dL (32.0-36.0); Monocytes # (auto) 0.1 10 ^3/uL (0-1.3); Monocytes % (auto) 3.4 % (0.0-12.0); Neutrophils # (auto) 3.6 10 ^3/uL (1.6-8.6); Neutrophils % (auto) 81.5 % (37.0-80.0); Platelet Count (auto) 185 10^3/uL (140-450); Red Blood Cells 4.13 10^6/uL (4.0-5.20); Red Cell Distribution Width 16.2 % (11.8-14.3); White Blood Cell 4.4 10^3/uL (4.4-10.8)
[2024-09-16] MEDS: IPRATROPIUM BROM 0.5 MG/2.5ML INH SOL NEB PRN (06:24)
[2024-09-16] MEDS: ALBUTEROL SULF 2.5 MG/0.5ML(0.5%) NEB SOLN NEB STA (06:24)
[2024-09-16 06:37] LABS: Anion Gap 9 (5-15); Carbon Dioxide 31 mmol/L (20-31); Chloride 102 mmol/L (98-107); Potassium 4.5 mmol/L (3.5-5.1); Sodium 142 mmol/L (136-145)
[2024-09-16 06:43] LABS: Blood Urea Nitrogen 22 mg/dL (9-23)
[2024-09-16 07:05] LABS: Calcium 11.2 mg/dL (8.7-10.4); Glucose 372 mg/dL (74-106)
[2024-09-16] MEDS: LEVOTHYROXINE SODIUM 100 MCG TAB PO SCH (07:08)
[2024-09-16] MEDS ORDERED: DEXTROSE (50%) 50ML SYRG IV PRN (07:45)
[2024-09-16] MEDS: FLUMAZENIL 0.1 MG/ML INJ 10ML MDV IV ONE (08:39)
[2024-09-16] MEDS: NALOXONE HCL 0.4 MG/ML VIAL ONE (08:39)
[2024-09-16] MEDS ORDERED: BENZOCAINE (DENTAL) 20 % SPRAY 60ML MT ONE (08:45)
[2024-09-16] MEDS ORDERED: LIDOCAINE 2% JELLY 11ml (GLYDO) ONE (08:45)
[2024-09-16] MEDS ORDERED: SODIUM CHLORIDE LOCK 10 ML ONE (08:45)
[2024-09-16] MEDS ORDERED: LIDOCAINE 2%HCL (LOCAL ANESTH.) INJ 20ML MDV ONE (08:45)
[2024-09-16] MEDS ORDERED: EPINEPHrine HCL 1 MG/1 ML AMP ONE (08:46)
[2024-09-16] MEDS ORDERED: ETOMIDATE (2MG/ML) 20ML VIAL IV ONE (09:01)
[2024-09-16] MEDS: ROCURONIUM 10MG/ML 10ML VIAL IV ONE (09:02)
[2024-09-16] MEDS: CEFEPIME 2GM/50ML NS 50 ML IV ONE (10:45)
[2024-09-16] MEDS: AZITHROMYCIN 500MG/ 250ML 250 ML IV SCH (10:56)
[2024-09-16] MEDS: INSULIN LANTUS (GLARGINE) 1 /0.01ml (100units/ml) SC SCH ×2 (10:56→22:55)
[2024-09-16] MEDS: amLODIPine BESYLATE 5 MG TAB PO SCH (10:57)
[2024-09-16] MEDS: FUROSEMIDE 40 MG/4 ML VIAL IV SCH (10:57)
--- NOTE | 2024-09-16 12:12 | DVHPNRES ---
Progress Note Date Seen: Sep 16, 2024 Resident Creating Document: LAUREN WANG RESIDENT Has the PT tested + for MRSA If YES, has PT been informed?: No Medical Necessity Reason Pt with a Central, PICC or Fol: No Subjective Review of Systems Patient seen and examined at bedside. Patient still have some cough especially when taking deep breaths. Patient still complaining of lower extremity pain but both bilateral venous and arterial Doppler were performed showing no evidence of DVT or any hemodynamic significant stenosis in the arterial component. CT of the chest with contrast was performed yesterday showing tree in bud nodularity consistent with history of known infectious etiology, pulmonary hypertension and hypodense lesions in the spleen. Pulmonology we will perform bronchoscopy with bronchoalveolar lavage and we will send specimen to pathology for cultures. Meanwhile we will continue IV antibiotics and wait for official cultures results. ROS Constitutional: Denies weight loss, fever and chills. HEENT: Denies changes in vision and hearing. Respiratory: Denies shortness of breath and cough Cardiovascular: Denies chest discomfort or palpitations GI: Denies abdominal pain, nausea, vomiting and diarrhea. : Denies dysuria and urinary frequency. Musculoskeletal: Denies myalgias and joint pain Skin: Denies rash and pruritus. Neurological: Denies dizziness, headache, vision or hearing problems Objective vital signs Vital Sign Date Time Temp Pulse Resp B/P (MAP) Pulse Ox O2 Delivery O2 Flow Rate FiO2 09/16/24 08:00 98 15 97 Nasal Cannula* 3 32 09/16/24 08:00 98.0 116/73 (87) 98.0 Total Intake and Output 09/15/24 09/15/24 09/16/24 15:00 23:00 07:00 Output Total 1500 ml Balance -1500 ml medications Current Medications Medications Dose Ordered Sig/Aquiles Route Start Time Stop Time Status Last Admin Dose Admin Acetaminophen 650 mg Q6HP PRN PO 09/15/24 18:30 09/15/24 21:07 650 MG Enoxaparin Sodium 80 mg Q12H SC 09/16/24 18:58 Amlodipine Besylate 5 mg DAILY PO 09/16/24 10:00 Carvedilol 3.125 mg BID PO 09/15/24 22:00 09/15/24 21:07 3.125 MG Furosemide 40 mg DAILY IV 09/16/24 10:00 Levothyroxine Sodium 100 mcg QAM PO 09/16/24 07:00 09/16/24 07:08 100 MCG Oxycodone/ Acetaminophen 1 tab Q6HPRN PRN PO 09/16/24 02:00 Diagnostic Test (Pha) 1 strip Q6HR 09/16/24 12:00 Insulin Human Regular Q6HR SC 09/16/24 12:00 Dextrose 50 ml UD PRN IV 09/16/24 07:45 Cefepime HCl 50 ml @ 12.5 mls/hr Q8HR IV 09/16/24 22:00 Azithromycin 250 ml @ 125 mls/hr DAILY IV 09/16/24 10:30 09/16/24 10:56 125 MLS/HR Insulin Glargine 15 units QAM SC 09/16/24 10:30 09/16/24 10:56 15 UNITS Examination Physical Examination General: Patient alert and oriented in person, place and time. Patient following commands. HEENT: Normocephalic, atraumatic, moist mucous membranes Respiratory/pulmonary: There is decreased breath sounds bilaterally with cough when patient's takes deep breaths. No crackles or wheezes this time. Cardiovascular: Normal heart sounds S1 and S2 with no associated murmurs Abdomen: Abdomen nondistended, there is no pain to palpation in any of the abdominal quadrants, no palpable masses. Extremities: There is no peripheral edema present at the lower extremities. Skin: No rashes or pruritus, there is no sacral edema present at this time. Neurological: Intact cranial nerves with no focal neurologic deficits laboratory and microbiology Laboratory Tests 09/16/24 05:05 Test 09/16/24 05:05 Range/Units Serum Glucose 372 H 74-106 mg/dL Problem List/Assessment/Plan Problem List/Assessment/Plan Assessment/plan Acute hypoxic respiratory failure likely due to fungal pneumonia Possible Gram-positive/Gram-negative bacterial pneumonia Sepsis likely due to above Bilateral lower extremity pain likely due to claudication and severe peripheral artery disease Hypokalemia COPD Rheumatoid arthritis Acute diastolic heart failure Dyslipidemia Primary hypertension Hypothyroidism History of DVT and PE (on Eliquis 5 mg b.i.d.) Pulmonary hypertension Plan -initial chest x-ray is showing patchy bibasilar opacities that are worse in the right lung -ordered CT scan of the chest with contrast which showed tree-in-bud nodularity consistent with history of noon infectious etiology, pulmonary arterial hypertension and hypodense lesions in the spleen. -Continue IV azithromycin -Start Ceftriaxone -Stop cefepime -ABPA profile test [facility] -patient will be scheduled for bronchoscopy today for bronchial alveolar lavage and specimen sent for cultures. -we will wait for bronchoscopy and specimen cultures result to start proper therapy. -hold anticoagulation for now. we will restart anticoagulation after bronchoscopy -ordered bilateral lower extremity arterial Doppler showed no significant hemodynamic stenosis -ordered sputum cultures and blood cultures. -pulmonology on board Goals of care discussed with the patient at bedside for >35min, FULL CODE Plan discussed with Dr. Daniel Plan discussed with: Patient My Orders My Orders Orders - LAUREN WANG Procedure Category Date Status Time Admit ADMIT 09/15/24 Transmitted 18:22 Code Status CODE 09/15/24 Transmitted 18:22 Vital Signs ROSE 09/15/24 In Process 18:22 Review Orders With ROSE 09/15/24 In Process Adm. 18:22 Encourage Activity As ROSE 09/15/24 In Process Tolerate 18:22 Acetaminophen Tablet PHA 09/15/24 In Process (Tylenol Tablet) 18:30 Notify Of Changes ROSE 09/15/24 In Process From Base 18:22 Advance Directive ROSE 09/15/24 In Process 18:22 Patient Condition ORDERS 09/15/24 Transmitted 18:22 Allergies ROSE 09/15/24 In Process 18:22 Amlodipine Tablet PHA 09/16/24 In Process (Norvasc Tablet) 10:00 Carvedilol Tablet PHA 09/15/24 In Process (Coreg Tablet) 22:00 Furosemide Injection PHA 09/16/24 In Process (Lasix Injection) 10:00 Levothyroxine Tablet PHA 09/16/24 In Process (Synthroid Tablet) 07:00 Respiratory Culture FIDEL 09/15/24 Logged W/ Gs 18:39 Bilat Low Ext Art US 09/15/24 Resulted Duplex 18:39 Enoxaparin Sodium PHA 09/16/24 In Process (Lovenox) 18:58 Glucose Blood PHA 09/16/24 In Process (Accu-Chek Comfort 12:00 Insulin R (Human) PHA 09/16/24 In Process (Insulin R) 12:00 Dextrose 50% Syringe PHA 09/16/24 In Process 07:45 * Infectious [place]- Dr. REYNOLDS 09/16/24 Transmitted K Fredy 09:11 Cefepime 2gm/50ml Ns PHA 09/16/24 In Process (Maxipime 2gm/50ml) 22:00 Azithromycin 500mg/ PHA 09/16/24 In Process 250ml (Zithromax 50 10:30 Insulin Lantus PHA 09/16/24 In Process (Glargine) (Lantus) 10:30 LAUREN WANG RESIDENT Sep 16, 2024 12:12
[2024-09-16] MEDS: ACCU-CHEK COMFORT CURVE STRIP VI SCH (12:14)
[2024-09-16] MEDS: InsuLIN REG 1unit/0.01ml Soln (100units/ml) SC SCH (12:15)
[2024-09-16] MEDS: ALBUTEROL SULF 2.5 MG/0.5ML(0.5%) NEB SOLN ONE (13:30)
--- NOTE | 2024-09-16 14:18 | ECG ---
[facility] Test Date: 2024-09-15 Test Time: 14:48:50 Pat Name: CLINTON ALMONTE Department: ED Room: 0248T Gender: F Drop Wirer: : 1965 Requested By: INDIO TOMLIN Order Number: [id number] Reading MD: Reece Parikh Measurements Intervals [place] Rate: 103 P: 0 WI: 0 QRS: 113 QRSD: 106 T: 17 QT: 344 QTc: 451 Interpretive Statements Atrial fibrillation Probable RVH w/ secondary repol abnormality Electronically Signed On 09-17-2024 21:17:33 PDT by Reece Parikh Please click the below link to view image of tracing.
[2024-09-16] MEDS: MIDAZOLAM HCL 5 MG/ML-1ML VIAL ONE (14:51)
[2024-09-16] MEDS: GLYCOPYRROLATE 0.2 MG/ML 1ML VIAL ONE (14:51)
[2024-09-16] MEDS: diphenhdrAMINE HCL 50 MG/1 ML VL ONE (14:51)
[2024-09-16] MEDS: fentaNYL CITRATE 100 MCG/2 ML VL ONE (14:51)
--- NOTE | 2024-09-16 15:50 | DVH ---
CHEST RADIOGRAPH Indication: s/p bronchoscopy with RML BAL and Lingular BAL Technique: Single frontal view of the chest was obtained COMPARISON: XY CHEST PORTABLE on DOS: 09/15/24, XY CHEST PORTABLE on DOS: 05/01/24, XY CHEST PORTABLE on DOS: 04/26/24, XY CHEST PORTABLE on DOS: 04/24/24, XY CHEST PORTABLE on DOS: 04/11/24 FINDINGS: Lines and Tubes: None Lungs: Bilateral lower lobe airspace disease Pleura: No effusion. No pneumothorax. Cardiomediastinal contours: Unremarkable Bones: Unremarkable IMPRESSION: Bilateral lower lobe airspace disease. No significant interval change. No appreciable pneumothorax.
--- NOTE | 2024-09-16 16:56 | DVHSR ---
APPROVED REPORT EXAM: Two-dimensional and M-mode echocardiogram with Doppler and color Doppler. Blood Pressure: 151/92 mmHg INDICATION CHF RISK FACTORS Height: 50, Weight: 171 DIMENSIONS LVDd4.4 (3.8-5.7cm)LA (2D) (1.9-4.0cm)Aortic Root4.2 (2.0-3.7cm) LVDs2.9 (2.5-4.0cm)LA (MM) (1.9-4.0cm)Aortic Cusp Exc1.7 (1.5-2.0cm) EF (%) 63.0 (55-70%)Rt. Atrium5.4 (1.9-4.0cm)Asc. Aorta cm IVSd0.9 (0.7-1.1cm)RV (D) (1.8-2.4cm) PWd1.0 (0.7-1.1cm) Mitral Valve MitralMitral Stenosis E wave1.33m/sMV Mean GR.3mmHg A wavem/sMV Peak GR.9mmHg E/A ratio0.02D MVAcm2 Aortic Valve Aortic ValveAortic Stenosis V10.88m/Starla Mean GR.3mmHg V21.18m/Starla Peak GR.6mmHg LVOT Diameter2.0 (1.8-2.4cm)Doppler AVA2.34cm2 Pulmonic Valve V20.92m/s Tricuspid Valve TR Velocity4.45m/s [id number] Conclusion LVEF 50-55%, mild LVH Right ventricle severely dilated, moderately reduced function Rt atrium severely dilated Moderate TR severe pulmonary hypertension, RSVP 80-90 mmgh
--- NOTE | 2024-09-16 17:15 | DVHPNRES ---
Progress Note Date Seen: Sep 16, 2024 Resident Creating Document: LUI GARCIA RESIDENT Has the PT tested + for MRSA If YES, has PT been informed?: No Medical Necessity Reason Pt with a Central, PICC or Fol: No Subjective Review of Systems This is a 59-year-old female with past medical history of rheumatoid arthritis, hypertension, CHF, COPD, type 2 diabetes mellitus, dyslipidemia, pulmonary embolism, history of DVT and pulmonary hypertension, hypothyroidism who presented to the ED referred by her PCP due to sputum culture showing Aspergillus fumigatus. The patient had sputum culture showing Aspergillus fumigatus in March of 2024 for which the patient states that she started treatment at the hospital but developed itchiness so medication was discontinued at that time. Patient stated that she has been feeling shortness of breath recently and states that she uses 3 L of oxygen at home. Patient also reports pain in her upper back at the level of the lungs as well as bilateral lower extremity pain that gets worse with walking. The patient uses a walker but states that now is not able to walk significant distances. Patient is currently reports shortness of breath but denies chest pain, fever/chills, abdominal pain or any other additional symptoms. Upon admission CBC and CMP were grossly unremarkable. D-dimer was slightly elevated at 0.81, lactic acid was elevated at 3.9. Troponins were negative and BNP was normal range at 34.69. Initial chest x-ray is showing patchy bibasilar opacities that are worse in the right lung. CT scan with contrast of the chest was ordered and bronchoscopy will be done as outpatient 09/16/2024: Chest CT scan: similar to slightly decreased conspicuity bilateral peribronchial thickening and tree-in-bud nodularity consistent with history of known infectious etiology. Enlarged pulmonary arteries. Correlate for pulmonary artery hypertension.Hypodense lesions in the spleen are slightly more prominent compared to 02/17/2024. Bronchosopcy was done w/o complications by Dr Verma, ID is following the patient as well which consider Continue IV azithromycin, Start Ceftriaxone, Stop cefepime and ordered ABPA profile test [facility]. Objective vital signs Vital Sign Date Time Temp Pulse Resp B/P (MAP) Pulse Ox O2 Delivery O2 Flow Rate FiO2 09/16/24 17:05 94 24 120/75 (90) 94 09/16/24 15:11 98.1 3.0 98.1 09/16/24 15:10 Mask 100 Total Intake and Output 09/15/24 09/15/24 09/16/24 15:00 23:00 07:00 Output Total 1500 ml Balance -1500 ml medications Current Medications Medications Dose Ordered Sig/Aquiles Route Start Time Stop Time Status Last Admin Dose Admin Acetaminophen 650 mg Q6HP PRN PO 09/15/24 18:30 09/15/24 21:07 650 MG Enoxaparin Sodium 80 mg Q12H SC 09/16/24 18:58 Amlodipine Besylate 5 mg DAILY PO 09/16/24 10:00 Carvedilol 3.125 mg BID PO 09/15/24 22:00 09/15/24 21:07 3.125 MG Furosemide 40 mg DAILY IV 09/16/24 10:00 Levothyroxine Sodium 100 mcg QAM PO 09/16/24 07:00 09/16/24 07:08 100 MCG Oxycodone/ Acetaminophen 1 tab Q6HPRN PRN PO 09/16/24 02:00 Diagnostic Test (Pha) 1 strip Q6HR 09/16/24 12:00 09/16/24 12:14 1 STRIP Insulin Human Regular Q6HR SC 09/16/24 12:00 09/16/24 12:15 6 UNITS Dextrose 50 ml UD PRN IV 09/16/24 07:45 Cefepime HCl 50 ml @ 12.5 mls/hr Q8HR IV 09/16/24 22:00 Azithromycin 250 ml @ 125 mls/hr DAILY IV 09/16/24 10:30 09/16/24 10:56 125 MLS/HR Insulin Glargine 15 units QAM SC 09/16/24 10:30 09/16/24 10:56 15 UNITS Albuterol 2.5 mg Q6HPRN PRN NEB 09/16/24 13:15 Ipratropium Arnold 0.5 mg Q4HP PRN NEB 09/16/24 16:15 09/16/24 06:24 0.5 MG Examination General: Patient alert and oriented in person, place and time. Patient following commands. HEENT: Normocephalic, atraumatic, moist mucous membranes Respiratory/pulmonary: There is decreased breath sounds bilaterally with cough when patient's takes deep breaths. No crackles or wheezes this time. Cardiovascular: Normal heart sounds S1 and S2 with no associated murmurs Abdomen: Abdomen nondistended, there is no pain to palpation in any of the abdominal quadrants, no palpable masses. Extremities: There is no peripheral edema present at the lower extremities. Skin: No rashes or pruritus, there is no sacral edema present at this time. Neurological: Intact cranial nerves with no focal neurologic deficits laboratory and microbiology Laboratory Tests 09/16/24 05:05 Test 09/16/24 05:05 Range/Units Serum Glucose 372 H 74-106 mg/dL Microbiology Date/Time Source Procedure Growth Status 09/16/24 14:30 Lung Pending Resulted 09/16/24 14:30 Lung Pending Resulted 09/16/24 14:30 Lung Pending Resulted 09/16/24 14:30 Lung Pending Resulted 09/16/24 14:30 Lung - Final See Separate Report... Resulted 09/15/24 15:00 Blood Blood Culture - Preliminary NO GROWTH AFTER 24 HOURS OF INCUBATION. Resulted Problem List/Assessment/Plan Problem List/Assessment/Plan Acute hypoxic respiratory failure likely due to pneumonia Possible Gram-positive/Gram-negative bacterial pneumonia Sepsis likely due to above Bilateral lower extremity pain likely due to claudication and peripheral artery disease Hypokalemia Hypomagnesemia COPD Rheumatoid arthritis Acute diastolic heart failure Dyslipidemia Primary hypertension Hypothyroidism History of DVT and PE (on Eliquis 5 mg b.i.d.) Pulmonary hypertension Acute PE ruled out Diabetes mellitus type 2 Plan -initial chest x-ray is showing patchy bibasilar opacities that are worse in the right lung -CT scan of the chest with contrast: similar to slightly decreased conspicuity bilateral peribronchial thickening and tree-in-bud nodularity consistent with history of known infectious etiology. Enlarged pulmonary arteries. Correlate for pulmonary artery hypertension.Hypodense lesions in the spleen are slightly more prominent compared to 02/17/2024 -IV azithromycin and ceftriaxone - bronchoscopy w/o complications - potassium and Mg given -Enoxaparin BID - bilateral lower extremity arterial and venous Doppler: negative for DVT and no significant artery stenosis -continue amlodipine 5 mg daily, carvedilol 3.125 b.i.d., furosemide 40 mg IV daily -TSH low and free T4 normal: levothyroxine will be reduce to 75 mcg -pending sputum cultures and blood cultures. -pain medication -pulmonology and ID on board -Echocardiogram: LVEF 50-55%, mild LVH Right ventricle severely dilated, moderately reduced function Rt atrium severely dilated Moderate TR severe pulmonary hypertension, RSVP 80-90 mmgh -Lantus 10 ui and mild ISS Goals of care discussed with the patient at bedside for >35min, FULL CODE Plan discussed with Dr. Cohen Plan discussed with: Patient Date of Service: Sep 16, 2024 Billing Provider: KATT COHEN MD Common Visit Codes: [id number] INP/OBS CARE(HIGH) LUI GARCIA RESIDENT Sep 16, 2024 17:15 KATT COHEN MD Sep 17, 2024 15:36
[2024-09-16] MEDS: OXYCODONE W/ ACETAMINOPHEN 5/325MG TABLET PO PRN (18:47)
[2024-09-16] MEDS: MAGNESIUM SULFATE 1GM/100ML 100 ML IV ONE (18:47)
[2024-09-16] MEDS: ENOXAPARIN SOD 80 MG/0.8ML SYRINGE SC SCH (19:03)
[2024-09-16 19:43] LABS: Lactic Acid w/Reflex 2.6 mmol/L (0.4-2.0)
--- NOTE | 2024-09-16 20:10 | DVHNC2 ---
Procedure - Bronchoscopy procedure note: Indications: Left lower lobe atelectasis, Possible mucous plugging. Medicines: See nursing administrator notes. Complications: None Procedure: Patient medications and allergies reviewed. The risks and benefits of the procedure and the sedation options and risk were discussed with the patient's healthcare proxy. All questions were answered and informed consent was obtained. Patient identification and proposed procedure were verified prior to the procedure by the physician, and a nurse, and the respiratory therapist in ICU room. The heart rate, respiratory rate, oxygen saturations, blood pressure, adequacy of pulmonary ventilation, and response to care were monitored throughout the procedure. The physical status of the patient was reassessed after the procedure. After obtaining informed consent, the bronchoscope was introduced through the endotracheal tube and advanced into the trachea bronchial tree of both lungs. The procedure was accomplished without difficulty. The patient tolerated the procedure well. Findings: The trachea is in normal caliber. The easton is sharp. The tracheobronchial tree of the right lung was examined to at least the first subsegmental level. The bronchial mucosa and anatomy in the right lung are normal. There are no endobronchial lesions. There was copious whitish secretions from right main stem bronchus onward throughout R1-R10. Right middle lobe (RML) Bronchoalveolar lavage (BAL) obtained. RML BAL sent for gram stain and culture, viral culture, fungal culture, and AFB smear and culture. The left upper lobe, lingula, and left lower lobe were examined to at least the first subsegmental level. Bronchial mucosa and anatomy in the left upper lobe and lingula are normal. There were no endobronchial lesions. There was copious whitish secretions from left main stem bronchus onward throughout L1-L10. Mucous plugging removed from L6-L10. There was no active bleeding at the completion of the procedure. Estimated blood loss: Less than 5 mL. Impression: Left lower lobe atelectasis due to mucous plugging Mucous plugging from L6-L10 BAL of RML + lingula performed Recommendation: Follow-up RML BAL results. Procedure codes: 92653, bronchoscopy, rigid and flexible, including fluoroscopic guidance, one performed; with bronchial endobronchial broncho-alveolar lavage, single or multiple sites MYKEL SANDERS MD Sep 16, 2024 20:10
--- NOTE | 2024-09-16 20:14 | DVHPN2 ---
Progress Note - Dictate Date Seen: Sep 16, 2024 Has the PT tested + for MRSA If YES, has PT been informed?: No Medical Necessity Reason Pt with a Central, PICC or Fol: No Subjective Patient seen and examined at bedside. Remains on supplemental oxygen Overnight events reviewed. vital signs Vital Sign Date Time Temp Pulse Resp B/P (MAP) Pulse Ox O2 Delivery O2 Flow Rate FiO2 09/16/24 19:30 96 Nasal Cannula 2.0 09/16/24 19:30 28 09/16/24 17:58 97.9 100 20 113/72 (86) 97.9 Total Intake and Output 09/15/24 09/15/24 09/16/24 15:00 23:00 07:00 Output Total 1500 ml Balance -1500 ml medications Current Medications Medications Dose Ordered Sig/Aquiles Route Start Time Stop Time Status Last Admin Dose Admin Acetaminophen 650 mg Q6HP PRN PO 09/15/24 18:30 09/15/24 21:07 650 MG Enoxaparin Sodium 80 mg Q12H SC 09/16/24 18:58 09/16/24 19:03 80 MG Amlodipine Besylate 5 mg DAILY PO 09/16/24 10:00 Carvedilol 3.125 mg BID PO 09/15/24 22:00 09/15/24 21:07 3.125 MG Furosemide 40 mg DAILY IV 09/16/24 10:00 Oxycodone/ Acetaminophen 1 tab Q6HPRN PRN PO 09/16/24 02:00 09/16/24 18:47 1 TAB Diagnostic Test (Pha) 1 strip Q6HR 09/16/24 12:00 09/16/24 18:00 1 STRIP Insulin Human Regular Q6HR SC 09/16/24 12:00 09/16/24 12:15 6 UNITS Dextrose 50 ml UD PRN IV 09/16/24 07:45 Azithromycin 250 ml @ 125 mls/hr DAILY IV 09/16/24 10:30 09/16/24 10:56 125 MLS/HR Albuterol 2.5 mg Q6HPRN PRN NEB 09/16/24 13:15 Ipratropium Edison 0.5 mg Q4HP PRN NEB 09/16/24 16:15 09/16/24 06:24 0.5 MG Ceftriaxone Sodium 50 ml @ 100 mls/hr DAILY@09 IV 09/17/24 09:00 Levothyroxine Sodium 75 mcg QAM PO 09/17/24 07:00 Insulin Glargine 10 units HS SC 09/16/24 22:00 objective Gen.: Patient lying in bed in no apparent distress. On supplemental oxygen. Head: Normocephalic, atraumatic. Eyes: EOMI/PERRLA. Ears: Normal hearing. Normal anatomy. Neck/trachea: Trachea midline, supple. Nose: Normal external anatomy. Mouth: Moist mucous membranes. Chest: Decreased air entry bilaterally. No wheezing or rhonchi. Cardiovascular: Positive S1, positive S2. Regular rate and rhythm. Abdomen: Positive bowel sounds in all 4 quadrants. Soft, non-tender, non- distended. : Deferred. Rectal: Deferred. Skin: Warm, dry. Intact. Extremities: 2+ radial pulses bilaterally. No lower extremity edema. Neuro: Awake, alert, oriented x3. No gross motor or sensory deficits. Cranial nerves II through XII intact. Gait not assessed. laboratory and microbiology Laboratory Tests 09/16/24 05:05 Test 09/16/24 05:05 Range/Units Serum Glucose 372 H 74-106 mg/dL Assessment/Plan Impression: Acute on chronic hypoxic respiratory failure 2/2 AE COPD Rule out Atypical pneumonia Acute exacerbation of COPD Atelectasis Ex-smoker Lactic acid Hypercalcemia Hypokalemia Elevated D-dimer Obesity BMI 34.6 Events: Remains on supplemental oxygen, 3 LPM NC Taper O2 as tolerated Patient underwent bronchoscopy today with bronchoalveolar lavage of lingula and RML. See separate procedure note for details. Follow up respiratory, fungal, viral cultures, AFB smear with cultures to rule out MAC. Continue antibiotics per ID. ID recommendations appreciated. Continue bronchodilators. Continue steroids. Incentive spirometry CXR today reviewed, demonstrates bilateral lower lobe airspace disease. No significant interval change. No pneumothorax. CT chest on 09/15, report and images reviewed. 1. Similar to slightly decreased conspicuity, bilateral peribronchial thickening and tree-in-bud nodularity consistent with history of known infectious etiology. 2. Enlarged pulmonary arteries. Correlate for pulmonary artery hypertension. 3. Hypodense lesions in the spleen are slightly more prominent compared to 02/17/2024. Monitor renal function. Monitor electrolytes. Supplement as necessary. Potassium at goal Monitor ins and outs. Labs and imaging reviewed. Rest of plan as noted below. Plan: Supplemental oxygen Titrate to keep O2 sats above 90%. Of note, prior Resp cx Mar 2024: Aspergillus fumigatus. Pt did not tolerate fluconazole due to itching and it was discontinued by hospitalist team. Wells criteria: Moderate risk for PE/DVT. Elevated d-dimer, tachycardia, borderline SBP in 90s. US Venous Doppler of BLE negative for DVT. BNP-wnl. BUN/Creat within normal limits. Continue steroids Recommend Doxycycline 100mg IVPB [id number] for 10 days. Received Azithromycin already today. Ok to start Doxycycline in the AM. Recommend Cefepime 1gm IVPB q8 hours for 7 days. Received first dose in ED. Follow up ID recommendations. Defer initiation of antifungal to ID Prior resp cx: Aspergillus fumigatus. Mold susceptibility: Voriconaz. 0.5 mcg/mL susceptible. Magnesium checked given hypokalemia, mag of 1.6 on 09/15/24. Monitor renal function. Monitor electrolytes. Supplement as necessary. Monitor ins and outs. DVT prophylaxis. Prognosis: Guarded given patient's multiple co-morbidities. Rest of plan per hospitalist and other consultants. Thank you, Dr. Monahan, for allowing me to participate in this patient's care. Further recommendations will depend on the patient's clinical course. Please do not hesitate to contact me if you have any questions or concerns. This medical document was created using an electronic medical record system with [employer] dictation system. Although these documentations are being carefully reviewed, there may still be some phonetic and typographical changes. The errors are purely typographical, due to imperfection on the software program, and do not reflect any compromise in the patient's medical care. Plan discussed with: Patient, Other (RN) MYKEL SANDERS MD Sep 16, 2024 20:14
[2024-09-16] MEDS ORDERED: CEFEPIME 2GM/50ML NS 50 ML IV SCH (22:00)
[2024-09-16] MEDS: ALBUTEROL SULF 2.5 MG/0.5ML(0.5%) NEB SOLN NEB PRN (22:41)
[2024-09-17] VITALS (17 sets, daily range): BP systolic 96–128; BP diastolic 56–87; PULSE 78–100; RESP 16–22; TEMP 97.8–98.6; O2SAT 92–100
[2024-09-17 06:18] LABS: Basophils # (auto) 0 10 ^3/uL (0-0.2); Basophils % (auto) 0.3 % (0.0-2.0); Eosinophils # (auto) 0.1 10 ^3/uL (0-0.8); Eosinophils % (auto) 1.5 % (0.0-7.0); Hematocrit 33.6 % (36.0-46.0); Hemoglobin 11.1 g/dL (12.2-16.2); Lymphocytes # (auto) 1.5 10 ^3/uL (0.4-5.4); Lymphocytes % (auto) 15.2 % (10.0-50.0); Mean Corpuscular Hemoglobin 27.2 pg (28.0-32.0); Mean Corpuscular Hgb Conc. 32.9 g/dL (32.0-36.0); Mean Corpuscular Volume 82.6 fL (80.0-100.0); Monocytes # (auto) 0.7 10 ^3/uL (0-1.3); Monocytes % (auto) 7.2 % (0.0-12.0); Neutrophils # (auto) 7.7 10 ^3/uL (1.6-8.6); Neutrophils % (auto) 75.8 % (37.0-80.0); Platelet Count (auto) 164 10^3/uL (140-450); Red Blood Cells 4.06 10^6/uL (4.0-5.20); Red Cell Distribution Width 16.2 % (11.8-14.3); White Blood Cell 10.1 10^3/uL (4.4-10.8)
[2024-09-17 06:25] LABS: Chloride 103 mmol/L (98-107); Potassium 3.8 mmol/L (3.5-5.1); Sodium 143 mmol/L (136-145)
[2024-09-17 06:26] LABS: Anion Gap 7 (5-15)
[2024-09-17 06:31] LABS: BUN/Creatinine Ratio 23.5 (10.0-20.0); Blood Urea Nitrogen 16 mg/dL (9-23)
[2024-09-17 06:39] LABS: Calcium 10.5 mg/dL (8.7-10.4); Carbon Dioxide 33 mmol/L (20-31); Glucose 226 mg/dL (74-106)
[2024-09-17] MEDS: LEVOTHYROXINE SODIUM 100 MCG TAB PO SCH (06:43)
[2024-09-17] MEDS: cefTRIAXone 1GM/50ML D5W 50 ML IV SCH (08:27)
--- NOTE | 2024-09-17 14:18 | DVHDSRES ---
Discharge Summary Date of Admission Resident Creating Document: LUI GARCIA RESIDENT Sep 15, 2024 at 18:22 Date of Discharge: Sep 17, 2024 Admitting Diagnosis Acute hypoxic respiratory failure likely due to pneumonia Labs/Diagnostic Data: Laboratory Results Test 09/17/24 11:59 09/17/24 05:52 09/16/24 18:55 09/16/24 05:05 POC Glucose 187 mg/dl (70-106) White Blood Count 10.1 10^3/uL (4.4-10.8) Red Blood Count 4.06 10^6/uL (4.0-5.20) Hemoglobin 11.1 g/dL (12.2-16.2) Hematocrit 33.6 % (36.0-46.0) Mean Corpuscular Volume 82.6 fL (80.0-100.0) Mean Corpuscular Hemoglobin 27.2 pg (28.0-32.0) Mean Corpuscular Hemoglobin Concent 32.9 g/dL (32.0-36.0) Red Cell Distribution Width 16.2 % (11.8-14.3) Platelet Count 164 10^3/uL (140-450) Mean Platelet Volume 7.3 fL (6.9-10.8) Neutrophils (%) (Auto) 75.8 % (37.0-80.0) Lymphocytes (%) (Auto) 15.2 % (10.0-50.0) Monocytes (%) (Auto) 7.2 % (0.0-12.0) Eosinophils (%) (Auto) 1.5 % (0.0-7.0) Basophils (%) (Auto) 0.3 % (0.0-2.0) Neutrophils # (Auto) 7.7 10 ^3/uL (1.6-8.6) Lymphocytes # (Auto) 1.5 10 ^3/uL (0.4-5.4) Monocytes # (Auto) 0.7 10 ^3/uL (0-1.3) Eosinophils # (Auto) 0.1 10 ^3/uL (0-0.8) Basophils # (Auto) 0 10 ^3/uL (0-0.2) Nucleated Red Blood Cells 0.0 % Sodium Level 143 mmol/L (136-145) Potassium Level 3.8 mmol/L (3.5-5.1) Chloride Level 103 mmol/L (98-107) Carbon Dioxide Level 33 mmol/L (20-31) Anion Gap 7 (5-15) Blood Urea Nitrogen 16 mg/dL (9-23) Creatinine 0.68 mg/dL (0.550-1.02) Glomerular Filtration Rate Calc 99 mL/min (>90) BUN/Creatinine Ratio 23.5 (10.0-20.0) Serum Glucose 226 mg/dL (74-106) Calcium Level 10.5 mg/dL (8.7-10.4) Lactic Acid Level 2.6 mmol/L (0.4-2.0) HIV (1&2) Antibody Negative (Negative) Test 09/15/24 16:13 09/15/24 15:00 09/15/24 14:55 Magnesium Level 1.6 mg/dL (1.6-2.6) Troponin I High Sensitivity 4 ng/L (</=34) D-Dimer, Quantitative 0.81 mg/L FEU (0.0-0.49) Hemoglobin A1c 7.6 % A1C (<5.7) B-Type Natriuretic Peptide 34.69 pg/mL (0-100) Triglycerides Level 105 mg/dL (< 150) Cholesterol Level 108 mg/dL (< 200) LDL Cholesterol 58 mg/dL (< 100) HDL Cholesterol 33 mg/dL (40-59) Thyroid Stimulating Hormone (TSH) 0.09 uIU/mL (0.55-4.78) Free Thyroxine (T4) Calculated 1.64 ng/dL (0.89-1.76) Urine Color Light-yellow (Yellow) Urine Clarity Clear (Clear) Urine pH 6.5 (5.0-9.0) Urine Specific [place] 1.025 (1.001-1.035) Urine Protein Negative (Negative) Urine Ketones Negative (Negative) Urine Blood Negative /uL (Negative) Urine Nitrite Negative (Negative) Urine Bilirubin Negative (Negative) Urine Urobilinogen Normal mg/dL (Negative) Urine Leukocyte Esterase Negative /uL (Negative) Urine RBC 1 /hpf (0 - 4) Urine Microscopic WBC 1 /HPF (0-5) Urine Squamous Epithelial Cells Few /hpf (<5) Urine Bacteria None seen /hpf (None Seen) Urine Glucose 4+ mg/dL (Normal) Urine Opiates Screen Pos (NEGATIVE) Urine Fentanyl Screen Neg (NEGATIVE) Urine Barbiturates Screen Neg (NEGATIVE) Urine Phencyclidine Screen Neg (NEGATIVE) Urine Amphetamines Screen Neg (NEGATIVE) Urine Benzodiazepines Screen Neg (NEGATIVE) Urine Cocaine Screen Neg (NEGATIVE) Urine Cannabinoids Screen Neg (NEGATIVE) Other Laboratory Tests 09/17/24 05:52 Brief Hx & Hospital Course: 59-year-old female with history of rheumatoid arthritis, COPD, CHF with preserved EF, pulmonary hypertension, hypothyroidism, type 2 diabetes mellitus, dyslipidemia, prior DVT/PE on apixaban, and chronic oxygen use presented with progressive dyspnea and sputum culture previously positive for Aspergillus fumigatus. Initial workup revealed elevated lactate, elevated inflammatory markers, and imaging concerning for patchy bibasilar opacities worse on the right, with CT chest showing peribronchial thickening and tree-in-bud opacities consistent with infectious etiology. Bronchoscopy was performed without complications. Echo showed LVEF 5055% with severe pulmonary hypertension (RVSP 8090 mmHg), dilated RV and RA, and moderate TR. She was treated for presumed bacterial pneumonia with IV azithromycin and ceftriaxone. Electrolyte abnormalities (hypokalemia, hypomagnesemia) were corrected. . Her respiratory status stabilized and she remained afebrile. Endocrine issues included hypothyroidism with low TSH and normal free T4; levothyroxine dose was adjusted. No acute findings on LE Doppler. Sputum and blood cultures are pending. No current evidence of invasive fungal infection; ID recommended no antifungal therapy or isolation precautions at this time. Follow-Up: Close ID follow-up for culture results Pulmonology and cardiology outpatient follow-up Discharge Plan: Patient discharged to SNF for continued rehab and medical management. No current need for antifungal therapy. No isolation required. Case discussed with Dr Hernandez Consults/Reason for consult pulmonology for bronchoscopy ID due to previous cultures Operations or Procedures Bronchoscopy procedure note: Indications: Left lower lobe atelectasis, Possible mucous plugging. 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 Complications: None Procedure: Patient medications and allergies reviewed. The risks and benefits of the procedure and the sedation options and risk were discussed with the patient's healthcare proxy. All questions were answered and informed consent was obtained. Patient identification and proposed procedure were verified prior to the procedure by the physician, and a nurse, and the respiratory therapist in ICU room. The heart rate, respiratory rate, oxygen saturations, blood pressure, adequacy of pulmonary ventilation, and response to care were monitored throughout the procedure. The physical status of the patient was reassessed after the procedure. After obtaining informed consent, the bronchoscope was introduced through the endotracheal tube and advanced into the trachea bronchial tree of both lungs. The procedure was accomplished without difficulty. The patient tolerated the procedure well. Findings: The trachea is in normal caliber. The easton is sharp. The tracheobronchial tree of the right lung was examined to at least the first subsegmental level. The bronchial mucosa and anatomy in the right lung are normal. There are no endobronchial lesions. There was copious whitish secretions from right main stem bronchus onward throughout R1-R10. Right middle lobe (RML) Bronchoalveolar lavage (BAL) obtained. RML BAL sent for gram stain and culture, viral culture, fungal culture, and AFB smear and culture. The left upper lobe, lingula, and left lower lobe were examined to at least the first subsegmental level. Bronchial mucosa and anatomy in the left upper lobe and lingula are normal. There were no endobronchial lesions. There was copious whitish secretions from left main stem bronchus onward throughout L1-L10. Mucous plugging removed from L6-L10. There was no active bleeding at the completion of the procedure. Estimated blood loss: Less than 5 mL. Impression: Left lower lobe atelectasis due to mucous plugging Mucous plugging from L6-L10 BAL of RML + lingula performed Recommendation: Follow-up RML BAL results. Procedure codes: 89208, bronchoscopy, rigid and flexible, including fluoroscopic guidance, one performed; with bronchial endobronchial broncho-alveolar lavage, single or multiple sites EXAM: CT CHEST WITH CONTRAST History: Hx aspergillus on prior resp culture, evaluate for LAD, PNA Comparison Study: CT CHEST WITHOUT CONTRAST on DOS: 04/27/24, CT CHEST WITH CONTRAST on DOS: 02/17/24 TECHNIQUE: A digital temper mill operator image was obtained. During the uneventful, intravenous administration of contrast material, multislice data acquisition was obtained through the chest. The data set was subsequently reconstructed into axial, coronal, and sagittal images. Radiation Dose : CTDI vol 13.51 mGy, DLP 517.56 mGy*cm. Findings: Lungs: Similar to slightly decreased conspicuity of bilateral peribronchial thickening and tree-in-bud nodularity. Pleura: Unremarkable Heart/Great vessels: No cardiomegaly or pericardial effusion. Partially visualized IVC filter. Enlarged pulmonary arteries. Mediastinum: Unremarkable Soft tissues/Bones: Mild multilevel degenerative changes of the thoracic spine. Chronic right rib fracture deformities. Multifocal hypodense lesions in the spleen, slightly more prominent compared to 02/17/2024. Numerous calcifications throughout the pancreas favored sequela of chronic pancreatitis. Dilated main pancreatic duct. Cholelithiasis versus vicarious excretion of contrast. The remaining partially visualized upper abdomen is within normal limits. Impression: 1. Similar to slightly decreased conspicuity bilateral peribronchial thickening and tree-in-bud nodularity consistent with history of known infectious etiology. 2. Enlarged pulmonary arteries. Correlate for pulmonary artery hypertension. 3. Hypodense lesions in the spleen are slightly more prominent compared to 02/17/2024. Consider further evaluation with ultrasound or contrast-enhanced CT as indicated. Condition at Discharge: Stable Final Diagnosis/Problems List Acute hypoxic respiratory failure likely due to pneumonia Possible Gram-positive/Gram-negative bacterial pneumonia Sepsis likely due to above Bilateral lower extremity pain likely due to claudication and peripheral artery disease Hypokalemia Hypomagnesemia COPD Rheumatoid arthritis Acute diastolic heart failure Dyslipidemia Primary hypertension Hypothyroidism History of DVT and PE (on Eliquis 5 mg b.i.d.) Pulmonary hypertension Acute PE ruled out Diabetes mellitus type 2 Discharge Disposition: Longterm Facility Discharge Instruct/Medications Diet: Consistent carbohydrate, Cardiac 2g Na,low cholest Activity: Light activity Follow Up/Referral: fu with pcp for sputum results, fu with cardiology and pulmonology Medications: see prescription Discharge Statement: "Patient was advised to return to the ER or call 911 if any headaches, dizziness, shortness of breath, chest pain, abdominal pain, bleeding, fevers, or worsening of medical condition. Patient was counseled about treatment plan, medications, possible side effects, patientverbalized understanding. All questions were answered to the best of my ability. This discharge took greater then 30 minutes in planning, reviewing documentation, counseling the patient, and discussing with other team members." ASSESSMENT ASSESSMENT Assessment acute respiratory failure LUI GARCIA RESIDENT Sep 17, 2024 14:18
--- NOTE | 2024-09-17 16:15 | DVHPN2 ---
Progress Note - Dictate Date Seen: Sep 17, 2024 Has the PT tested + for MRSA If YES, has PT been informed?: No Medical Necessity Reason Pt with a Central, PICC or Fol: No vital signs Vital Sign Date Time Temp Pulse Resp B/P (MAP) Pulse Ox O2 Delivery O2 Flow Rate FiO2 09/17/24 13:00 98.5 86 16 96/59 (71) 97 98.5 09/17/24 10:56 Nasal Cannula* 3 32 Total Intake and Output 09/16/24 09/16/24 09/17/24 15:00 23:00 07:00 Intake Total 100 ml 600 ml 1600 ml Balance 100 ml 600 ml 1600 ml medications Current Medications Medications Dose Ordered Sig/Aquiles Route Start Time Stop Time Status Last Admin Dose Admin Acetaminophen 650 mg Q6HP PRN PO 09/15/24 18:30 09/16/24 21:35 650 MG Enoxaparin Sodium 80 mg Q12H SC 09/16/24 18:58 09/17/24 06:43 80 MG Amlodipine Besylate 5 mg DAILY PO 09/16/24 10:00 09/17/24 08:26 5 MG Carvedilol 3.125 mg BID PO 09/15/24 22:00 09/17/24 08:27 3.125 MG Furosemide 40 mg DAILY IV 09/16/24 10:00 09/17/24 08:26 40 MG Oxycodone/ Acetaminophen 1 tab Q6HPRN PRN PO 09/16/24 02:00 09/17/24 11:58 1 TAB Diagnostic Test (Pha) 1 strip Q6HR 09/16/24 12:00 09/17/24 12:21 1 STRIP Insulin Human Regular Q6HR SC 09/16/24 12:00 09/17/24 12:19 3 UNITS Dextrose 50 ml UD PRN IV 09/16/24 07:45 Azithromycin 250 ml @ 125 mls/hr DAILY IV 09/16/24 10:30 09/17/24 08:25 125 MLS/HR Albuterol 2.5 mg Q6HPRN PRN NEB 09/16/24 13:15 09/17/24 10:53 2.5 MG Ipratropium [place] 0.5 mg Q4HP PRN NEB 09/16/24 16:15 09/17/24 10:53 0.5 MG Ceftriaxone Sodium 50 ml @ 100 mls/hr DAILY@09 IV 09/17/24 09:00 09/17/24 08:27 100 MLS/HR Levothyroxine Sodium 75 mcg QAM PO 09/17/24 07:00 09/17/24 06:43 75 MCG Insulin Glargine 20 units HS SC 09/17/24 22:00 laboratory and microbiology Laboratory Tests 09/17/24 05:52 Test 09/17/24 05:52 Range/Units Serum Glucose 226 H 74-106 mg/dL Assessment/Plan Diagnosis Hypoxemic respiratory failure Mucus plugs Pneumonia Atelectasis s/p bronch results pending CXR airspace disease Management plan Continue supplemental o2/IS Bronchodilators Await sputum/bronchial washings cultures Antibiotics DVT prophylaxis Plan discussed with: Patient, Other ARON FALCON MD Sep 17, 2024 16:15
[2024-09-17] MEDS: INSULIN LANTUS (GLARGINE) 1 /0.01ml (100units/ml) SC SCH (21:47)
[2024-09-18] VITALS (17 sets, daily range): BP systolic 105–145; BP diastolic 61–82; PULSE 48–96; RESP 16–22; TEMP 97.3–98.2; O2SAT 93–100
--- NOTE | 2024-09-18 12:26 | DVHPN2 ---
Subjective pending SNIF dispo Changes from previous H/P or p: No Changes Eyes: No Pain, No Vision change, No Conjunctivae inflammation, No Eyelid inflammation, No Other, No Redness ENT: No Ear pain, No Ear discharge, No Nose pain, No Nose discharge, No Nose congestion, No Mouth pain, No Mouth swelling, No Throat pain, No Throat swelling, No Other Cardiovascular: No Chest Pain, No Palpitations, No Orthopnea, No Paroxysmal Noc. Dyspnea, No Edema, No Lt Headedness, No Other Respiratory: No Cough, No Dry; Shortness of breath; No SOB with excertion, No Wheezing, No Hemoptysis, No Pleuritic Pain, No Sputum, No Other Gastrointestinal: No Nausea, No Vomiting, No Abdominal Pain, No Diarrhea, No Constipation, No Melena, No Hematochezia, No Other Genitourinary: No Dysuria, No Frequency, No Incontinence, No Hematuria, No Retention, No Other Musculoskeletal: No other, No neck pain, No shoulder pain, No arm pain; back pain; No hand pain; leg pain; No foot pain Skin: No Rash, No Lesions, No Jaundice, No Bruising, No Other Objective Vitals Vital Signs Date Time Temp Pulse Resp B/P (MAP) Pulse Ox O2 Delivery O2 Flow Rate FiO2 09/18/24 11:18 92 18 100 09/18/24 11:14 Nasal Cannula 3.0 09/18/24 11:14 32 09/18/24 10:14 127/61 09/18/24 09:00 97.6 97.6 Intake/Output Intake and Output 09/18/24 07:00 Intake Total 2840 ml Output Total 800 ml Balance 2040 ml Intake Oral 2540 ml IV Total 300 ml Output Urine Total 800 ml # Voids 4 Medications Current Medications Medications Dose Ordered Sig/Aquiles Route Start Time Stop Time Status Last Admin Dose Admin Acetaminophen 650 mg Q6HP PRN PO 09/15/24 18:30 09/16/24 21:35 650 MG Enoxaparin Sodium 80 mg Q12H SC 09/16/24 18:58 09/18/24 06:00 80 MG Amlodipine Besylate 5 mg DAILY PO 09/16/24 10:00 09/18/24 10:14 5 MG Carvedilol 3.125 mg BID PO 09/15/24 22:00 09/18/24 10:13 3.125 MG Furosemide 40 mg DAILY IV 09/16/24 10:00 09/18/24 10:12 40 MG Oxycodone/ Acetaminophen 1 tab Q6HPRN PRN PO 09/16/24 02:00 09/18/24 05:54 1 TAB Diagnostic Test (Pha) 1 strip Q6HR 09/16/24 12:00 09/18/24 11:46 1 STRIP Insulin Human Regular Q6HR SC 09/16/24 12:00 09/18/24 11:46 3 UNITS Dextrose 50 ml UD PRN IV 09/16/24 07:45 Azithromycin 250 ml @ 125 mls/hr DAILY IV 09/16/24 10:30 09/18/24 10:14 125 MLS/HR Albuterol 2.5 mg Q6HPRN PRN NEB 09/16/24 13:15 09/18/24 11:12 2.5 MG Ipratropium [place] 0.5 mg Q4HP PRN NEB 09/16/24 16:15 09/18/24 11:12 0.5 MG Ceftriaxone Sodium 50 ml @ 100 mls/hr DAILY@09 IV 09/17/24 09:00 09/18/24 10:14 100 MLS/HR Levothyroxine Sodium 75 mcg QAM PO 09/17/24 07:00 09/18/24 06:00 75 MCG Insulin Glargine 20 units HS SC 09/17/24 22:00 09/17/24 21:47 20 UNITS Laboratory Results Laboratory Tests 09/17/24 05:52 Urinalysis Test 09/15/24 14:55 Urine Color Light-yellow (Yellow) Urine Clarity Clear (Clear) Urine pH 6.5 (5.0-9.0) Urine Specific [place] 1.025 (1.001-1.035) Urine Protein Negative (Negative) Urine Ketones Negative (Negative) Urine Blood Negative /uL (Negative) Urine Nitrite Negative (Negative) Urine Bilirubin Negative (Negative) Urine Urobilinogen Normal mg/dL (Negative) Urine Leukocyte Esterase Negative /uL (Negative) Urine RBC 1 /hpf (0 - 4) Urine Microscopic WBC 1 /HPF (0-5) Urine Squamous Epithelial Cells Few /hpf (<5) Urine Bacteria None seen /hpf (None Seen) Urine Glucose 4+ mg/dL (Normal) H Microbiology Microbiology Date/Time Source Procedure Growth Status 09/16/24 20:10 Lung Pending Resulted 09/16/24 20:10 Lung Pending Resulted 09/16/24 20:10 Lung Pending Resulted 09/16/24 20:10 Lung Pending Resulted 09/16/24 20:10 Lung - Final See Separate Report... Resulted 09/16/24 14:30 Bronchial Washings Gram Stain - Final Resulted 09/16/24 14:30 Bronchial Washings Respiratory Culture - Preliminary Resulted 09/15/24 15:00 Blood Blood Culture - Preliminary NO GROWTH AFTER 48 HOURS OF INCUBATION. Resulted Assessment/Plan Assessment/Plan Acute hypoxic respiratory failure likely due to pneumonia Possible Gram-positive/Gram-negative bacterial pneumonia Sepsis likely due to above Bilateral lower extremity pain likely due to claudication and peripheral artery disease Hypokalemia Hypomagnesemia COPD Rheumatoid arthritis Acute diastolic heart failure Dyslipidemia Primary hypertension Hypothyroidism History of DVT and PE (on Eliquis 5 mg b.i.d.) Pulmonary hypertension Acute PE ruled out Diabetes mellitus type 2 Plan -initial chest x-ray is showing patchy bibasilar opacities that are worse in the right lung -CT scan of the chest with contrast: similar to slightly decreased conspicuity bilateral peribronchial thickening and tree-in-bud nodularity consistent with history of known infectious etiology. Enlarged pulmonary arteries. Correlate for pulmonary artery hypertension.Hypodense lesions in the spleen are slightly more prominent compared to 02/17/2024 -IV azithromycin and ceftriaxone - bronchoscopy w/o complications - potassium and Mg given -Enoxaparin BID - bilateral lower extremity arterial and venous Doppler: negative for DVT and no significant artery stenosis -continue amlodipine 5 mg daily, carvedilol 3.125 b.i.d., furosemide 40 mg IV daily -TSH low and free T4 normal: levothyroxine will be reduce to 75 mcg -pending sputum cultures and blood cultures. -pain medication -pulmonology and ID on board -Echocardiogram: LVEF 50-55%, mild LVH Right ventricle severely dilated, moderately reduced function Rt atrium severely dilated Moderate TR severe pulmonary hypertension, RSVP 80-90 mmgh -Lantus 10 ui and mild ISS pending SNIF placement Plan discussed with: Patient My Orders Orders - KATT COHEN MD Procedure Category Date Status Time Pt Request For Service PT 09/18/24 Logged 10:24 * Administrative Law Judge CONS 09/18/24 Transmitted Consult Date of Service: Sep 18, 2024 Billing Provider: KATT COHEN MD Common Visit Codes: [id number] INP/OBS CARE(MOD) KATT COHEN MD Sep 18, 2024 12:26
--- NOTE | 2024-09-18 13:13 | DVHINCON2 ---
Date of service: Sep 17, 2024 Family History: Drug addiction G8 BROTHER FH: cirrhosis G8 MOTHER G8 FATHER G8 SISTER FH: colon cancer NIECE Allergies: Coded Allergies: Ketorolac Tromethamine (Verified Allergy, Unknown, 09/15/24) Levofloxacin (Verified Allergy, Unknown, 01/19/24) Home Meds Active Scripts Diclofenac Sodium (Topical) (Voltaren Arthritis Pain) 1 % Gel, 1 % EX BIDPRN PRN for 30 Days, #1 GEL Prov:KATT COHEN MD 02/21/24 Reported Medications Potassium Chloride (Potassium Chloride ER) 10 Meq Tab, 1 TAB PO DAILY for 14 Days, #14 09/16/24 Sildenafil Citrate (Sildenafil Citrate) 20 Mg Tab, 1 TAB PO DAILY for 14 Days, #14 09/16/24 Atorvastatin Calcium (ATORVASTATIN CALCIUM) 40 Mg Tab, 1 TAB PO DAILY for 14 Days, #14 09/16/24 Amlodipine Besylate (Amlodipine Besylate) 2.5 Mg Tab, 1 TAB PO DAILY for 14 Days, #14 09/16/24 Zolpidem Tartrate (Zolpidem Tartrate) 5 Mg Tab, 1 TAB PO QHSP PRN for FOR INSOMNIA for 30 Days, #30 09/16/24 Levothyroxine Sodium (Levothyroxine Sodium) 100 Mcg Tab, 1 TAB PO DAILY for 14 Days, #14 04/29/24 Furosemide (Furosemide) 40 Mg Tab, 1 TAB PO BID for 14 Days, #28 04/29/24 Lidocaine (Lidocaine Patch 5%) 5 % Pad, 5 % EX, PAD 04/25/24 Lactulose (Lactulose) Unknown Strength [place], PO 04/25/24 Glipizide (Glipizide) 5 Mg Tab, 1 TAB PO DAILY for 14 Days, #14 01/20/24 Apixaban Base (ELIQUIS) 5 Mg Tab, 1 TAB PO BID for 30 Days, #60 01/20/24 Carvedilol (Carvedilol) 3.125 Mg Tab, 1 TAB PO BID for 14 Days, #28 01/20/24 Cyclobenzaprine Hcl (Cyclobenzaprine Hcl) 10 Mg Tab, 10 MG PO QPM for 30 Days, MG 01/20/24 Losartan Potassium (Losartan Potassium) 25 Mg Tab, 1 TAB PO DAILY for 22 Days, #22 01/20/24 Montelukast Sodium (MONTELUKAST SODIUM) 10 Mg Tab, 1 TAB PO DAILY for 14 Days, #14 01/20/24 Current Medications Current Medications Medications (Trade) Dose Ordered Sig/Aquiles Route PRN Reason Start Time Stop Time Status Last Admin Insulin Glargine (Lantus) 20 units HS SC 09/17/24 22:00 09/17/24 21:47 Vital Signs Vital Signs Date Time Temp Pulse Resp B/P (MAP) Pulse Ox O2 Delivery O2 Flow Rate FiO2 09/18/24 11:18 92 18 100 09/18/24 11:14 Nasal Cannula 3.0 09/18/24 11:14 32 09/18/24 10:14 127/61 09/18/24 09:00 97.6 97.6 Labs/Diagnostic Data Labs Test 09/18/24 11:31 09/17/24 05:52 09/16/24 18:55 09/16/24 05:05 Range/Units POC Glucose 178 H 70-106 mg/dl White Blood Count 10.1 # 4.4-10.8 10^3/uL Red Blood Count 4.06 4.0-5.20 10^6/uL Hemoglobin 11.1 L 12.2-16.2 g/dL Hematocrit 33.6 L 36.0-46.0 % Mean Corpuscular Volume 82.6 80.0-100.0 fL Mean Corpuscular Hemoglobin 27.2 L 28.0-32.0 pg Mean Corpuscular Hemoglobin Concent 32.9 32.0-36.0 g/dL Red Cell Distribution Width 16.2 H 11.8-14.3 % Platelet Count 164 140-450 10^3/uL Mean Platelet Volume 7.3 6.9-10.8 fL Neutrophils (%) (Auto) 75.8 37.0-80.0 % Lymphocytes (%) (Auto) 15.2 10.0-50.0 % Monocytes (%) (Auto) 7.2 0.0-12.0 % Eosinophils (%) (Auto) 1.5 0.0-7.0 % Basophils (%) (Auto) 0.3 0.0-2.0 % Neutrophils # (Auto) 7.7 1.6-8.6 10 ^3/uL Lymphocytes # (Auto) 1.5 0.4-5.4 10 ^3/uL Monocytes # (Auto) 0.7 0-1.3 10 ^3/uL Eosinophils # (Auto) 0.1 0-0.8 10 ^3/uL Basophils # (Auto) 0 0-0.2 10 ^3/uL Nucleated Red Blood Cells 0.0 % Sodium Level 143 136-145 mmol/L Potassium Level 3.8 3.5-5.1 mmol/L Chloride Level 103 98-107 mmol/L Carbon Dioxide Level 33 H 20-31 mmol/L Anion Gap 7 5-15 Blood Urea Nitrogen 16 9-23 mg/dL Creatinine 0.68 # 0.550-1.02 mg/dL Glomerular Filtration Rate Calc 99 >90 mL/min BUN/Creatinine Ratio 23.5 H 10.0-20.0 Serum Glucose 226 H 74-106 mg/dL Calcium Level 10.5 H 8.7-10.4 mg/dL Lactic Acid Level 2.6 *H 0.4-2.0 mmol/L HIV (1&2) Antibody Negative Negative Test 09/15/24 16:13 09/15/24 15:00 09/15/24 14:55 Range/Units Magnesium Level 1.6 1.6-2.6 mg/dL Troponin I High Sensitivity 4 </=34 ng/L D-Dimer, Quantitative 0.81 H 0.0-0.49 mg/L FEU Hemoglobin A1c 7.6 H <5.7 % A1C B-Type Natriuretic Peptide 34.69 0-100 pg/mL Triglycerides Level 105 < 150 mg/dL Cholesterol Level 108 < 200 mg/dL LDL Cholesterol 58 < 100 mg/dL HDL Cholesterol 33 L 40-59 mg/dL Thyroid Stimulating Hormone (TSH) 0.09 L 0.55-4.78 uIU/mL Free Thyroxine (T4) Calculated 1.64 0.89-1.76 ng/dL Urine Color Light-yellow Yellow Urine Clarity Clear Clear Urine pH 6.5 5.0-9.0 Urine Specific [place] 1.025 1.001-1.035 Urine Protein Negative Negative Urine Ketones Negative Negative Urine Blood Negative Negative /uL Urine Nitrite Negative Negative Urine Bilirubin Negative Negative Urine Urobilinogen Normal Negative mg/dL Urine Leukocyte Esterase Negative Negative /uL Urine RBC 1 0 - 4 /hpf Urine Microscopic WBC 1 0-5 /HPF Urine Squamous Epithelial Cells Few <5 /hpf Urine Bacteria None seen None Seen /hpf Urine Glucose 4+ H Normal mg/dL Urine Opiates Screen Pos NEGATIVE Urine Fentanyl Screen Neg NEGATIVE Urine Barbiturates Screen Neg NEGATIVE Urine Phencyclidine Screen Neg NEGATIVE Urine Amphetamines Screen Neg NEGATIVE Urine Benzodiazepines Screen Neg NEGATIVE Urine Cocaine Screen Neg NEGATIVE Urine Cannabinoids Screen Neg NEGATIVE Microbiology Date/Time Source Procedure Growth Status 09/16/24 20:10 Lung Pending Resulted 09/16/24 20:10 Lung Pending Resulted 09/16/24 20:10 Lung Pending Resulted 09/16/24 20:10 Lung Pending Resulted 09/16/24 20:10 Lung - Final See Separate Report... Resulted 09/16/24 14:30 Bronchial Washings Gram Stain - Final Resulted 09/16/24 14:30 Bronchial Washings Respiratory Culture - Preliminary Resulted 09/15/24 15:00 Blood Blood Culture - Preliminary NO GROWTH AFTER 48 HOURS OF INCUBATION. Resulted KAYLEE DAVIS MD Sep 18, 2024 13:13
--- NOTE | 2024-09-18 15:05 | DVHPN2 ---
Progress Note - Dictate Date Seen: Sep 18, 2024 Has the PT tested + for MRSA If YES, has PT been informed?: No Medical Necessity Reason Pt with a Central, PICC or Fol: No vital signs Vital Sign Date Time Temp Pulse Resp B/P (MAP) Pulse Ox O2 Delivery O2 Flow Rate FiO2 09/18/24 13:00 97.6 86 18 115/82 (93) 96 97.6 09/18/24 11:14 Nasal Cannula 3.0 09/18/24 11:14 32 Total Intake and Output 09/17/24 09/17/24 09/18/24 15:00 23:00 07:00 Intake Total 660 ml 1300 ml 880 ml Output Total 800 ml Balance 660 ml 500 ml 880 ml medications Current Medications Medications Dose Ordered Sig/Aquiles Route Start Time Stop Time Status Last Admin Dose Admin Acetaminophen 650 mg Q6HP PRN PO 09/15/24 18:30 09/16/24 21:35 650 MG Enoxaparin Sodium 80 mg Q12H SC 09/16/24 18:58 09/18/24 06:00 80 MG Amlodipine Besylate 5 mg DAILY PO 09/16/24 10:00 09/18/24 10:14 5 MG Carvedilol 3.125 mg BID PO 09/15/24 22:00 09/18/24 10:13 3.125 MG Furosemide 40 mg DAILY IV 09/16/24 10:00 09/18/24 10:12 40 MG Oxycodone/ Acetaminophen 1 tab Q6HPRN PRN PO 09/16/24 02:00 09/18/24 13:24 1 TAB Diagnostic Test (Pha) 1 strip Q6HR 09/16/24 12:00 09/18/24 11:46 1 STRIP Insulin Human Regular Q6HR SC 09/16/24 12:00 09/18/24 11:46 3 UNITS Dextrose 50 ml UD PRN IV 09/16/24 07:45 Azithromycin 250 ml @ 125 mls/hr DAILY IV 09/16/24 10:30 09/18/24 10:14 125 MLS/HR Albuterol 2.5 mg Q6HPRN PRN NEB 09/16/24 13:15 09/18/24 11:12 2.5 MG Ipratropium [place] 0.5 mg Q4HP PRN NEB 09/16/24 16:15 09/18/24 11:12 0.5 MG Ceftriaxone Sodium 50 ml @ 100 mls/hr DAILY@09 IV 09/17/24 09:00 09/18/24 10:14 100 MLS/HR Levothyroxine Sodium 75 mcg QAM PO 09/17/24 07:00 09/18/24 06:00 75 MCG Insulin Glargine 20 units HS SC 09/17/24 22:00 09/17/24 21:47 20 UNITS laboratory and microbiology Laboratory Tests 09/17/24 05:52 Test 09/17/24 05:52 Range/Units Serum Glucose 226 H 74-106 mg/dL Assessment/Plan Diagnosis Hypoxemic respiratory failure Mucus plugs Pneumonia Atelectasis patient seen and examined events low oxygen requirements on 3liters nasal cannula no distress s/p bronch results pending labs and imaging reviewed Management plan Continue supplemental o2/IS Bronchodilators Await sputum/bronchial washings cultures Antibiotics DVT prophylaxis okay to discharge from pulmonary standpoint disposition per primary Plan discussed with: Patient ARON FALCON MD Sep 18, 2024 15:05
[2024-09-19] VITALS (16 sets, daily range): BP systolic 110–124; BP diastolic 64–82; PULSE 78–99; RESP 16–20; TEMP 97.6–98; O2SAT 92–100
[2024-09-19] MEDS: ALBUTEROL SULF 2.5 MG/0.5ML(0.5%) NEB SOLN NEB SCH (07:21)
[2024-09-19] MEDS: IPRATROPIUM BROM 0.5 MG/2.5ML INH SOL NEB SCH (07:21)
[2024-09-19] MEDS: DOXYCYCLINE 100MG/100ML 100 ML IV SCH (15:12)
--- NOTE | 2024-09-19 16:10 | DVHPN2 ---
Progress Note - Dictate Date Seen: Sep 19, 2024 Has the PT tested + for MRSA If YES, has PT been informed?: No Medical Necessity Reason Pt with a Central, PICC or Fol: No vital signs Vital Sign Date Time Temp Pulse Resp B/P (MAP) Pulse Ox O2 Delivery O2 Flow Rate FiO2 09/19/24 15:13 87 20 96 09/19/24 12:46 97.6 110/72 (85) 97.6 09/19/24 10:10 Nasal Cannula* 3 32 Total Intake and Output 09/18/24 09/18/24 09/19/24 15:00 23:00 07:00 Intake Total 536 ml 994 ml 600 ml Output Total 1300 ml Balance 536 ml -306 ml 600 ml medications Current Medications Medications Dose Ordered Sig/Aquiles Route Start Time Stop Time Status Last Admin Dose Admin Acetaminophen 650 mg Q6HP PRN PO 09/15/24 18:30 09/16/24 21:35 650 MG Enoxaparin Sodium 80 mg Q12H SC 09/16/24 18:58 09/19/24 05:26 80 MG Amlodipine Besylate 5 mg DAILY PO 09/16/24 10:00 09/19/24 08:48 5 MG Carvedilol 3.125 mg BID PO 09/15/24 22:00 09/19/24 08:49 3.125 MG Furosemide 40 mg DAILY IV 09/16/24 10:00 09/19/24 08:50 40 MG Oxycodone/ Acetaminophen 1 tab Q6HPRN PRN PO 09/16/24 02:00 09/19/24 16:00 1 TAB Diagnostic Test (Pha) 1 strip Q6HR 09/16/24 12:00 09/19/24 11:50 1 STRIP Insulin Human Regular Q6HR SC 09/16/24 12:00 09/19/24 11:50 3 UNITS Dextrose 50 ml UD PRN IV 09/16/24 07:45 Albuterol 2.5 mg Q6HPRN PRN NEB 09/16/24 13:15 09/19/24 00:19 2.5 MG Ipratropium [place] 0.5 mg Q4HP PRN NEB 09/16/24 16:15 09/19/24 00:19 0.5 MG Ceftriaxone Sodium 50 ml @ 100 mls/hr DAILY@09 IV 09/17/24 09:00 09/19/24 08:48 100 MLS/HR Levothyroxine Sodium 75 mcg QAM PO 09/17/24 07:00 09/19/24 05:26 75 MCG Insulin Glargine 20 units HS SC 09/17/24 22:00 09/18/24 21:53 20 UNITS Albuterol 2.5 mg Q6HR NEB 09/19/24 06:00 09/19/24 11:50 2.5 MG Ipratropium [place] 0.5 mg Q6HR NEB 09/19/24 06:00 09/19/24 15:12 0.5 MG Doxycycline Hyclate 100 ml @ 50 mls/hr Q12H IV 09/19/24 14:30 09/19/24 15:12 50 MLS/HR laboratory and microbiology Laboratory Tests 09/17/24 05:52 Test 09/17/24 05:52 Range/Units Serum Glucose 226 H 74-106 mg/dL Assessment/Plan Diagnosis Hypoxemic respiratory failure Mucus plugs Pneumonia Atelectasis patient seen and examined events low oxygen requirements on 3liters nasal cannula no acute events s/p bronch results pending labs and imaging reviewed Management plan Continue supplemental o2/IS Bronchodilators Await sputum/bronchial washings cultures Antibiotics DVT prophylaxis okay to discharge from pulmonary standpoint disposition per primary Plan discussed with: Patient ARON FALCON MD Sep 19, 2024 16:10
--- NOTE | 2024-09-19 16:18 | DVHPNRES ---
Progress Note Date Seen: Sep 19, 2024 Resident Creating Document: LUI GARCIA RESIDENT Has the PT tested + for MRSA If YES, has PT been informed?: No Medical Necessity Reason Pt with a Central, PICC or Fol: No Subjective Review of Systems This is a 59-year-old female with past medical history of rheumatoid arthritis, hypertension, CHF, COPD, type 2 diabetes mellitus, dyslipidemia, pulmonary embolism, history of DVT and pulmonary hypertension, hypothyroidism who presented to the ED referred by her PCP due to sputum culture showing Aspergillus fumigatus. The patient had sputum culture showing Aspergillus fumigatus in March of 2024 for which the patient states that she started treatment at the hospital but developed itchiness so medication was discontinued at that time. Patient stated that she has been feeling shortness of breath recently and states that she uses 3 L of oxygen at home. Patient also reports pain in her upper back at the level of the lungs as well as bilateral lower extremity pain that gets worse with walking. The patient uses a walker but states that now is not able to walk significant distances. Patient is currently reports shortness of breath but denies chest pain, fever/chills, abdominal pain or any other additional symptoms. Upon admission CBC and CMP were grossly unremarkable. D-dimer was slightly elevated at 0.81, lactic acid was elevated at 3.9. Troponins were negative and BNP was normal range at 34.69. Initial chest x-ray is showing patchy bibasilar opacities that are worse in the right lung. CT scan with contrast of the chest was ordered and bronchoscopy will be done as outpatient 09/16/2024: Chest CT scan: similar to slightly decreased conspicuity bilateral peribronchial thickening and tree-in-bud nodularity consistent with history of known infectious etiology. Enlarged pulmonary arteries. Correlate for pulmonary artery hypertension.Hypodense lesions in the spleen are slightly more prominent compared to 02/17/2024. Bronchosopcy was done w/o complications by Dr Verma, ID is following the patient as well which consider Continue IV azithromycin, Start Ceftriaxone, Stop cefepime and ordered ABPA profile test [facility]. 09/19/2024: bronchial culture positive for MRSA, azithro will be changed to doxycycline, patient will be going to SNF, pending transportation Objective vital signs Vital Sign Date Time Temp Pulse Resp B/P (MAP) Pulse Ox O2 Delivery O2 Flow Rate FiO2 09/19/24 15:13 87 20 96 09/19/24 12:46 97.6 110/72 (85) 97.6 09/19/24 10:10 Nasal Cannula* 3 32 Total Intake and Output 09/18/24 09/18/24 09/19/24 15:00 23:00 07:00 Intake Total 536 ml 994 ml 600 ml Output Total 1300 ml Balance 536 ml -306 ml 600 ml medications Current Medications Medications Dose Ordered Sig/Aquiles Route Start Time Stop Time Status Last Admin Dose Admin Acetaminophen 650 mg Q6HP PRN PO 09/15/24 18:30 09/16/24 21:35 650 MG Enoxaparin Sodium 80 mg Q12H SC 09/16/24 18:58 09/19/24 05:26 80 MG Amlodipine Besylate 5 mg DAILY PO 09/16/24 10:00 09/19/24 08:48 5 MG Carvedilol 3.125 mg BID PO 09/15/24 22:00 09/19/24 08:49 3.125 MG Furosemide 40 mg DAILY IV 09/16/24 10:00 09/19/24 08:50 40 MG Oxycodone/ Acetaminophen 1 tab Q6HPRN PRN PO 09/16/24 02:00 09/19/24 16:00 1 TAB Diagnostic Test (Pha) 1 strip Q6HR 09/16/24 12:00 09/19/24 11:50 1 STRIP Insulin Human Regular Q6HR SC 09/16/24 12:00 09/19/24 11:50 3 UNITS Dextrose 50 ml UD PRN IV 09/16/24 07:45 Albuterol 2.5 mg Q6HPRN PRN NEB 09/16/24 13:15 09/19/24 00:19 2.5 MG Ipratropium [place] 0.5 mg Q4HP PRN NEB 09/16/24 16:15 09/19/24 00:19 0.5 MG Ceftriaxone Sodium 50 ml @ 100 mls/hr DAILY@09 IV 09/17/24 09:00 09/19/24 08:48 100 MLS/HR Levothyroxine Sodium 75 mcg QAM PO 09/17/24 07:00 09/19/24 05:26 75 MCG Insulin Glargine 20 units HS SC 09/17/24 22:00 09/18/24 21:53 20 UNITS Albuterol 2.5 mg Q6HR NEB 09/19/24 06:00 09/19/24 11:50 2.5 MG Ipratropium [place] 0.5 mg Q6HR NEB 09/19/24 06:00 09/19/24 15:12 0.5 MG Doxycycline Hyclate 100 ml @ 50 mls/hr Q12H IV 09/19/24 14:30 09/19/24 15:12 50 MLS/HR Examination General: Patient alert and oriented in person, place and time. Patient following commands. HEENT: Normocephalic, atraumatic, moist mucous membranes Respiratory/pulmonary: There is decreased breath sounds bilaterally with cough when patient's takes deep breaths. No crackles or wheezes this time. Cardiovascular: Normal heart sounds S1 and S2 with no associated murmurs Abdomen: Abdomen nondistended, there is no pain to palpation in any of the abdominal quadrants, no palpable masses. Extremities: There is no peripheral edema present at the lower extremities. Skin: No rashes or pruritus, there is no sacral edema present at this time. Neurological: Intact cranial nerves with no focal neurologic deficits laboratory and microbiology Laboratory Tests 09/17/24 05:52 Test 09/17/24 05:52 Range/Units Serum Glucose 226 H 74-106 mg/dL Microbiology Date/Time Source Procedure Growth Status 09/16/24 20:10 Lung Pending Resulted 09/16/24 20:10 Lung Pending Resulted 09/16/24 20:10 Lung Pending Resulted 09/16/24 20:10 Lung Pending Resulted 09/16/24 20:10 Lung - Final See Separate Report... Resulted 09/16/24 14:30 Bronchial Washings Gram Stain - Final Complete 09/16/24 14:30 Respiratory Culture - Final Methicillin Resistant S.aureus Complete 09/15/24 15:00 Blood Blood Culture - Preliminary NO GROWTH AFTER 72 HOURS OF INCUBATION. Resulted Problem List/Assessment/Plan Problem List/Assessment/Plan Acute hypoxic respiratory failure likely due to pneumonia Possible Gram-positive/Gram-negative bacterial pneumonia Sepsis likely due to above Bilateral lower extremity pain likely due to claudication and peripheral artery disease Hypokalemia Hypomagnesemia COPD Rheumatoid arthritis Acute diastolic heart failure Dyslipidemia Primary hypertension Hypothyroidism History of DVT and PE (on Eliquis 5 mg b.i.d.) Pulmonary hypertension Acute PE ruled out Diabetes mellitus type 2 Plan -initial chest x-ray is showing patchy bibasilar opacities that are worse in the right lung -CT scan of the chest with contrast: similar to slightly decreased conspicuity bilateral peribronchial thickening and tree-in-bud nodularity consistent with history of known infectious etiology. Enlarged pulmonary arteries. Correlate for pulmonary artery hypertension.Hypodense lesions in the spleen are slightly more prominent compared to 02/17/2024 -IV doxycycline and ceftriaxone - bronchoscopy w/o complications - potassium and Mg given -Enoxaparin BID - bilateral lower extremity arterial and venous Doppler: negative for DVT and no significant artery stenosis -continue amlodipine 5 mg daily, carvedilol 3.125 b.i.d., furosemide 40 mg IV daily -TSH low and free T4 normal: levothyroxine will be reduce to 75 mcg -pending sputum cultures and blood cultures. -pain medication -pulmonology and ID on board -Echocardiogram: LVEF 50-55%, mild LVH Right ventricle severely dilated, moderately reduced function Rt atrium severely dilated Moderate TR severe pulmonary hypertension, RSVP 80-90 mmgh -Lantus 10 ui and mild ISS Pending transfer to SNF Goals of care discussed with the patient at bedside for >35min, FULL CODE Plan discussed with Dr. Hernandez Plan discussed with: Patient, Other (rn) My Orders My Orders Orders - LUI GARCIA Procedure Category Date Status Time * Group Home Paraprofessional CONS 09/19/24 Transmitted Consult Doxycycline PHA 09/19/24 In Process 100mg/100ml 14:30 LUI GARCIA RESIDENT Sep 19, 2024 16:18
--- NOTE | 2024-09-20 14:50 | DVHPN2 ---
Consult Progress Note Objective vital signs Vital Sign Date Time Temp Pulse Resp B/P (MAP) Pulse Ox O2 Delivery O2 Flow Rate FiO2 09/19/24 18:31 96 18 99 09/19/24 18:21 Nasal Cannula* 3 32 09/19/24 16:41 98.0 122/64 (83) 98.0 Total Intake and Output 09/19/24 09/19/24 09/20/24 15:00 23:00 07:00 Intake Total 50 ml 860 ml Balance 50 ml 860 ml laboratory and microbiology Laboratory Tests 09/17/24 05:52 Test 09/17/24 05:52 Range/Units Serum Glucose 226 H 74-106 mg/dL Dietary Evaluation Review Recommendations by RD: Dietary education by RD Comments: 1) Add cardiac restriction to 45g CCHO diet 2) Encourage optimal PO intake 3) Refer to outpatient RD/CD[facility] for weight management 4) Follow-up with cardiology and pulmonology 5) Continue to monitor I&O, labs, and skin integrity Expected Outcomes/Goals: 1) appetite and labs to improve 2) f/u in 3-5 days KAYLEE DAVIS MD Sep 20, 2024 14:50
== END 2024-09-19 19:28 | DRG 720 ==
LOC: ER 14:10 → OVERFLOW 18:22 → TELE-EAST 09-16 18:14
PROVIDERS: ADMIT Student in an Organized Health Care Education/Training Program; ATTEND Emergency Medicine
PROC: 0B9D8ZX Drainage of Right Middle Lung Lobe, Via Natural or Artificial Opening Endoscopic, Diagnostic (ICD-10-PCS; 2024-09-16)
PROC: 0BC78ZZ Extirpation of Matter from Left Main Bronchus, Via Natural or Artificial Opening Endoscopic (ICD-10-PCS; 2024-09-16)
PROC: 0B9H8ZX Drainage of Lung Lingula, Via Natural or Artificial Opening Endoscopic, Diagnostic (ICD-10-PCS; principal; 2024-09-16 14:50)
DX: A41.59 Other Gram-negative sepsis (principal); J96.21 Acute and chronic respiratory failure with hypoxia; I50.31 Acute diastolic (congestive) heart failure; J15.69 Pneumonia due to other Gram-negative bacteria; E87.20 Acidosis, unspecified; I27.20 Pulmonary hypertension, unspecified; J15.9 Unspecified bacterial pneumonia; I11.0 Hypertensive heart disease with heart failure; J44.0 Chronic obstructive pulmonary disease with (acute) lower respiratory infection; J44.1 Chronic obstructive pulmonary disease with (acute) exacerbation; E11.51 Type 2 diabetes mellitus with diabetic peripheral angiopathy without gangrene; Z68.34 Body mass index [BMI] 34.0-34.9, adult; E66.9 Obesity, unspecified; E03.9 Hypothyroidism, unspecified; M06.8A Other specified rheumatoid arthritis, other specified site; E87.6 Hypokalemia; E83.52 Hypercalcemia; E78.5 Hyperlipidemia, unspecified; M79.605 Pain in left leg; M79.604 Pain in right leg; J98.11 Atelectasis; E83.42 Hypomagnesemia; Z98.42 Cataract extraction status, left eye; Z87.891 Personal history of nicotine dependence; Z86.718 Personal history of other venous thrombosis and embolism; Z82.49 Family history of ischemic heart disease and other diseases of the circulatory system; Z86.711 Personal history of pulmonary embolism; Z88.8 Allergy status to other drugs, medicaments and biological substances; Z81.3 Family history of other psychoactive substance abuse and dependence; Z80.0 Family history of malignant neoplasm of digestive organs; Z79.01 Long term (current) use of anticoagulants; Z63.72 Alcoholism and drug addiction in family; W44.F9XA Other object of natural or organic material, entering into or through a natural orifice, initial encounter; Y93.89 Activity, other specified; Y92.89 Other specified places as the place of occurrence of the external cause; Y99.8 Other external cause status; Z79.899 Other long term (current) drug therapy
CPT/HCPCS: 31624; 36415; 71045; 71260; 80048; 80061; 80307; 81001; 82962; 83036; 83605; 83735; 83880; 84439; 84443; 84484; 85025; 85379; 86703; 87040; 87070; 87077; 87186; 87205; 93005; 93306; 93925; 93970; 94640; 96365; 96375; 97110; 97116; 97163; 97530; 99291; G0378; J0171; J0692; J1815; J2250

== ENCOUNTER 2024-12-26 08:51 | Inpatient (IN) | payer MEDICAID ==
[2024-12-26] VITALS (8 sets, daily range): BP systolic 130–154; BP diastolic 81–88; PULSE 111–124; RESP 15–26; TEMP 97.9–98.6; O2SAT 93–99
[~2024-12-26] VITALS: Ht 157.5 cm; Wt 78.8 kg
[~2024-12-26 08:51] MED LIST changes: +ASPI-325 PO; +NITR100C6 PO; -POTA-36 PO; +PRED10TA PO
--- NOTE | 2024-12-26 09:13 | ECG ---
[facility] Test Date: 2024-12-26 Test Time: 08:52:03 Pat Name: CLINTON ALMONTE Department: [facility] ED Patient ID: [id number] Room: 0219T Gender: F Graphic Illustrator: TG : 1965 Requested By: MARY YORK Order Number: [id number] Reading MD: Reece Parikh Measurements Intervals [place] Rate: 120 P: 82 PA: 182 QRS: 121 QRSD: 88 T: -58 QT: 351 QTc: 496 Interpretive Statements Sinus tachycardia Low voltage, precordial leads Probable RVH w/ secondary repol abnormality Borderline prolonged QT interval Baseline wander in lead(s) V3 Electronically Signed On 12-30-2024 22:01:25 PDT by Reece Parikh Please click the below link to view image of tracing.
--- NOTE | 2024-12-26 09:19 | ED.PDOC ---
SOB-HPI HPI Comments 59 y/o F, BIBA, with PMHx of arthritis, CHF, COPD, DM, HLD, and HTN presents to the ED for CC of shortness of breath. EMS reports, patient is coming from home where health care coordinator called d/t patient behaving abnormally, being slow to respond, and c/o shortness of breath x2-3days. Per EMS, health care coordinator further reported symptoms of generalized weakness. Upon arrival to ED, patient is unable to answer questions appropriately is mumbling and repetitive with words. No other symptoms or modifying factors are obtainable at this time. Chief Complaint: Shortness of Breath Time Seen by MD: 09:10 Primary Care Provider: NONE Reviewed notes: Nurses Notes, Engineer Technician Notes, Medications, Allergies Information Source: Emergency Med Personnel Mode of Arrival: EMS Severity: Moderate Timing: Days Duration: Since onset Context: At Rest PE Risk Factors: None History of: COPD, CHF Prehospital treatment: None Modifying Factors: Nothing Past Medical History PAST MEDICAL HISTORY: Arthritis, CHF, COPD, DM, High Lipids, HTN, PE, Thyroid Surgical History: BTL, WEIGHMASTER History: No Pertinent WEIGHMASTER History Family History Family History: Family hx of HTN Social History Smoker: Quit Greater Than 1 Year Alcohol: Denies ETOH Use Drugs: Denies Drug Use Lives In: Home Constitutional: reports: weakness; denies: chills, diaphoresis, fatigue, fever, malaise, sweats, others EENTM: denies: blurred vision, double vision, ear bleeding, ear discharge, ear drainage, ear pain, ear ringing, eye pain, eye redness, hearing loss, mouth pain, mouth swelling, nasal discharge, nose bleeding, nose congestion, nose pain, photophobia, tearing, throat pain, throat swelling, voice changes, others Respiratory: reports: shortness of breath; denies: cough, hemoptysis, orthopnea, SOB at rest, SOB with excertion, stridor, wheezing, others Cardiovascular: denies: chest pain, dizzy spells, diaphoresis, Dyspnea on exertion, edema, irregular heart beat, left arm pain, lightheadedness, palpitations, PND, syncope, others Gastrointestinal: denies: abdomen distended, abdominal pain, blood streaked bowels, constipated, diarrhea, dysphagia, difficulty swallowing, hematemesis, melena, nausea, poor appetite, poor fluid intake, rectal bleeding, rectal pain, vomiting, others Genitourinary: denies: abnormal vagina bleeding, burning, dyspareunia, dysuria, flank pain, frequency, hematuria, incontinence, pain, , vagina discharge, urgency, others Neurological: denies: dizziness, fainting, headache, left sided numbness, left sided weakness, numbness, paresthesia, pre-existing deficit, right sided numbness, right sided weakness, seizure, speech problems, tingling, tremors, weakness, others Musculoskeletal: denies: back pain, gout, joint pain, joint swelling, muscle pain, muscle stiffness, neck pain, others Integumetry: denies: bruises, change in color, change in hair/nails, dryness, laceration, lesions, lumps, rash, wounds, others Allergic/Immunocompromised: denies: Difficulty Healing, Frequent Infections, Hives, Itching, others Hematologic/Lymphatic: denies: anemia, blood clots, easy bleeding, easy bruising, swollen glands, others Endocrine: denies: excessive hunger, excessive sweating, excessive thirst, excessive urination, flushing, intolerance to cold, intolerance to heat, unexplained weight gain, unexplained weight loss, others Psychiatric: denies: anxiety, bipolar disorder, depression, hopeless, panic disorder, schizophrenia, sleepless, suicidal, others All Other Systems: Reviewed and Negative Physical Exam General Appearance: Severe Distress HEENT: Normal ENT Inspection, Pharynx Normal, TMs Normal Neck: Full Range of Motion, Non-Tender, Normal, Normal Inspection Respiratory: Accessory Muscle Use, Respiratory Distress Cardiovascular: No Edema, No JVD, No Murmur, No Gallop, Normal Peripheral Pulses, Tachycardia Breast Exam: Deferred Gastrointestinal: No Organomegaly, Non Tender, No Pulsatile Mass, Normal Bowel Sounds, Soft Genitalia: Deferred Pelvic: Deferred Rectal: Deferred Extremities: No calf tenderness, No pedal edema Musculoskeletal : Apperance: Normal Neurologic: Disoriented Cerebellar Function: NOT DONE Reflexes: NOT DONE Skin: Normal Color Peripheral Pulses: 3+ Radial (R), 3+ Radial (L) Lymphatic: No Adenopathy Was a procedure done? Was a procedure done?: No Differential Dx Differential Diagnosis: Anxiety, Asthma, Bronchitis, CHF, COPD, Pneumonia, Sinusitis, Pharyngitis, Other (influenza, COVID-19) X-Ray, Labs, Meds, VS Vital Signs Date Time Temp Pulse Resp B/P (MAP) Pulse Ox O2 Delivery O2 Flow Rate FiO2 12/26/24 12:00 118 18 132/82 (99) 94 12/26/24 11:07 127 12/26/24 10:15 122 26 148/82 (104) 94 12/26/24 10:15 122 26 94 Nasal Cannula* 3 32 12/26/24 10:13 148/82 12/26/24 09:10 98.9 124 22 135/81 (99) 95 98.9 12/26/24 09:10 124 22 95 Nasal Cannula* 3 32 12/26/24 08:58 99.9 124 20 156/93 99 99.9 12/26/24 08:52 120 Lab Test 12/26/24 10:33 12/26/24 10:30 12/26/24 09:51 Range/Units Lactic Acid Level 1.7 0.4-2.0 mmol/L Troponin I High Sensitivity 5 5 </=34 ng/L Urine Color Yellow Yellow Urine Clarity Turbid H Clear Urine pH 6.0 5.0-9.0 Urine Specific [place] 1.018 1.001-1.035 Urine Protein 1+ H Negative Urine Ketones 1+ H Negative Urine Blood 1+ H Negative /uL Urine Nitrite Negative Negative Urine Bilirubin Negative Negative Urine Urobilinogen Normal Negative mg/dL Urine Leukocyte Esterase 3+ Negative /uL Urine RBC 241 0 - 4 /hpf Urine Microscopic WBC 394 H 0-5 /HPF Urine Squamous Epithelial Cells Few <5 /hpf Urine Bacteria Few H None Seen /hpf Urine Yeast (Budding) Loaded None Seen /hpf Urine Glucose 3+ H Normal mg/dL White Blood Count 14.2 H 4.4-10.8 10^3/uL Red Blood Count 4.63 4.0-5.20 10^6/uL Hemoglobin 13.2 12.2-16.2 g/dL Hematocrit 39.4 36.0-46.0 % Mean Corpuscular Volume 85.2 80.0-100.0 fL Mean Corpuscular Hemoglobin 28.6 28.0-32.0 pg Mean Corpuscular Hemoglobin Concent 33.6 32.0-36.0 g/dL Red Cell Distribution Width 16.5 H 11.8-14.3 % Platelet Count 161 140-450 10^3/uL Mean Platelet Volume 7.5 6.9-10.8 fL Neutrophils (%) (Auto) 81.0 H 37.0-80.0 % Lymphocytes (%) (Auto) 9.8 L 10.0-50.0 % Monocytes (%) (Auto) 7.5 0.0-12.0 % Eosinophils (%) (Auto) 1.3 0.0-7.0 % Basophils (%) (Auto) 0.4 0.0-2.0 % Neutrophils # (Auto) 11.5 H 1.6-8.6 10 ^3/uL Lymphocytes # (Auto) 1.4 0.4-5.4 10 ^3/uL Monocytes # (Auto) 1.1 0-1.3 10 ^3/uL Eosinophils # (Auto) 0.2 0-0.8 10 ^3/uL Basophils # (Auto) 0.1 0-0.2 10 ^3/uL Nucleated Red Blood Cells 0.0 % Sodium Level 143 136-145 mmol/L Potassium Level 3.6 3.5-5.1 mmol/L Chloride Level 104 98-107 mmol/L Carbon Dioxide Level 29 20-31 mmol/L Anion Gap 10 5-15 Blood Urea Nitrogen 13 9-23 mg/dL Creatinine 0.80 0.550-1.02 mg/dL Glomerular Filtration Rate Calc 84 >90 mL/min BUN/Creatinine Ratio 16.3 10.0-20.0 Serum Glucose 216 H 74-106 mg/dL Calcium Level 10.0 8.7-10.4 mg/dL Total Bilirubin 0.8 0.2-1.0 mg/dL Aspartate Amino Transferase (AST) 17 13-40 U/L Alanine Aminotransferase (ALT) 18 7-40 U/L Alkaline Phosphatase 100 46-116 U/L B-Type Natriuretic Peptide 194.08 0-100 pg/mL Total Protein 7.6 5.7-8.2 g/dL Albumin 3.8 3.2-4.8 g/dL Current Medications Medications (Trade) Dose Ordered Sig/Aquiles Route Start Time Stop Time Status Last Admin Furosemide (Lasix Injection) 20 mg ONCE ONCE IV 12/26/24 09:45 12/26/24 09:46 DC 12/26/24 10:13 Methylprednisolone Sodium Succinate (Solu Medrol) 125 mg ONCE ONCE IV 12/26/24 09:45 12/26/24 09:46 DC 12/26/24 10:12 Piperacillin Sod/ Tazobactam Sod 100 ml @ 100 mls/hr ONCE ONCE IV 12/26/24 10:15 12/26/24 11:14 DC 12/26/24 10:15 Azithromycin 250 ml @ 125 mls/hr ONCE ONCE IV 12/26/24 10:15 12/26/24 12:14 DC 12/26/24 11:22 Patient slightly disoriented. Tachycardia. Mild fever. Placed on oxygen. Possible pneumonia. Was given Lasix. Was given steroid. Continue monitoring. [place] [address] Ph: [phone] DIAGNOSTIC IMAGING Diagnostic Imaging Report : [id number] Signed PATIENT: NAMRATA ALMONTET: [id number] UNIT: [id number] : 1965 LOC: ER ROOM / BED: / AGE / SEX: 59 / F ADM STATUS: REG ER SERVICE ORDERING PHYSICIAN: MARY YORK MD PROCEDURE(s): CXRP - CHEST PORTABLE REASON: sob ORDER NUMBER(s): [id number], ACCESSION NUMBER(s): [id number] AP portable chest CLINICAL INDICATION: sob Comparison: 09/16/2024 FINDINGS: Heart size is normal. Enlarged bilateral hilar markings. No infiltrates or effusions IMPRESSION: 1. No acute infiltrates. There are large bilateral pulmonary hilar markings either due to pulmonary hypertension or lymphadenopathy ATED BY: GARRICK SEVILLA MD DICTATED DATE/TIME: 12/26/24 1003 SIGNED BY: GARRICK SEVILLA MD SIGNED DATE/TIME: 12/26/24 100 CC: [place] [address] Ph: [phone] DIAGNOSTIC IMAGING Diagnostic Imaging Report : [id number] Signed PATIENT: NAMRATA ALMONTET: [id number] UNIT: [id number] : 1965 LOC: ER ROOM / BED: / AGE / SEX: 59 / F ADM STATUS: REG ER SERVICE ORDERING PHYSICIAN: MARY YORK MD PROCEDURE(s): HWOCT - HEAD WITHOUT CONTRAST REASON: altered ORDER NUMBER(s): [id number], ACCESSION NUMBER(s): [id number] CT brain without contrast CLINICAL INDICATION: altered FINDINGS: The study was performed in a multidetector scanner. This study performed taking axial images from the skull base up to the vertex. Both brain and bone windows are photographed. Dose lowering techniques have been used including automated exposure control and adjustment of mA and/or KV according to patient size. Normal and symmetrical shape and density of brain parenchyma above and below the tentorium is seen. There is no mass, midline shift or hydrocephalus. No intra/extra-axial collections demonstrated. There is no intracranial hemorrhage. The calvarium is intact. IMPRESSION: 1. Mild cortical atrophy. No acute intracranial pathology Computed Tomographic Radiation Dosimetry Report: Total CTDI vol = 54 mGy Total DLP = 965 mGy-cm All CT scans at this medical facility are performed using dose modulation techniques as appropriate to a performed exam including the following: Automated exposure control was utilized; adjustment of the MA and/or KvP according to patient size; and use of iterative reconstruction technique. ATED BY: GARRICK SEVILLA MD DICTATED DATE/TIME: 12/26/241222 SIGNED BY: GARRICK SEVILLA MD SIGNED DATE/TIME: 12/26/241222 CC: Time of 1ST Reevaluation: 09:40 Reevaluation 1ST: Unchanged Patient Education/Counseling: Diagnosis, Treatment Family Education/Counseling: Other SEPSIS Sepsis Screen Date sepsis recognized/suspect: Dec 26, 2024 Time Sepsis recognized/suspect: 902 Recent Procedure: No On Antibiotic Therapy: No Respiratory Rate >20: No Heart Rate >90: Yes Temp<36 C (96.8 F) or >38.3 C: No SBP <90 or MAP <65 mmHG: No New Acute Mental Status Change: No Is the patient on CPAP, BIPAP,: No Physician Orders Chest Portable (12/26/24 09:35) Head Without Contrast (12/26/24 09:42) Abg W/ Co-Ox (12/26/24 09:42) Blood Culture (12/26/24 10:10) Vital Signs Date Time Temp Pulse Resp B/P (MAP) Pulse Ox O2 Delivery O2 Flow Rate FiO2 12/26/24 12:00 118 18 132/82 (99) 94 12/26/24 11:07 127 12/26/24 10:15 122 26 148/82 (104) 94 12/26/24 10:15 122 26 94 Nasal Cannula* 3 32 12/26/24 10:13 148/82 12/26/24 09:10 98.9 124 22 135/81 (99) 95 98.9 12/26/24 09:10 124 22 95 Nasal Cannula* 3 32 12/26/24 08:58 99.9 124 20 156/93 99 99.9 12/26/24 08:52 120 Laboratory Tests Test 12/26/24 09:51 12/26/24 10:33 White Blood Count 14.2 10^3/uL (4.4-10.8) H Lactic Acid Level 1.7 mmol/L (0.4-2.0) Medications Medications Dose Ordered Sig/Aquiles Route Start Time Stop Time Status Last Admin Dose Admin Azithromycin 250 ml @ 125 mls/hr ONCE ONCE IV 12/26/24 10:15 12/26/24 12:14 DC 12/26/24 11:22 Furosemide 20 mg ONCE ONCE IV 12/26/24 09:45 12/26/24 09:46 DC 12/26/24 10:13 Methylprednisolone Sodium Succinate 125 mg ONCE ONCE IV 12/26/24 09:45 12/26/24 09:46 DC 12/26/24 10:12 Piperacillin Sod/ Tazobactam Sod 100 ml @ 100 mls/hr ONCE ONCE IV 12/26/24 10:15 12/26/24 11:14 DC 12/26/24 10:15 Departure 1 Departure Time of Disposition: 09:50 Impression: Primary Impression: Acute respiratory failure Qualified Codes: J96.01 - Acute respiratory failure with hypoxia Additional Impressions: COPD exacerbation Pneumonia Qualified Codes: J18.9 - Pneumonia, unspecified organism Disposition: ADMITTED INPATIENT Admit to: Med Surg Condition: Guarded Critical Care Note Critical Care Time?: Yes (90 min-critical care time only) Stability Stability form required: No Heart Score Heart Score: Heart Score Response (Comments) Value History Slightly Suspicious 0 EKG Normal 0 Age 45-64 1 Risk Factors >3 or Hx ASHD 2 Troponin Normal limit 0 Total 3 I personally scribed for MARY YORK MD ([email or web address]) on 12/26/24 at 09:19. Electronically submitted by Sonya Hall ([email or web address]). I personally scribed for MARY YORK MD ([email or web address]) on 12/26/24 at 10:11. Electronically submitted by Sonya Hall ([email or web address]). I personally scribed for MARY YORK MD ([email or web address]) on 12/26/24 at 12:44. Electronically submitted by Sonya Hall ([email or web address]). I personally scribed for MARY YORK MD ([email or web address]) on 12/26/24 at 12:45. Electronically submitted by Sonya Hall ([email or web address]). MARY YORK MD Dec 26, 2024 09:19
--- NOTE | 2024-12-26 10:05 | DVH ---
AP portable chest CLINICAL INDICATION: sob Comparison: 09/16/2024 FINDINGS: Heart size is normal. Enlarged bilateral hilar markings. No infiltrates or effusions IMPRESSION: 1. No acute infiltrates. There are large bilateral pulmonary hilar markings either due to pulmonary hyp ertension or lymphadenopathy
[2024-12-26] MEDS: methylPREDNISolone SOD SUCC 125 MG/2 ML VL IV ONE (10:12)
[2024-12-26 10:13] LABS: Hematocrit 39.4 % (36.0-46.0); Hemoglobin 13.2 g/dL (12.2-16.2); Mean Corpuscular Hemoglobin 28.6 pg (28.0-32.0); Mean Corpuscular Volume 85.2 fL (80.0-100.0); Nucleated Red Blood Cells % 0.0 %
[2024-12-26] MEDS: FUROSEMIDE 20 MG/2 ML VIAL IV ONE (10:13)
[2024-12-26] MEDS: PIPERACILLIN-TAZOB 3.375GM 100 ML IV ONE (10:15)
[2024-12-26 10:21] LABS: Alanine Aminotransferase 18 U/L (7-40); Albumin 3.8 g/dL (3.2-4.8); Alkaline Phosphatase 100 U/L (46-116); Anion Gap 10 (5-15); BUN/Creatinine Ratio 16.3 (10.0-20.0); Bilirubin, Total 0.8 mg/dL (0.2-1.0); Blood Urea Nitrogen 13 mg/dL (9-23); Calcium 10.0 mg/dL (8.7-10.4); Carbon Dioxide 29 mmol/L (20-31); Chloride 104 mmol/L (98-107); Potassium 3.6 mmol/L (3.5-5.1); Sodium 143 mmol/L (136-145); Total Protein 7.6 g/dL (5.7-8.2)
[2024-12-26 10:43] LABS: Glucose 216 mg/dL (74-106)
[2024-12-26 10:44] LABS: Urine Budding Yeast LOADED /hpf (None Seen); Urine Protein, UAD 1+ (Negative)
[2024-12-26] MEDS: AZITHROMYCIN 500MG/ 250ML 250 ML IV ONE (11:22)
--- NOTE | 2024-12-26 12:25 | DVH ---
CT brain without contrast CLINICAL INDICATION: altered FINDINGS: The study was performed in a multidetector scanner. This study performed taking axial image s from the skull base up to the vertex. Both brain and bone windows are photographed. Dose lowering techniques have been used including automated exposure control and adjustment of mA and /or KV according to patient size. Normal and symmetrical shape and density of brain parenchyma above and below the tentorium is seen. T here is no mass, midline shift or hydrocephalus. No intra/extra-axial collections demonstrated. There is no intracranial hemorrhage. The calvarium is intact. IMPRESSION: 1. Mild cortical atrophy. No acute intracranial pathology Computed Tomographic Radiation Dosimetry Report: Total CTDI vol = 54 mGy Total DLP = 965 mGy-cm All C T scans at this medical facility are performed using dose modulation techniques as appropriate to a p erformed exam including the following: Automated exposure control was utilized; adjustment of the MA and/or KvP according to patient size; and use of iterative reconstruction technique.
--- NOTE | 2024-12-26 14:10 | DVHHP2 ---
History of Present Illness Reason for Visit: sob History of Present Illness 59-year-old female with a past medical history significant for congestive heart failure (CHF), COPD on 3L oxygen at home, diabetes mellitus, hyperlipidemia, hypertension, prior pulmonary embolism, and hypothyroidism, as well as a history of section and prior tracheostomy/tubulization, presents from [place] with her caregiver for evaluation of increased shortness of breath and confusion. The patient was previously enrolled in hospice but no longer wishes to be on hospice, though she maintains DNR status. According to the caregiver, over the past 23 days, the patient has developed progressive generalized weakness and increased shortness of breath beyond her baseline. She was also noted to be more confused and not behaving normally compared to her usual state. She denies fever, cough, chest pain, or other acute symptoms. She follows with inclusion intern Dr. Verma as an outpatient. In the ED, she was on 3L oxygen (her home baseline). Labs revealed WBC 14.2, BMP unremarkable except for BNP 194, CT brain was unremarkable, and a respiratory pathogen panel was negative. She is being admitted for further evaluation and management of acute on chronic respiratory symptoms and altered mental status in the setting of multiple comorbidities. Past Medical History See HPI above Past Surgical History See HPI above Family History Reviewed, non-contributory to the management of this case. Past Social History The patient lives at home, denies smoking, alcohol or illicit drugs abuse. or pt is current smoker or drug use with meth Review of Systems Constitutional: No: Fever, Chills, Sweats, Weakness, Malaise, Other Eyes: No: Pain, Vision change, Conjunctivae inflammation, Eyelid inflammation, Other, Redness ENT: No: Ear pain, Ear discharge, Nose pain, Nose discharge, Nose congestion, Mouth pain, Mouth swelling, Throat pain, Throat swelling, Other Respiratory: Shortness of breath, SOB with excertion; No: Cough, Dry, Wheezing, Hemoptysis, Pleuritic Pain, Sputum, Wheezing, Other Cardiovascular: No: Chest Pain, Palpitations, Orthopnea, Paroxysmal Noc. Dyspnea, Edema, Lt Headedness, Other Gastrointestinal: No: Nausea, Vomiting, Abdominal Pain, Diarrhea, Constipation, Melena, Hematochezia, Other Genitourinary: No Dysuria, No Frequency, No Incontinence, No Hematuria, No Retention, No Other Musculoskeletal: No: other, neck pain, shoulder pain, arm pain, back pain, hand pain, leg pain, foot pain Skin: No: Rash, Lesions, Jaundice, Bruising, Other Neurological: No: Weakness, Numbness, Incoordination, Change in speech, Confusion, Seizures, Other Allergies: Coded Allergies: Ketorolac Tromethamine (Verified Allergy, Unknown, 09/15/24) Levofloxacin (Verified Allergy, Unknown, 01/19/24) Exam Vital Signs Vital Signs Date Time Temp Pulse Resp B/P (MAP) Pulse Ox O2 Delivery O2 Flow Rate FiO2 12/26/24 12:00 118 18 132/82 (99) 94 12/26/24 10:15 Nasal Cannula* 3 32 12/26/24 09:10 98.9 98.9 General Appearance: Alert, Oriented X3, Cooperative, No acute distress HEENT: Atraumatic, PERRLA, EOMI, Mucous membr. moist/pink Respiratory: Other (Coarse rales throughout) Cardiovascular: Regular rate, Normal S1, Normal S2, No murmurs Abdominal: Normal bowel sounds, Soft, No tenderness, No hepatospenomegaly, No masses Extremities: No clubbing, No cyanosis, No edema, Normal pulses, No tenderness/swelling Skin: No rashes, No breakdown, No significant lesion Neuro: Normal speech, Strength at 5/5 X4 ext, Normal tone, Sensation intact, Cranial nerves 3-12 NL Psych/Mental Status: Mental status NL, Mood NL Labs/Xrays Chest x-ray unremarkable CT scan of the brain unremarkable I reviewed labs, imaging CT scan abdomen pelvis, EKG and all diagnostic studies on this patient from ED records and the medical chart Labs Test 12/26/24 10:33 12/26/24 10:30 12/26/24 09:51 Range/Units Lactic Acid Level 1.7 0.4-2.0 mmol/L Troponin I High Sensitivity 5 </=34 ng/L Urine Color Yellow Yellow Urine Clarity Turbid H Clear Urine pH 6.0 5.0-9.0 Urine Specific [place] 1.018 1.001-1.035 Urine Protein 1+ H Negative Urine Ketones 1+ H Negative Urine Blood 1+ H Negative /uL Urine Nitrite Negative Negative Urine Bilirubin Negative Negative Urine Urobilinogen Normal Negative mg/dL Urine Leukocyte Esterase 3+ Negative /uL Urine RBC 241 0 - 4 /hpf Urine Microscopic WBC 394 H 0-5 /HPF Urine Squamous Epithelial Cells Few <5 /hpf Urine Bacteria Few H None Seen /hpf Urine Yeast (Budding) Loaded None Seen /hpf Urine Glucose 3+ H Normal mg/dL White Blood Count 14.2 H 4.4-10.8 10^3/uL Red Blood Count 4.63 4.0-5.20 10^6/uL Hemoglobin 13.2 12.2-16.2 g/dL Hematocrit 39.4 36.0-46.0 % Mean Corpuscular Volume 85.2 80.0-100.0 fL Mean Corpuscular Hemoglobin 28.6 28.0-32.0 pg Mean Corpuscular Hemoglobin Concent 33.6 32.0-36.0 g/dL Red Cell Distribution Width 16.5 H 11.8-14.3 % Platelet Count 161 140-450 10^3/uL Mean Platelet Volume 7.5 6.9-10.8 fL Neutrophils (%) (Auto) 81.0 H 37.0-80.0 % Lymphocytes (%) (Auto) 9.8 L 10.0-50.0 % Monocytes (%) (Auto) 7.5 0.0-12.0 % Eosinophils (%) (Auto) 1.3 0.0-7.0 % Basophils (%) (Auto) 0.4 0.0-2.0 % Neutrophils # (Auto) 11.5 H 1.6-8.6 10 ^3/uL Lymphocytes # (Auto) 1.4 0.4-5.4 10 ^3/uL Monocytes # (Auto) 1.1 0-1.3 10 ^3/uL Eosinophils # (Auto) 0.2 0-0.8 10 ^3/uL Basophils # (Auto) 0.1 0-0.2 10 ^3/uL Nucleated Red Blood Cells 0.0 % Sodium Level 143 136-145 mmol/L Potassium Level 3.6 3.5-5.1 mmol/L Chloride Level 104 98-107 mmol/L Carbon Dioxide Level 29 20-31 mmol/L Anion Gap 10 5-15 Blood Urea Nitrogen 13 9-23 mg/dL Creatinine 0.80 0.550-1.02 mg/dL Glomerular Filtration Rate Calc 84 >90 mL/min BUN/Creatinine Ratio 16.3 10.0-20.0 Serum Glucose 216 H 74-106 mg/dL Calcium Level 10.0 8.7-10.4 mg/dL Total Bilirubin 0.8 0.2-1.0 mg/dL Aspartate Amino Transferase (AST) 17 13-40 U/L Alanine Aminotransferase (ALT) 18 7-40 U/L Alkaline Phosphatase 100 46-116 U/L B-Type Natriuretic Peptide 194.08 0-100 pg/mL Total Protein 7.6 5.7-8.2 g/dL Albumin 3.8 3.2-4.8 g/dL SEPSIS Sepsis Screen Date sepsis recognized/suspect: Dec 26, 2024 Time Sepsis recognized/suspect: 103 Recent Procedure: No On Antibiotic Therapy: No Respiratory Rate >20: Yes Heart Rate >90: Yes Temp<36 C (96.8 F) or >38.3 C: No SBP <90 or MAP <65 mmHG: No New Acute Mental Status Change: Yes Is the patient on CPAP, BIPAP,: No Physician Orders Chest Portable (12/26/24 09:35) Head Without Contrast (12/26/24 09:42) Abg W/ Co-Ox (12/26/24 09:42) Blood Culture (12/26/24 10:10) Vital Signs Date Time Temp Pulse Resp B/P (MAP) Pulse Ox O2 Delivery O2 Flow Rate FiO2 12/26/24 12:00 118 18 132/82 (99) 94 12/26/24 11:07 127 12/26/24 10:15 122 26 148/82 (104) 94 12/26/24 10:15 122 26 94 Nasal Cannula* 3 32 12/26/24 10:13 148/82 12/26/24 09:10 98.9 124 22 135/81 (99) 95 98.9 12/26/24 09:10 124 22 95 Nasal Cannula* 3 32 12/26/24 08:58 99.9 124 20 156/93 99 99.9 12/26/24 08:52 120 Laboratory Tests Test 12/26/24 09:51 12/26/24 10:33 White Blood Count 14.2 10^3/uL (4.4-10.8) H Lactic Acid Level 1.7 mmol/L (0.4-2.0) Medications Medications Dose Ordered Sig/[place] Route Start Time Stop Time Status Last Admin Dose Admin Azithromycin 250 ml @ 125 mls/hr ONCE ONCE IV 12/26/24 10:15 12/26/24 12:14 DC 12/26/24 11:22 125 MLS/HR Furosemide 20 mg ONCE ONCE IV 12/26/24 09:45 12/26/24 09:46 DC 12/26/24 10:13 20 MG Methylprednisolone Sodium Succinate 125 mg ONCE ONCE IV 12/26/24 09:45 12/26/24 09:46 DC 12/26/24 10:12 125 MG Piperacillin Sod/ Tazobactam Sod 100 ml @ 100 mls/hr ONCE ONCE IV 12/26/24 10:15 12/26/24 11:14 DC 12/26/24 10:15 100 MLS/HR Assessment/Plan Assessment/Plan 59-year-old female with Acute on chronic shortness of breath with altered mental status in a patient with CHF, COPD, and multiple comorbidities; admission for further evaluation and management. Acute on Chronic Dyspnea cxr normal on 3L O2 at home Progressive SOB for 23 days, no fever, no chest pain BNP 194 (mildly elevated) possible mild CHF exacerbation Monitor oxygen saturation, titrate O2 to maintain SpO? > 90% ordered albuterol/atrovent prn ordered steriods atc ordered lasix acute metabolic encephalopathy / Confusion New onset confusion per caregiver CT brain unremarkable Labs without clear metabolic cause Monitor neuro status Consider metabolic, infectious, or hypoxic etiologies acute Leukocytosis WBC 14.2 No fever, no obvious source of infection Respiratory panel pending Blood cultures pending acute on chronic Congestive Heart Failure with exacerbation BNP 194 (mildly elevated) Monitor weight, I/O Continue home lasix acute COPD exacerbation on Home O2 Continue baseline 3L O2 PRN bronchodilators Monitor for COPD exacerbation ordered solumedrol atc ordered albuterol/atrovent prn Goals of Care Patient not in hospice, pt states dont want to be on hospice at this time but maintains DNR Document goals of care and code status clearly Engage caregiver and patient in care planning chronic problems Diabetes Mellitus ISS Hypertension Continue home antihypertensives Hypothyroidism Continue home thyroid replacement Check TSH if not recently done History of Pulmonary Embolism Continue Eliquis CHF COPD on Diabetes mellitus Hypertension Hyperlipidemia Hypothyroidism History of PE S/p section Prior tracheostomy/tubulization FEN / PPx: Fluids: IV fluids as needed (assess volume status carefully due to CHF) Electrolytes: Monitor BMP daily Nutrition: cardiac diet if able to tolerate DVT Prophylaxis: Continue anticoagulation GI Prophylaxis: no gi ppx since no hx of gerds or gi bleed DISPOSITION: Admit to medicine for evaluation and management of acute on chronic dyspnea and altered mental status in patient with COPD, CHF, and multiple comorbidities. Continue oxygen therapy, monitor vitals, labs, and neuro status.. Maintain DNR status as per patients wishes. Plan discussed with: Patient Date of Service: Dec 26, 2024 Billing Provider: ANABELA GARRIDO DNP Common Visit Codes: [id number] INP/OBS CARE (HIGH) ANABELA GARRIDO DNP Dec 26, 2024 14:10
[2024-12-26] MEDS ORDERED: NITROGLYCERIN 0.4 MG SL TAB SL PRN (14:15)
[2024-12-26 15:08] LABS: Base Excess 2.0 mmol/L (-2.0-3.0)
[2024-12-26] MEDS: ALBUTEROL SULF 2.5 MG/0.5ML(0.5%) NEB SOLN NEB ONE (15:49)
[2024-12-26] MEDS: IPRATROPIUM BROM 0.5 MG/2.5ML INH SOL NEB ONE (15:49)
[2024-12-26] MEDS: FUROSEMIDE 40 MG/4 ML VIAL IV SCH (18:09)
[2024-12-26] MEDS: methylPREDNISolone SOD SUCC 40 MG/ML VL IV SCH (21:40)
[2024-12-26] MEDS: FAMOTIDINE (10MG/ML) 2ML VL IV SCH (21:42)
[2024-12-26] MEDS: APIXABAN 5 MG TAB PO SCH (21:47)
[2024-12-26] MEDS: CARVEDILOL 3.125 MG TAB PO SCH (21:47)
[2024-12-26] MEDS: ATORVASTATIN 20 MG TAB PO SCH (21:48)
[2024-12-27] VITALS (16 sets, daily range): BP systolic 91–143; BP diastolic 59–94; PULSE 89–160; RESP 17–23; TEMP 97.8–98.6; O2SAT 94–100
[2024-12-27] MEDS: MORPHINE SULFATE INJ 2 MG/ml SYRG IV PRN (03:50)
[2024-12-27] MEDS: ONDANSETRON HCL 4 MG/2 ML VIAL IV PRN (03:57)
[2024-12-27 04:19] LABS: Hematocrit 37.1 % (36.0-46.0); Hemoglobin 12.6 g/dL (12.2-16.2); Mean Corpuscular Hemoglobin 29.5 pg (28.0-32.0); Mean Corpuscular Volume 86.9 fL (80.0-100.0); Nucleated Red Blood Cells % 0.1 %
[2024-12-27 04:27] LABS: Alanine Aminotransferase 16 U/L (7-40); Albumin 3.5 g/dL (3.2-4.8); Alkaline Phosphatase 90 U/L (46-116); Anion Gap 9 (5-15); BUN/Creatinine Ratio 18.5 (10.0-20.0); Bilirubin, Total 0.6 mg/dL (0.2-1.0); Blood Urea Nitrogen 20 mg/dL (9-23); Calcium 9.5 mg/dL (8.7-10.4); Chloride 98 mmol/L (98-107); Sodium 139 mmol/L (136-145); Total Protein 7.0 g/dL (5.7-8.2)
[2024-12-27 04:39] LABS: Carbon Dioxide 32 mmol/L (20-31); Potassium 3.5 mmol/L (3.5-5.1)
[2024-12-27 04:40] LABS: Glucose 518 mg/dL (74-106)
[2024-12-27] MEDS ORDERED: MORPHINE SULFATE 4 MG/ML SYR/VIAL IV PRN (09:30)
[2024-12-27] MEDS: ALBUTEROL SULF 2.5 MG/0.5ML(0.5%) NEB SOLN NEB PRN (10:36)
[2024-12-27] MEDS: IPRATROPIUM BROM 0.5 MG/2.5ML INH SOL NEB PRN (10:36)
[2024-12-27] MEDS: SILDENAFIL CITRATE 20 MG TAB PO SCH (10:58)
[2024-12-27] MEDS: LOSARTAN POTASSIUM 25 MG TAB PO SCH (10:58)
[2024-12-27] MEDS: MONTELUKAST SODIUM 10 MG TAB PO SCH (10:59)
[2024-12-27] MEDS: LEVOTHYROXINE SODIUM 100 MCG TAB PO SCH (10:59)
--- NOTE | 2024-12-27 12:35 | DVHPN2 ---
Reviewed: H&P Changes from previous H/P or p: No Changes General: Per HPI Eyes: No Pain, No Vision change, No Conjunctivae inflammation, No Eyelid inflammation, No Other, No Redness ENT: No Ear pain, No Ear discharge, No Nose pain, No Nose discharge, No Nose congestion, No Mouth pain, No Mouth swelling, No Throat pain, No Throat swelling, No Other Cardiovascular: No Chest Pain, No Palpitations, No Orthopnea, No Paroxysmal Noc. Dyspnea, No Edema, No Lt Headedness, No Other Respiratory: No Cough, No Dry; Shortness of breath, SOB with excertion; No Wheezing, No Hemoptysis, No Pleuritic Pain, No Sputum, No Other Gastrointestinal: No Nausea, No Vomiting, No Abdominal Pain, No Diarrhea, No Constipation, No Melena, No Hematochezia, No Other Genitourinary: No Dysuria, No Frequency, No Incontinence, No Hematuria, No Retention, No Other Musculoskeletal: No other, No neck pain, No shoulder pain, No arm pain, No back pain, No hand pain, No leg pain, No foot pain Skin: No Rash, No Lesions, No Jaundice, No Bruising, No Other Objective Vitals Vital Signs Date Time Temp Pulse Resp B/P (MAP) Pulse Ox O2 Delivery O2 Flow Rate FiO2 12/27/24 11:20 111 17 100/67 (78) 95 12/27/24 10:36 Nasal Cannula* 3 32 12/27/24 07:27 97.8 97.8 Exam General Appearance: Alert, Oriented X3, Cooperative, No acute distress HEENT: Atraumatic, PERRLA, EOMI, Mucous membr. moist/pink Respiratory: Other (Coarse rales throughout) Cardiovascular: Regular rate, Normal S1, Normal S2, No murmurs Abdominal: Normal bowel sounds, Soft, No tenderness, No hepatospenomegaly, No masses Extremities: No clubbing, No cyanosis, No edema, Normal pulses, No tenderness/swelling Skin: No rashes, No breakdown, No significant lesion Neuro: Normal speech, Strength at 5/5 X4 ext, Normal tone, Sensation intact, Cranial nerves 3-12 NL Psych/Mental Status: Mental status NL, Mood NL Medications Current Medications Medications Dose Ordered Sig/[place] Route Start Time Stop Time Status Last Admin Dose Admin Apixaban 5 mg BID PO 12/26/24 22:00 12/27/24 10:59 5 MG Carvedilol 3.125 mg BID PO 12/26/24 22:00 12/27/24 11:00 3.125 MG Losartan Potassium 25 mg DAILY PO 12/27/24 10:00 12/27/24 10:58 25 MG Montelukast Sodium 10 mg DAILY PO 12/27/24 10:00 12/27/24 10:59 10 MG Sildenafil Citrate 20 mg DAILY PO 12/27/24 10:00 12/27/24 10:58 20 MG Zolpidem Tartrate 5 mg QHSP PRN PO 12/26/24 14:15 Amlodipine Besylate 2.5 mg DAILY PO 12/27/24 10:00 12/27/24 10:59 2.5 MG Atorvastatin Calcium 40 mg HS PO 12/26/24 22:00 12/26/24 21:48 40 MG Furosemide 40 mg BIDD IV 12/26/24 18:00 12/27/24 05:48 40 MG Methylprednisolone Sodium Succinate 40 mg Q8HR IV 12/26/24 22:00 12/27/24 05:48 40 MG Famotidine 20 mg Q12HR IV 12/26/24 22:00 12/27/24 10:57 20 MG Albuterol 2.5 mg Q4HPRN PRN NEB 12/26/24 14:15 12/27/24 10:36 2.5 MG Ipratropium [place] 0.5 mg Q4HPRN PRN NEB 12/26/24 14:15 12/27/24 10:36 0.5 MG Ondansetron HCl 4 mg Q4HP PRN IV 12/26/24 14:15 12/27/24 03:57 4 MG Docusate Sodium 100 mg BIDPRN PRN PO 12/26/24 14:15 Nitroglycerin 0.4 mg Q5MINP PRN SL 12/26/24 14:15 Hold Ceftriaxone Sodium 50 ml @ 100 mls/hr DAILY@09 IV 12/27/24 11:45 Azithromycin 250 ml @ 125 mls/hr DAILY IV 12/27/24 13:00 Levothyroxine Sodium 100 mcg QAM PO 12/28/24 07:00 Acetaminophen/ Hydrocodone Bitart 1 tab Q4HPRN PRN PO 12/27/24 12:30 UNV Hydromorphone HCl 0.25 mg PRN PRN IV 12/27/24 12:30 UNV Laboratory Results Laboratory Tests 12/27/24 03:38 Chemistry Test 12/27/24 03:38 Albumin 3.5 g/dL (3.2-4.8) Calcium Level 9.5 mg/dL (8.7-10.4) Total Protein 7.0 g/dL (5.7-8.2) LFT Test 12/27/24 03:38 Alanine Aminotransferase (ALT) 16 U/L (7-40) Alkaline Phosphatase 90 U/L (46-116) Aspartate Amino Transferase (AST) 11 U/L (13-40) L Total Bilirubin 0.6 mg/dL (0.2-1.0) Urinalysis Test 12/26/24 10:30 Urine Color Yellow (Yellow) Urine Clarity Turbid (Clear) H Urine pH 6.0 (5.0-9.0) Urine Specific [place] 1.018 (1.001-1.035) Urine Protein 1+ (Negative) H Urine Ketones 1+ (Negative) H Urine Blood 1+ /uL (Negative) H Urine Nitrite Negative (Negative) Urine Bilirubin Negative (Negative) Urine Urobilinogen Normal mg/dL (Negative) Urine Leukocyte Esterase 3+ /uL (Negative) Urine RBC 241 /hpf (0 - 4) Urine Microscopic WBC 394 /HPF (0-5) H Urine Squamous Epithelial Cells Few /hpf (<5) Urine Bacteria Few /hpf (None Seen) H Urine Yeast (Budding) Loaded /hpf (None Seen) Urine Glucose 3+ mg/dL (Normal) H Microbiology Microbiology Date/Time Source Procedure Growth Status 12/26/24 10:33 Blood Blood Culture - Preliminary NO GROWTH AFTER 24 HOURS OF INCUBATION. Resulted Labs and/or images reviewed: Labs reviewed by me, Image(s) reviewed by me Assessment/Plan Assessment/Plan 59-year-old female with a past medical history significant for congestive heart failure (CHF), COPD on 3L oxygen at home, diabetes mellitus, hyperlipidemia, hypertension, prior pulmonary embolism, and hypothyroidism, as well as a history of section and prior tracheostomy/tubulization, presents from [place] with her caregiver for evaluation of increased shortness of breath and confusion. The patient was previously enrolled in hospice but no longer wishes to be on hospice, though she maintains DNR status. According to the caregiver, over the past 23 days, the patient has developed progressive generalized weakness and increased shortness of breath beyond her baseline. She was also noted to be more confused and not behaving normally compared to her usual state. She denies fever, cough, chest pain, or other acute symptoms. She follows with construction management instructor Dr. Verma as an outpatient. In the ED, she was on 3L oxygen (her home baseline). Labs revealed WBC 14.2, BMP unremarkable except for BNP 194, CT brain was unremarkable, and a respiratory pathogen panel was negative. She is being admitted for further evaluation and management of acute on chronic respiratory symptoms and altered mental status in the setting of multiple comorbidities. 12/27: 59 female, COPD, CHF. Was confused. Patient has some rales, no pitting edema, no wheezing. Appears possible volume overload, she had 1 out of oxygen at home. Currently she is tachycardic AFib irregularly irregular, we will continue to control patient rate with beta-torin, continue diuresis with Lasix,. Continue oxygen at home she takes 3 L. nebulizers prn which we will help. There is some sign of acute cystitis, we will treat with ceftriaxone. No wheezing we will keep nebs as prn right now. diagnosis: Acute toxic metabolic encephalopathy Acute CHF exacerbation, diastolic dysfunction likely Acute complicated cystitis Acute pneumonia, community-acquired, Gram-negative/Gram-positive likely Chronic COPD, not in exacerbation Leukocytosis Diabetes Mellitus ISS Hypertension Continue home antihypertensives Hypothyroidism Continue home thyroid replacement Check TSH if not recently done History of Pulmonary Embolism Continue Eliquis CHF COPD on Diabetes mellitus Hypertension Hyperlipidemia Hypothyroidism History of PE S/p section Prior tracheostomy/tubulization plan: Amlodipine 2.5 Eliquis 5 p.o. b.i.d. Lipitor 40 Azithromycin, ceftriaxone IV antibiotics Coreg 3.125 p.o. b.i.d. Lasix 40 IV b.i.d. Famotidine 20 IV b.i.d. Synthroid home dose 100 mcg p.o. p.m., Losartan 25 mg p.o. daily Stopping Solu-Medrol Continue home montelukast Continue home sildenafil Revatio dose Cardiac diet Tele Full code Plan discussed with: Patient My Orders Orders - BRITTNEY MORATAYA MD Procedure Category Date Status Time Ceftriaxone 1gm/50ml PHA 12/27/24 In Process (Rocephin) 11:45 Azithromycin 500mg/ PHA 12/27/24 In Process 250ml (Zithromax 50 13:00 Hydrocodone-Acet PHA 12/27/24 Logged 5/325mg Tab ([place] 12:30 Hydromorphone PHA 12/27/24 Transmitted Injection (Dilaudid 12:30 Date of Service: Dec 27, 2024 Billing Provider: BRITTNEY MORATAYA MD Common Visit Codes: [id number] INP/OBS CARE(HIGH) BRITTNEY MORATAYA MD Dec 27, 2024 12:35
[2024-12-27] MEDS: HYDROmorphone HCL 2 MG/ML VL/or syr IV PRN (12:50)
[2024-12-27] MEDS: AZITHROMYCIN 500MG/ 250ML 250 ML IV SCH (15:20)
[2024-12-27] MEDS: HYDROcodone-ACET 5/325MG TAB PO PRN (15:33)
[2024-12-28] VITALS (15 sets, daily range): BP systolic 94–113; BP diastolic 46–77; PULSE 78–107; RESP 16–20; TEMP 97.4–98.9; O2SAT 93–100
[2024-12-28] MEDS: ACETAMINOPHEN 325 MG TAB PO ONE (05:58)
[2024-12-28] MEDS: LEVOTHYROXINE SODIUM 100 MCG TAB PO SCH (06:14)
[2024-12-28] MEDS ORDERED: DEXTROSE (50%) 50ML SYRG IV PRN ×2 (07:30→10:30)
[2024-12-28 09:48] LABS: Alanine Aminotransferase 13 U/L (7-40); Albumin 3.3 g/dL (3.2-4.8); Alkaline Phosphatase 89 U/L (46-116); Anion Gap 9 (5-15); BUN/Creatinine Ratio 20.2 (10.0-20.0); Bilirubin, Total 0.5 mg/dL (0.2-1.0); Calcium 9.8 mg/dL (8.7-10.4); Potassium 4.0 mmol/L (3.5-5.1); Total Protein 6.8 g/dL (5.7-8.2)
[2024-12-28 09:51] LABS: Blood Urea Nitrogen 24 mg/dL (9-23); Carbon Dioxide 35 mmol/L (20-31); Chloride 86 mmol/L (98-107); Sodium 130 mmol/L (136-145)
[2024-12-28 09:52] LABS: Glucose 669 mg/dL (74-106)
--- NOTE | 2024-12-28 11:20 | DVHPN2 ---
Reviewed: H&P Changes from previous H/P or p: No Changes General: Per HPI Eyes: No Pain, No Vision change, No Conjunctivae inflammation, No Eyelid inflammation, No Other, No Redness ENT: No Ear pain, No Ear discharge, No Nose pain, No Nose discharge, No Nose congestion, No Mouth pain, No Mouth swelling, No Throat pain, No Throat swelling, No Other Cardiovascular: No Chest Pain, No Palpitations, No Orthopnea, No Paroxysmal Noc. Dyspnea, No Edema, No Lt Headedness, No Other Respiratory: No Cough, No Dry; Shortness of breath, SOB with excertion; No Wheezing, No Hemoptysis, No Pleuritic Pain, No Sputum, No Other Gastrointestinal: No Nausea, No Vomiting, No Abdominal Pain, No Diarrhea, No Constipation, No Melena, No Hematochezia, No Other Genitourinary: No Dysuria, No Frequency, No Incontinence, No Hematuria, No Retention, No Other Musculoskeletal: No other, No neck pain, No shoulder pain, No arm pain, No back pain, No hand pain, No leg pain, No foot pain Skin: No Rash, No Lesions, No Jaundice, No Bruising, No Other Objective Vitals Vital Signs Date Time Temp Pulse Resp B/P (MAP) Pulse Ox O2 Delivery O2 Flow Rate FiO2 12/28/24 10:00 94 Nasal Cannula* 3 32 12/28/24 09:00 98.9 104 20 99/46 (63) 98.9 Intake/Output Intake and Output 12/28/24 07:00 Intake Total 495 ml Output Total 4100 ml Balance -3605 ml Intake Oral 320 ml IV Total 175 ml Output Urine Total 4100 ml Exam General Appearance: Alert, Oriented X3, Cooperative, No acute distress HEENT: Atraumatic, PERRLA, EOMI, Mucous membr. moist/pink Respiratory: Other (Coarse rales throughout) Cardiovascular: Regular rate, Normal S1, Normal S2, No murmurs Abdominal: Normal bowel sounds, Soft, No tenderness, No hepatospenomegaly, No masses Extremities: No clubbing, No cyanosis, No edema, Normal pulses, No tenderness/swelling Skin: No rashes, No breakdown, No significant lesion Neuro: Normal speech, Strength at 5/5 X4 ext, Normal tone, Sensation intact, Cranial nerves 3-12 NL Psych/Mental Status: Mental status NL, Mood NL Medications Current Medications Medications Dose Ordered Sig/Aquiles Route Start Time Stop Time Status Last Admin Dose Admin Apixaban 5 mg BID PO 12/26/24 22:00 12/28/24 09:00 5 MG Carvedilol 3.125 mg BID PO 12/26/24 22:00 12/27/24 11:00 3.125 MG Losartan Potassium 25 mg DAILY PO 12/27/24 10:00 12/27/24 10:58 25 MG Montelukast Sodium 10 mg DAILY PO 12/27/24 10:00 12/28/24 09:01 10 MG Sildenafil Citrate 20 mg DAILY PO 12/27/24 10:00 12/28/24 09:00 20 MG Zolpidem Tartrate 5 mg QHSP PRN PO 12/26/24 14:15 Amlodipine Besylate 2.5 mg DAILY PO 12/27/24 10:00 12/27/24 10:59 2.5 MG Atorvastatin Calcium 40 mg HS PO 12/26/24 22:00 12/27/24 21:36 40 MG Famotidine 20 mg Q12HR IV 12/26/24 22:00 12/28/24 09:01 20 MG Albuterol 2.5 mg Q4HPRN PRN NEB 12/26/24 14:15 12/28/24 06:41 2.5 MG Ipratropium [place] 0.5 mg Q4HPRN PRN NEB 12/26/24 14:15 12/28/24 06:41 0.5 MG Ondansetron HCl 4 mg Q4HP PRN IV 12/26/24 14:15 12/27/24 03:57 4 MG Docusate Sodium 100 mg BIDPRN PRN PO 12/26/24 14:15 Nitroglycerin 0.4 mg Q5MINP PRN SL 12/26/24 14:15 Hold Ceftriaxone Sodium 50 ml @ 100 mls/hr DAILY@09 IV 12/27/24 11:45 12/28/24 09:01 100 MLS/HR Azithromycin 250 ml @ 125 mls/hr DAILY IV 12/27/24 13:00 12/28/24 09:01 125 MLS/HR Levothyroxine Sodium 100 mcg QAM PO 12/28/24 07:00 12/28/24 06:14 100 MCG Acetaminophen/ Hydrocodone Bitart 1 tab Q4HPRN PRN PO 12/27/24 12:30 12/28/24 09:00 1 TAB Hydromorphone HCl 0.25 mg Q8HP PRN IV 12/27/24 20:30 Diagnostic Test (Pha) 1 strip IQ4HR 12/28/24 12:00 Insulin Human Regular IQ4HR SC 12/28/24 12:00 Dextrose 50 ml UD PRN IV 12/28/24 10:30 Laboratory Results Laboratory Tests 12/27/24 03:38 12/28/24 08:58 Chemistry Test 12/28/24 08:58 Albumin 3.3 g/dL (3.2-4.8) Calcium Level 9.8 mg/dL (8.7-10.4) Total Protein 6.8 g/dL (5.7-8.2) LFT Test 12/28/24 08:58 Alanine Aminotransferase (ALT) 13 U/L (7-40) Alkaline Phosphatase 89 U/L (46-116) Aspartate Amino Transferase (AST) 10 U/L (13-40) L Total Bilirubin 0.5 mg/dL (0.2-1.0) Urinalysis Test 12/26/24 10:30 Urine Color Yellow (Yellow) Urine Clarity Turbid (Clear) H Urine pH 6.0 (5.0-9.0) Urine Specific [place] 1.018 (1.001-1.035) Urine Protein 1+ (Negative) H Urine Ketones 1+ (Negative) H Urine Blood 1+ /uL (Negative) H Urine Nitrite Negative (Negative) Urine Bilirubin Negative (Negative) Urine Urobilinogen Normal mg/dL (Negative) Urine Leukocyte Esterase 3+ /uL (Negative) Urine RBC 241 /hpf (0 - 4) Urine Microscopic WBC 394 /HPF (0-5) H Urine Squamous Epithelial Cells Few /hpf (<5) Urine Bacteria Few /hpf (None Seen) H Urine Yeast (Budding) Loaded /hpf (None Seen) Urine Glucose 3+ mg/dL (Normal) H Microbiology Microbiology Date/Time Source Procedure Growth Status 12/26/24 10:33 Blood Blood Culture - Preliminary NO GROWTH AFTER 48 HOURS OF INCUBATION. Resulted Labs and/or images reviewed: Labs reviewed by me, Image(s) reviewed by me Assessment/Plan Assessment/Plan 59-year-old female with a past medical history significant for congestive heart failure (CHF), COPD on 3L oxygen at home, diabetes mellitus, hyperlipidemia, hypertension, prior pulmonary embolism, and hypothyroidism, as well as a history of section and prior tracheostomy/tubulization, presents from [place] with her caregiver for evaluation of increased shortness of breath and confusion. The patient was previously enrolled in hospice but no longer wishes to be on hospice, though she maintains DNR status. According to the caregiver, over the past 23 days, the patient has developed progressive generalized weakness and increased shortness of breath beyond her baseline. She was also noted to be more confused and not behaving normally compared to her usual state. She denies fever, cough, chest pain, or other acute symptoms. She follows with drainlayer Dr. Verma as an outpatient. In the ED, she was on 3L oxygen (her home baseline). Labs revealed WBC 14.2, BMP unremarkable except for BNP 194, CT brain was unremarkable, and a respiratory pathogen panel was negative. She is being admitted for further evaluation and management of acute on chronic respiratory symptoms and altered mental status in the setting of multiple comorbidities. 12/27: 59 female, COPD, CHF. Was confused. Patient has some rales, no pitting edema, no wheezing. Appears possible volume overload, she had 1 out of oxygen at home. Currently she is tachycardic AFib irregularly irregular, we will continue to control patient rate with beta-torin, continue diuresis with Lasix,. Continue oxygen at home she takes 3 L. nebulizers prn which we will help. There is some sign of acute cystitis, we will treat with ceftriaxone. No wheezing we will keep nebs as prn right now. 12/28: Patient has some mild wheeze, still has rales bilateral lower extremities, blood glucose today is up to 600s apparently she was taking juice/crackers overnight. strict DM diet, We will change to q.4 aggressive scale SSI, continue antibiotics, hold off Lasix, give 500 cc fluids and some maintenance fluids,. We will try BiPAP tonight 3-4 hours nighttime before sleep, start nebs as scheduled today,. diagnosis: Acute toxic metabolic encephalopathy Acute CHF exacerbation, diastolic dysfunction likely Acute complicated cystitis Acute pneumonia, community-acquired, Gram-negative/Gram-positive likely Chronic COPD, not in exacerbation Leukocytosis Diabetes Mellitus ISS Hypertension Continue home antihypertensives Hypothyroidism Continue home thyroid replacement Check TSH if not recently done History of Pulmonary Embolism Continue Eliquis CHF COPD on Diabetes mellitus Hypertension Hyperlipidemia Hypothyroidism History of PE S/p section Prior tracheostomy/tubulization plan: Amlodipine 2.5 Eliquis 5 p.o. b.i.d. Lipitor 40 Azithromycin, ceftriaxone IV antibiotics Coreg 3.125 p.o. b.i.d. Lasix 40 IV b.i.d. Famotidine 20 IV b.i.d. Synthroid home dose 100 mcg p.o. p.m., Losartan 25 mg p.o. daily Stopping Solu-Medrol Continue home montelukast Continue home sildenafil Revatio dose Cardiac diet Tele Full code Plan discussed with: Patient My Orders Orders - BRITTNEY MORATAYA MD Procedure Category Date Status Time Ceftriaxone 1gm/50ml PHA 12/27/24 In Process (Rocephin) 11:45 Azithromycin 500mg/ PHA 12/27/24 In Process 250ml (Zithromax 50 13:00 Hydrocodone-Acet PHA 12/27/24 In Process 5/325mg Tab ([place] 12:30 Hydromorphone PHA 12/27/24 In Process Injection (Dilaudid 20:30 Cardiac DIET 12/28/24 Transmitted Diet-2gna,Lofat,Lochol Breakfast Glucose Blood PHA 12/28/24 In Process (Accu-Chek Comfort 12:00 Insulin R (Human) PHA 12/28/24 In Process (Insulin R) 12:00 Dextrose 50% Syringe PHA 12/28/24 In Process 10:30 Date of Service: Dec 28, 2024 Billing Provider: BRITTNEY MORATAYA MD Common Visit Codes: [id number] INP/OBS CARE(HIGH) BRITTNEY MORATAYA MD Dec 28, 2024 11:20
[2024-12-28] MEDS ORDERED: InsuLIN REG 1unit/0.01ml Soln (100units/ml) SC SCH ×2 (11:30→22:00)
[2024-12-28] MEDS ORDERED: ACCU-CHEK COMFORT CURVE STRIP VI SCH (11:30)
[2024-12-28] MEDS: LACTATED RINGER'S 500 ML IV ONE (11:49)
[2024-12-28] MEDS: ACCU-CHEK COMFORT CURVE STRIP VI SCH (12:00)
[2024-12-28] MEDS: InsuLIN REG 1unit/0.01ml Soln (100units/ml) SC SCH (12:00)
[2024-12-28] MEDS: ALBUTEROL SULF 2.5 MG/0.5ML(0.5%) NEB SOLN NEB PRN (12:12)
[2024-12-29] VITALS (13 sets, daily range): BP systolic 98–112; BP diastolic 48–82; PULSE 73–117; RESP 1–19; TEMP 97.1–98.5; O2SAT 94–99
--- NOTE | 2024-12-29 13:09 | DVHPN2 ---
Reviewed: Care Plan, H&P Changes from previous H/P or p: No Changes General: Per HPI Eyes: No Pain, No Vision change, No Conjunctivae inflammation, No Eyelid inflammation, No Other, No Redness ENT: No Ear pain, No Ear discharge, No Nose pain, No Nose discharge, No Nose congestion, No Mouth pain, No Mouth swelling, No Throat pain, No Throat swelling, No Other Cardiovascular: No Chest Pain, No Palpitations, No Orthopnea, No Paroxysmal Noc. Dyspnea, No Edema, No Lt Headedness, No Other Respiratory: No Cough, No Dry; Shortness of breath, SOB with excertion; No Wheezing, No Hemoptysis, No Pleuritic Pain, No Sputum, No Other Gastrointestinal: No Nausea, No Vomiting, No Abdominal Pain, No Diarrhea, No Constipation, No Melena, No Hematochezia, No Other Genitourinary: No Dysuria, No Frequency, No Incontinence, No Hematuria, No Retention, No Other Musculoskeletal: No other, No neck pain, No shoulder pain, No arm pain, No back pain, No hand pain, No leg pain, No foot pain Skin: No Rash, No Lesions, No Jaundice, No Bruising, No Other Objective Vitals Vital Signs Date Time Temp Pulse Resp B/P (MAP) Pulse Ox O2 Delivery O2 Flow Rate FiO2 12/29/24 10:00 96 Nasal Cannula* 3 32 12/29/24 09:00 98.5 96 1 104/67 (79) 98.5 Intake/Output Intake and Output 12/29/24 07:00 Intake Total 2850 ml Output Total 2950 ml Balance -100 ml Intake Oral 2050 ml IV Total 800 ml Output Urine Total 2950 ml Medications Current Medications Medications Dose Ordered Sig/Aquiles Route Start Time Stop Time Status Last Admin Dose Admin Apixaban 5 mg BID PO 12/26/24 22:00 12/29/24 09:35 5 MG Carvedilol 3.125 mg BID PO 12/26/24 22:00 12/27/24 11:00 3.125 MG Losartan Potassium 25 mg DAILY PO 12/27/24 10:00 12/27/24 10:58 25 MG Montelukast Sodium 10 mg DAILY PO 12/27/24 10:00 12/29/24 09:35 10 MG Sildenafil Citrate 20 mg DAILY PO 12/27/24 10:00 12/29/24 09:35 20 MG Zolpidem Tartrate 5 mg QHSP PRN PO 12/26/24 14:15 Amlodipine Besylate 2.5 mg DAILY PO 12/27/24 10:00 12/27/24 10:59 2.5 MG Atorvastatin Calcium 40 mg HS PO 12/26/24 22:00 12/28/24 21:17 40 MG Famotidine 20 mg Q12HR IV 12/26/24 22:00 12/29/24 09:50 20 MG Ipratropium [place] 0.5 mg Q4HPRN PRN NEB 12/26/24 14:15 12/28/24 20:34 0.5 MG Ondansetron HCl 4 mg Q4HP PRN IV 12/26/24 14:15 12/27/24 03:57 4 MG Docusate Sodium 100 mg BIDPRN PRN PO 12/26/24 14:15 Nitroglycerin 0.4 mg Q5MINP PRN SL 12/26/24 14:15 Hold Ceftriaxone Sodium 50 ml @ 100 mls/hr DAILY@09 IV 12/27/24 11:45 12/29/24 08:48 100 MLS/HR Azithromycin 250 ml @ 125 mls/hr DAILY IV 12/27/24 13:00 12/29/24 09:50 125 MLS/HR Levothyroxine Sodium 100 mcg QAM PO 12/28/24 07:00 12/29/24 05:57 100 MCG Acetaminophen/ Hydrocodone Bitart 1 tab Q4HPRN PRN PO 12/27/24 12:30 12/29/24 08:47 1 TAB Hydromorphone HCl 0.25 mg Q8HP PRN IV 12/27/24 20:30 Diagnostic Test (Pha) 1 strip IQ4HR 12/28/24 12:00 12/29/24 12:27 1 STRIP Insulin Human Regular IQ4HR SC 12/28/24 12:00 12/29/24 12:29 16 UNITS Dextrose 50 ml UD PRN IV 12/28/24 10:30 Albuterol 2.5 mg Q6HPRN PRN NEB 12/28/24 11:30 12/28/24 12:12 2.5 MG Laboratory Results Laboratory Tests 12/27/24 03:38 12/28/24 08:58 Urinalysis Test 12/26/24 10:30 Urine Color Yellow (Yellow) Urine Clarity Turbid (Clear) H Urine pH 6.0 (5.0-9.0) Urine Specific [place] 1.018 (1.001-1.035) Urine Protein 1+ (Negative) H Urine Ketones 1+ (Negative) H Urine Blood 1+ /uL (Negative) H Urine Nitrite Negative (Negative) Urine Bilirubin Negative (Negative) Urine Urobilinogen Normal mg/dL (Negative) Urine Leukocyte Esterase 3+ /uL (Negative) Urine RBC 241 /hpf (0 - 4) Urine Microscopic WBC 394 /HPF (0-5) H Urine Squamous Epithelial Cells Few /hpf (<5) Urine Bacteria Few /hpf (None Seen) H Urine Yeast (Budding) Loaded /hpf (None Seen) Urine Glucose 3+ mg/dL (Normal) H Microbiology Microbiology Date/Time Source Procedure Growth Status 12/26/24 10:33 Blood Blood Culture - Preliminary NO GROWTH AFTER 72 HOURS OF INCUBATION. Resulted Labs and/or images reviewed: Labs reviewed by me, Image(s) reviewed by me Assessment/Plan Assessment/Plan Covering for Dr. Graham Acute toxic metabolic encephalopathy Acute CHF exacerbation, diastolic dysfunction likely Acute complicated cystitis Acute pneumonia, community-acquired, Gram-negative/Gram-positive likely Chronic COPD, not in exacerbation Leukocytosis Diabetes Mellitus ISS Hypertension Continue home antihypertensives Hypothyroidism Continue home thyroid replacement Check TSH if not recently done History of Pulmonary Embolism Continue Eliquis Prior tracheostomy/tubulization Use of home oxygen Patient lives in a [facility] and [facility] Hospice revoked Was in [facility] [place] in the past Time spent 70 minutes Advanced care planning time 20 mts Full code Plan discussed with: Patient Date of Service: Dec 29, 2024 Billing Provider: VARUN OLSON MD Common Visit Codes: [id number] CARE 30-74 MIN VARUN OLSON MD Dec 29, 2024 13:09
[2024-12-29] MEDS: DOCUSATE SOD 100 MG CAP PO PRN (21:31)
[2024-12-30] VITALS (15 sets, daily range): BP systolic 104–128; BP diastolic 57–88; PULSE 77–127; RESP 14–19; TEMP 97.8–98.5; O2SAT 94–99
[2024-12-30] MEDS ORDERED: DEXTROSE (50%) 50ML SYRG IV PRN ×3 (12:15→22:45)
[2024-12-30] MEDS: IPRATROPIUM BROM 0.5 MG/2.5ML INH SOL NEB SCH (12:15)
[2024-12-30] MEDS: ALBUTEROL SULF 2.5 MG/0.5ML(0.5%) NEB SOLN NEB SCH (12:15)
--- NOTE | 2024-12-30 12:21 | DVHPN2 ---
Reviewed: Care Plan, H&P Changes from previous H/P or p: No Changes General: Per HPI Eyes: No Pain, No Vision change, No Conjunctivae inflammation, No Eyelid inflammation, No Other, No Redness ENT: No Ear pain, No Ear discharge, No Nose pain, No Nose discharge, No Nose congestion, No Mouth pain, No Mouth swelling, No Throat pain, No Throat swelling, No Other Cardiovascular: No Chest Pain, No Palpitations, No Orthopnea, No Paroxysmal Noc. Dyspnea, No Edema, No Lt Headedness, No Other Respiratory: No Cough, No Dry; Shortness of breath, SOB with excertion; No Wheezing, No Hemoptysis, No Pleuritic Pain, No Sputum, No Other Gastrointestinal: No Nausea, No Vomiting, No Abdominal Pain, No Diarrhea, No Constipation, No Melena, No Hematochezia, No Other Genitourinary: No Dysuria, No Frequency, No Incontinence, No Hematuria, No Retention, No Other Musculoskeletal: No other, No neck pain, No shoulder pain, No arm pain, No back pain, No hand pain, No leg pain, No foot pain Skin: No Rash, No Lesions, No Jaundice, No Bruising, No Other Objective Vitals Vital Signs Date Time Temp Pulse Resp B/P (MAP) Pulse Ox O2 Delivery O2 Flow Rate FiO2 12/30/24 12:15 90 14 97 12/30/24 12:15 Nasal Cannula 3.0 12/30/24 12:15 32 12/30/24 09:11 118/80 12/30/24 09:00 98.2 98.2 Intake/Output Intake and Output 12/30/24 07:00 Intake Total 1400 ml Output Total 750 ml Balance 650 ml Intake Oral 1100 ml IV Total 300 ml Output Urine Total 750 ml # Voids 3 Exam General Appearance: Alert, Oriented X3, Cooperative, No acute distress HEENT: Atraumatic, PERRLA, EOMI, Mucous membr. moist/pink Respiratory: Other (Coarse rales throughout) Cardiovascular: Regular rate, Normal S1, Normal S2, No murmurs Abdominal: Normal bowel sounds, Soft, No tenderness, No hepatospenomegaly, No masses Extremities: No clubbing, No cyanosis, No edema, Normal pulses, No tenderness/swelling Skin: No rashes, No breakdown, No significant lesion Neuro: Normal speech, Strength at 5/5 X4 ext, Normal tone, Sensation intact, Cranial nerves 3-12 NL Psych/Mental Status: Mental status NL, Mood NL Medications Current Medications Medications Dose Ordered Sig/[place]quiles Route Start Time Stop Time Status Last Admin Dose Admin Apixaban 5 mg BID PO 12/26/24 22:00 12/30/24 09:12 5 MG Carvedilol 3.125 mg BID PO 12/26/24 22:00 12/27/24 11:00 3.125 MG Losartan Potassium 25 mg DAILY PO 12/27/24 10:00 12/30/24 09:11 25 MG Montelukast Sodium 10 mg DAILY PO 12/27/24 10:00 12/30/24 09:11 10 MG Sildenafil Citrate 20 mg DAILY PO 12/27/24 10:00 12/30/24 09:12 20 MG Zolpidem Tartrate 5 mg QHSP PRN PO 12/26/24 14:15 Amlodipine Besylate 2.5 mg DAILY PO 12/27/24 10:00 12/27/24 10:59 2.5 MG Atorvastatin Calcium 40 mg HS PO 12/26/24 22:00 12/29/24 21:31 40 MG Famotidine 20 mg Q12HR IV 12/26/24 22:00 12/30/24 09:11 20 MG Ondansetron HCl 4 mg Q4HP PRN IV 12/26/24 14:15 12/27/24 03:57 4 MG Docusate Sodium 100 mg BIDPRN PRN PO 12/26/24 14:15 12/30/24 09:17 100 MG Nitroglycerin 0.4 mg Q5MINP PRN SL 12/26/24 14:15 Hold Ceftriaxone Sodium 50 ml @ 100 mls/hr DAILY@09 IV 12/27/24 11:45 12/30/24 09:10 100 MLS/HR Azithromycin 250 ml @ 125 mls/hr DAILY IV 12/27/24 13:00 12/30/24 10:23 125 MLS/HR Levothyroxine Sodium 100 mcg QAM PO 12/28/24 07:00 12/30/24 06:25 100 MCG Acetaminophen/ Hydrocodone Bitart 1 tab Q4HPRN PRN PO 12/27/24 12:30 12/30/24 09:17 1 TAB Hydromorphone HCl 0.25 mg Q8HP PRN IV 12/27/24 20:30 Albuterol 2.5 mg Q6H NEB 12/30/24 12:00 12/30/24 12:15 2.5 MG Ipratropium [place] 0.5 mg Q6H NEB 12/30/24 12:00 12/30/24 12:15 0.5 MG Diagnostic Test (Pha) 1 strip ACHS 12/30/24 17:00 UNV Dextrose 50 ml UD PRN IV 12/30/24 12:15 UNV Insulin Glargine 10 units HS SC 12/30/24 22:00 UNV Insulin Human Lispro 3 units AC SC 12/30/24 17:00 UNV Laboratory Results Laboratory Tests 12/27/24 03:38 12/28/24 08:58 Urinalysis Test 12/26/24 10:30 Urine Color Yellow (Yellow) Urine Clarity Turbid (Clear) H Urine pH 6.0 (5.0-9.0) Urine Specific [place] 1.018 (1.001-1.035) Urine Protein 1+ (Negative) H Urine Ketones 1+ (Negative) H Urine Blood 1+ /uL (Negative) H Urine Nitrite Negative (Negative) Urine Bilirubin Negative (Negative) Urine Urobilinogen Normal mg/dL (Negative) Urine Leukocyte Esterase 3+ /uL (Negative) Urine RBC 241 /hpf (0 - 4) Urine Microscopic WBC 394 /HPF (0-5) H Urine Squamous Epithelial Cells Few /hpf (<5) Urine Bacteria Few /hpf (None Seen) H Urine Yeast (Budding) Loaded /hpf (None Seen) Urine Glucose 3+ mg/dL (Normal) H Microbiology Microbiology Date/Time Source Procedure Growth Status 12/26/24 10:33 Blood Blood Culture - Preliminary NO GROWTH AFTER 72 HOURS OF INCUBATION. Resulted Labs and/or images reviewed: Labs reviewed by me, Image(s) reviewed by me Assessment/Plan Assessment/Plan 59-year-old female with a past medical history significant for congestive heart failure (CHF), COPD on 3L oxygen at home, diabetes mellitus, hyperlipidemia, hypertension, prior pulmonary embolism, and hypothyroidism, as well as a history of section and prior tracheostomy/tubulization, presents from [place] with her caregiver for evaluation of increased shortness of breath and confusion. The patient was previously enrolled in hospice but no longer wishes to be on hospice, though she maintains DNR status. According to the caregiver, over the past 23 days, the patient has developed progressive generalized weakness and increased shortness of breath beyond her baseline. She was also noted to be more confused and not behaving normally compared to her usual state. She denies fever, cough, chest pain, or other acute symptoms. She follows with call center assistant Dr. Verma as an outpatient. In the ED, she was on 3L oxygen (her home baseline). Labs revealed WBC 14.2, BMP unremarkable except for BNP 194, CT brain was unremarkable, and a respiratory pathogen panel was negative. She is being admitted for further evaluation and management of acute on chronic respiratory symptoms and altered mental status in the setting of multiple comorbidities. 12/27: 59 female, COPD, CHF. Was confused. Patient has some rales, no pitting edema, no wheezing. Appears possible volume overload, she had 1 out of oxygen at home. Currently she is tachycardic AFib irregularly irregular, we will continue to control patient rate with beta-torin, continue diuresis with Lasix,. Continue oxygen at home she takes 3 L. nebulizers prn which we will help. There is some sign of acute cystitis, we will treat with ceftriaxone. No wheezing we will keep nebs as prn right now. 12/28: Patient has some mild wheeze, still has rales bilateral lower extremities, blood glucose today is up to 600s apparently she was taking juice/crackers overnight. strict DM diet, We will change to q.4 aggressive scale SSI, continue antibiotics, hold off Lasix, give 500 cc fluids and some maintenance fluids,. We will try BiPAP tonight 3-4 hours nighttime before sleep, start nebs as scheduled today,. 12/30: Patient almost hyperglycemic yesterday from aggressive q.4 insulin SSI, today we will do only a.c. HS monitoring with scheduled 10 basal/3 bolus insulin regimen, if doing well with the regimen permanent probably discharge tomorrow. diagnosis: Acute toxic metabolic encephalopathy Acute CHF exacerbation, diastolic dysfunction likely Acute complicated cystitis Acute pneumonia, community-acquired, Gram-negative/Gram-positive likely Chronic COPD, not in exacerbation Leukocytosis Diabetes Mellitus ISS Hypertension Continue home antihypertensives Hypothyroidism Continue home thyroid replacement Check TSH if not recently done History of Pulmonary Embolism Continue Eliquis CHF COPD on Diabetes mellitus Hypertension Hyperlipidemia Hypothyroidism History of PE S/p section Prior tracheostomy/tubulization plan: Amlodipine 2.5 Eliquis 5 p.o. b.i.d. Lipitor 40 Azithromycin, ceftriaxone IV antibiotics Coreg 3.125 p.o. b.i.d. Lasix 40 IV b.i.d. Famotidine 20 IV b.i.d. Synthroid home dose 100 mcg p.o. p.m., Losartan 25 mg p.o. daily Stopping Solu-Medrol Continue home montelukast Continue home sildenafil Revatio dose Cardiac diet Tele Full code Plan discussed with: Patient My Orders Orders - BRITTNEY MORATAYA MD Procedure Category Date Status Time Albuterol Medneb PHA 12/30/24 In Process (Ventolin Medneb) 12:00 Ipratropium Medneb PHA 12/30/24 In Process (Atrovent Medneb) 12:00 Glucose Blood PHA 12/30/24 Logged (Accu-Chek Comfort 17:00 Dextrose 50% Syringe PHA 12/30/24 Logged 12:15 Insulin Lantus PHA 12/30/24 Logged (Glargine) (Lantus) 12:15 Insulin Lantus PHA 12/30/24 Logged (Glargine) (Lantus) 22:00 Insulin Lispro PHA 12/30/24 Logged (Human) (Humalog) 17:00 Pt Request For Service PT 12/30/24 Transmitted 12:18 Date of Service: Dec 30, 2024 Billing Provider: BRITTNEY MORATAYA MD Common Visit Codes: [id number] INP/OBS CARE(HIGH) BRITTNEY MORATAYA MD Dec 30, 2024 12:21
[2024-12-30] MEDS: INSULIN LANTUS (GLARGINE) 1 /0.01ml (100units/ml) SC ONE (12:44)
[2024-12-30] MEDS: INSULIN LISPRO (HUMAN) 100 UNITS/ML ML SC SCH (16:54)
[2024-12-30] MEDS: ACCU-CHEK COMFORT CURVE STRIP VI SCH ×2 (16:57→22:00)
[2024-12-30] MEDS ORDERED: ACCU-CHEK COMFORT CURVE STRIP VI SCH (22:00)
[2024-12-30] MEDS ORDERED: InsuLIN REG 1unit/0.01ml Soln (100units/ml) SC SCH (22:00)
[2024-12-30] MEDS: INSULIN LANTUS (GLARGINE) 1 /0.01ml (100units/ml) SC SCH (22:00)
[2024-12-30] MEDS: InsuLIN REG 1unit/0.01ml Soln (100units/ml) SC SCH (22:00)
[2024-12-30] MEDS ORDERED: INSULIN LISPRO (HUMAN) 100 UNITS/ML ML SC SCH (22:00)
[2024-12-30] MEDS: HYDROmorphone HCL 2 MG/ML VL/or syr IV PRN (23:38)
[2024-12-31] VITALS (19 sets, daily range): BP systolic 103–129; BP diastolic 73–92; PULSE 85–118; RESP 16–18; TEMP 97.4–98.6; O2SAT 90–100
[2024-12-31 07:05] LABS: Alanine Aminotransferase 16 U/L (7-40); Alkaline Phosphatase 63 U/L (46-116); Anion Gap 5 (5-15); BUN/Creatinine Ratio 20.3 (10.0-20.0); Blood Urea Nitrogen 13 mg/dL (9-23); Calcium 9.5 mg/dL (8.7-10.4); Carbon Dioxide 36 mmol/L (20-31); Chloride 99 mmol/L (98-107); Glucose 227 mg/dL (74-106); Potassium 4.0 mmol/L (3.5-5.1); Sodium 140 mmol/L (136-145); Total Protein 6.0 g/dL (5.7-8.2)
[2024-12-31 07:06] LABS: Bilirubin, Total 0.3 mg/dL (0.2-1.0)
[2024-12-31 07:14] LABS: Albumin 2.9 g/dL (3.2-4.8)
[2024-12-31 11:02] LABS: Base Excess 9.0 mmol/L (-2.0-3.0)
[2024-12-31] MEDS ORDERED: INSU100I61 SC (11:39)
[2024-12-31] MEDS ORDERED: AZIT500T66 PO (11:39)
[2024-12-31] MEDS ORDERED: PRED20TA2 PO (11:39)
[2024-12-31] MEDS ORDERED: INSUINJ37 SC (11:39)
--- NOTE | 2024-12-31 11:42 | DVHDS2 ---
Discharge Summary Date of Admission Dec 26, 2024 at 14:05 Date of Discharge: Dec 31, 2024 Labs/Diagnostic Data: Laboratory Results Test 12/31/24 10:50 12/31/24 06:13 12/31/24 06:00 12/27/24 03:38 Blood Gas Specimen Type Arterial Blood Gas Sample Site Right radial Blood Gas Patient Temperature 37.0 Arterial Blood Date Drawn [id number] Arterial Blood pH 7.433 (7.350-7.450) Arterial Blood Partial Pressure CO2 53.3 mmHg (32.0-45.0) Arterial Blood Partial Pressure O2 48.4 mmHg (83.0-108.0) Arterial Blood HCO3 34.8 mmol/L (21.0-28.0) Arterial Blood Oxygen Saturation 83.3 % (94.0-98.0) Arterial Blood Base Excess 9.0 mmol/L (-2.0-3.0) Arterial Blood Oxyhemoglobin 82.5 % (94.0-98.0) Arterial Blood Carboxyhemoglobin 0.7 % (0.5-1.5) Arterial Blood Methemoglobin 0.3 % (0.0-1.5) Johnson Test Yes Blood Gas Total Hemoglobin 12.60 g/dL (12.0-16.0) Blood Gas Liter Flow 0.00 Blood Gas Modality Room air FiO2 % 21.0 Blood Gas Critical Value Read Back Yes Blood Gas Notified Whom Santos mata Blood Gas Notified Time [id number] Blood Gas Notified By Suzette field service technician POC Glucose 235 mg/dl (70-106) Sodium Level 140 mmol/L (136-145) Potassium Level 4.0 mmol/L (3.5-5.1) Chloride Level 99 mmol/L (98-107) Carbon Dioxide Level 36 mmol/L (20-31) Anion Gap 5 (5-15) Blood Urea Nitrogen 13 mg/dL (9-23) Creatinine 0.64 mg/dL (0.550-1.02) Glomerular Filtration Rate Calc 100 mL/min (>90) BUN/Creatinine Ratio 20.3 (10.0-20.0) Serum Glucose 227 mg/dL (74-106) Calcium Level 9.5 mg/dL (8.7-10.4) Total Bilirubin 0.3 mg/dL (0.2-1.0) Aspartate Amino Transferase (AST) 17 U/L (13-40) Alanine Aminotransferase (ALT) 16 U/L (7-40) Alkaline Phosphatase 63 U/L (46-116) Total Protein 6.0 g/dL (5.7-8.2) Albumin 2.9 g/dL (3.2-4.8) White Blood Count 10.2 10^3/uL (4.4-10.8) Red Blood Count 4.27 10^6/uL (4.0-5.20) Hemoglobin 12.6 g/dL (12.2-16.2) Hematocrit 37.1 % (36.0-46.0) Mean Corpuscular Volume 86.9 fL (80.0-100.0) Mean Corpuscular Hemoglobin 29.5 pg (28.0-32.0) Mean Corpuscular Hemoglobin Concent 33.9 g/dL (32.0-36.0) Red Cell Distribution Width 16.2 % (11.8-14.3) Platelet Count 161 10^3/uL (140-450) Mean Platelet Volume 8.0 fL (6.9-10.8) Neutrophils (%) (Auto) 89.5 % (37.0-80.0) Lymphocytes (%) (Auto) 7.8 % (10.0-50.0) Monocytes (%) (Auto) 2.6 % (0.0-12.0) Eosinophils (%) (Auto) 0.0 % (0.0-7.0) Basophils (%) (Auto) 0.1 % (0.0-2.0) Neutrophils # (Auto) 9.1 10 ^3/uL (1.6-8.6) Lymphocytes # (Auto) 0.8 10 ^3/uL (0.4-5.4) Monocytes # (Auto) 0.3 10 ^3/uL (0-1.3) Eosinophils # (Auto) 0 10 ^3/uL (0-0.8) Basophils # (Auto) 0 10 ^3/uL (0-0.2) Nucleated Red Blood Cells 0.1 % Test 12/26/24 10:33 12/26/24 10:30 12/26/24 10:00 12/26/24 09:51 Lactic Acid Level 1.7 mmol/L (0.4-2.0) Troponin I High Sensitivity 5 ng/L (</=34) Urine Color Yellow (Yellow) Urine Clarity Turbid (Clear) Urine pH 6.0 (5.0-9.0) Urine Specific [place] 1.018 (1.001-1.035) Urine Protein 1+ (Negative) Urine Ketones 1+ (Negative) Urine Blood 1+ /uL (Negative) Urine Nitrite Negative (Negative) Urine Bilirubin Negative (Negative) Urine Urobilinogen Normal mg/dL (Negative) Urine Leukocyte Esterase 3+ /uL (Negative) Urine RBC 241 /hpf (0 - 4) Urine Microscopic WBC 394 /HPF (0-5) Urine Squamous Epithelial Cells Few /hpf (<5) Urine Bacteria Few /hpf (None Seen) Urine Yeast (Budding) Loaded /hpf (None Seen) Urine Glucose 3+ mg/dL (Normal) Blood Gas Spontaneous Rate 20 B-Type Natriuretic Peptide 194.08 pg/mL (0-100) Other Laboratory Tests 12/31/24 06:00 12/27/24 03:38 Brief Hx & Hospital Course: 59-year-old female with a past medical history significant for congestive heart failure (CHF), COPD on 3L oxygen at home, diabetes mellitus, hyperlipidemia, hypertension, prior pulmonary embolism, and hypothyroidism, as well as a history of section and prior tracheostomy/tubulization, presents from [place] with her caregiver for evaluation of increased shortness of breath and confusion. The patient was previously enrolled in hospice but no longer wishes to be on hospice, though she maintains DNR status. According to the caregiver, over the past 23 days, the patient has developed progressive generalized weakness and increased shortness of breath beyond her baseline. She was also noted to be more confused and not behaving normally compared to her usual state. She denies fever, cough, chest pain, or other acute symptoms. She follows with collar baster Dr. Verma as an outpatient. In the ED, she was on 3L oxygen (her home baseline). Labs revealed WBC 14.2, BMP unremarkable except for BNP 194, CT brain was unremarkable, and a respiratory pathogen panel was negative. She is being admitted for further evaluation and management of acute on chronic respiratory symptoms and altered mental status in the setting of multiple comorbidities. 12/27: 59 female, COPD, CHF. Was confused. Patient has some rales, no pitting edema, no wheezing. Appears possible volume overload, she had 1 out of oxygen at home. Currently she is tachycardic AFib irregularly irregular, we will continue to control patient rate with beta-torin, continue diuresis with Lasix,. Continue oxygen at home she takes 3 L. nebulizers prn which we will help. There is some sign of acute cystitis, we will treat with ceftriaxone. No wheezing we will keep nebs as prn right now. 12/28: Patient has some mild wheeze, still has rales bilateral lower extremities, blood glucose today is up to 600s apparently she was taking juice/crackers overnight. strict DM diet, We will change to q.4 aggressive scale SSI, continue antibiotics, hold off Lasix, give 500 cc fluids and some maintenance fluids,. We will try BiPAP tonight 3-4 hours nighttime before sleep, start nebs as scheduled today,. 12/30: Patient almost hyperglycemic yesterday from aggressive q.4 insulin SSI, today we will do only a.c. HS monitoring with scheduled 10 basal/3 bolus insulin regimen, if doing well with the regimen permanent probably discharge tomorrow. 12/31: Bicarb increasing, no diuretics to be causing contraction alkalosis but ABG showing metabolic alkalosis, could be from the hyperglycemia. CO2 is increased to do 45-53,. We will give some steroids IV, no significant wheezing, stable for discharge as per plan below. diagnosis: Acute pneumonia, community-acquired, Gram-negative/Gram-positive likely Chronic COPD, in acute exacerbation, with pneumonitis Acute CHF exacerbation, diastolic dysfunction likely Acute complicated cystitis Leukocytosis acute toxic metabolic encephalopathy due to above Diabetes Mellitus ISS Hypertension Continue home antihypertensives Hypothyroidism Continue home thyroid replacement Check TSH if not recently done History of Pulmonary Embolism Continue Eliquis CHF COPD on Diabetes mellitus Hypertension Hyperlipidemia Hypothyroidism History of PE S/p section Prior tracheostomy/tubulization Plan: -Continue azithromycin 500 mg once daily for 5 days -Take prednisone 40 mg daily for 5 days -Continue other home medications. -For blood pressure take amlodipine 2.5, losartan 25 mg, continue Coreg 3.125 mg twice daily -For diabetes take insulin, Lantus 15 units nightly, Humalog 8 units with meals, focus eating diabetic diet (low-carbohydrate) -Continue home oxygen 3 L -Continue other home medications not mentioned above. -Follow up with PCP to review discharge Condition at Discharge: Fair Final Diagnosis/Problems List Acute pneumonia, community-acquired, Gram-negative/Gram-positive likely Chronic COPD, in acute exacerbation, with pneumonitis Acute CHF exacerbation, diastolic dysfunction likely Acute complicated cystitis Leukocytosis acute toxic metabolic encephalopathy due to above Diabetes Mellitus ISS Hypertension Continue home antihypertensives Hypothyroidism Continue home thyroid replacement Check TSH if not recently done History of Pulmonary Embolism Continue Eliquis CHF COPD on Diabetes mellitus Hypertension Hyperlipidemia Hypothyroidism History of PE S/p section Prior tracheostomy/tubulization Discharge Disposition: Home Discharge Instruct/Medications Scheduled Amlodipine Besylate (Amlodipine Besylate), 1 TAB PO DAILY Apixaban Base (Eliquis), 1 TAB PO BID Aspirin (Aspirin Low Dose), 1 TAB PO DAILY Atorvastatin Calcium (Atorvastatin Calcium), 1 TAB PO DAILY Azithromycin (Azithromycin), 1 TAB PO DAILY Carvedilol (Carvedilol), 1 TAB PO BID Cyclobenzaprine Hcl (Cyclobenzaprine Hcl), 10 MG PO QPM, (Reported) Furosemide (Furosemide), 1 TAB PO BID Glipizide (Glipizide), 1 TAB PO BID, (Reported) Insulin Aspart (Novolog Flexpen Relion), 8 UNIT SC TIDWMEALS Insulin Glargine (Lantus Solostar), 15 UNIT SC HS Levothyroxine Sodium (Levothyroxine Sodium), 1 TAB PO DAILY Losartan Potassium (Losartan Potassium), 1 TAB PO DAILY Montelukast Sodium (Montelukast Sodium), 1 TAB PO DAILY Nitrofurantoin Monohyd Macro (Nitrofurantoin Monohydrat), 1 CAP PO BID, (Reported) Potassium Chloride (Potassium Chloride ER), 1 TAB PO DAILY, (Reported) Prednisone (Prednisone), 1 TAB PO DAILY, (Reported) Prednisone (Prednisone), 40 MG PO DAILY Sildenafil Citrate (Sildenafil Citrate), 1 TAB PO DAILY Scheduled PRN Diclofenac Sodium (Topical) (Voltaren Arthritis Pain), 1 % EX BIDPRN PRN Zolpidem Tartrate (Zolpidem Tartrate), 1 TAB PO QHSP PRN for FOR INSOMNIA, (Reported) Miscellaneous Medications Lactulose (Lactulose), Unknown Dose PO, (Reported) Lidocaine (Lidocaine Patch 5%), 5 % EX, (Reported) Discharge Statement: "Patient was advised to return to the ER or call 911 if any headaches, dizziness, shortness of breath, chest pain, abdominal pain, bleeding, fevers, or worsening of medical condition. Patient was counseled about treatment plan, medications, possible side effects, patientverbalized understanding. All questions were answered to the best of my ability. This discharge took greater then 30 minutes in planning, reviewing documentation, counseling the patient, and discussing with other team members." ASSESSMENT ASSESSMENT Assessment Date of Service: Dec 31, 2024 Billing Provider: BRITTNEY MORATAYA MD Common Visit Codes: [id number] DISCH DAY >30min BRITTNEY MORATAYA MD Dec 31, 2024 11:42
[2024-12-31] MEDS: INSULIN LANTUS (GLARGINE) 1 /0.01ml (100units/ml) SC ONE (12:16)
[2024-12-31] MEDS: methylPREDNISolone SOD SUCC 125 MG/2 ML VL IV ONE (12:26)
[2024-12-31] MEDS ORDERED: AMLO1TAB22 PO (15:05)
[2024-12-31] MEDS ORDERED: LOSA-533 PO (15:05)
[2024-12-31] MEDS ORDERED: ATOR40TA52 PO (15:05)
[2024-12-31] MEDS ORDERED: LEVO100T8 PO (15:05)
[2024-12-31] MEDS ORDERED: FURO40TA4 PO (15:05)
[2024-12-31] MEDS ORDERED: CARV3.1240 PO (15:05)
[2024-12-31] MEDS ORDERED: MONT-8 PO (15:05)
[2024-12-31] MEDS ORDERED: ASPI-325 PO (15:05)
[2024-12-31] MEDS ORDERED: SILD20TA41 PO (15:05)
[2024-12-31] MEDS ORDERED: APIX5TAB PO (15:05)
[2024-12-31] MEDS ORDERED: DEXTROSE (50%) 50ML SYRG IV PRN (19:45)
[2024-12-31] MEDS: InsuLIN REG 1unit/0.01ml Soln (100units/ml) SC SCH (22:00)
[2024-12-31] MEDS: ACCU-CHEK COMFORT CURVE STRIP VI SCH (22:00)
[2024-12-31] MEDS: INSULIN LANTUS (GLARGINE) 1 /0.01ml (100units/ml) SC SCH (22:00)
[2024-12-31] MEDS: ZOLPIDEM TARTRATE 5 MG TAB PO PRN (22:46)
[2025-01-01] VITALS (17 sets, daily range): BP systolic 98–125; BP diastolic 61–85; PULSE 89–110; RESP 16–20; TEMP 97.7–98.2; O2SAT 94–100
[2025-01-01] MEDS: InsuLIN REG 1unit/0.01ml Soln (100units/ml) SC SCH (06:15)
--- NOTE | 2025-01-01 11:59 | DVHPN2 ---
Reviewed: Care Plan, H&P Changes from previous H/P or p: No Changes General: Per HPI Eyes: No Pain, No Vision change, No Conjunctivae inflammation, No Eyelid inflammation, No Other, No Redness ENT: No Ear pain, No Ear discharge, No Nose pain, No Nose discharge, No Nose congestion, No Mouth pain, No Mouth swelling, No Throat pain, No Throat swelling, No Other Cardiovascular: No Chest Pain, No Palpitations, No Orthopnea, No Paroxysmal Noc. Dyspnea, No Edema, No Lt Headedness, No Other Respiratory: No Cough, No Dry; Shortness of breath, SOB with excertion; No Wheezing, No Hemoptysis, No Pleuritic Pain, No Sputum, No Other Gastrointestinal: No Nausea, No Vomiting, No Abdominal Pain, No Diarrhea, No Constipation, No Melena, No Hematochezia, No Other Genitourinary: No Dysuria, No Frequency, No Incontinence, No Hematuria, No Retention, No Other Musculoskeletal: No other, No neck pain, No shoulder pain, No arm pain, No back pain, No hand pain, No leg pain, No foot pain Skin: No Rash, No Lesions, No Jaundice, No Bruising, No Other Objective Vitals Vital Signs Date Time Temp Pulse Resp B/P (MAP) Pulse Ox O2 Delivery O2 Flow Rate FiO2 01/01/25 11:30 90 16 99 01/01/25 09:16 125/85 01/01/25 09:00 97.8 97.8 01/01/25 07:00 Nasal Cannula 3.0 01/01/25 07:00 32 Intake/Output Intake and Output 01/01/25 06:59 Intake Total 2050 ml Balance 2050 ml Intake Oral 1750 ml IV Total 300 ml # Voids 10 # Bowel Movements 2 Medications Current Medications Medications Dose Ordered Sig/[place]iles Route Start Time Stop Time Status Last Admin Dose Admin Apixaban 5 mg BID PO 12/26/24 22:00 01/01/25 08:48 5 MG Carvedilol 3.125 mg BID PO 12/26/24 22:00 01/01/25 08:46 3.125 MG Losartan Potassium 25 mg DAILY PO 12/27/24 10:00 01/01/25 08:47 25 MG Montelukast Sodium 10 mg DAILY PO 12/27/24 10:00 01/01/25 08:48 10 MG Sildenafil Citrate 20 mg DAILY PO 12/27/24 10:00 01/01/25 08:47 20 MG Zolpidem Tartrate 5 mg QHSP PRN PO 12/26/24 14:15 12/31/24 22:46 5 MG Amlodipine Besylate 2.5 mg DAILY PO 12/27/24 10:00 01/01/25 08:50 2.5 MG Atorvastatin Calcium 40 mg HS PO 12/26/24 22:00 12/31/24 22:41 40 MG Famotidine 20 mg Q12HR IV 12/26/24 22:00 01/01/25 08:45 20 MG Ondansetron HCl 4 mg Q4HP PRN IV 12/26/24 14:15 12/27/24 03:57 4 MG Docusate Sodium 100 mg BIDPRN PRN PO 12/26/24 14:15 12/30/24 09:17 100 MG Nitroglycerin 0.4 mg Q5MINP PRN SL 12/26/24 14:15 Hold Ceftriaxone Sodium 50 ml @ 100 mls/hr DAILY@09 IV 12/27/24 11:45 01/01/25 08:45 100 MLS/HR Azithromycin 250 ml @ 125 mls/hr DAILY IV 12/27/24 13:00 01/01/25 08:42 125 MLS/HR Levothyroxine Sodium 100 mcg QAM PO 12/28/24 07:00 01/01/25 06:11 100 MCG Acetaminophen/ Hydrocodone Bitart 1 tab Q4HPRN PRN PO 12/27/24 12:30 12/31/24 22:46 1 TAB Hydromorphone HCl 0.25 mg Q8HP PRN IV 12/27/24 20:30 01/01/25 09:16 0.25 MG Albuterol 2.5 mg Q6H NEB 12/30/24 12:00 01/01/25 11:30 2.5 MG Ipratropium [place] 0.5 mg Q6H NEB 12/30/24 12:00 01/01/25 11:30 0.5 MG Patient Own Medication 1 DAILYP PRN PO 12/30/24 12:30 Insulin Glargine 15 units HS SC 12/31/24 22:00 12/31/24 22:00 15 UNITS Diagnostic Test (Pha) 1 strip ACHS 12/31/24 22:00 01/01/25 06:19 1 STRIP Insulin Human Regular HS SC 12/31/24 22:00 12/31/24 22:00 10 UNITS Insulin Human Regular AC SC 01/01/25 07:00 01/01/25 06:15 12 UNITS Dextrose 50 ml UD PRN IV 12/31/24 19:45 Laboratory Results Laboratory Tests 12/27/24 03:38 12/31/24 06:00 Urinalysis Test 12/26/24 10:30 Urine Color Yellow (Yellow) Urine Clarity Turbid (Clear) H Urine pH 6.0 (5.0-9.0) Urine Specific [place] 1.018 (1.001-1.035) Urine Protein 1+ (Negative) H Urine Ketones 1+ (Negative) H Urine Blood 1+ /uL (Negative) H Urine Nitrite Negative (Negative) Urine Bilirubin Negative (Negative) Urine Urobilinogen Normal mg/dL (Negative) Urine Leukocyte Esterase 3+ /uL (Negative) Urine RBC 241 /hpf (0 - 4) Urine Microscopic WBC 394 /HPF (0-5) H Urine Squamous Epithelial Cells Few /hpf (<5) Urine Bacteria Few /hpf (None Seen) H Urine Yeast (Budding) Loaded /hpf (None Seen) Urine Glucose 3+ mg/dL (Normal) H Microbiology Microbiology Date/Time Source Procedure Growth Status 12/26/24 10:33 Blood Blood Culture - Final NO GROWTH AFTER 5 DAYS OF INCUBATION. Complete Labs and/or images reviewed: Labs reviewed by me, Image(s) reviewed by me Assessment/Plan Assessment/Plan Covering for Dr. Graham diagnosis: Acute toxic metabolic encephalopathy Acute CHF exacerbation, diastolic dysfunction likely Acute complicated cystitis Acute pneumonia, community-acquired, Gram-negative/Gram-positive likely Chronic COPD, not in exacerbation Leukocytosis Diabetes Mellitus ISS Hypertension Continue home antihypertensives Hypothyroidism Continue home thyroid replacement Check TSH if not recently done History of Pulmonary Embolism Continue Eliquis CHF COPD on Diabetes mellitus Hypertension Hyperlipidemia Hypothyroidism History of PE S/p section Prior tracheostomy/tubulization Patient was discharged on 12/31/2024 Awaiting transportation Plan discussed with: Patient My Orders Orders - VARUN OLSON MD Procedure Category Date Status Time Discharge DISCHARGE 01/01/25 Transmitted 11:50 * Senior Technical Specialist CONS 01/01/25 Verified Consult Date of Service: Jan 01, 2025 Billing Provider: VARUN OLSON MD Common Visit Codes: [id number] INP/OBS CARE(HIGH) VARUN OLSON MD Jan 01, 2025 11:59
[2025-01-02] VITALS (11 sets, daily range): BP systolic 109–132; BP diastolic 71–88; PULSE 78–101; RESP 14–18; TEMP 97.7–98.6; O2SAT 95–100
--- NOTE | 2025-01-02 09:49 | DVHPN2 ---
Reviewed: Care Plan, H&P Changes from previous H/P or p: No Changes General: Per HPI Eyes: No Pain, No Vision change, No Conjunctivae inflammation, No Eyelid inflammation, No Other, No Redness ENT: No Ear pain, No Ear discharge, No Nose pain, No Nose discharge, No Nose congestion, No Mouth pain, No Mouth swelling, No Throat pain, No Throat swelling, No Other Cardiovascular: No Chest Pain, No Palpitations, No Orthopnea, No Paroxysmal Noc. Dyspnea, No Edema, No Lt Headedness, No Other Respiratory: No Cough, No Dry; Shortness of breath, SOB with excertion; No Wheezing, No Hemoptysis, No Pleuritic Pain, No Sputum, No Other Gastrointestinal: No Nausea, No Vomiting, No Abdominal Pain, No Diarrhea, No Constipation, No Melena, No Hematochezia, No Other Genitourinary: No Dysuria, No Frequency, No Incontinence, No Hematuria, No Retention, No Other Musculoskeletal: No other, No neck pain, No shoulder pain, No arm pain, No back pain, No hand pain, No leg pain, No foot pain Skin: No Rash, No Lesions, No Jaundice, No Bruising, No Other Objective Vitals Vital Signs Date Time Temp Pulse Resp B/P (MAP) Pulse Ox O2 Delivery O2 Flow Rate FiO2 01/02/25 08:48 95/58 01/02/25 08:47 100 01/02/25 06:08 14 100 01/02/25 06:02 Nasal Cannula* 4 36 01/02/25 01:00 97.7 97.7 Intake/Output Intake and Output 01/02/25 07:00 Intake Total 1375 ml Balance 1375 ml Intake Oral 1075 ml IV Total 300 ml # Voids 7 Medications Current Medications Medications Dose Ordered Sig/[place]iles Route Start Time Stop Time Status Last Admin Dose Admin Apixaban 5 mg BID PO 12/26/24 22:00 01/02/25 08:48 5 MG Carvedilol 3.125 mg BID PO 12/26/24 22:00 01/01/25 22:08 3.125 MG Losartan Potassium 25 mg DAILY PO 12/27/24 10:01/01/25 08:47 25 MG Montelukast Sodium 10 mg DAILY PO 12/27/24 10:00 01/02/25 08:48 10 MG Sildenafil Citrate 20 mg DAILY PO 12/27/24 10:00 01/02/25 08:50 20 MG Zolpidem Tartrate 5 mg QHSP PRN PO 12/26/24 14:15 01/02/25 00:06 5 MG Amlodipine Besylate 2.5 mg DAILY PO 12/27/24 10:00 01/01/25 08:50 2.5 MG Atorvastatin Calcium 40 mg HS PO 12/26/24 22:00 01/01/25 22:09 40 MG Famotidine 20 mg Q12HR IV 12/26/24 22:00 01/02/25 08:48 20 MG Ondansetron HCl 4 mg Q4HP PRN IV 12/26/24 14:15 12/27/24 03:57 4 MG Docusate Sodium 100 mg BIDPRN PRN PO 12/26/24 14:15 12/30/24 09:17 100 MG Nitroglycerin 0.4 mg Q5MINP PRN SL 12/26/24 14:15 Hold Ceftriaxone Sodium 50 ml @ 100 mls/hr DAILY@09 IV 12/27/24 11:45 01/02/25 08:49 100 MLS/HR Azithromycin 250 ml @ 125 mls/hr DAILY IV 12/27/24 13:00 01/01/25 08:42 125 MLS/HR Levothyroxine Sodium 100 mcg QAM PO 12/28/24 07:00 01/02/25 06:33 100 MCG Acetaminophen/ Hydrocodone Bitart 1 tab Q4HPRN PRN PO 12/27/24 12:30 01/01/25 19:55 1 TAB Hydromorphone HCl 0.25 mg Q8HP PRN IV 12/27/24 20:30 01/01/25 22:08 0.25 MG Albuterol 2.5 mg Q6H NEB 12/30/24 12:00 01/02/25 06:00 2.5 MG Ipratropium [place] 0.5 mg Q6H NEB 12/30/24 12:00 01/02/25 06:00 0.5 MG Patient Own Medication 1 DAILYP PRN PO 12/30/24 12:30 Insulin Glargine 15 units HS SC 12/31/24 22:00 01/01/25 22:06 15 UNITS Diagnostic Test (Pha) 1 strip ACHS 12/31/24 22:00 01/02/25 06:36 1 STRIP Insulin Human Regular HS SC 12/31/24 22:00 01/01/25 22:05 5 UNITS Insulin Human Regular AC SC 01/01/25 07:00 01/02/25 06:32 2 UNITS Dextrose 50 ml UD PRN IV 12/31/24 19:45 Laboratory Results Laboratory Tests 12/27/24 03:38 12/31/24 06:00 Urinalysis Test 12/26/24 10:30 Urine Color Yellow (Yellow) Urine Clarity Turbid (Clear) H Urine pH 6.0 (5.0-9.0) Urine Specific [place] 1.018 (1.001-1.035) Urine Protein 1+ (Negative) H Urine Ketones 1+ (Negative) H Urine Blood 1+ /uL (Negative) H Urine Nitrite Negative (Negative) Urine Bilirubin Negative (Negative) Urine Urobilinogen Normal mg/dL (Negative) Urine Leukocyte Esterase 3+ /uL (Negative) Urine RBC 241 /hpf (0 - 4) Urine Microscopic WBC 394 /HPF (0-5) H Urine Squamous Epithelial Cells Few /hpf (<5) Urine Bacteria Few /hpf (None Seen) H Urine Yeast (Budding) Loaded /hpf (None Seen) Urine Glucose 3+ mg/dL (Normal) H Microbiology Microbiology Date/Time Source Procedure Growth Status 12/26/24 10:33 Blood Blood Culture - Final NO GROWTH AFTER 5 DAYS OF INCUBATION. Complete Labs and/or images reviewed: Labs reviewed by me, Image(s) reviewed by me Assessment/Plan Assessment/Plan Covering for Dr. Graham diagnosis: Acute toxic metabolic encephalopathy Acute CHF exacerbation, diastolic dysfunction likely Acute complicated cystitis Acute pneumonia, community-acquired, Gram-negative/Gram-positive likely Chronic COPD, not in exacerbation Leukocytosis Diabetes Mellitus ISS Hypertension Continue home antihypertensives Hypothyroidism Continue home thyroid replacement Check TSH if not recently done History of Pulmonary Embolism Continue Eliquis CHF COPD on Diabetes mellitus Hypertension Hyperlipidemia Hypothyroidism History of PE S/p section Prior tracheostomy/tubulization Patient was discharged on 12/31/2024 Awaiting transportation NO NEW COMPLAINTS Plan discussed with: Patient My Orders Orders - VARUN OLSON MD Procedure Category Date Status Time * [employer] Programmer CONS 01/01/25 Transmitted Consult Date of Service: Jan 02, 2025 Billing Provider: VARUN OLSON MD Common Visit Codes: [id number] INP/OBS CARE(HIGH) VARUN OLSON MD Jan 02, 2025 09:49
== END 2025-01-02 17:34 | disposition home or self-care (01) | DRG 720 ==
LOC: EDUNIT# 08:51 → ER 08:51 → EDBD 08:51 → OVERFLOW 14:05 → TELE-CENTR 12-27 17:31
PROVIDERS: ADMIT Student in an Organized Health Care Education/Training Program; ATTEND Student in an Organized Health Care Education/Training Program
PROC: 5A09357 Assistance with Respiratory Ventilation, Less than 24 Consecutive Hours, Continuous Positive Airway Pressure (ICD-10-PCS; principal; 2024-12-31)
DX: A41.9 Sepsis, unspecified organism (principal); N17.0 Acute kidney failure with tubular necrosis; G92.8 Other toxic encephalopathy; J96.00 Acute respiratory failure, unspecified whether with hypoxia or hypercapnia; J15.69 Pneumonia due to other Gram-negative bacteria; I50.33 Acute on chronic diastolic (congestive) heart failure; Z66 Do not resuscitate; E87.3 Alkalosis; J15.9 Unspecified bacterial pneumonia; J44.1 Chronic obstructive pulmonary disease with (acute) exacerbation; I11.0 Hypertensive heart disease with heart failure; E03.9 Hypothyroidism, unspecified; E11.65 Type 2 diabetes mellitus with hyperglycemia; J44.0 Chronic obstructive pulmonary disease with (acute) lower respiratory infection; E78.5 Hyperlipidemia, unspecified; N30.00 Acute cystitis without hematuria; J98.4 Other disorders of lung; F17.200 Nicotine dependence, unspecified, uncomplicated; I48.91 Unspecified atrial fibrillation; Z99.81 Dependence on supplemental oxygen; Z82.49 Family history of ischemic heart disease and other diseases of the circulatory system; Z86.711 Personal history of pulmonary embolism; Z88.1 Allergy status to other antibiotic agents
CPT/HCPCS: 36415; 36600; 70450; 71045; 80053; 81001; 82805; 82962; 83605; 83880; 84484; 85025; 87040; 93005; 94640; 94660; 96365; 96375; 99291; 99292; G0378; J1815; J2405; J2543; J3490

== ENCOUNTER 2025-01-27 12:15 | Outpatient (CLI) | payer MEDICAID ==
[~2025-01-27 12:15] MED LIST changes: -AMLO1TAB21 PO; +AZIT500T66 PO; -GLIP5TAB21 PO; +INSU100I61 SC; +INSUINJ37 SC; -NITR100C6 PO; -POTA-228 PO; -PRED10TA PO; +PRED20TA2 PO; -ZOLP5TAB5 PO
[2025-01-27 12:53] LABS: Hematocrit 36.5 % (36.0-46.0); Hemoglobin 12.1 g/dL (12.2-16.2); Mean Corpuscular Hemoglobin 29.3 pg (28.0-32.0); Mean Corpuscular Volume 88.4 fL (80.0-100.0); Nucleated Red Blood Cells % 0.3 %
[2025-01-27 13:14] LABS: Urine Budding Yeast MANY /hpf (None Seen); Urine Protein, UAD TRACE (Negative); Urine WBC Clumps PRESENT /hpf (None Seen)
[2025-01-27 13:15] LABS: Alanine Aminotransferase 22 U/L (7-40); Albumin 3.3 g/dL (3.2-4.8); Alkaline Phosphatase 84 U/L (46-116); Anion Gap 5 (5-15); BUN/Creatinine Ratio 17.1 (10.0-20.0); Bilirubin, Total 0.4 mg/dL (0.2-1.0); Blood Urea Nitrogen 13 mg/dL (9-23); Carbon Dioxide 31 mmol/L (20-31); Chloride 106 mmol/L (98-107); Potassium 4.4 mmol/L (3.5-5.1); Sodium 142 mmol/L (136-145); Total Protein 6.6 g/dL (5.7-8.2)
[2025-01-27 13:20] LABS: Calcium 10.9 mg/dL (8.7-10.4); Glucose 261 mg/dL (74-106)
== END 2025-01-27 17:00 | disposition home or self-care (01) ==
LOC: LAB 12:15
PROVIDERS: ATTEND Internal Medicine
DX: J44.9 Chronic obstructive pulmonary disease, unspecified (principal); J96.11 Chronic respiratory failure with hypoxia; Z79.899 Other long term (current) drug therapy
CPT/HCPCS: 36415; 80053; 81001; 82043; 83036; 84439; 84443; 85025; 86038

== ENCOUNTER 2025-02-18 12:17 | Inpatient (IN) | payer MEDICAID ==
[2025-02-18] VITALS (9 sets, daily range): BP systolic 116–125; BP diastolic 70–89; PULSE 94–115; RESP 12–20; TEMP 98.3–98.9; O2SAT 96–100
[~2025-02-18] VITALS: Ht 152.4 cm; Wt 79.7 kg
--- NOTE | 2025-02-18 12:33 | ED.PDOC ---
History of Present Illness HPI Comments 59 y/o F is BIBA from private residence for c/c of shortness of breath, with associated nonproductive cough and wheezing x2 weeks. Significant history for CHF, COPD w/2LPM home O2, DM, HLD, HTN, pulmonary HTN, PE, thyroid disease, and recurrent PNA's. Per EMS personnel report, patient endorses on progressively worsening symptoms over the past 2x weeks following initial, unprovoked onset. No reported recent prior ailments, sick contacts, travel, or further pertinent events/history, with exception of burning incense in her home, lately. Patient was given 1x DuoNeb and additional Albuterol breathing treatments and oxygen en route. She denies on having any chest pain, fever, chills, or further acute symptoms. 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, Medications, Allergies Allergies: Coded Allergies: Ketorolac Tromethamine (Verified Allergy, Unknown, 09/15/24) Levofloxacin (Verified Allergy, Unknown, 01/19/24) Home Meds Active Scripts Amlodipine Besylate (Amlodipine Besylate) 5 Mg Tab, 1 TAB PO DAILY for 30 Days, #30 TAB 1 Refill Prov:BRITTNEY MORATAYA MD 12/31/24 Aspirin (Aspirin Low Dose) 81 Mg Tab, 1 TAB PO DAILY for 30 Days, #30 TAB 1 Refill Prov:BRITTNEY MORATAYA MD 12/31/24 Sildenafil Citrate (Sildenafil Citrate) 20 Mg Tab, 1 TAB PO DAILY for 30 Days, #30 TAB 1 Refill Prov:BRITTNEY MORATAYA MD 12/31/24 Atorvastatin Calcium (ATORVASTATIN CALCIUM) 40 Mg Tab, 1 TAB PO DAILY for 14 Days, #14 TAB 1 Refill Prov:BRITTNEY MORATAYA MD 12/31/24 Levothyroxine Sodium (Levothyroxine Sodium) 100 Mcg Tab, 1 TAB PO DAILY for 30 Days, #30 TAB 1 Refill Prov:BRITTNEY MORATAYA MD 12/31/24 Furosemide (Furosemide) 40 Mg Tab, 1 TAB PO BID for 14 Days, #28 TAB 1 Refill Prov:BRITTNEY MORATAYA MD 12/31/24 Apixaban Base (ELIQUIS) 5 Mg Tab, 1 TAB PO BID for 30 Days, #60 TAB 1 Refill Prov:BRITTNEY MORATAYA MD 12/31/24 Carvedilol (Carvedilol) 3.125 Mg Tab, 1 TAB PO BID for 14 Days, #28 TAB 1 Refill Prov:BRITTNEY MORATAYA MD 12/31/24 Losartan Potassium (Losartan Potassium) 25 Mg Tab, 1 TAB PO DAILY for 30 Days, #30 TAB 1 Refill Prov:BRITTNEY MORATAYA MD 12/31/24 Montelukast Sodium (MONTELUKAST SODIUM) 10 Mg Tab, 1 TAB PO DAILY for 30 Days, #30 TAB 0 Refills Prov:BRITTNEY MORATAYA MD 12/31/24 Insulin Aspart (Novolog Flexpen Relion) 100 Unit/Ml Inj, 8 UNIT SC TIDWMEALS for 30 Days, #2 INJ 1 Refill Prov:BRITTNEY MORATAYA MD 12/31/24 Insulin Glargine (Lantus Solostar) 100 Unit/Ml Inj, 15 UNIT SC HS for 30 Days, #2 INJ 1 Refill Prov:BRITTNEY MORATAYA MD 12/31/24 Prednisone (Prednisone) 20 Mg Tab, 40 MG PO DAILY for 5 Days, #10 MG Prov:BRITTNEY MORATAYA MD 12/31/24 Azithromycin (Azithromycin) 500 Mg Tab, 1 TAB PO DAILY, #5 TAB Prov:BRITTNEY MORATAYA MD 12/31/24 Diclofenac Sodium (Topical) (Voltaren Arthritis Pain) 1 % Gel, 1 % EX BIDPRN PRN for 30 Days, #1 GEL Prov:KATT COHEN MD 02/21/24 Reported Medications Lidocaine (Lidocaine Patch 5%) 5 % Pad, 5 % EX, PAD 04/25/24 Lactulose (Lactulose) Unknown Strength Tatiana, PO 04/25/24 Cyclobenzaprine Hcl (Cyclobenzaprine Hcl) 10 Mg Tab, 10 MG PO QPM for 30 Days, MG 01/20/24 Information Source: Patient, Emergency Med Personnel Mode of Arrival: EMS Severity: Moderate Timing: Weeks Duration: Since onset Prehospital treatment: 12 Lead EKG, Breathing Tx, Farmworker Machine, Oxygen Past Medical History PAST MEDICAL HISTORY: Arthritis, CHF, COPD (2LPM home O2), DM, High Lipids, HTN, PE, Thyroid Past Medical History (Other): Pulmonary HTN History of recurrent PNA's Surgical History: BTL, BENCH REPAIR TECHNICIAN History: No Pertinent BENCH REPAIR TECHNICIAN History Family History Family History: Family hx of HTN Social History Smoker: Quit Greater Than 1 Year Alcohol: Denies ETOH Use Drugs: Denies Drug Use Lives In: Home Constitutional: denies: chills, diaphoresis, fatigue, fever, malaise, sweats, weakness, others EENTM: denies: blurred vision, double vision, ear bleeding, ear discharge, ear drainage, ear pain, ear ringing, eye pain, eye redness, hearing loss, mouth pain, mouth swelling, nasal discharge, nose bleeding, nose congestion, nose pain, photophobia, tearing, throat pain, throat swelling, voice changes, others Respiratory: reports: cough, shortness of breath, wheezing; denies: hemoptysis, orthopnea, SOB at rest, SOB with excertion, stridor, others Cardiovascular: denies: chest pain, dizzy spells, diaphoresis, Dyspnea on exertion, edema, irregular heart beat, left arm pain, lightheadedness, palpitations, PND, syncope, others Gastrointestinal: denies: abdomen distended, abdominal pain, blood streaked bowels, constipated, diarrhea, dysphagia, difficulty swallowing, hematemesis, melena, nausea, poor appetite, poor fluid intake, rectal bleeding, rectal pain, vomiting, others Genitourinary: denies: abnormal vagina bleeding, burning, dyspareunia, dysuria, flank pain, frequency, hematuria, incontinence, pain, , vagina discharge, urgency, others Neurological: denies: dizziness, fainting, headache, left sided numbness, left sided weakness, numbness, paresthesia, pre-existing deficit, right sided numbness, right sided weakness, seizure, speech problems, tingling, tremors, weakness, others Musculoskeletal: denies: back pain, gout, joint pain, joint swelling, muscle pain, muscle stiffness, neck pain, others Integumetry: denies: bruises, change in color, change in hair/nails, dryness, laceration, lesions, lumps, rash, wounds, others Allergic/Immunocompromised: denies: Difficulty Healing, Frequent Infections, Hives, Itching, others Hematologic/Lymphatic: denies: anemia, blood clots, easy bleeding, easy bruising, swollen glands, others Endocrine: denies: excessive hunger, excessive sweating, excessive thirst, excessive urination, flushing, intolerance to cold, intolerance to heat, unexplained weight gain, unexplained weight loss, others Psychiatric: denies: anxiety, bipolar disorder, depression, hopeless, panic disorder, schizophrenia, sleepless, suicidal, others All Other Systems: Reviewed and Negative Physical Exam General Appearance: Moderate Distress, Severe Distress HEENT: Normal ENT Inspection, Pharynx Normal, TMs Normal Neck: Full Range of Motion, Non-Tender, Normal, Normal Inspection Respiratory: Accessory Muscle Use, Chest Non-Tender, Respiratory Distress, Wheezing Cardiovascular: No Edema, No JVD, No Murmur, No Gallop, Tachycardia Breast Exam: Deferred Gastrointestinal: No Organomegaly, Non Tender, No Pulsatile Mass, Normal Bowel Sounds, Soft Genitalia: Deferred Pelvic: Deferred Rectal: Deferred Extremities: No calf tenderness, Normal capillary refill, Normal inspection, Normal range of motion, Non-tender, No pedal edema Musculoskeletal : Apperance: Normal Neurologic: Alert, airport refueling handler II-XII nml as Tested, No Motor Deficits, Normal Affect, Normal Mood, No Sensory Deficits Cerebellar Function: Normal Reflexes: Normal Skin: Dry, Normal Color, Warm Lymphatic: No Adenopathy Was a procedure done? Was a procedure done?: No EKG EKG : Pulse Rate (adult): 97 [place]: RAD Cardiac Rhythm: NSR Block: None Hypertrophy: None ST: Normal Differential Dx Considerations may include: Acute COPD exacerbation, acute CHF exacerbation, PNA, viral, URI, PE, CO, among others X-Ray, Labs, Meds, VS Vital Signs Date Time Temp Pulse Resp B/P (MAP) Pulse Ox O2 Delivery O2 Flow Rate FiO2 02/18/25 13:23 98.3 99 18 116/70 (85) 97 98.3 02/18/25 13:23 99 18 97 Nasal Cannula* 3 32 02/18/25 13:07 97 02/18/25 12:55 22 99 Nasal Cannula* 3 32 02/18/25 12:55 98 Nasal Cannula* 3 32 02/18/25 12:33 97 02/18/25 12:21 98.4 100 20 110/73 93 98.4 Lab Test 02/18/25 13:11 Range/Units White Blood Count 7.2 4.4-10.8 10^3/uL Red Blood Count 4.04 4.0-5.20 10^6/uL Hemoglobin 11.7 L 12.2-16.2 g/dL Hematocrit 34.9 L 36.0-46.0 % Mean Corpuscular Volume 86.3 80.0-100.0 fL Mean Corpuscular Hemoglobin 29.0 28.0-32.0 pg Mean Corpuscular Hemoglobin Concent 33.6 32.0-36.0 g/dL Red Cell Distribution Width 14.4 H 11.8-14.3 % Platelet Count 159 140-450 10^3/uL Mean Platelet Volume 6.9 6.9-10.8 fL Neutrophils (%) (Auto) 67.7 37.0-80.0 % Lymphocytes (%) (Auto) 19.7 10.0-50.0 % Monocytes (%) (Auto) 5.8 0.0-12.0 % Eosinophils (%) (Auto) 6.5 0.0-7.0 % Basophils (%) (Auto) 0.3 0.0-2.0 % Neutrophils # (Auto) 4.9 1.6-8.6 10 ^3/uL Lymphocytes # (Auto) 1.4 0.4-5.4 10 ^3/uL Monocytes # (Auto) 0.4 0-1.3 10 ^3/uL Eosinophils # (Auto) 0.5 0-0.8 10 ^3/uL Basophils # (Auto) 0 0-0.2 10 ^3/uL Nucleated Red Blood Cells 0.0 % Sodium Level 141 136-145 mmol/L Potassium Level 3.7 3.5-5.1 mmol/L Chloride Level 107 98-107 mmol/L Carbon Dioxide Level 30 20-31 mmol/L Anion Gap 4 L 5-15 Blood Urea Nitrogen 11 9-23 mg/dL Creatinine 0.72 0.550-1.02 mg/dL Glomerular Filtration Rate Calc 95 >90 mL/min BUN/Creatinine Ratio 15.3 10.0-20.0 Serum Glucose 237 H 74-106 mg/dL Lactic Acid Level 1.6 0.4-2.0 mmol/L Calcium Level 9.9 8.7-10.4 mg/dL Troponin I High Sensitivity 3 L </=34 ng/L B-Type Natriuretic Peptide 31.75 0-100 pg/mL Current Medications Medications (Trade) Dose Ordered Sig/Aquiles Route Start Time Stop Time Status Last Admin Methylprednisolone Sodium Succinate (Solu Medrol) 125 mg ONCE ONCE IV 02/18/25 12:30 02/18/25 12:31 DC 02/18/25 13:13 Ipratropium [place] (Atrovent Medneb) 1 mg ONCE ONCE HHN 02/18/25 12:30 02/18/25 12:31 DC 02/18/25 12:53 Albuterol (Ventolin Medneb) 20 mg ONCE ONCE HHN 02/18/25 12:30 02/18/25 12:31 DC 02/18/25 12:53 PROCEDURE(s): CXRP - CHEST PORTABLE IMPRESSION: 1. No acute intrathoracic process. 2. Borderline cardiomegaly. 3. Pulmonary arterial hypertension. The patient was given a continuous breathing treatment of albuterol and Atrovent. An IV Hep-Lock was established. The patient was given Solu-Medrol 125 mg IV push. The patient's CBC and chemistry panel is within normal limits except for hyperglycemia at 237 The BNP is within normal limits The patient is being admitted at this time. Images Reviewed?: Images reviewed and evaluated by me Time of 1ST Reevaluation: 12:50 Reevaluation 1ST: Unchanged Patient Education/Counseling: Diagnosis, Treatment, Prognosis Family Education/Counseling: No Family Present SEPSIS Sepsis Screen Physician Orders Urinalysis (02/18/25 12:26) Med Neb Initial Treatment (02/18/25 12:26) Chest Portable (02/18/25 12:47) Heplock Iv (02/18/25 12:26) Pulse Oximetry (02/18/25 12:26) Oxygen (02/18/25 12:26) Farmworker Machine (02/18/25 12:26) Blood Pressure (02/18/25 12:26) Electrocardigram (02/18/25 12:26) Blood Culture (02/18/25 12:26) Covid19 Antigen [place] (02/18/25 ) Rapid Influenza A&B (02/18/25 12:26) Vital Signs Date Time Temp Pulse Resp B/P (MAP) Pulse Ox O2 Delivery O2 Flow Rate FiO2 02/18/25 13:23 98.3 99 18 116/70 (85) 97 98.3 02/18/25 13:23 99 18 97 Nasal Cannula* 3 32 02/18/25 13:07 97 02/18/25 12:55 22 99 Nasal Cannula* 3 32 02/18/25 12:55 98 Nasal Cannula* 3 32 02/18/25 12:33 97 02/18/25 12:21 98.4 100 20 110/73 93 98.4 Laboratory Tests Test 02/18/25 13:11 Lactic Acid Level 1.6 mmol/L (0.4-2.0) White Blood Count 7.2 10^3/uL (4.4-10.8) Medications Medications Dose Ordered Sig/Aquiles Route Start Time Stop Time Status Last Admin Dose Admin Albuterol 20 mg ONCE ONCE [facility] 02/18/25 12:30 02/18/25 12:31 DC 02/18/25 12:53 Ipratropium [place] 1 mg ONCE ONCE N 02/18/25 12:30 02/18/25 12:31 DC 02/18/25 12:53 Methylprednisolone Sodium Succinate 125 mg ONCE ONCE IV 02/18/25 12:30 02/18/25 12:31 DC 02/18/25 13:13 Departure 1 Departure Time of Disposition: 14:31 Impression: Primary Impression: Acute exacerbation of chronic obstructive pulmonary disease (COPD) Additional Impression: Acute and chronic respiratory failure Disposition: 09 ADMITTED INPATIENT Admit to: [facility] Condition: Fair Critical Care Note Critical Care Time?: Yes (45 min-critical care time only) Stability Stability form required: Yes Unstable for transfer: Telemetry monitoring (Telemetry monitoring required), ED Physician Assesment (Clinical assesment) Heart Score Heart Score: Heart Score Response (Comments) Value History Moderate Suspicious 1 EKG Normal 0 Age 45-64 1 Risk Factors >3 or Hx ASHD 2 Troponin Normal limit 0 Total 4 I personally scribed for INDIO TOMLIN MD ([email or web address]) on 02/18/25 at 12:33. Electronically submitted by Darío Brito ([email or web address]). I personally scribed for INDIO TOMLIN MD ([email or web address]) on 02/18/25 at 13:07. Electronically submitted by Darío Brito ([email or web address]). I personally scribed for INDIO TOMLIN MD ([email or web address]) on 02/18/25 at 13:34. Electronically submitted by Darío Brito ([email or web address]). I personally scribed for INDIO TOMLIN MD ([email or web address]) on 02/18/25 at 13:39. Electronically submitted by Darío Brito ([email or web address]). INDIO TOMLIN MD Feb 18, 2025 12:33
[2025-02-18] MEDS: ALBUTEROL SULF 2.5 MG/0.5ML(0.5%) NEB SOLN ONE ×2 (12:45→18:07)
[2025-02-18] MEDS: IPRATROPIUM BROM 0.5 MG/2.5ML INH SOL ONE ×3 (12:45→22:27)
[2025-02-18] MEDS: IPRATROPIUM BROM 0.5 MG/2.5ML INH SOL HHN ONE (12:53)
[2025-02-18] MEDS: ALBUTEROL SULF 2.5 MG/0.5ML(0.5%) NEB SOLN HHN ONE (12:53)
[2025-02-18] MEDS: methylPREDNISolone SOD SUCC 125 MG/2 ML VL IV ONE (13:13)
[2025-02-18] MEDS: methylPREDNISolone SOD SUCC 125 MG/2 ML VL ONE ×2 (13:14→22:19)
--- NOTE | 2025-02-18 13:16 | DVH ---
EXAM: XY CHEST PORTABLE HISTORY: sob COMPARISON: XY CHEST PORTABLE on DOS: 12/26/24, XY CHEST XRAY 1 VIEW on DOS: 09/16/24, XY CHEST PORTABLE on DOS: 09/15/24, XR CHEST 1 VIEW on DOS: 08/27/24, XR CHEST 1 VIEW on DOS: 07/26/24, CT scan of the chest dated 09/15/2024. TECHNIQUE: Portable AP view of the chest was performed. FINDINGS: No pneumothorax, consolidative infiltrates, or pulmonary edema. The heart is borderline enlarged. The central pulmonary arteries are markedly ectatic. IMPRESSION: 1. No acute intrathoracic process. 2. Borderline cardiomegaly. 3. Pulmonary arterial hypertension.
[2025-02-18 13:51] LABS: Chloride 107 mmol/L (98-107); Potassium 3.7 mmol/L (3.5-5.1); Sodium 141 mmol/L (136-145)
[2025-02-18 13:52] LABS: Anion Gap 4 (5-15); Carbon Dioxide 30 mmol/L (20-31)
[2025-02-18 13:53] LABS: Calcium 9.9 mg/dL (8.7-10.4); Hematocrit 34.9 % (36.0-46.0); Hemoglobin 11.7 g/dL (12.2-16.2); Mean Corpuscular Hemoglobin 29.0 pg (28.0-32.0); Mean Corpuscular Volume 86.3 fL (80.0-100.0); Nucleated Red Blood Cells % 0.0 %
[2025-02-18 13:57] LABS: BUN/Creatinine Ratio 15.3 (10.0-20.0); Blood Urea Nitrogen 11 mg/dL (9-23)
[2025-02-18 13:58] LABS: Glucose 237 mg/dL (74-106)
[2025-02-18] MEDS ORDERED: DEXTROSE (50%) 50ML SYRG IV PRN ×2 (14:45→23:30)
--- NOTE | 2025-02-18 14:52 | DVHHP2 ---
History of Present Illness Reason for Visit: SOB with chest pain History of Present Illness Inessa Jj is a 59-year-old female with past medical history of arthritis, CHF, COPD on oxygen, diabetes, hyperlipidemia, hypertension, PUD, hypothyroidism, pulmonary hypertension, pneumonia, bilateral tubal ligation, and who presents to the ED with shortness of breath x2 weeks along with cough and wheezing. Patient also reports chest pain has been going on for 1 week. She reports the pain at 8/10 tightness and constant in nature. She also reports that she has been having productive clear phlegm. Patient reports that she is from a [employer] [facility] [employer] but does not know the name. She also reports that she had a bowel movement 3 days ago and is requesting for bowel regimen. Patient reports that she has been using oxygen 3 L via nasal cannula continuously. She reports that the shortness of breath has been getting worse. Patient also reports that she uses a front wheel walker to ambulate. Patient denies any recent trauma or injury, recent sick contacts, recent travels, recent ingestion of spoiled food, fever, chills, lightheadedness, weakness, dizziness, abdominal pain, nausea, vomiting, or diarrhea. Cardiovascular: CHF, HTN, hyperipidemia Pulmonary: COPD, Pneumonia Endocrine: Diabetes, Hypothyroidism Past Medical History Arthritis PUD Pulmonary hypertension Past Surgical History: , Tubal Ligation Family History: Other (Dad and mom with alcohol abuse.) Smoke: No ALCOHOL: none Drugs: None Lives: Other Domestic Violence: Neg Review of Systems Respiratory: Shortness of breath Cardiovascular: Chest Pain Allergies: Coded Allergies: Ketorolac Tromethamine (Verified Allergy, Unknown, 09/15/24) Levofloxacin (Verified Allergy, Unknown, 01/19/24) Exam Vital Signs Vital Signs Date Time Temp Pulse Resp B/P (MAP) Pulse Ox O2 Delivery O2 Flow Rate FiO2 02/18/25 13:23 98.3 99 18 116/70 (85) 97 98.3 02/18/25 13:23 Nasal Cannula* 3 32 General Appearance: Alert, Oriented X3, Cooperative, mild distress HEENT: Atraumatic, PERRLA, EOMI, Mucous membr. moist/pink Respiratory: Normal air movement (work of ), Other Cardiovascular: Regular rate, Normal S1 (athing), Normal S2, No murmurs Abdominal: Normal bowel sounds, Soft Extremities: No clubbing, No cyanosis Neuro: Normal speech, Strength at 5/5 X4 ext, Normal tone, Sensation intact Psych/Mental Status: Mental status NL, Mood NL Labs/Xrays Labs Test 02/18/25 13:11 Range/Units White Blood Count 7.2 4.4-10.8 10^3/uL Red Blood Count 4.04 4.0-5.20 10^6/uL Hemoglobin 11.7 L 12.2-16.2 g/dL Hematocrit 34.9 L 36.0-46.0 % Mean Corpuscular Volume 86.3 80.0-100.0 fL Mean Corpuscular Hemoglobin 29.0 28.0-32.0 pg Mean Corpuscular Hemoglobin Concent 33.6 32.0-36.0 g/dL Red Cell Distribution Width 14.4 H 11.8-14.3 % Platelet Count 159 140-450 10^3/uL Mean Platelet Volume 6.9 6.9-10.8 fL Neutrophils (%) (Auto) 67.7 37.0-80.0 % Lymphocytes (%) (Auto) 19.7 10.0-50.0 % Monocytes (%) (Auto) 5.8 0.0-12.0 % Eosinophils (%) (Auto) 6.5 0.0-7.0 % Basophils (%) (Auto) 0.3 0.0-2.0 % Neutrophils # (Auto) 4.9 1.6-8.6 10 ^3/uL Lymphocytes # (Auto) 1.4 0.4-5.4 10 ^3/uL Monocytes # (Auto) 0.4 0-1.3 10 ^3/uL Eosinophils # (Auto) 0.5 0-0.8 10 ^3/uL Basophils # (Auto) 0 0-0.2 10 ^3/uL Nucleated Red Blood Cells 0.0 % Sodium Level 141 136-145 mmol/L Potassium Level 3.7 3.5-5.1 mmol/L Chloride Level 107 98-107 mmol/L Carbon Dioxide Level 30 20-31 mmol/L Anion Gap 4 L 5-15 Blood Urea Nitrogen 11 9-23 mg/dL Creatinine 0.72 0.550-1.02 mg/dL Glomerular Filtration Rate Calc 95 >90 mL/min BUN/Creatinine Ratio 15.3 10.0-20.0 Serum Glucose 237 H 74-106 mg/dL Lactic Acid Level 1.6 0.4-2.0 mmol/L Calcium Level 9.9 8.7-10.4 mg/dL Troponin I High Sensitivity 3 L </=34 ng/L B-Type Natriuretic Peptide 31.75 0-100 pg/mL EXAM: XY CHEST PORTABLE HISTORY: sob COMPARISON: XY CHEST PORTABLE on DOS: 12/26/24, XY CHEST XRAY 1 VIEW on DOS: , XY CHEST PORTABLE on DOS: 09/15/24, XR CHEST 1 VIEW on DOS: 08/27/24, XR CHEST 1 VIEW on DOS: 07/26/24, CT scan of the chest dated 09/15/2024. TECHNIQUE: Portable AP view of the chest was performed. FINDINGS: No pneumothorax, consolidative infiltrates, or pulmonary edema. The heart is borderline enlarged. The central pulmonary arteries are markedly ectatic. IMPRESSION: 1. No acute intrathoracic process. 2. Borderline cardiomegaly. 3. Pulmonary arterial hypertension. SEPSIS Sepsis Screen Date sepsis recognized/suspect: Feb 18, 2025 Time Sepsis recognized/suspect: 1240 Recent Procedure: No On Antibiotic Therapy: No Respiratory Rate >20: No Heart Rate >90: Yes Temp<36 C (96.8 F) or >38.3 C: No SBP <90 or MAP <65 mmHG: No New Acute Mental Status Change: No Is the patient on CPAP, BIPAP,: No Physician Orders Urinalysis (02/18/25 12:26) Med Neb Initial Treatment (02/18/25 12:26) Chest Portable (02/18/25 12:47) Heplock Iv (02/18/25 12:26) Pulse Oximetry (02/18/25 12:26) Oxygen (02/18/25 12:26) Telegraphic Typewriter Repairer (02/18/25 12:26) Blood Pressure (02/18/25 12:26) Electrocardigram (02/18/25 12:26) Blood Culture (02/18/25 12:26) Covid19 Antigen [place] (02/18/25 ) Rapid Influenza A&B (02/18/25 12:26) Vital Signs Date Time Temp Pulse Resp B/P (MAP) Pulse Ox O2 Delivery O2 Flow Rate FiO2 02/18/25 13:23 98.3 99 18 116/70 (85) 97 98.3 02/18/25 13:23 99 18 97 Nasal Cannula* 3 32 02/18/25 13:07 97 02/18/25 12:55 22 99 Nasal Cannula* 3 32 02/18/25 12:55 98 Nasal Cannula* 3 32 02/18/25 12:33 97 02/18/25 12:21 98.4 100 20 110/73 93 98.4 Laboratory Tests Test 02/18/25 13:11 Lactic Acid Level 1.6 mmol/L (0.4-2.0) White Blood Count 7.2 10^3/uL (4.4-10.8) Medications Medications Dose Ordered Sig/[place] Route Start Time Stop Time Status Last Admin Dose Admin Albuterol 20 mg ONCE ONCE [facility] 02/18/25 12:30 02/18/25 12:31 DC 02/18/25 12:53 20 MG Ipratropium [place] 1 mg ONCE ONCE [facility] 02/18/25 12:30 02/18/25 12:31 DC 02/18/25 12:53 1 MG Methylprednisolone Sodium Succinate 125 mg ONCE ONCE IV 02/18/25 12:30 02/18/25 12:31 DC 02/18/25 13:13 125 MG Assessment/Plan Assessment/Plan Assessment Acute on chronic COPD versus CHF exacerbation Acute hypoxic respiratory failure on supplemental oxygen Chest pain rule out ACS, likely costochondritis Borderline cardiomegaly Pulmonary arterial hypertension UTI History of arthritis History of CHF History of COPD on oxygen History of diabetes History of hyperlipidemia History of hypertension History of PUD History of hypothyroidism History of pulmonary hypertension History of pneumonia History of bilateral tubal ligation History of Plan Admit to telemetry IV antibiotics-ceftriaxone Strict I&Os Daily weight Diurese Antiemetics Pain management IV steroids Duo nebs Chest x-ray noted EKG COVID test Flu test Lactic Blood cultures UA BNP Troponin noted UDS Hemoglobin A1c ISS and Accu-Cheks D-dimer Last echo on LVEF 50-55%, mild LVH, Right ventricle severely dilated, moderately reduced function, Rt atrium severely dilated , Moderate TR, severe pulmonary hypertension, RSVP 80-90 mmgh ACS workup Aspirin + statin Duo nebs IV steroids Diet Home medications reconciled DVT prophylaxis-SCDs PUD prophylaxis-PPIs Discussed plan of care with patient and nurse [id number] Preventive counseling healthy eating habits, physical activity, and regular checkups Plan discussed with: Patient Date of Service: Feb 18, 2025 Billing Provider: FANI JACOBS Common Visit Codes: [id number] INP/OBS CARE (HIGH) Secondary Visit Codes: [id number] COUNSELING IND FANI JACOBS Feb 18, 2025 14:52
[2025-02-18] MEDS ORDERED: ONDANSETRON HCL 4 MG/2 ML VIAL IV PRN (15:00)
[2025-02-18 15:04] LABS: COVID19 ANTIGEN SOFIA FIA NEGATIVE (NEGATIVE)
[2025-02-18] MEDS: InsuLIN REG 1unit/0.01ml Soln (100units/ml) ONE ×2 (16:33→22:19)
[2025-02-18] MEDS: PANTOPRAZOLE 40 MG/10 ML VIAL INJ IV ONE (16:35)
[2025-02-18] MEDS: PANTOPRAZOLE 40 MG/10 ML VIAL INJ IV SCH (16:36)
[2025-02-18] MEDS: InsuLIN REG 1unit/0.01ml Soln (100units/ml) SC SCH (16:37)
[2025-02-18] MEDS: ACCU-CHEK COMFORT CURVE STRIP VI SCH (16:38)
[2025-02-18 17:13] LABS: Urine Budding Yeast LOADED /hpf (None Seen); Urine Protein, UAD TRACE (Negative); Urine WBC Clumps PRESENT /hpf (None Seen)
[2025-02-18 17:18] LABS: Amphetamine Screen, Urine Neg (NEGATIVE); Barbiturate Scree,Urine Neg (NEGATIVE); Benzodiazephine Screen, Urine Neg (NEGATIVE); Cocaine Screen, Urine Neg (NEGATIVE); Opiate Scree,Urine Neg (NEGATIVE)
[2025-02-18 17:19] LABS: Cannabinoid Screen, Urine Neg (NEGATIVE); Phencyclidine Screen, Urine Neg (NEGATIVE)
[2025-02-18 17:49] LABS: Triglycerides 89 mg/dL (< 150)
[2025-02-18 17:51] LABS: Cholesterol 89 mg/dL (< 200)
[2025-02-18 17:53] LABS: HDL Cholesterol 35 mg/dL (40-59)
[2025-02-18] MEDS: DOCUSATE SOD 100 MG CAP PO ONE (18:01)
[2025-02-18] MEDS: ACETAMINOPHEN 325 MG TAB PO PRN (18:01)
[2025-02-18] MEDS: DOCUSATE SOD 100 MG CAP PO PRN (18:01)
[2025-02-18] MEDS: CYCLOBENZAPRINE HCL 10 MG TAB PO SCH (18:02)
[2025-02-18] MEDS: CYCLOBENZAPRINE HCL 10 MG TAB ONE (18:03)
[2025-02-18] MEDS: ALBUTEROL SULF 2.5 MG/0.5ML(0.5%) NEB SOLN NEB SCH (18:07)
[2025-02-18] MEDS: IPRATROPIUM BROM 0.5 MG/2.5ML INH SOL NEB SCH (18:07)
[2025-02-18] MEDS: APIXABAN 5 MG TAB ONE (22:17)
[2025-02-18] MEDS: ATORVASTATIN 20 MG TAB ONE (22:18)
[2025-02-18] MEDS: CARVEDILOL 3.125 MG TAB ONE (22:18)
[2025-02-18] MEDS: ZOLPIDEM TARTRATE 5 MG TAB ONE (22:18)
[2025-02-18] MEDS: ZOLPIDEM TARTRATE 5 MG TAB PO PRN (22:24)
[2025-02-18] MEDS: APIXABAN 5 MG TAB PO SCH (22:25)
[2025-02-18] MEDS: ATORVASTATIN 20 MG TAB PO SCH (22:25)
[2025-02-18] MEDS: CARVEDILOL 3.125 MG TAB PO SCH (22:26)
[2025-02-18] MEDS: methylPREDNISolone SOD SUCC 125 MG/2 ML VL IV SCH (22:26)
[2025-02-18] MEDS: INSULIN LANTUS (GLARGINE) 1 /0.01ml (100units/ml) SC ONE ×2 (23:32)
[2025-02-19] VITALS (19 sets, daily range): BP systolic 96–144; BP diastolic 66–99; PULSE 74–110; RESP 15–20; TEMP 97.9–98.6; O2SAT 92–100
[2025-02-19] MEDS: ACCU-CHEK COMFORT CURVE STRIP VI SCH (04:00)
[2025-02-19] MEDS: InsuLIN REG 1unit/0.01ml Soln (100units/ml) SC SCH (04:00)
[2025-02-19] MEDS: InsuLIN REG 1unit/0.01ml Soln (100units/ml) ONE ×2 (04:29→08:31)
[2025-02-19] MEDS: methylPREDNISolone SOD SUCC 40 MG/ML VL ONE (06:23)
[2025-02-19] MEDS: LEVOTHYROXINE SODIUM 100 MCG TAB ONE (06:24)
[2025-02-19] MEDS: INSULIN LANTUS (GLARGINE) 1 /0.01ml (100units/ml) SC ONE ×2 (06:28→22:04)
[2025-02-19] MEDS: LEVOTHYROXINE SODIUM 100 MCG TAB PO SCH (06:31)
[2025-02-19] MEDS: INSULIN LANTUS (GLARGINE) 1 /0.01ml (100units/ml) SC SCH ×2 (06:32→22:07)
[2025-02-19 06:42] LABS: Hematocrit 34.4 % (36.0-46.0); Hemoglobin 11.8 g/dL (12.2-16.2); Mean Corpuscular Hemoglobin 29.8 pg (28.0-32.0); Mean Corpuscular Volume 86.6 fL (80.0-100.0); Nucleated Red Blood Cells % 0.1 %
[2025-02-19 07:00] LABS: Alanine Aminotransferase 19 U/L (7-40); Alkaline Phosphatase 81 U/L (46-116); Anion Gap 9 (5-15); BUN/Creatinine Ratio 17.7 (10.0-20.0); Blood Urea Nitrogen 17 mg/dL (9-23); Calcium 10.1 mg/dL (8.7-10.4); Carbon Dioxide 27 mmol/L (20-31); Chloride 103 mmol/L (98-107); Potassium 3.9 mmol/L (3.5-5.1); Sodium 139 mmol/L (136-145); Total Protein 6.8 g/dL (5.7-8.2)
[2025-02-19 07:01] LABS: Albumin 3.5 g/dL (3.2-4.8)
[2025-02-19 07:02] LABS: Bilirubin, Total 0.5 mg/dL (0.2-1.0)
[2025-02-19 07:06] LABS: Glucose 402 mg/dL (74-106)
[2025-02-19] MEDS: FUROSEMIDE 40 MG/4 ML VIAL ONE (10:47)
[2025-02-19] MEDS: FUROSEMIDE 40 MG/4 ML VIAL IV SCH (11:12)
[2025-02-19] MEDS: ASPirin-EC 81 mg tab PO SCH (11:13)
[2025-02-19] MEDS: LOSARTAN POTASSIUM 25 MG TAB PO SCH (11:15)
[2025-02-19] MEDS: SILDENAFIL CITRATE 20 MG TAB PO SCH (11:17)
--- NOTE | 2025-02-19 16:48 | DVHPN2 ---
Subjective Patient's chart is reviewed. Admitted overnight for acute bronchitis with a possible COPD exacerbation. Patient is having some cough with the discomfort at present. Other review of systems reviewed normal. Changes from previous H/P or p: No Changes Cardiovascular: Chest Pain Respiratory: Shortness of breath Objective Vitals Vital Signs Date Time Temp Pulse Resp B/P (MAP) Pulse Ox O2 Delivery O2 Flow Rate FiO2 02/19/25 16:45 98.4 99 18 96/66 (76) 95 98.4 02/19/25 10:00 Nasal Cannula* 3 32 Intake/Output Intake and Output 02/19/25 07:00 Intake Total 2050 ml Output Total 250 ml Balance 1800 ml Intake Oral 2000 ml IV Total 50 ml Output Urine Total 250 ml # Voids 1 Exam Comfortable in bed without any acute cardiopulmonary distress. HEENT neck supple no JVD. Heart regular rate and rhythm S1-S2. Lungs fair air movement with occasional end expiratory wheezing. Abdomen soft nontender positive bowel sounds. Extremities no edema positive pulses. Medications Current Medications Medications Dose Ordered Sig/Aquiles Route Start Time Stop Time Status Last Admin Dose Admin Albuterol 2.5 mg Q4HWA NEB 02/18/25 18:00 02/19/25 14:53 2.5 MG Ipratropium [place] 0.5 mg Q4HWA NEB 02/18/25 18:00 02/19/25 14:53 0.5 MG Ondansetron HCl 4 mg Q4HP PRN IV 02/18/25 15:00 Acetaminophen 650 mg Q6HP PRN PO 02/18/25 15:00 02/19/25 12:21 650 MG Amlodipine Besylate 5 mg DAILY PO 02/19/25 10:00 02/19/25 11:14 5 MG Apixaban 5 mg BID PO 02/18/25 22:00 02/19/25 11:15 5 MG Aspirin 81 mg DAILY PO 02/19/25 10:00 02/19/25 11:13 81 MG Carvedilol 3.125 mg BID PO 02/18/25 22:00 02/19/25 11:15 3.125 MG Cyclobenzaprine HCl 10 mg QPM PO 02/18/25 18:00 02/18/25 18:02 10 MG Levothyroxine Sodium 100 mcg DAILY@0600 PO 02/19/25 06:00 02/19/25 06:31 100 MCG Losartan Potassium 25 mg DAILY PO 02/19/25 10:00 02/19/25 11:15 25 MG Sildenafil Citrate 20 mg DAILY PO 02/19/25 10:00 02/19/25 11:17 20 MG Atorvastatin Calcium 40 mg HS PO 02/18/25 22:00 02/18/25 22:25 40 MG Furosemide 40 mg DAILY IV 02/19/25 10:00 02/19/25 11:12 40 MG Methylprednisolone Sodium Succinate 80 mg Q8HR IV 02/18/25 22:00 02/19/25 13:40 80 MG Pantoprazole Sodium 40 mg DAILY IV 02/18/25 15:00 02/19/25 11:12 40 MG Zolpidem Tartrate 5 mg HSPRN PRN PO 02/18/25 22:00 02/18/25 22:24 5 MG Docusate Sodium 100 mg BIDPRN PRN PO 02/18/25 17:30 02/19/25 10:32 100 MG Ceftriaxone Sodium 50 ml @ 100 mls/hr DAILY@09 IV 02/18/25 17:30 02/19/25 10:32 100 MLS/HR Insulin Glargine 20 units BID@0700,2200 [place] 02/19/25 07:00 02/19/25 06:32 20 UNITS Diagnostic Test (Pha) 1 strip IQ4HR 02/19/25 00:00 02/19/25 16:02 1 STRIP Insulin Human Regular IQ4HR SC 02/19/25 00:00 02/19/25 16:26 15 UNITS Dextrose 50 ml UD PRN IV 02/18/25 23:30 Laboratory Results Laboratory Tests 02/19/25 05:16 Chemistry Test 02/19/25 05:16 Albumin 3.5 g/dL (3.2-4.8) Calcium Level 10.1 mg/dL (8.7-10.4) Total Protein 6.8 g/dL (5.7-8.2) LFT Test 02/19/25 05:16 Alanine Aminotransferase (ALT) 19 U/L (7-40) Alkaline Phosphatase 81 U/L (46-116) Aspartate Amino Transferase (AST) 19 U/L (13-40) Total Bilirubin 0.5 mg/dL (0.2-1.0) Urinalysis Test 02/18/25 16:30 Urine Color Dark yellow (Yellow) Urine Clarity Ex.turbid (Clear) Urine pH 6.5 (5.0-9.0) Urine Specific [place] 1.021 (1.001-1.035) Urine Protein Trace (Negative) H Urine Ketones Negative (Negative) Urine Blood 1+ /uL (Negative) H Urine Nitrite Negative (Negative) Urine Bilirubin Negative (Negative) Urine Urobilinogen Normal mg/dL (Negative) Urine Leukocyte Esterase 3+ /uL (Negative) Urine RBC 83 /hpf (0 - 4) Urine WBC Clumps Present /hpf (None Seen) Urine Microscopic WBC 1815 /HPF (0-5) H Urine Squamous Epithelial Cells Mod /hpf (<5) Urine Bacteria None seen /hpf (None Seen) Urine Hyaline Casts Few /lpf (0 - 2) Urine Yeast (Budding) Loaded /hpf (None Seen) Urine Glucose 4+ mg/dL (Normal) H Microbiology Microbiology Date/Time Source Procedure Growth Status 02/18/25 13:20 Blood Blood Culture - Preliminary NO GROWTH AFTER 24 HOURS OF INCUBATION. Resulted Assessment/Plan Assessment/Plan Patient's blood sugars are 500-400 range due to steroids. Therefore we will cut down the steroid dose. Increase her Lantus insulin. Meantime I will add Robitussin with codeine for her cough and discomfort. Continue breathing treatments and rest of supportive care and treatment as she is on. Monitor her overnight. Her further clinical management per clinical course. Discussed with the patient along with the nurse at bedside regarding care plan. Plan discussed with: Patient, Other Problem List: (1) Acute exacerbation of chronic obstructive pulmonary disease (COPD) (2) Acute and chronic respiratory failure (3) Acute respiratory failure Date of Service: Feb 19, 2025 Billing Provider: SALLY GILMAN MD Common Visit Codes: [id number] INP/OBS CARE(HIGH) SALLY GILMAN MD Feb 19, 2025 16:48
[2025-02-19] MEDS: guaiFENesin-DM 100/10mg/5ml SYR ONE (20:10)
[2025-02-19] MEDS: guaiFENesin-CODEINE Liq 5 ML UD PO PRN (20:11)
[2025-02-19] MEDS: guaiFENesin-CODEINE Liq 5 ML UD ONE (20:16)
[2025-02-19] MEDS: methylPREDNISolone SOD SUCC 125 MG/2 ML VL IV SCH (21:46)
[2025-02-20] VITALS (19 sets, daily range): BP systolic 112–129; BP diastolic 67–92; PULSE 74–110; RESP 16–20; TEMP 97.6–98.2; O2SAT 88–98
--- NOTE | 2025-02-20 01:23 | ECG ---
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
--- NOTE | 2025-02-20 01:24 | ECG ---
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
[2025-02-20] MEDS: INSULIN LANTUS (GLARGINE) 1 /0.01ml (100units/ml) SC ONE (06:21)
[2025-02-20 06:48] LABS: Hematocrit 34.2 % (36.0-46.0); Hemoglobin 11.5 g/dL (12.2-16.2); Mean Corpuscular Hemoglobin 29.3 pg (28.0-32.0); Mean Corpuscular Volume 86.8 fL (80.0-100.0); Nucleated Red Blood Cells % 0.1 %
[2025-02-20 06:59] LABS: Anion Gap 9 (5-15); Carbon Dioxide 30 mmol/L (20-31); Chloride 103 mmol/L (98-107); Potassium 3.8 mmol/L (3.5-5.1); Sodium 142 mmol/L (136-145)
[2025-02-20 07:05] LABS: BUN/Creatinine Ratio 24.4 (10.0-20.0); Blood Urea Nitrogen 19 mg/dL (9-23)
[2025-02-20 07:06] LABS: Calcium 10.8 mg/dL (8.7-10.4); Glucose 233 mg/dL (74-106)
--- NOTE | 2025-02-20 17:28 | DVHPN2 ---
Subjective Clinically feeling better however still short of breath with the exertion. Her blood sugars are in the 400-500 range. WBCs elevated felt secondary to steroids. Changes from previous H/P or p: No Changes Cardiovascular: Chest Pain Respiratory: Shortness of breath Objective Vitals Vital Signs Date Time Temp Pulse Resp B/P (MAP) Pulse Ox O2 Delivery O2 Flow Rate FiO2 02/20/25 17:16 98.0 104 18 122/86 (98) 97 98.0 02/20/25 10:00 Nasal Cannula* 3 32 Intake/Output Intake and Output 02/20/25 07:00 Intake Total 2700 ml Balance 2700 ml Intake Oral 2700 ml # Voids 8 # Bowel Movements 1 Exam Comfortable in bed without any acute cardiopulmonary distress. HEENT neck supple no JVD. Heart regular rate and rhythm S1-S2. Lungs fair air movement with occasional end expiratory wheezing. Abdomen soft nontender positive bowel sounds. Extremities no edema positive pulses. Medications Current Medications Medications Dose Ordered Sig/Aquiles Route Start Time Stop Time Status Last Admin Dose Admin Albuterol 2.5 mg Q4HWA NEB 02/18/25 18:00 02/20/25 14:11 2.5 MG Ipratropium [place] 0.5 mg Q4HWA NEB 02/18/25 18:00 02/20/25 14:11 0.5 MG Ondansetron HCl 4 mg Q4HP PRN IV 02/18/25 15:00 Acetaminophen 650 mg Q6HP PRN PO 02/18/25 15:00 02/20/25 13:21 650 MG Amlodipine Besylate 5 mg DAILY PO 02/19/25 10:00 02/19/25 11:14 5 MG Apixaban 5 mg BID PO 02/18/25 22:00 02/20/25 09:37 5 MG Aspirin 81 mg DAILY PO 02/19/25 10:00 02/20/25 09:03 81 MG Carvedilol 3.125 mg BID PO 02/18/25 22:00 02/20/25 09:03 3.125 MG Cyclobenzaprine HCl 10 mg QPM PO 02/18/25 18:00 02/19/25 17:35 10 MG Levothyroxine Sodium 100 mcg DAILY@0600 PO 02/19/25 06:00 02/20/25 04:52 100 MCG Losartan Potassium 25 mg DAILY PO 02/19/25 10:00 02/20/25 09:03 25 MG Sildenafil Citrate 20 mg DAILY PO 02/19/25 10:00 02/20/25 09:03 20 MG Atorvastatin Calcium 40 mg HS PO 02/18/25 22:00 02/19/25 21:46 40 MG Furosemide 40 mg DAILY IV 02/19/25 10:00 02/20/25 09:02 40 MG Pantoprazole Sodium 40 mg DAILY IV 02/18/25 15:00 02/20/25 09:02 40 MG Zolpidem Tartrate 5 mg HSPRN PRN PO 02/18/25 22:00 02/19/25 21:57 5 MG Docusate Sodium 100 mg BIDPRN PRN PO 02/18/25 17:30 02/20/25 09:37 100 MG Ceftriaxone Sodium 50 ml @ 100 mls/hr DAILY@09 IV 02/18/25 17:30 02/20/25 09:02 100 MLS/HR Diagnostic Test (Pha) 1 strip IQ4HR 02/19/25 00:00 02/20/25 15:35 1 STRIP Insulin Human Regular IQ4HR [place] 02/19/25 00:00 02/20/25 15:38 15 UNITS Dextrose 50 ml UD PRN IV 02/18/25 23:30 Insulin Glargine 25 units BID@0700,2200 [place] 02/19/25 22:00 02/20/25 06:24 25 UNITS Guaifenesin/ Codeine Phosphate 10 ml Q6HP PRN PO 02/19/25 17:30 02/19/25 20:11 10 ML Acetaminophen/ Hydrocodone Bitart 1 tab Q4HPRN PRN PO 02/20/25 16:45 Methylprednisolone Sodium Succinate 60 mg BID IV 02/21/25 10:00 Laboratory Results Laboratory Tests 02/20/25 04:56 Chemistry Test 02/20/25 04:56 Calcium Level 10.8 mg/dL (8.7-10.4) H Urinalysis Test 02/18/25 16:30 Urine Color Dark yellow (Yellow) Urine Clarity Ex.turbid (Clear) Urine pH 6.5 (5.0-9.0) Urine Specific [place] 1.021 (1.001-1.035) Urine Protein Trace (Negative) H Urine Ketones Negative (Negative) Urine Blood 1+ /uL (Negative) H Urine Nitrite Negative (Negative) Urine Bilirubin Negative (Negative) Urine Urobilinogen Normal mg/dL (Negative) Urine Leukocyte Esterase 3+ /uL (Negative) Urine RBC 83 /hpf (0 - 4) Urine WBC Clumps Present /hpf (None Seen) Urine Microscopic WBC 1815 /HPF (0-5) H Urine Squamous Epithelial Cells Mod /hpf (<5) Urine Bacteria None seen /hpf (None Seen) Urine Hyaline Casts Few /lpf (0 - 2) Urine Yeast (Budding) Loaded /hpf (None Seen) Urine Glucose 4+ mg/dL (Normal) H Microbiology Microbiology Date/Time Source Procedure Growth Status 02/18/25 13:20 Blood Blood Culture - Preliminary NO GROWTH AFTER 48 HOURS OF INCUBATION. Resulted Labs and/or images reviewed: Labs reviewed by me Assessment/Plan Assessment/Plan Patient's blood sugars are 500-400 range due to steroids. Cut down the steroids to 40 IV b.i.d. due to high blood sugars. Increase her Lantus insulin. Continue breathing treatments and rest of supportive care and treatment as she is on. Monitor her overnight. Her further clinical management per clinical course. Discussed with the patient along with the nurse at bedside regarding care plan. Plan discussed with: Patient, Other My Orders Orders - SALLY GILMAN MD Procedure Category Date Status Time Hydrocodone-Acet PHA 02/20/25 In Process 5/325mg Tab ([place] 16:45 Pt Request For Service PT 02/20/25 Logged 16:34 Methylprednisolone PHA 02/21/25 In Process Sod Succ (Solu Medrol 10:00 Problem List: (1) Acute and chronic respiratory failure (2) Acute exacerbation of chronic obstructive pulmonary disease (COPD) (3) Acute respiratory failure Date of Service: Feb 20, 2025 Billing Provider: SALLY GILMAN MD Common Visit Codes: [id number] INP/OBS CARE(MOD) SALLY GILMAN MD Feb 20, 2025 17:28
[2025-02-20] MEDS: ACETAMINOPHEN 325 MG TAB PO ONE (18:01)
[2025-02-20] MEDS: HYDROcodone-ACET 5/325MG TAB PO PRN (18:29)
[2025-02-20] MEDS: ALBUTEROL SULF 2.5 MG/0.5ML(0.5%) NEB SOLN ONE (22:15)
[2025-02-21] VITALS (19 sets, daily range): BP systolic 86–123; BP diastolic 58–86; PULSE 75–98; RESP 12–22; TEMP 97.5–98.7; O2SAT 93–100
[2025-02-21] MEDS: methylPREDNISolone SOD SUCC 125 MG/2 ML VL IV SCH (11:34)
--- NOTE | 2025-02-21 16:19 | DVHPN2 ---
Subjective Patient denies any complaints besides shortness of breaths on exertion Changes from previous H/P or p: No Changes Cardiovascular: Chest Pain Respiratory: Shortness of breath Objective Vitals Vital Signs Date Time Temp Pulse Resp B/P (MAP) Pulse Ox O2 Delivery O2 Flow Rate FiO2 02/21/25 15:04 96 16 98 02/21/25 15:00 2.0 02/21/25 14:58 Nasal Cannula* 28 02/21/25 13:00 98.0 86/58 (67) 98.0 Intake/Output Intake and Output 02/21/25 07:00 Intake Total 2180 ml Output Total 2400 ml Balance -220 ml Intake Oral 2180 ml Output Urine Total 2400 ml Exam HEENT pupils are reactive Neck is supple CV is S1-S2 regular rate and rhythm Respiratory diminished breath sounds bases, positive Reveals GI positive bowel sound 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 Medications Current Medications Medications Dose Ordered Sig/Aquiles Route Start Time Stop Time Status Last Admin Dose Admin Albuterol 2.5 mg Q4HWA NEB 02/18/25 18:00 02/21/25 15:01 2.5 MG Ipratropium [place] 0.5 mg Q4HWA NEB 02/18/25 18:00 02/21/25 15:02 0.5 MG Ondansetron HCl 4 mg Q4HP PRN IV 02/18/25 15:00 Acetaminophen 650 mg Q6HP PRN PO 02/18/25 15:00 02/20/25 13:21 650 MG Amlodipine Besylate 5 mg DAILY PO 02/19/25 10:00 02/19/25 11:14 5 MG Apixaban 5 mg BID PO 02/18/25 22:00 02/21/25 10:17 5 MG Aspirin 81 mg DAILY PO 02/19/25 10:00 02/21/25 10:17 81 MG Carvedilol 3.125 mg BID PO 02/18/25 22:00 02/20/25 21:26 3.125 MG Cyclobenzaprine HCl 10 mg QPM PO 02/18/25 18:00 02/19/25 17:35 10 MG Levothyroxine Sodium 100 mcg DAILY@0600 PO 02/19/25 06:00 02/21/25 05:58 100 MCG Losartan Potassium 25 mg DAILY PO 02/19/25 10:00 02/20/25 09:03 25 MG Sildenafil Citrate 20 mg DAILY PO 02/19/25 10:00 02/21/25 10:17 20 MG Atorvastatin Calcium 40 mg HS PO 02/18/25 22:00 02/20/25 21:27 40 MG Furosemide 40 mg DAILY IV 02/19/25 10:00 02/21/25 11:33 40 MG Pantoprazole Sodium 40 mg DAILY IV 02/18/25 15:00 02/21/25 11:33 40 MG Zolpidem Tartrate 5 mg HSPRN PRN PO 02/18/25 22:00 02/20/25 21:44 5 MG Docusate Sodium 100 mg BIDPRN PRN PO 02/18/25 17:30 02/21/25 10:17 100 MG Ceftriaxone Sodium 50 ml @ 100 mls/hr DAILY@09 IV 02/18/25 17:30 02/21/25 11:28 100 MLS/HR Diagnostic Test (Pha) 1 strip IQ4HR 02/19/25 00:00 02/21/25 11:53 1 STRIP Insulin Human Regular IQ4HR [place] 02/19/25 00:00 02/21/25 11:53 6 UNITS Dextrose 50 ml UD PRN IV 02/18/25 23:30 Insulin Glargine 25 units BID@0700,2200 [place] 02/19/25 22:00 02/21/25 06:03 25 UNITS Guaifenesin/ Codeine Phosphate 10 ml Q6HP PRN PO 02/19/25 17:30 02/21/25 09:43 10 ML Acetaminophen/ Hydrocodone Bitart 1 tab Q4HPRN PRN PO 02/20/25 16:45 02/21/25 14:23 1 TAB Methylprednisolone Sodium Succinate 60 mg BID IV 02/21/25 10:00 02/21/25 11:34 60 MG Laboratory Results Laboratory Tests 02/20/25 04:56 Urinalysis Test 02/18/25 16:30 Urine Color Dark yellow (Yellow) Urine Clarity Ex.turbid (Clear) Urine pH 6.5 (5.0-9.0) Urine Specific [place] 1.021 (1.001-1.035) Urine Protein Trace (Negative) H Urine Ketones Negative (Negative) Urine Blood 1+ /uL (Negative) H Urine Nitrite Negative (Negative) Urine Bilirubin Negative (Negative) Urine Urobilinogen Normal mg/dL (Negative) Urine Leukocyte Esterase 3+ /uL (Negative) Urine RBC 83 /hpf (0 - 4) Urine WBC Clumps Present /hpf (None Seen) Urine Microscopic WBC 1815 /HPF (0-5) H Urine Squamous Epithelial Cells Mod /hpf (<5) Urine Bacteria None seen /hpf (None Seen) Urine Hyaline Casts Few /lpf (0 - 2) Urine Yeast (Budding) Loaded /hpf (None Seen) Urine Glucose 4+ mg/dL (Normal) H Microbiology Microbiology Date/Time Source Procedure Growth Status 02/18/25 13:20 Blood Blood Culture - Preliminary NO GROWTH AFTER 72 HOURS OF INCUBATION. Resulted Assessment/Plan Assessment/Plan 59-year-old female with a known history of chronic respiratory failure on home O2, COPD, paroxysmal AFib currently on Eliquis presented to the hospital with the increasing shortness a breath found to have 1. Acute on chronic hypoxic respiratory failure secondary to acute COPD exacerbation 2. Acute COPD exacerbation 3. Paroxysmal AFib currently on Eliquis 4. Hypertension 5. Insulin-dependent diabetes mellitus -continue med nebs, O2 supplementation, IV Solu-Medrol, discharge plan Plan discussed with: Patient Problem List: (1) Acute and chronic respiratory failure (2) Acute exacerbation of chronic obstructive pulmonary disease (COPD) (3) Acute respiratory failure Date of Service: Feb 21, 2025 Billing Provider: AN LIND MD Common Visit Codes: [id number] INP/OBS CARE(HIGH) AN LIND MD Feb 21, 2025 16:19
[2025-02-21] MEDS ORDERED: DEXTROSE (50%) 50ML SYRG IV PRN (20:45)
[2025-02-21] MEDS: InsuLIN REG 1unit/0.01ml Soln (100units/ml) SC SCH (23:46)
[2025-02-22] VITALS (19 sets, daily range): BP systolic 95–132; BP diastolic 62–90; PULSE 73–105; RESP 16–18; TEMP 97.5–98.1; O2SAT 95–100
[2025-02-22] MEDS: ACCU-CHEK COMFORT CURVE STRIP VI SCH
--- NOTE | 2025-02-22 14:41 | DVHPN2 ---
Subjective Patient denies any complaints besides shortness of breaths on exertion Changes from previous H/P or p: No Changes Cardiovascular: Chest Pain Respiratory: Shortness of breath Objective Vitals Vital Signs Date Time Temp Pulse Resp B/P (MAP) Pulse Ox O2 Delivery O2 Flow Rate FiO2 02/22/25 14:21 89 16 100 02/22/25 12:58 98.1 106/70 (82) 98.1 02/22/25 09:30 Nasal Cannula* 3 32 Intake/Output Intake and Output 02/22/25 07:00 Intake Total 1470 ml Balance 1470 ml Intake Oral 1420 ml IV Total 50 ml # Voids 9 Exam HEENT pupils are reactive Neck is supple CV is S1-S2 regular rate and rhythm Respiratory diminished breath sounds bases, positive Reveals GI positive bowel sound 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 Medications Current Medications Medications Dose Ordered Sig/Aquiles Route Start Time Stop Time Status Last Admin Dose Admin Albuterol 2.5 mg Q4HWA NEB 02/18/25 18:00 02/22/25 14:11 2.5 MG Ipratropium [place] 0.5 mg Q4HWA NEB 02/18/25 18:00 02/22/25 14:11 0.5 MG Ondansetron HCl 4 mg Q4HP PRN IV 02/18/25 15:00 Acetaminophen 650 mg Q6HP PRN PO 02/18/25 15:00 02/20/25 13:21 650 MG Amlodipine Besylate 5 mg DAILY PO 02/19/25 10:00 02/19/25 11:14 5 MG Apixaban 5 mg BID PO 02/18/25 22:00 02/22/25 10:34 5 MG Aspirin 81 mg DAILY PO 02/19/25 10:00 02/22/25 10:34 81 MG Carvedilol 3.125 mg BID PO 02/18/25 22:00 02/20/25 21:26 3.125 MG Cyclobenzaprine HCl 10 mg QPM PO 02/18/25 18:00 02/21/25 17:56 10 MG Levothyroxine Sodium 100 mcg DAILY@0600 PO 02/19/25 06:00 02/22/25 06:23 100 MCG Losartan Potassium 25 mg DAILY PO 02/19/25 10:00 02/20/25 09:03 25 MG Sildenafil Citrate 20 mg DAILY PO 02/19/25 10:00 02/22/25 10:34 20 MG Atorvastatin Calcium 40 mg HS PO 02/18/25 22:00 02/21/25 23:24 40 MG Furosemide 40 mg DAILY IV 02/19/25 10:00 02/22/25 10:35 40 MG Pantoprazole Sodium 40 mg DAILY IV 02/18/25 15:00 02/22/25 10:34 40 MG Zolpidem Tartrate 5 mg HSPRN PRN PO 02/18/25 22:00 02/21/25 23:24 5 MG Docusate Sodium 100 mg BIDPRN PRN PO 02/18/25 17:30 02/22/25 11:19 100 MG Ceftriaxone Sodium 50 ml @ 100 mls/hr DAILY@09 IV 02/18/25 17:30 02/22/25 10:35 100 MLS/HR Insulin Glargine 25 units BID@0700,2200 [place] 02/19/25 22:00 02/22/25 06:22 25 UNITS Guaifenesin/ Codeine Phosphate 10 ml Q6HP PRN PO 02/19/25 17:30 02/21/25 16:25 10 ML Acetaminophen/ Hydrocodone Bitart 1 tab Q4HPRN PRN PO 02/20/25 16:45 02/22/25 08:34 1 TAB Methylprednisolone Sodium Succinate 60 mg BID IV 02/21/25 10:00 02/22/25 10:35 60 MG Diagnostic Test (Pha) 1 strip IQ4HR 02/22/25 00:00 02/22/25 11:25 1 STRIP Insulin Human Regular IQ4HR [place] 02/22/25 00:00 02/22/25 11:23 20 UNITS Dextrose 50 ml UD PRN IV 02/21/25 20:45 Laboratory Results Laboratory Tests 02/20/25 04:56 Urinalysis Test 02/18/25 16:30 Urine Color Dark yellow (Yellow) Urine Clarity Ex.turbid (Clear) Urine pH 6.5 (5.0-9.0) Urine Specific [place] 1.021 (1.001-1.035) Urine Protein Trace (Negative) H Urine Ketones Negative (Negative) Urine Blood 1+ /uL (Negative) H Urine Nitrite Negative (Negative) Urine Bilirubin Negative (Negative) Urine Urobilinogen Normal mg/dL (Negative) Urine Leukocyte Esterase 3+ /uL (Negative) Urine RBC 83 /hpf (0 - 4) Urine WBC Clumps Present /hpf (None Seen) Urine Microscopic WBC 1815 /HPF (0-5) H Urine Squamous Epithelial Cells Mod /hpf (<5) Urine Bacteria None seen /hpf (None Seen) Urine Hyaline Casts Few /lpf (0 - 2) Urine Yeast (Budding) Loaded /hpf (None Seen) Urine Glucose 4+ mg/dL (Normal) H Microbiology Microbiology Date/Time Source Procedure Growth Status 02/18/25 13:20 Blood Blood Culture - Preliminary NO GROWTH AFTER 72 HOURS OF INCUBATION. Resulted Assessment/Plan Assessment/Plan 59-year-old female with a known history of chronic respiratory failure on home O2, COPD, paroxysmal AFib currently on Eliquis presented to the hospital with the increasing shortness a breath found to have 1. Acute on chronic hypoxic respiratory failure secondary to acute COPD exacerbation 2. Acute COPD exacerbation 3. Paroxysmal AFib currently on Eliquis 4. Hypertension 5. Insulin-dependent diabetes mellitus -continue med nebs, O2 supplementation, IV Solu-Medrol, discharge plan Plan discussed with: Patient Date of Service: Feb 22, 2025 Billing Provider: AN LIND MD Common Visit Codes: [id number] INP/OBS CARE(HIGH) AN LIND MD Feb 22, 2025 14:41
[2025-02-23] VITALS (16 sets, daily range): BP systolic 93–125; BP diastolic 61–83; PULSE 78–103; RESP 16–19; TEMP 97.7–98.5; O2SAT 95–100
[2025-02-23] MEDS ORDERED: ALBU0.084 NEB (13:18)
[2025-02-23] MEDS ORDERED: PRED20TA2 PO (13:18)
[2025-02-23] MEDS ORDERED: IPRA0.03 (13:18)
[2025-02-23] MEDS ORDERED: POLY335015 PO (13:21)
--- NOTE | 2025-02-23 13:24 | DVHDS2 ---
Discharge Summary Date of Admission Feb 18, 2025 at 14:50 Date of Discharge: Feb 23, 2025 Labs/Diagnostic Data: Laboratory Results Test 02/23/25 11:35 02/20/25 04:56 02/19/25 05:16 02/18/25 16:30 POC Glucose 321 mg/dl (70-106) White Blood Count 17.0 10^3/uL (4.4-10.8) Red Blood Count 3.94 10^6/uL (4.0-5.20) Hemoglobin 11.5 g/dL (12.2-16.2) Hematocrit 34.2 % (36.0-46.0) Mean Corpuscular Volume 86.8 fL (80.0-100.0) Mean Corpuscular Hemoglobin 29.3 pg (28.0-32.0) Mean Corpuscular Hemoglobin Concent 33.7 g/dL (32.0-36.0) Red Cell Distribution Width 14.1 % (11.8-14.3) Platelet Count 180 10^3/uL (140-450) Mean Platelet Volume 7.6 fL (6.9-10.8) Neutrophils (%) (Auto) 85.5 % (37.0-80.0) Lymphocytes (%) (Auto) 8.3 % (10.0-50.0) Monocytes (%) (Auto) 6.1 % (0.0-12.0) Eosinophils (%) (Auto) 0.0 % (0.0-7.0) Basophils (%) (Auto) 0.1 % (0.0-2.0) Neutrophils # (Auto) 14.6 10 ^3/uL (1.6-8.6) Lymphocytes # (Auto) 1.4 10 ^3/uL (0.4-5.4) Monocytes # (Auto) 1.0 10 ^3/uL (0-1.3) Eosinophils # (Auto) 0 10 ^3/uL (0-0.8) Basophils # (Auto) 0 10 ^3/uL (0-0.2) Nucleated Red Blood Cells 0.1 % Sodium Level 142 mmol/L (136-145) Potassium Level 3.8 mmol/L (3.5-5.1) Chloride Level 103 mmol/L (98-107) Carbon Dioxide Level 30 mmol/L (20-31) Anion Gap 9 (5-15) Blood Urea Nitrogen 19 mg/dL (9-23) Creatinine 0.78 mg/dL (0.550-1.02) Glomerular Filtration Rate Calc 86 mL/min (>90) BUN/Creatinine Ratio 24.4 (10.0-20.0) Serum Glucose 233 mg/dL (74-106) Calcium Level 10.8 mg/dL (8.7-10.4) Total Bilirubin 0.5 mg/dL (0.2-1.0) Aspartate Amino Transferase (AST) 19 U/L (13-40) Alanine Aminotransferase (ALT) 19 U/L (7-40) Alkaline Phosphatase 81 U/L (46-116) Total Protein 6.8 g/dL (5.7-8.2) Albumin 3.5 g/dL (3.2-4.8) Urine Color Dark yellow (Yellow) Urine Clarity Ex.turbid (Clear) Urine pH 6.5 (5.0-9.0) Urine Specific [place] 1.021 (1.001-1.035) Urine Protein Trace (Negative) Urine Ketones Negative (Negative) Urine Blood 1+ /uL (Negative) Urine Nitrite Negative (Negative) Urine Bilirubin Negative (Negative) Urine Urobilinogen Normal mg/dL (Negative) Urine Leukocyte Esterase 3+ /uL (Negative) Urine RBC 83 /hpf (0 - 4) Urine WBC Clumps Present /hpf (None Seen) Urine Microscopic WBC 1815 /HPF (0-5) Urine Squamous Epithelial Cells Mod /hpf (<5) Urine Bacteria None seen /hpf (None Seen) Urine Hyaline Casts Few /lpf (0 - 2) Urine Yeast (Budding) Loaded /hpf (None Seen) Urine Glucose 4+ mg/dL (Normal) Urine Opiates Screen Neg (NEGATIVE) Urine Fentanyl Screen Neg (NEGATIVE) Urine Barbiturates Screen Neg (NEGATIVE) Urine Phencyclidine Screen Neg (NEGATIVE) Urine Amphetamines Screen Neg (NEGATIVE) Urine Benzodiazepines Screen Neg (NEGATIVE) Urine Cocaine Screen Neg (NEGATIVE) Urine Cannabinoids Screen Neg (NEGATIVE) Test 02/18/25 13:11 02/18/25 12:44 D-Dimer, Quantitative 0.74 mg/L FEU (0.0-0.49) Lactic Acid Level 1.6 mmol/L (0.4-2.0) Troponin I High Sensitivity 3 ng/L (</=34) B-Type Natriuretic Peptide 31.75 pg/mL (0-100) Triglycerides Level 89 mg/dL (< 150) Cholesterol Level 89 mg/dL (< 200) LDL Cholesterol 42 mg/dL (< 100) HDL Cholesterol 35 mg/dL (40-59) Thyroid Stimulating Hormone (TSH) 0.16 uIU/mL (0.55-4.78) Free Thyroxine (T4) Calculated 1.11 ng/dL (0.89-1.76) Influenza Type A Antigen Negative (Negative) Influenza Type B Antigen Negative (Negative) SARS-CoV-2 Antigen (Rapid) Negative (NEGATIVE) Other Laboratory Tests 02/20/25 04:56 Brief Hx & Hospital Course: 59-year-old female with a known history of chronic respiratory failure on home O2, COPD, paroxysmal AFib currently on Eliquis presented to the hospital with the increasing shortness a breath found to have acute on chronic hypoxic respiratory failure secondary to acute COPD exacerbation. Patient was treated with the O2 supplementation IV Solu-Medrol empirical antibiotics and med nebs. Patient's hospital course was uneventful. Patient is requesting new follow up for home. Patient is also requesting med nebs as well as some laxative. Patient is being discharged under stable condition. Patient's leukocytosis secondary to IV Solu-Medrol no evidence of any infection. Condition at Discharge: Stable Final Diagnosis/Problems List 59-year-old female with a known history of chronic respiratory failure on home O2, COPD, paroxysmal AFib currently on Eliquis presented to the hospital with the increasing shortness a breath found to have 1. Acute on chronic hypoxic respiratory failure secondary to acute COPD exacerbation 2. Acute COPD exacerbation 3. Paroxysmal AFib currently on Eliquis 4. Hypertension 5. Insulin-dependent diabetes mellitus -continue med nebs, O2 supplementation, IV Solu-Medrol, discharge plan Discharge Disposition: Home SNF Discharge Will this Physician continue t: No Discharge Instruct/Medications Diet: Cardiac 2g Na,low cholest Diet comment: 1800 diabetic diet Activity: No Restrictions, As Tolerated Follow Up/Referral: Please follow up with the PCP in 1-2 weeks Medications: Prednisone and med nebs as prescribed. New Medications: Albuterol Sulfate (Albuterol Sulfate) 0.083 % Neb 1 VIAL NEB Q4HPRN, #50 VIAL Ipratropium Jefferson (Ipratropium Jefferson) 0.03 % Spr 0.03 % NA Q6HP PRN for 30 Days, #30 SPRAY Polyethylene Glycol 3350 (Miralax) 17 Gm Pow 17 GM PO DAILYP PRN, #30 POW Prednisone (Prednisone) 20 Mg Tab 20 MG PO BID for 5 Days, #10 MG Continued Medications: Amlodipine Besylate (Amlodipine Besylate) 5 Mg Tab 1 TAB PO DAILY for 30 Days, #30 TAB 1 Refill Apixaban Base (Eliquis) 5 Mg Tab 1 TAB PO BID for 30 Days, #60 TAB 1 Refill Aspirin (Aspirin Low Dose) 81 Mg Tab 1 TAB PO DAILY for 30 Days, #30 TAB 1 Refill Atorvastatin Calcium (Atorvastatin Calcium) 40 Mg Tab 1 TAB PO DAILY for 14 Days, #14 TAB 1 Refill Carvedilol (Carvedilol) 3.125 Mg Tab 1 TAB PO BID for 14 Days, #28 TAB 1 Refill Cyclobenzaprine Hcl (Cyclobenzaprine Hcl) 10 Mg Tab 10 MG PO QPM for 30 Days, MG Diclofenac Sodium (Topical) (Voltaren Arthritis Pain) 1 % Gel 1 % EX BIDPRN PRN for 30 Days, #1 GEL Furosemide (Furosemide) 40 Mg Tab 1 TAB PO BID for 14 Days, #28 TAB 1 Refill Insulin Aspart (Novolog Flexpen Relion) 100 Unit/Ml Inj 8 UNIT SC TIDWMEALS for 30 Days, #2 INJ 1 Refill Insulin Glargine (Lantus Solostar) 100 Unit/Ml Inj 15 UNIT SC HS for 30 Days, #2 INJ 1 Refill Lactulose (Lactulose) Unknown Strength Tatiana Unknown Dose PO Levothyroxine Sodium (Levothyroxine Sodium) 100 Mcg Tab 1 TAB PO DAILY for 30 Days, #30 TAB 1 Refill Lidocaine (Lidocaine Patch 5%) 5 % Pad 5 % EX, PAD Losartan Potassium (Losartan Potassium) 25 Mg Tab 1 TAB PO DAILY for 30 Days, #30 TAB 1 Refill Montelukast Sodium (Montelukast Sodium) 10 Mg Tab 1 TAB PO DAILY for 30 Days, #30 TAB 0 Refills Sildenafil Citrate (Sildenafil Citrate) 20 Mg Tab 1 TAB PO DAILY for 30 Days, #30 TAB 1 Refill Discontinued Medications: Azithromycin (Azithromycin) 500 Mg Tab 1 TAB PO DAILY, #5 TAB Prednisone (Prednisone) 20 Mg Tab 40 MG PO DAILY for 5 Days, #10 MG Scheduled Albuterol Sulfate (Albuterol Sulfate), 1 VIAL NEB Q4HPRN Amlodipine Besylate (Amlodipine Besylate), 1 TAB PO DAILY Apixaban Base (Eliquis), 1 TAB PO BID Aspirin (Aspirin Low Dose), 1 TAB PO DAILY Atorvastatin Calcium (Atorvastatin Calcium), 1 TAB PO DAILY Azithromycin (Azithromycin), 1 TAB PO DAILY Carvedilol (Carvedilol), 1 TAB PO BID Cyclobenzaprine Hcl (Cyclobenzaprine Hcl), 10 MG PO QPM, (Reported) Furosemide (Furosemide), 1 TAB PO BID Insulin Aspart (Novolog Flexpen Relion), 8 UNIT SC TIDWMEALS Insulin Glargine (Lantus Solostar), 15 UNIT SC HS Levothyroxine Sodium (Levothyroxine Sodium), 1 TAB PO DAILY Losartan Potassium (Losartan Potassium), 1 TAB PO DAILY Montelukast Sodium (Montelukast Sodium), 1 TAB PO DAILY Prednisone (Prednisone), 40 MG PO DAILY Prednisone (Prednisone), 20 MG PO BID Sildenafil Citrate (Sildenafil Citrate), 1 TAB PO DAILY Scheduled PRN Diclofenac Sodium (Topical) (Voltaren Arthritis Pain), 1 % EX BIDPRN PRN Ipratropium Jefferson (Ipratropium Jefferson), 0.03 % NA Q6HP PRN Polyethylene Glycol 3350 (Miralax), 17 GM PO DAILYP PRN Miscellaneous Medications Lactulose (Lactulose), Unknown Dose PO, (Reported) Lidocaine (Lidocaine Patch 5%), 5 % EX, (Reported) Discharge Statement: "Patient was advised to return to the ER or call 911 if any headaches, dizziness, shortness of breath, chest pain, abdominal pain, bleeding, fevers, or worsening of medical condition. Patient was counseled about treatment plan, medications, possible side effects, patientverbalized understanding. All questions were answered to the best of my ability. This discharge took greater then 30 minutes in planning, reviewing documentation, counseling the patient, and discussing with other team members." ASSESSMENT ASSESSMENT Assessment 59-year-old female with a known history of chronic respiratory failure on home O2, COPD, paroxysmal AFib currently on Eliquis presented to the hospital with the increasing shortness a breath found to have 1. Acute on chronic hypoxic respiratory failure secondary to acute COPD exacerbation 2. Acute COPD exacerbation 3. Paroxysmal AFib currently on Eliquis 4. Hypertension 5. Insulin-dependent diabetes mellitus -continue med nebs, O2 supplementation, IV Solu-Medrol, discharge plan Date of Service: Feb 23, 2025 Billing Provider: AN LIND MD Common Visit Codes: 21464-MED/OBS DISCH DAY >30min AN LIND MD Feb 23, 2025 13:24
== END 2025-02-23 22:52 | disposition home or self-care (01) | DRG 133 ==
LOC: ER 12:17 → EDUNIT# 12:17 → EDBD 12:17 → OVERFLOW 14:50 → TELE-CENTR 20:55
PROVIDERS: ADMIT Internal Medicine; ATTEND Internal Medicine
DX: J96.21 Acute and chronic respiratory failure with hypoxia (principal); I27.21 Secondary pulmonary arterial hypertension; I11.0 Hypertensive heart disease with heart failure; N39.0 Urinary tract infection, site not specified; Z79.01 Long term (current) use of anticoagulants; J44.1 Chronic obstructive pulmonary disease with (acute) exacerbation; E03.9 Hypothyroidism, unspecified; E11.9 Type 2 diabetes mellitus without complications; I50.9 Heart failure, unspecified; I48.0 Paroxysmal atrial fibrillation; E78.5 Hyperlipidemia, unspecified; T38.0X5A Adverse effect of glucocorticoids and synthetic analogues, initial encounter; Z88.1 Allergy status to other antibiotic agents; Z99.81 Dependence on supplemental oxygen; Z98.51 Tubal ligation status; Z79.4 Long term (current) use of insulin; Z79.82 Long term (current) use of aspirin; Z79.2 Long term (current) use of antibiotics; Z79.899 Other long term (current) drug therapy; Z87.01 Personal history of pneumonia (recurrent); Z87.11 Personal history of peptic ulcer disease; Z87.891 Personal history of nicotine dependence; Z82.49 Family history of ischemic heart disease and other diseases of the circulatory system; Y92.89 Other specified places as the place of occurrence of the external cause
CPT/HCPCS: 36415; 71045; 80048; 80053; 80061; 80307; 81001; 82962; 83605; 83880; 84439; 84443; 84484; 85025; 85379; 87040; 87426; 87804; 93005; 94640; 97163; 99291; G0378; J1815; J2470